=== PATIENT | female | born 1970 | race Caucasian/White ===

== ENCOUNTER → 2020-06-14 11:48 | Outpatient (BNVA) | payer OTHER, SELFPAY | PROVIDERS: PCP Family Medicine; Referring Provider Family Medicine; Visit Provider Urology | DX: Z76.89 Persons encountering health services in other specified circumstances (principal) | CPT/HCPCS: 99202 ==

== ENCOUNTER 2020-06-26 12:11 | Outpatient (REF) | payer OTHER, SELFPAY ==
[2020-06-26 13:04] LABS: Glucose Urine UA NEG (NEG); Leukocyte Esterase Urine 2+ (NEG); Nitrite Urine POS (NEG); PH 5.5 (5.0-8.0); Specific Gravity - Urine 1.025 (1.005-1.025); Urine Blood TRACE (NEG); Urine Ketones NEG (NEG); Urine Protein NEG (NEG-TRACE)
[2020-06-26 13:06] LABS: Appearance Urine CLOUDY; Color Urine YELLOW
[2020-06-26 13:19] LABS: Bacteria Urine 2+ /LPF; Mucus Urine TRACE /LPF; RBC Urine 0-2 /HPF (0); Squamous Epithelial Cell Urine 1+ /LPF
== END 2020-06-26 12:12 | disposition home or self-care (01) ==
LOC: HO.LAB 12:11
PROVIDERS: Visit Provider Urology
DX: R35.0 Frequency of micturition (principal)
CPT/HCPCS: 81001; 87086; 87088; 87186

== ENCOUNTER → 2020-07-26 11:12 | Outpatient (BNVA) | payer OTHER, SELFPAY | PROVIDERS: PCP Family Medicine; Visit Provider Urology | DX: Z76.89 Persons encountering health services in other specified circumstances (principal) ==

== ENCOUNTER → 2020-08-23 11:39 | Outpatient (BNVA) | payer OTHER, SELFPAY | PROVIDERS: Visit Provider Urology ==

== ENCOUNTER 2020-09-22 13:59 | Outpatient (REF) | payer OTHER, SELFPAY ==
[2020-09-22 14:12] LABS: Appearance Urine CLEAR; Color Urine YELLOW; Glucose Urine UA 100 MG/DL (NEG); Leukocyte Esterase Urine NEG (NEG); Nitrite Urine NEG (NEG); Specific Gravity - Urine 1.025 (1.005-1.025); Urine Blood NEG (NEG); Urine Ketones NEG (NEG); Urine Protein NEG (NEG-TRACE)
[2020-09-22 14:22] LABS: Bacteria Urine 1+ /LPF; RBC Urine 0 /HPF (0); Squamous Epithelial Cell Urine 1+ /LPF; Urine Talc Crystals TRACE /LPF; WBC Urine 0-2 /HPF (0-4)
[2020-09-22 15:35] LABS: Osmolality Urine 481 mosm/kg (373-1093)
[2020-09-23 17:17] LABS: Urea, 24 Hr Urine 5 g/24 h (6-17)
== END 2020-09-22 14:00 | disposition home or self-care (01) ==
LOC: HO.LNP 13:59
PROVIDERS: Visit Provider Psychiatry & Neurology Neurology
DX: R35.8 Other polyuria (principal)
CPT/HCPCS: 81001; 83935; 84540

== ENCOUNTER 2021-04-12 19:00 | Emergency (ER) | payer OTHER, SELFPAY ==
[2021-04-12 20:04] VITALS: BP 198/96; PULSE 84; RESP 16; TEMP 36.6; O2SAT 98; BMI 38.2
== END 2021-04-12 21:47 | disposition left against medical advice (07) ==
PROVIDERS: Emergency Provider Emergency Medicine; PCP Internal Medicine
DX: R51.9 Headache, unspecified (principal)
CPT/HCPCS: 99281; 99282

== ENCOUNTER 2021-04-23 12:25 | Outpatient (REF) | payer OTHER, SELFPAY ==
[2021-04-23 12:50] LABS: MANUAL DIFF FLAG NO
[2021-04-23 13:22] LABS: Basophils Percent Auto 0.3 % (0-2); Eosinophils Absolute Auto 0.1 X10*3/uL (0.0-0.4); Eosinophils Percent Auto 1.2 % (0-4); Imm Gran Abs Auto 0.01 X10*3/uL (0.00-0.03); Imm Gran Pct Auto 0.2 % (0.0-0.4); Lymphocytes Absolute Auto 2.2 X10*3/uL (1.2-4.9); Lymphocytes Percent Auto 33.7 % (20-40); Mean Corpuscular HGB Conc 33.3 g/dl (31.0-35.0); Mean Corpuscular Hemoglobin 27.8 pg (27.0-33.0); Mean Corpuscular Volume 83.3 fL (80-98); Mean Platelet Volume 12.5 fL (9.4-12.3); Monocytes Absolute Auto 0.3 X10*3/uL (0.1-1.2); Monocytes Percent Auto 4.2 % (2-11); Neutrophils Absolute Auto 3.9 X10*3/uL (2.0-8.3); Neutrophils Percent Auto 60.4 % (45-73); Platelet Count 300 X10*3/uL (160-400); Red Blood Count 4.68 X10*6/uL (4.20-5.50); Red Cell Distribution Width 13.4 % (11.0-16.0); White Blood Count 6.5 X10*3/uL (4.8-10.8)
[2021-04-23 13:40] LABS: Blood Urea Nitrogen 7 mg/dL (9-16); C Reactive Protein 0.42 mg/dL (< or = 0.50); Estimated Glomerular Filt Rate 57
[2021-04-23 13:59] LABS: Erythrocyte Sedimentation Rate 16 MM/HR (0-20)
[2021-04-24 13:06] LABS: Lyme Abs Screen <0.90 index
[2021-04-25 12:07] LABS: Anti Nuclear Antibody Screen NEGATIVE (NEGATIVE)
== END 2021-04-23 12:26 | disposition home or self-care (01) ==
LOC: HO.LAB 12:25
PROVIDERS: PCP Internal Medicine; Visit Provider Psychiatry & Neurology Neurology
DX: R56.9 Unspecified convulsions (principal); Z86.73 Personal history of transient ischemic attack (TIA), and cerebral infarction without residual deficits
CPT/HCPCS: 36415; 82565; 84520; 85025; 85652; 86038; 86039; 86140; 86617; 86618

== ENCOUNTER 2021-06-01 09:25 | Outpatient (REF) | payer OTHER, SELFPAY ==
[2021-06-01 10:33] LABS: Blood Urea Nitrogen 11 mg/dL (9-16); Estimated Glomerular Filt Rate 42
== END 2021-06-01 09:26 | disposition home or self-care (01) ==
LOC: HO.CT 09:25
PROVIDERS: Visit Provider Psychiatry & Neurology Neurology
DX: I63.9 Cerebral infarction, unspecified (principal)
CPT/HCPCS: 36415; 82565; 84520

== ENCOUNTER 2021-06-05 14:51 | Outpatient (REF) | payer OTHER, SELFPAY ==
--- NOTE | ~2021-06-05 | CT_ITS ---
EXAMINATION: CT ANGIOGRAM BRAIN, HEAD CLINICAL INFORMATION: Stroke. COMPARISON: Head CT 02/29/2020. Brain MRI 09/30/2019. TECHNIQUE: Test bolus sequences followed by intravenous administration 75 mL of Omnipaque 350 intravenous contrast. Helical imaging was performed in the axial plane from the skull base to the vertex. Delayed postcontrast imaging of the head was also performed. The data was processed at the mining engineering technologist workstation for generation of MIP sequences. Three-dimensional volume rendered reformatted images were also generated at an offline 3-D workstation. The degree of stenosis determined by NASCET criteria. This CT examination was performed using dose optimization techniques as appropriate, variously including the following: *Automated exposure control *Adjustment of mA and/or kV according to patient size (this includes techniques or standardized protocols for targeted exams where dose is matched to indication/reason for exam; i.e. extremities or head) *Use of iterative reconstruction technique DLP: 2298 mGy-cm FINDINGS: Head CT: There is redemonstration of chronic infarcts involving the left posterior parietal and temporal lobes as well as the temporal occipital junction. Small areas of chronic infarction are noted involving the deep left frontoparietal white matter and right frontal lobe. Chronic lacunar infarcts are seen within the bilateral basal ganglia, bilateral thalami, and andreea. No acute appearing infarction is seen. Hypoattenuation is seen within the cerebral white matter compatible chronic microangiopathy. There is no abnormal enhancement. There is no mass effect. The ventricular caliber is stable. There is ex vacuo dilatation of the posterior left lateral ventricle. The extracranial structures are within normal limits. Right-sided craniotomy changes are noted. 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 Head CTA: Atheromatous changes are seen at the bilateral carotid siphons. There is moderate stenosis of the paraclinoid segment of the left internal carotid artery. There is focal moderate stenosis of the left M1 MCA segment. The right MCAs patent. The bilateral ACAs are patent. The intradural segments of the vertebral arteries and basilar artery are patent. There is -type origin of the left POKE IN. Both ship unloader are patent. No aneurysm is seen. CT/CT angio head IMPRESSION: No acute intracranial abnormality. Multiple chronic cortical infarcts, largest in the left posterior parietal and temporal lobes as well as in the temporal occipital junction. Multiple chronic lacunar infarcts are also seen within the basal ganglia, thalami, and andreea. Background changes of chronic microangiopathy. Moderate stenosis of the paraclinoid segment of the left internal carotid artery and additional moderate stenosis of the left M1 MCA segment.
[2021-06-05] MEDS: iohexoL 350 MG/ML 100 ML INFUS..BTL IV (16:08)
== END 2021-06-05 14:52 | disposition home or self-care (01) ==
LOC: HO.CT 14:51
PROVIDERS: PCP Internal Medicine; Visit Provider Psychiatry & Neurology Neurology
DX: I63.9 Cerebral infarction, unspecified (principal)
CPT/HCPCS: 70496; Q9967

== ENCOUNTER → 2021-08-14 14:18 | Outpatient (BNVA) | payer OTHER, SELFPAY | PROVIDERS: PCP Internal Medicine; Referring Provider Internal Medicine; Visit Provider Internal Medicine Cardiovascular Disease | DX: I10 Essential (primary) hypertension (principal); R07.9 Chest pain, unspecified | CPT/HCPCS: 93005; 99202 ==

== ENCOUNTER → 2021-08-30 08:22 | Outpatient (REF) | payer OTHER, SELFPAY ==
--- NOTE | ~2021-08-30 | NM_ITS ---
Myocardial perfusion study Indication: Chest pain to evaluate for myocardial ischemia Technique: The patient was brought in for a Lexiscan perfusion study on 08/30/2021. Patient performed low-level exercise and was injected 0.4 mg of Lexiscan intravenously. Within a minute of injection, 30 mCi of sestamibi was given intravenously. Images were obtained using the SPECT gamma camera interlaced with the gating device. Images were obtained in supine position. Resting perfusion study was performed on 08/31/2021. Patient was administered 29 mCi of sestamibi intravenously at rest. Images were then obtained in supine position. Images obtained with and without CT attenuation. Total DLP 189 mGy-cm. Images were processed with the software and compared side to side in short axis, horizontal long axis and vertical long axis views. Findings: The stress perfusion study showed both attenuated corrected as well as non attenuated images show normal uptake of radiotracer in all segments of LV myocardium.. The gated study shows normal LV systolic function with calculated LVEF of 68%. LV cavity is normal in size. The gated study shows normal systolic wall thickening and contraction of segments. Resting study shows no change in perfusion pattern compared to stress perfusion study. Gating at rest reveals normal systolic wall motion with ejection fraction at greater than 70 %. The findings are consistent with normal myocardial perfusion. NM/NM martin perf SPECT rest & str Impression: 1. Myocardial perfusion imaging study shows normal myocardial perfusion 2. Gated LVEF is 68% 3. Transient ischemic dilatation not present EKG is nondiagnostic for ischemia
--- NOTE | 2021-08-30 08:25 | CA_ITS ---
Acquisition Time: 2021-08-30 08:32:44 Total Exercise Time: 00:02:00 Test Indications: CP, ABN EKG, SOB Medications: SEE CHART Protocol: LEXISCAN Max HR: 100 BPM 59% of Pred: 167 BPM Max BP: 146/078 mmHG Max Work Load: 1.0 METS Pharmacological stress test with Lexiscan injection, while sitting and kicking her legs, without anginal symptoms, without arrythmia, with normotensive response to injection, with nonspecific ST/ T wave abnormalities which are more pronounced post injection - nondiagnostic for ischemia. In recovery she reported that her chest felt strange and she was treated with Aminophylline 75mg IVP to reverse Lexiscan with improvement in symptom. Nuclear image pending. Test reviewed with Dr Velazquez. Referred By: Hilario Serrano Overread By: DAISY GÓMEZ
== END ==
LOC: HO.CARD 08:22
PROVIDERS: Visit Provider Internal Medicine Cardiovascular Disease
DX: R07.9 Chest pain, unspecified (principal)
CPT/HCPCS: 78452; 93017; A9500; J0280; J2785

== ENCOUNTER → 2021-09-12 07:21 | Outpatient (REF) | payer OTHER, SELFPAY ==
--- NOTE | 2021-09-12 07:33 | CA_ITS ---
Transthoracic Echocardiogram Patient (Last, First, Middle): Esmer Rock M Gender: Female Date of : 1970 Age: 51 Procedure Date: 09/12/2021 Procedure Type: Transthoracic Echocardiogram Location: OP Height: 167.64 cm Weight: 104.33 kg BSA: 2.12 m2 Heart Rate: bpm BP: 170 / 108 mmHg Chief Deputy: KELLEN Referring MD: Hilario Serrano MD Symptoms: I10 - Essential (primary) hypertension Study Quality: Technically Difficult/contrast ECG Rhythm: Sinus Conclusions: - The left ventricular systolic function is normal. The calculated ejection fraction is 68% by biplane method. - There is severely increased left ventricular wall thickness. - There is mild calcification of the aortic valve. - There is mild dilatation of the ascending aorta measuring 4.00 cm. Findings Procedure Information Contrast agent, definity, is being given per protocol without apparent complications. Left Ventricle Normal left ventricular cavity size. There is severely increased left ventricular wall thickness. The left ventricular systolic function is normal. The calculated ejection fraction is 68% by biplane method. There is no evidence of regional wall motion abnormalities. Evidence suggests grade I (mild) diastolic dysfunction. Right Ventricle Normal right ventricular cavity size and systolic function. Atria Both atria are normal in size. Aortic Valve There is a normal trileaflet aortic valve. There is mild calcification of the aortic valve. There is no aortic valve stenosis. There is no aortic valve regurgitation. Mitral Valve The mitral valve appears normal. There is no mitral valve regurgitation. There is no mitral valve stenosis. Pulmonic Valve The pulmonic valve was not well visualized. Tricuspid Valve There is trace tricuspid valve regurgitation. The pulmonary artery systolic pressure is normal. Great Vessels There is mild dilatation of the ascending aorta measuring 4.00 cm. Venous The inferior vena cava is normal in size. Pericardium/Pleural There is no evidence of pericardial effusion. Prior Study Comparison Changes noted compared to prior study dated: 05/08/2015. Increase in ascending aortic size. Measurements 2D Linear Measurements IVSd: 1.73 0.6-0.9/0.6-1.0 cm LVIDd: 4.15 3.9-5.3/4.2-5.9 cm LVIDd Index: 1.96 2.4-3.2/2.2-3.1 cm/m2 LVIDs: 3.33 2.0-3.6 cm LVPWd: 1.19 0.7-1.1 cm Ao Root: 3.00 2.1-3.5 cm LA Diam: 3.90 2.7-3.8/3.0-4.0 cm LAIDs Index: 1.84 1.5-2.3 cm/m2 LV Mass: 293.20 67-162/88-224 g LV Mass Index: 138.30 43-95/49-115 g/m2 LVOT Diam: 2.20 3.0+(-)1.3 cm 2D Systolic Function EF 4C: 68.40 >55% EF 2C: 66.00 >55% EF BiP: 67.60 >55% Mitral Valve MV Pk E: 0.40 MV PK A: 0.88 MV Decel Time: 194.00 E/A: 0.50 E'Lateral: 4.13 E'Medial: 3.92 E/E' Med: 10.20 E/E' Lat: 9.60 PHT: 57.00 MVA PHT: 3.86 Decel Stephens: 2.05 Aortic Valve AoV Pk Toby: 1.27 AoV Mn Toby: 0.90 AoV VTI: 0.25 AoV Pk Grad: 6.00 Aov Mn Grad: 4.00 VENITA Cont.VTI: 2.42 LVOT LVOT Pk Toby: 0.85 LVOT Mn Toby: 0.62 LVOT VTI: 0.16 LVOT Pk Grad: 3.00 LVOT Mn Grad: 2.00 LVOT Diam: 2.20 LVOT Area: 3.80 Diastolic Function MV Pk E: 0.40 MV Pk A: 0.88 E/A: 0.50 E'Medial: 3.92 E/E' Med: 10.20 E' Laterial: 4.13 E/E' Lat: 9.60 Right Ventricle TAPSE (mm): 17.00 TVS' Toby: 9.46 Tricuspid Valve TR Pk Toby: 1.15 TR Pk Grad: 5.00 Great Vessels Aorta Ao Root-2D: 3.00 2.0-3.7 cm Ao Asc: 4.00 2.1-3.4 cm Ao Arch: 3.20 Updated in Other Vendor System with Status of Final Jose Miguel Theodore MD electronically signed on 09/14/2021 4:08:12 PM with status of Final
== END ==
LOC: HO.CARD 07:21
PROVIDERS: PCP Internal Medicine; Visit Provider Internal Medicine Cardiovascular Disease
DX: I10 Essential (primary) hypertension (principal); Z86.73 Personal history of transient ischemic attack (TIA), and cerebral infarction without residual deficits
CPT/HCPCS: 93306; Q9957

== ENCOUNTER → 2021-09-20 12:53 | Outpatient (BNVA) | payer OTHER, SELFPAY | PROVIDERS: PCP Internal Medicine; Referring Provider Internal Medicine; Visit Provider Nurse Practitioner Family | DX: R07.9 Chest pain, unspecified (principal); I51.7 Cardiomegaly; I10 Essential (primary) hypertension; E78.5 Hyperlipidemia, unspecified; E66.9 Obesity, unspecified; Z68.38 Body mass index [BMI] 38.0-38.9, adult; Z86.73 Personal history of transient ischemic attack (TIA), and cerebral infarction without residual deficits | CPT/HCPCS: 99212 ==

== ENCOUNTER 2022-02-01 08:36 | Outpatient (REF) | payer OTHER, SELFPAY ==
[2022-02-02 14:53] LABS: BV Int Neg Control Negative (Negative); BV Int Pos Control Positive (Positive)
== END 2022-02-01 08:37 | disposition home or self-care (01) ==
LOC: HO.LAB 08:36
PROVIDERS: Visit Provider Advanced Practice Midwife
DX: N89.8 Other specified noninflammatory disorders of vagina (principal); L29.2 Pruritus vulvae; N63.0 Unspecified lump in unspecified breast
CPT/HCPCS: 87480; 87510; 87660; 99212

== ENCOUNTER 2022-02-14 09:25 | Outpatient (REF) | payer OTHER, SELFPAY ==
--- NOTE | ~2022-02-14 | MM_ITS ---
EXAMINATION: MM DIAGNOSTIC DIGITAL BREAST TOMOSYNTHESIS, BILATERAL US DIAGNOSTIC ULTRASOUND BREAST, LEFT CLINICAL INFORMATION: Due for yearly. Chronic nodule posterior medial left breast, larger. Remote prior reduction mammoplasty, 2009. The lifetime risk of breast cancer based on the Tyrer-Cuzick Model is 9%. COMPARISON: Mammography: 07/29/2018, 07/17/2017, 04/16/2016; targeted left breast ultrasound 04/16/2016. TECHNIQUE: Digital breast tomosynthesis is performed in both the craniocaudal and mediolateral oblique views along with computer-aided detection (CAD). Synthesized 2D images are generated from the tomosynthesis. Ultrasound ultrasound left breast is targeted to the palpable nodule posterior medial breast 8:00 position. Grayscale imaging and color Doppler are performed without and with harmonics. FINDINGS: There are scattered areas of fibroglandular density (ACR BI-RADS breast composition Category b). Breast tissue composition borders on predominantly fatty. There is minor scarring consistent with the remote reduction mammoplasty. There is no interval new mass or architectural abnormality. There are scattered benign bilateral round calcifications, some are dermal. The axilla are unremarkable. No significant changes on right. Left breast has chronic circumscribed nodule overlying the deep dermis measuring approximately 1.0 x 1.5 cm compared with prior mammography measurements in 2018 and 2015 of 0.6 x 0.8 cm. Ultrasound demonstrates a circumscribed oval hypoechoic nodule corresponding to the palpable nodule and contacting the deep dermis with questionable small claw sign 8:00 position 11 cm from nipple measuring approximately 1.1 x 1.0 x 0.9 cm. There is scattered internal echogenicity and increased through-transmission of sound. There is no internal or circumferential color flow. A fine stalk to the skin surface is not perceptible. Results are discussed with the patient at time of visit. The chronic nodule posterior medial left breast most likely represents a slowly enlarging sebaceous cyst. It would be amenable to surgical excision. Patient Navigator to call report. MM/MM tomosynthesis diagnostic BI IMPRESSION: Left: -Chronic nodule posterior medial left breast likely sebaceous cyst, increased in size since 2016. -Remainder of left breast unremarkable. Right: -No mammographic evidence of malignancy. ASSESSMENT: BI-RADS 2: Benign RECOMMENDATION: 1. Patient should be managed based on the clinical impression. The probable sebaceous cyst posterior medial left breast would be amenable to surgical excision. 2. Otherwise, routine annual screening mammography. This patient's information was entered into a reminder system with a target due date for their next mammogram.
== END 2022-02-14 09:26 | disposition home or self-care (01) ==
LOC: HO.MAMMO 09:25
PROVIDERS: Visit Provider Advanced Practice Midwife
DX: N63.24 Unspecified lump in the left breast, lower inner quadrant (principal)
CPT/HCPCS: 76642; 77062; 77066

== ENCOUNTER → 2022-03-05 10:57 | Outpatient (BNVA) | payer OTHER, SELFPAY | PROVIDERS: PCP Internal Medicine; Visit Provider Internal Medicine | DX: K63.5 Polyp of colon (principal); K20.90 Esophagitis, unspecified without bleeding; R13.10 Dysphagia, unspecified; R19.7 Diarrhea, unspecified; Z79.01 Long term (current) use of anticoagulants; Z86.73 Personal history of transient ischemic attack (TIA), and cerebral infarction without residual deficits | CPT/HCPCS: 99202; 99212 ==

== ENCOUNTER → 2022-03-21 13:35 | Outpatient (BNVA) | payer OTHER, SELFPAY | PROVIDERS: PCP Internal Medicine; Visit Provider Surgery | DX: N63.24 Unspecified lump in the left breast, lower inner quadrant (principal) | CPT/HCPCS: 99202 ==

== ENCOUNTER → 2022-03-27 09:24 | Outpatient (BNVA) | payer OTHER, SELFPAY | PROVIDERS: PCP Internal Medicine; Referring Provider Internal Medicine; Visit Provider Internal Medicine Cardiovascular Disease | DX: I51.7 Cardiomegaly (principal); R07.9 Chest pain, unspecified | CPT/HCPCS: 99212 ==

== ENCOUNTER → 2022-04-11 13:42 | Outpatient (BNVA) | payer OTHER, SELFPAY | PROVIDERS: PCP Internal Medicine; Visit Provider Internal Medicine | DX: E66.9 Obesity, unspecified (principal); G47.19 Other hypersomnia; Z68.36 Body mass index [BMI] 36.0-36.9, adult | CPT/HCPCS: 99202 ==

== ENCOUNTER 2022-04-22 11:49 | Outpatient (REF) | payer OTHER, SELFPAY ==
[2022-04-22 12:44] LABS: Anion Gap 18 (12-20); Blood Urea Nitrogen 10 mg/dL (9-16); Calcium 9.5 mg/dL (8.4-10.2); Carbon Dioxide 24 mmol/L (22-29); Chloride 102 mmol/L (96-108); Estimated Glomerular Filt Rate 59; Glucose Random 241 mg/dL (60-115); Potassium 4.2 mmol/L (3.3-5.1); Sodium 140 mmol/L (135-145)
== END 2022-04-22 11:50 | disposition home or self-care (01) ==
LOC: HO.LAB 11:49
PROVIDERS: Visit Provider Internal Medicine Cardiovascular Disease
DX: I10 Essential (primary) hypertension (principal); I51.7 Cardiomegaly
CPT/HCPCS: 36415; 80048

== ENCOUNTER 2022-05-03 13:54 | Outpatient (REF) | payer OTHER, SELFPAY ==
[2022-05-03 14:28] LABS: Hematocrit 37.1 % (37.0-47.0); Hemoglobin 12.9 g/dl (12.0-16.0); Mean Corpuscular HGB Conc 34.8 g/dl (31.0-35.0); Mean Corpuscular Hemoglobin 29.5 pg (27.0-33.0); Mean Corpuscular Volume 84.9 fL (80.0-98.0); Mean Platelet Volume 12.4 fL (9.4-12.3); Platelet Count 290 X10*3/uL (160-400); Red Blood Count 4.37 X10*6/uL (4.20-5.50); White Blood Count 7.6 X10*3/uL (4.8-10.8)
[2022-05-03 14:35] LABS: Prothrombin Time 11.3 SEC (10.0-13.1)
[2022-05-03 14:51] LABS: Anion Gap 17 (12-20); Blood Urea Nitrogen 10 mg/dL (9-16); Calcium 9.3 mg/dL (8.4-10.2); Carbon Dioxide 27 mmol/L (22-29); Chloride 100 mmol/L (96-108); Estimated Glomerular Filt Rate 56; Glucose Random 234 mg/dL (60-115); Potassium 4.5 mmol/L (3.3-5.1); Sodium 139 mmol/L (135-145)
== END 2022-05-03 13:55 | disposition home or self-care (01) ==
LOC: HO.LAB 13:54
PROVIDERS: PCP Internal Medicine; Visit Provider Internal Medicine Cardiovascular Disease
DX: I25.10 Atherosclerotic heart disease of native coronary artery without angina pectoris (principal)
CPT/HCPCS: 36415; 80048; 85027; 85610

== ENCOUNTER 2022-05-07 10:42 | Outpatient (REF) | payer OTHER, SELFPAY ==
[2022-05-07 10:59] VITALS: BP 184/84; PULSE 78; RESP 19; TEMP 36.6; O2SAT 98; BMI 27.4
--- NOTE | 2022-05-07 11:36 | W.PM.OPN ---
Operative Note Operative Note Date of Service: 05/07/22 Narrative: Preoperative diagnosis: Left breast cyst Postoperative diagnosis: Same Procedure: Excision of left breast cyst Surgeon: Guero Rojas MD Banquet Server On Call: No physician Anesthesia: Local lidocaine 2% with epinephrine Indications for procedure: 51-year-old female patient presenting with a palpable mass located in the left breast at approximately the 10 o'clock position. Workup with ultrasound confirmed an epidermal inclusion cyst which corresponds to the palpable lesion. Patient has requested excision of this lesion. Operative findings: 1.5 cm diameter epidermal inclusion cyst left breast 10 o'clock position Specimen: Epidermal inclusion cyst left breast Estimated blood loss: Less than 1 mL Complications: None Procedure details: Patient was brought to the minor surgery suite and placed in a supine position. The site of surgery was confirmed by the patient in the left breast. After assuring informed consent the skin was prepped with Betadine and draped in a sterile fashion. Local anesthesia was infiltrated in a transverse fashion around the lesion. An elliptical incision was then created with a 15 blade. This was carried out through subcutaneous tissue and around the cyst wall. The cyst wall extended approximately 1.5 cm deep into the subcutaneous tissue. Hemostasis was assured with light pressure. Lesion was passed off the table and sent to pathology for further examination. Dermis was then reapproximated using interrupted 4-0 Polysorb sutures. Skin was closed using a running subcuticular 4-0 Polysorb suture. Steri-Strips 2 x 2 gauze and Tegaderm were then applied. The patient tolerated the procedure well. She was discharged to home in stable condition.
== END 2022-05-07 10:43 | disposition home or self-care (01) ==
LOC: HO.MS 10:42
PROVIDERS: Visit Provider Surgery
PROC: (CPT 19120; principal; 2022-05-07 11:10)
DX: N60.02 Solitary cyst of left breast (principal)
CPT/HCPCS: 19120; 88304

== ENCOUNTER → 2022-05-29 11:01 | Outpatient (BNVA) | payer OTHER, SELFPAY | PROVIDERS: PCP Internal Medicine; Referring Provider Internal Medicine; Visit Provider Internal Medicine Cardiovascular Disease | DX: I25.10 Atherosclerotic heart disease of native coronary artery without angina pectoris (principal) | CPT/HCPCS: 99212 ==

== ENCOUNTER → 2022-07-11 14:13 | Outpatient (BNVA) | payer OTHER, SELFPAY | PROVIDERS: PCP Internal Medicine; Referring Provider Internal Medicine; Visit Provider Nurse Practitioner Family | DX: I25.118 Atherosclerotic heart disease of native coronary artery with other forms of angina pectoris (principal); I10 Essential (primary) hypertension; E78.5 Hyperlipidemia, unspecified; E66.01 Morbid (severe) obesity due to excess calories; Z68.37 Body mass index [BMI] 37.0-37.9, adult; Z86.73 Personal history of transient ischemic attack (TIA), and cerebral infarction without residual deficits; Z98.890 Other specified postprocedural states | CPT/HCPCS: 93005; 99212 ==

== ENCOUNTER → 2022-08-21 13:08 | Outpatient (BNVA) | payer OTHER, SELFPAY | PROVIDERS: PCP Internal Medicine; Referring Provider Internal Medicine; Visit Provider Nurse Practitioner Family | DX: I25.119 Atherosclerotic heart disease of native coronary artery with unspecified angina pectoris (principal); E78.5 Hyperlipidemia, unspecified; Z98.890 Other specified postprocedural states | CPT/HCPCS: 99212 ==

== ENCOUNTER 2022-09-25 07:41 | Day surgery (SDC) | payer OTHER, SELFPAY ==
[2022-04-12 15:36] VITALS: BMI 36.1
[2022-04-12 16:14] VITALS: BMI 36.1
--- NOTE | 2022-09-24 10:35 | HO.ANESPROP2 ---
Documented by User: Maxine Vann NP 09/24/22 10:39 HPI - Anesthesia Eval Consult details Narrative: 52yo F for Upper Endoscopy and Colonoscopy Cardiac cleared (cardiac catheterization on 05/21/2022 showing distal left circumflex 80% stenosis, small vessel, not amenable to PCI.) [facility] Active Problems Active Problems: All Active Problems (Updated 07/12/22 @ 08:21 by Cristal Wilkins NP-C) Exertional angina (Acute) S/P cardiac catheterization (Acute) CAD (coronary artery disease) (Acute) Overactive bladder (Acute) Frequency of urination (Acute) Screening for breast cancer (Acute) Exertional chest pain (Acute) LVH (left ventricular hypertrophy) (Acute) Breast lump on left side at 8 o'clock position (Acute) Colon polyps (Acute) Excessive daytime sleepiness (Acute) Obesity (BMI 35.0-39.9 without comorbidity) (Acute) Multiple sclerosis (Acute Unknown) History of multiple strokes (Acute) Cerebrovascular disease (Acute) Hyperlipidemia (Acute) Benign nevus (Acute) Family history of breast cancer (Acute) Essential (primary) hypertension (Acute) Past Medical History Medical History (Updated 09/25/22 @ 09:20 by Alissa Barrera MD) Benign nevus Breast cancer in female Cardiomyopathy Cerebrovascular disease Essential (primary) hypertension Excessive daytime sleepiness Family history of breast cancer GERD (gastroesophageal reflux disease) Headache History of multiple strokes Hyperlipidemia Multiple sclerosis (Unknown) Obesity (BMI 35.0-39.9 without comorbidity) Family History Family History Mother Cancer Brother H/O heart surgery Surgical History Surgical History History of breast surgery History of esophagogastroduodenoscopy (EGD) History of removal of cyst (05/07/22) Hx of colonoscopy Social History Social History Household Members: None Household Members Other:: daughter away at college Housing: Apartment Are you a primary career development engineer to a significant other at home: No Do you presently have visiting nurse or other home services: Yes (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 If so, by whom?: No Are you DNR?: No Advance Directives: No Advance Directives Information Provided: Yes Advance Directives on File: No Recently lost weight without trying: No Patient : No Meds Allergies Allergy/AdvReac Type Severity Reaction Status Date / Time No Known Allergies Allergy Verified 09/25/22 07:57 Home Medications Medication Instructions Recorded Confirmed Last Taken Type amitriptyline 100 mg tablet 100 mg PO BEDTIME 06/14/20 09/25/22 Unknown History amlodipine 10 mg tablet 10 mg PO DAILY 06/14/20 09/25/22 Unknown History dabigatran etexilate 150 mg capsule 150 mg PO BID 06/14/20 09/25/22 09/11/22 History hydrochlorothiazide 25 mg tablet 25 mg PO QAM 06/14/20 09/25/22 Unknown History propranolol 120 mg capsule,24 120 mg PO DAILY 06/14/20 09/25/22 Unknown History hr,extended release zolpidem 10 mg tablet 10 mg PO BEDTIME 06/14/20 09/25/22 Unknown History oxycodone-acetaminophen 5 mg-325 1 tab PO DAILY PRN Pain 08/14/21 09/25/22 Unknown History mg tablet atorvastatin 40 mg tablet (Lipitor) 40 mg PO DAILY 09/25/22 09/25/22 Unknown History Exam Exam Date and Time: September 24, 2022 1035 Height,Weight and Vital Signs: Height 5 ft 5 in Weight 98.43 kg Pertinent Lab Results Pertinent Lab Results: Laboratory Tests 05/03/22 05/03/22 14:06 14:06 WBC 7.6 Hgb 12.9 Hct 37.1 Plt Count 290 Sodium 139 Potassium 4.5 Chloride 100 Carbon Dioxide 27 BUN 10 Creatinine 1.03 Narrative Narrative: cardiac catheterization on 05/21/2022 distal left circumflex 80% stenosis, small vessel, not amenable to PCI. EKG 06/2022 sinus rhythm, ST and T-wave abnormalities, unchanged from prior EKG, rate 68, QTC 450 millisecond ECHO 2021 Conclusions: - The left ventricular systolic function is normal.? The ? calculated ejection fraction is 68% by biplane method. ? - There is severely increased left ventricular wall thickness. ? - There is mild calcification of the aortic valve. ? - There is mild dilatation of the ascending aorta measuring 4.00 cm.? ?? NM martin perf SPECT rest & str 2021 Impression: ? 1.? Myocardial perfusion imaging study shows normal myocardial perfusion 2.? Gated LVEF is 68% 3. Transient ischemic dilatation not present ? EKG is nondiagnostic for ischemia Assessment and Plan Assessment Anesthesia Assessment: Chart Reviewed Documented by User: Ailssa Barrera MD 09/25/22 09:45 [facility] Active Problems Active Problems: All Active Problems (Updated 09/25/22 @ 09:20 by Alissa aBrrera MD) Exertional angina (Acute) S/P cardiac catheterization (Acute) CAD (coronary artery disease) (Acute) Overactive bladder (Acute) Frequency of urination (Acute) Screening for breast cancer (Acute) Exertional chest pain (Acute) LVH (left ventricular hypertrophy) (Acute) Breast lump on left side at 8 o'clock position (Acute) Colon polyps (Acute) Excessive daytime sleepiness (Acute) Obesity (BMI 35.0-39.9 without comorbidity) (Acute) Multiple sclerosis (Acute Unknown) History of multiple strokes (Acute) Cerebrovascular disease (Acute) Hyperlipidemia (Acute) Benign nevus (Acute) Family history of breast cancer (Acute) Essential (primary) hypertension (Acute) ?ROGELIO. Yet to have sleep study as ordered Mild dilatation of ascending aorta 4cm On pradaxa. Last dose 1.5 weeks ago Past Medical History Medical History (Updated 09/25/22 @ 09:20 by Alissa Barrera MD) Benign nevus Breast cancer in female Cardiomyopathy Cerebrovascular disease Essential (primary) hypertension Excessive daytime sleepiness Family history of breast cancer GERD (gastroesophageal reflux disease) Headache History of multiple strokes Hyperlipidemia Multiple sclerosis (Unknown) Obesity (BMI 35.0-39.9 without comorbidity) Family History Family History Mother Cancer Brother H/O heart surgery Family history of problems with anesthesia: No Surgical History Surgical History History of breast surgery History of esophagogastroduodenoscopy (EGD) History of removal of cyst (05/07/22) Hx of colonoscopy History of Problems with Anesthesia: No Social History Social History Household Members: None Household Members Other:: daughter away at college Housing: Apartment Are you a primary career development engineer to a significant other at home: No Do you presently have visiting nurse or other home services: Yes (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 If so, by whom?: No Are you DNR?: No Advance Directives: No Advance Directives Information Provided: Yes Advance Directives on File: No Recently lost weight without trying: No Patient : No Meds Allergies Allergy/AdvReac Type Severity Reaction Status Date / Time No Known Allergies Allergy Verified 09/25/22 07:57 Home Medications Medication Instructions Recorded Confirmed Last Taken Type amitriptyline 100 mg tablet 100 mg PO BEDTIME 06/14/20 09/25/22 Unknown History amlodipine 10 mg tablet 10 mg PO DAILY 06/14/20 09/25/22 Unknown History dabigatran etexilate 150 mg capsule 150 mg PO BID 06/14/20 09/25/22 09/11/22 History hydrochlorothiazide 25 mg tablet 25 mg PO QAM 06/14/20 09/25/22 Unknown History propranolol 120 mg capsule,24 120 mg PO DAILY 06/14/20 09/25/22 Unknown History hr,extended release zolpidem 10 mg tablet 10 mg PO BEDTIME 06/14/20 09/25/22 Unknown History oxycodone-acetaminophen 5 mg-325 1 tab PO DAILY PRN Pain 08/14/21 09/25/22 Unknown History mg tablet atorvastatin 40 mg tablet (Lipitor) 40 mg PO DAILY 09/25/22 09/25/22 Unknown History Exam Height,Weight and Vital Signs: Height 5 ft 5 in Weight 98.43 kg Vital Signs Temp Pulse Resp BP Pulse Ox O2 Del Method 09/25/22 08:04 97.9 F 91 16 177/96 H 97 Room Air Airway Mallampati Class: III TM Dist: >3cm Neck ROM: Limited (Limited extension) Loose/Missing/Broken Teeth: No (Denies broken, loose, missing teeth) Heart: RRR Lungs: CTAB Assessment and Plan Assessment Anesthesia Assessment: Anesthesia Plan Discussed Final Anesthetic Review Family History of Problems with Anesthesia: No History of Problems with Anesthesia: No NPO: Yes ASA Class: III Final Preanesthetic Review: No Changes in Pt Med Stat, Meds/Allgs Chart Reviewed, Consent Obtained/Reviewed and Anes Risks/Benef Reviewed Patient Risk: Intermediate Procedure Risk: Low Assessment/Block/Sedation in SS: Assess/Block/Sedation-SS Anesthetic Plan Anesthetic Plan: MAC: Disposition: Standard PACU
[2022-09-25 08:04] VITALS: BP 177/96; PULSE 91; RESP 16; TEMP 36.6; O2SAT 97
[2022-09-25] MEDS: Lactated Ringers 1,000 ML 100 ML IVCONT (08:22)
--- NOTE | 2022-09-25 08:57 | MHC.SHP ---
Pre-Procedural Eval Section A Date of Service: 09/25/22 Section B Chief Complaint: polyp,esophagitis,dysphagia Details of Present Illness: PMH: Benign nevus Breast cancer in female Cerebrovascular disease Essential (primary) hypertension Family history of breast cancer History of multiple strokes Hyperlipidemia Multiple sclerosis (Unknown) Relevant Family History (Specify if Yes): No Relevant Social History: None Present Medications: see Short Stay Collaborative assessment History of Previous Operations: No relevant previous surgery Allergies: Allergies Allergy/AdvReac Type Severity Reaction Status Date / Time No Known Allergies Allergy Verified 09/25/22 07:57 Review of Systems Review of Systems Comment: 10 point ROS negative, except as above Exam Exam Comment: Gen appear: No acute distress HEENT: no icterus Chest: No overt resp distress Abd: soft, nontender, nondistended Psych: Stable affect, answering questions appropriately Neuro: A/Ox3 noted to move all extremities spontaneously Ext: no peripheral edema Plan Diagnosis/Plan: Unchanged I have reviewed the history and physical and performed a pertinent physical examination on my patient. No changes have occurred unless specified. Time Spent With Patient Time: Total time managing care of this patient today ____ minutes.
[2022-09-25 10:02] VITALS: BP 139/70; PULSE 94; RESP 18; TEMP 36.2; O2SAT 98
[2022-09-25 10:16] VITALS: BP 178/91; PULSE 76; RESP 16; O2SAT 98
--- NOTE | 2022-09-25 10:17 | P.OP_ITS ---
Operative Note Operative Note Date of Service: 09/25/22 Narrative: Procedure:?Esophagogastroduodenoscopy and Colonoscopy Indication:?Dysphagia, personal hx of polyps Endoscopist:?Glenys Momin MD Anesthesia Provider:?Gretel Dailey CRNA Anesthesia type:?MAC Instrument:?Olympus GIF-H190, PCF-H190L EGD Procedure:?? The procedure, indications, preparation and potential complications were reviewed with the patient, who indicated understanding and gave written informed consent to proceed. A physical exam was performed. The endoscope was introduced through the mouth, and advanced to the second part of the duodenum. The mucosa was carefully examined on slow withdrawal of the endoscope. The patient tolerated the procedure well. There were no immediate complications.? ? EGD Findings:? * Esophagus: Multiple mucosal breaks and ulceration extending > 1cm above GEJ involving more than 50% circumference. The Z line was at 35 cm. Hiatal hernia was noted with diaphragmatic pinch at 40 cm. Cold forceps biopsies were taken from lower esophagus. * Stomach:?Multiple ulcerations and erosions noted in the stomach especially in the antrum. All of these were clean based. Cold forceps biopsies were taken from the edge of the larger ulcers. Retroflexion confirmed the size and morphology of the large hiatal hernia Hill class C.?Random cold forceps biopsies were taken to rule out H pylori. * Duodenum:? Normal mucosa to the extent seen.? Cold forceps biopsies were taken duodenal bulb and 2nd portion of the duodenum to rule out celiac sprue. Colonoscopy Procedure:? The patient was then turned for the colonoscopy. A digital rectal exam was performed which was normal.? A distal attachment cap was affixed to the tip of the scope and the colonoscope was then inserted through the anus and advanced through the colon to the cecum at 80 cm . The appendiceal orifice and ileocecal valve was identified.? Mucosa was carefully examined under high definition white light as the instrument was slowly withdrawn in a retrograde panoramic fashion.? Retroflexion was performed in rectum. The procedure was not difficult. There were no immediate obvious complications. The quality of the prep was BBPS: 1+2+3 = inadequate in R colon. Withdrawal time 20 minutes. Limitations: Poor prep in R colon. Colonoscopy Findings: Mucosa: Opaque liquid stool was noted in the R side of the colon which precluded adequate visualisation despite extensive flushing and suctioning otherwise normal mucosa in whole colon to the extent visualised. Protruding lesions: * 1 sessile polyp of size 8 mm was noted in the transverse colon. Cold snare polypectomy was performed.? The polyp was completely removed and retrieved.? * 1 pedunculated polyp of size 13 mm was noted in the sigmoid colon. Hot snare polypectomy was performed.? The polyp was completely removed and retrieved.? * Medium internal hemorrhoids without stigmata of recent bleeding. Impression:? * LA Grade C esophagitis * Hiatal hernia * Gastric ulcers (biopsy) * Normal duodenum (biopsy) * Poor prep * 2 polyp removed from transverse and sigmoid colon. * Internal hemorrhoids Recommendations: * Await path results.? * Due to poor prep, will reschedule another colonoscopy in 1-2 years. * If H pylori positive, would recommend treatment * Patient also advised to INCREASE pantoprazole to 40mg BID * Repeat EGD in 10-12 weeks to ensure healing of gastric ulcers and esophagitis. * Resume pradaxa on 09/28. The above was reviewed with the patient and relevant hand outs were provided.
[2022-09-25 10:29] VITALS: BP 176/81; PULSE 79; RESP 16; TEMP 36.3; O2SAT 98
== END 2022-09-25 11:29 | disposition home or self-care (01) ==
PROVIDERS: PCP Internal Medicine; Visit Provider Internal Medicine
PROC: (CPT 45385; principal; 2022-09-25 08:40)
DX: Z12.11 Encounter for screening for malignant neoplasm of colon (principal); Z86.010 Personal history of colon polyps; D12.3 Benign neoplasm of transverse colon; D12.5 Benign neoplasm of sigmoid colon; K64.8 Other hemorrhoids; R13.10 Dysphagia, unspecified; K20.90 Esophagitis, unspecified without bleeding; K25.9 Gastric ulcer, unspecified as acute or chronic, without hemorrhage or perforation; K44.9 Diaphragmatic hernia without obstruction or gangrene; I42.9 Cardiomyopathy, unspecified; I10 Essential (primary) hypertension; E78.5 Hyperlipidemia, unspecified; G35 Multiple sclerosis; I67.9 Cerebrovascular disease, unspecified; Z86.73 Personal history of transient ischemic attack (TIA), and cerebral infarction without residual deficits; Z85.3 Personal history of malignant neoplasm of breast; Z79.899 Other long term (current) drug therapy
CPT/HCPCS: 45385; 43239; 88305; 88342

== ENCOUNTER → 2022-10-09 13:26 | Outpatient (BNVA) | payer OTHER, SELFPAY | PROVIDERS: PCP Internal Medicine; Visit Provider Internal Medicine | DX: K63.5 Polyp of colon (principal); K20.90 Esophagitis, unspecified without bleeding; R13.10 Dysphagia, unspecified | CPT/HCPCS: 99212 ==

== ENCOUNTER → 2022-10-29 11:06 | Outpatient (BNVA) | payer OTHER, SELFPAY | PROVIDERS: PCP Internal Medicine; Referring Provider Internal Medicine; Visit Provider Internal Medicine | DX: K63.5 Polyp of colon (principal); K20.90 Esophagitis, unspecified without bleeding; K44.9 Diaphragmatic hernia without obstruction or gangrene; R13.10 Dysphagia, unspecified | CPT/HCPCS: 99212 ==

== ENCOUNTER → 2022-11-18 13:44 | Outpatient (BNVA) | payer OTHER, SELFPAY | PROVIDERS: PCP Internal Medicine; Referring Provider Internal Medicine; Visit Provider Internal Medicine Cardiovascular Disease | DX: R07.2 Precordial pain (principal); I25.10 Atherosclerotic heart disease of native coronary artery without angina pectoris; I10 Essential (primary) hypertension; Z86.73 Personal history of transient ischemic attack (TIA), and cerebral infarction without residual deficits | CPT/HCPCS: 93005; 99212 ==

== ENCOUNTER 2022-11-28 15:23 | Emergency (ER) | payer OTHER, SELFPAY ==
--- NOTE | ~2022-11-28 | XR_ITS ---
EXAMINATION: XR SHOULDER, RIGHT CLINICAL INFORMATION: Rib pain COMPARISON: None available. TECHNIQUE: Four views of the right shoulder. FINDINGS: No fracture or dislocation. The glenohumeral joint is well aligned with mild narrowing. Small osteophytes. Mild hypertrophic degenerative change of the acromioclavicular joint. The visualized lung is clear. The visualized ribs are intact. XR/XR shoulder RT min 2V IMPRESSION: Mild degenerative changes of the right shoulder.
[2022-11-28 16:26] VITALS: BP 162/91; PULSE 85; RESP 18; TEMP 36.7; O2SAT 96; BMI 36.6
--- NOTE | 2022-11-28 16:26 | ED.GENADULT ---
HPI - General Adult General Chief complaint: Extremity Injury, Upper Stated complaint: needs xray for arm, no injury.. just sore Time Seen by Provider: 11/28/22 16:58 Source: patient, RN notes reviewed and old records reviewed Mode of arrival: ambulatory Limitations: no limitations History of Present Illness HPI narrative: 52-year-old female with past medical history significant for coronary artery disease, CVA, obesity, multiple sclerosis, anemia, hypertension presents for evaluation of right shoulder/arm pain She reports that she has had the pain for last 3 days The pain is worse with any kind of movement She does not remember what what she was doing when the pain started She denies any associated symptoms including palpitations, chest pain, shortness of breath, back pain No other complaints or concerns since Related Data Home Medications Medication Instructions Recorded Confirmed amitriptyline 100 mg tablet 100 mg PO BEDTIME 06/14/20 11/18/22 amlodipine 10 mg tablet 10 mg PO DAILY 06/14/20 11/18/22 dabigatran etexilate 150 mg capsule 150 mg PO BID 06/14/20 11/18/22 hydrochlorothiazide 25 mg tablet 25 mg PO QAM 06/14/20 11/18/22 propranolol 120 mg capsule,24 120 mg PO DAILY 06/14/20 11/18/22 hr,extended release zolpidem 10 mg tablet 10 mg PO BEDTIME 06/14/20 11/18/22 atorvastatin 40 mg tablet (Lipitor) 40 mg PO DAILY 09/25/22 11/18/22 naproxen 500 mg tablet 500 mg PO Q12H PRN 10/09/22 11/18/22 oxycodone-acetaminophen 7.5 mg-325 1 tab PO DAILY 11/18/22 11/18/22 mg tablet Previous Rx's Medication Instructions Recorded clotrimazole-betamethasone 1 1 appl topical BID PRN itching 7 02/01/22 %-0.05 % topical cream days #45 grams pantoprazole 40 mg tablet,delayed 40 mg PO BID #90 tabs 09/25/22 release peg 3350-electrolytes 236 240 ml PO Q10M colonoscopy #4,000 10/09/22 gram-22.74 gram-6.74 gram-5.86 mL gram solution (Golytely) tramadol 50 mg tablet 50 mg PO Q6H PRN severe pain 11/28/22 (scale score 7-10) #12 tabs Allergies Allergy/AdvReac Type Severity Reaction Status Date / Time No Known Allergies Allergy Verified 11/28/22 16:30 Review of Systems Constitutional: Constitutional: Denies chills, Denies fever(s) and Denies headache(s) ENT: Denies headache(s) Cardiovascular: Cardiovascular: Denies chest pain, Denies rapid heart rate, Denies irregular heart rhythm, Denies palpitations and Denies dyspnea Respiratory: Respiratory: Denies cough and Denies dyspnea Gastrointestinal: Gastrointestinal: Denies abdominal pain, Denies nausea and Denies vomiting Musculoskeletal: Musculoskeletal: Denies back pain Integumentary/Breasts: Skin/Breast: Denies rash Neurologic: Denies headache(s) Endocrine: Endocrine: Denies palpitations PMFSH Past Medical History Medical History Benign nevus Breast cancer in female Cardiomyopathy Cerebrovascular disease Essential (primary) hypertension Excessive daytime sleepiness Family history of breast cancer GERD (gastroesophageal reflux disease) Headache History of multiple strokes Hyperlipidemia Multiple sclerosis (Unknown) Obesity (BMI 35.0-39.9 without comorbidity) Surgical History History of breast surgery History of esophagogastroduodenoscopy (EGD) History of removal of cyst (05/07/22) Hx of colonoscopy Family History Family History Mother Cancer Brother H/O heart surgery Social History Social History Household Members: None Household Members Other:: daughter away at college Housing: Apartment Are you a primary acute care nursing assistant to a significant other at home: No Do you presently have visiting nurse or other home services: Yes ([employer]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 MANA[employer]) Alcohol intake: never Patient Tobacco Use Status: Never used Tobacco Advance Directives: No Advance Directives Information Provided: No Physical Exam ED Vital Signs: Vital Signs - 24 hr 11/28/22 16:26 Temperature 98.1 F Pulse Rate 85 Respiratory Rate 18 Blood Pressure 162/91 H Pulse Oximetry 96 BMI result Body Mass Index 36.6 Const General: healthy appearing, comfortable, no acute distress, alert and awake Nutritional Appearance: well nourished Orientation/consciousness: patient oriented x3 HENMT Head: Yes normocephalic and Yes atraumatic Neck Neck: Yes full ROM Chest Other: There is no tenderness to palpation of the entire anterior chest wall Resp Effort & Inspection: normal respiratory effort, able to speak in complete sentences, no audible wheezes and not labored Auscultation: clear to auscultation bilaterally Cardio Rate: regular rate Rhythm: regular rhythm GI Inspection: No distended Palpation (GI): Soft to palpation, not firm, nontender, no guarding and not rigid Auscultation: normoactive bowel sounds Skin General skin exam: no rashes or lesions noted and elasticity normal Neuro General: patient oriented x3 Cranial nerves: Yes Bilaterally intact EOM present Cognition (Neuro): normal cognition Extrem Other: Patient has tenderness to palpation of the right shoulder in the bicipital groove, a, COVID joint, tenderness over the trapezius muscle group on the right and mild right cervical paraspinous tenderness. No visual or palpable deformities. The patient has full range of motion to the upper extremities bilaterally Course Course Course Narrative: This is an RME: Additional HPI, ROS, PE not included below will be deferred to primary provider. 52 year old female with PMH of CAD, extertional angina, obesity, MS, multiple strokes, hyperlipidemia, hypertension, and hiatal hernia presents with right arm pain for 1 day. Patient reports she was not doing anything when the pain started. Denies trauma PE: pain with palpation of right shoulder and right bicep Plan: Imaging Medical Decision Making Medical Decision Making MDM Narrative: 52-year-old female with multiple medical issues presents for evaluation of right shoulder and arm pain. X-ray of the right shoulder is pending There is no radiation to the chest or the back. The patient did have an EKG though abnormal is unchanged from 2020. The patient does not have any chest pain, her pain is easily reproducible on exam and appears musculoskeletal in origin. I do not see any occasion to pursue further workup at this time. Consider treatment with Toradol, however the patient is on Pradaxa so should not be treated with NSAIDs. Differential Diagnosis Right shoulder pain Shoulder strain Calcific tendinitis Arthritis Cervical radiculopathy Independent Interpretation I performed an independent interpretation of an: EKG (Normal sinus rhythm with a rate of 86 beats per minute. There are ST depressions in lead 1 2 and aVL. These were present on the patient's previous EKG from the year 2019.) Radiology Impression Discussion of test interpretation with radiology: I have reviewed the radiologist's reading. Radiologist Impression: Mild degenerative changes of the right shoulder Discharge Plan Discharge Clinical Impression: Arthritis of right shoulder region Patient Disposition: Home, Self-Care Instructions: Osteoarthritis (ED) Additional Instructions: Your x-ray shows arthritis of the right shoulder. Because you are on a blood thinner, you cannot take NSAIDs Therefore I prescribed you tramadol Prescriptions: New tramadol 50 mg tablet 50 mg PO Q6H PRN (Reason: severe pain (scale score 7-10)) Qty: 12 0RF No Action atorvastatin [Lipitor] 40 mg tablet 40 mg PO DAILY pantoprazole 40 mg tablet,delayed release (DR/EC) 40 mg PO BID Qty: 90 3RF zolpidem 10 mg tablet 10 mg PO BEDTIME Pradaxa 150 mg capsule 150 mg PO BID propranolol 120 mg capsule,extended release 24 hr 120 mg PO DAILY amlodipine 10 mg tablet 10 mg PO DAILY amitriptyline 100 mg tablet 100 mg PO BEDTIME hydrochlorothiazide 25 mg tablet 25 mg PO QAM oxycodone-acetaminophen 7.5-325 mg tablet 1 tab PO DAILY clotrimazole-betamethasone 1-0.05 % cream 1 appl topical BID PRN (Reason: itching) 7 Days Qty: 45 0RF naproxen 500 mg tablet 500 mg PO Q12H PRN peg 3350-electrolytes [Golytely] 236-22.74-6.74 -5.86 gram recon soln 240 ml PO Q10M Qty: 4000 0RF Rx Instructions: as per split prep instructions, until fecal effluent is clear
--- NOTE | 2022-11-28 16:30 | ECG_ITS ---
Test Reason : RIGHT ARM PAIN Blood Pressure : / mmHG Vent. Rate : 086 BPM Atrial Rate : 086 BPM P-R Int : 148 ms QRS Dur : 092 ms QT Int : 378 ms P-R-T Axes : 030 001 154 degrees QTc Int : 452 ms Normal sinus rhythm Possible Left atrial enlargement Left ventricular hypertrophy with repolarization abnormality ( R in aVL , Victor M product ) Abnormal ECG When compared with ECG of 29-FEB-2020 23:04, No significant change was found Referred By: Jerrell Corona Electronically Signed By:RENETTA MARKHAM
== END 2022-11-28 18:40 | disposition home or self-care (01) ==
PROVIDERS: Emergency Provider Emergency Medicine Emergency Medical Services; PCP Internal Medicine
DX: M19.011 Primary osteoarthritis, right shoulder (principal); M79.601 Pain in right arm; R94.31 Abnormal electrocardiogram [ECG] [EKG]
CPT/HCPCS: 73030; 93005; 99283

== ENCOUNTER 2022-12-13 08:19 | Outpatient (REF) | payer OTHER, SELFPAY ==
--- NOTE | ~2022-12-13 | FL_ITS ---
EXAMINATION: FL BARIUM SWALLOW CLINICAL INFORMATION: Diaphragmatic hernia without obstruction or gangrene. COMPARISON: None available. TECHNIQUE: Barium swallow examination is performed using fluoroscopic evaluation in addition to multiple fluoroscopic spot views. The patient is imaged both upright and prone and using both thick and thin sulfate along with effervescent granules. Fluoroscopy time: 1.4 minutes DAP: 20.892 uGy-cm2 Images: 53 FINDINGS: Following oral administration of thick barium and barium coated turkey there is normal propagation of bolus from the oral cavity through the pharynx, esophagus into stomach without any evidence of obstruction, narrowing or stricture. There is a small esophageal web along the anterior margin of the cervical esophagus but no obstruction seen. There is no intraluminal or extrinsic mass or compression. On placing patient prone lying, and oral administration of thin barium, there is good distention of entire esophagus. In supine view there is a small hiatal hernia. No reflux seen. FL/FL barium swallow IMPRESSION: Small hiatal hernia without reflux. 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
== END 2022-12-13 08:20 | disposition home or self-care (01) ==
LOC: HO.XRAY 08:19
PROVIDERS: PCP Internal Medicine; Visit Provider Internal Medicine
DX: K44.9 Diaphragmatic hernia without obstruction or gangrene (principal)
CPT/HCPCS: 74220

== ENCOUNTER 2022-12-14 23:38 | Inpatient (IN) | payer OTHER, SELFPAY ==
--- NOTE | ~2022-12-14 | CT_ITS ---
EXAMINATION: CT ANGIOGRAM HEAD AND NECK CLINICAL INFORMATION: Right-sided weakness COMPARISON: 06/05/2021 TECHNIQUE: Test bolus sequences followed by intravenous administration 100 mL of Omnipaque 300 intravenous contrast. Helical imaging was performed in the axial plane from the mediastinum to the skull vertex. Delayed postcontrast imaging of the head was also performed. The data was processed at the optometric technologist's workstation for generation of MIP sequences. Three-dimensional volume rendered reformatted images were also generated at an offline 3-D workstation. This CT examination was performed using dose optimization techniques as appropriate, variously including the following: *Automated exposure control *Adjustment of mA and/or kV according to patient size (this includes techniques or standardized protocols for targeted exams where dose is matched to indication/reason for exam; i.e. extremities or head) *Use of iterative reconstruction technique The degree of stenosis determined by NASCET criteria. DLP: 1512 mGy-cm FINDINGS: BONES, SOFT TISSUES AND LUNG APICES: No overt abnormality is appreciated. CTA NECK: Four-vessel branching pattern of the aortic arch whereby the left vertebral artery originates from the aortic arch. Major arch vessel origins are non-stenotic. The vertebral arteries are co-dominant and both vertebral origins are widely patent. Both common carotid arteries are normal in course and caliber. Both internal carotid arteries demonstrate mild atherosclerotic plaque without significant stenosis. CTA HEAD: There is normal opacification of the major intracranial vessels. No acute proximal large vessel occlusion, focal flow-limiting stenosis, or saccular intracranial aneurysm is identified. No abnormal parenchymal enhancement or regional oligemia is visualized. HEAD (delayed): No pathologic intracranial enhancement. Dural sinuses are patent. There is no evidence of acute intracranial hemorrhage or territorial infarction. No abnormal mass effect or midline shift is seen. Valdes to white matter differentiation is well preserved. No extra-axial fluid collections are identified. No hydrocephalus. No significant volume loss. Chronic right frontal, left parietal, occipital and temporal lobe infarcts. Chronic bilateral gangliocapsular lacunar infarcts and right thalamic lacunar infarct. No acute osseous or soft tissue abnormality. The mastoid air cells and visualized portions of the paranasal sinuses are well aerated. CT/CT angio head neck IMPRESSION: * No large vessel occlusion or hemodynamically significant stenosis within the intracranial or extracranial arterial vasculature. * No acute intracranial hemorrhage or territorial infarction.
--- NOTE | ~2022-12-14 | CT_ITS ---
EXAMINATION: CT HEAD WITHOUT CONTRAST (STROKE PROTOCOL) CLINICAL INFORMATION: Stroke protocol. Facial facial numbness COMPARISON: 06/05/2021 TECHNIQUE: Contiguous axial imaging was performed from the skull base to vertex without intravenous administration of contrast. This CT examination was performed using dose optimization techniques as appropriate, variously including the following: *Automated exposure control *Adjustment of mA and/or kV according to patient size (this includes techniques or standardized protocols for targeted exams where dose is matched to indication/reason for exam; i.e. extremities or head) *Use of iterative reconstruction technique DLP: 752 mGy-cm FINDINGS: There is no evidence of acute intracranial hemorrhage or territorial infarction. No abnormal mass effect or midline shift is seen. Valdes to white matter differentiation is well preserved. No extra-axial fluid collections are identified. No hydrocephalus. No significant volume loss. Chronic right frontal, left parietal, occipital and temporal lobe infarcts. Chronic bilateral gangliocapsular lacunar infarcts and right thalamic lacunar infarct. No acute osseous or soft tissue abnormality. The mastoid air cells and visualized portions of the paranasal sinuses are well aerated. CT/CT head for stroke IMPRESSION: * No acute intracranial pathology. * Chronic right frontal, left parietal, occipital and temporal lobe infarcts. * Chronic bilateral gangliocapsular lacunar infarcts and right thalamic lacunar infarct. This critical result was discussed with Dr Garcia at 12/14/2022 11:59 PM and it was ascertained that the content and urgency of the report was understood at the time of direct communication.
--- NOTE | ~2022-12-14 | MR_ITS ---
EXAMINATION: MR BRAIN WITHOUT CONTRAST CLINICAL INFORMATION: CVA. COMPARISON: Head CT 12/15/2022. TECHNIQUE: Multiplanar, multisequence imaging of the brain was performed without intravenous contrast. FINDINGS: There is a small focus of acute infarction within the left thalamus. There is no large territory infarction, hemorrhage, mass, or extra-axial fluid collection. Extensive chronic lacunar infarcts are seen in the bilateral basal ganglia, thalami, andreea, and deep cerebral white matter. Chronic cortical infarcts are seen within the right more than left frontal lobes and a moderate-sized confluent cortical infarct in the left posterior parietal temporal and occipital lobes. Moderate chronic microangiopathic changes are seen within the white matter. The major arterial flow voids are preserved at the skull base. The extracranial structures are within normal limits. MR/MR head/brain wo con IMPRESSION: Small focus of acute infarction in the left thalamus. No large territory infarction, hemorrhage, or mass. Extensive chronic lacunar infarcts seen throughout the bilateral basal ganglia, thalami, andreea, and deep cerebral white matter. Chronic cortical infarcts seen in the right more than left frontal lobes and in the left posterior parietal temporal and occipital lobes.
--- NOTE | ~2022-12-14 | XR_ITS ---
EXAMINATION: XR CHEST CLINICAL INFORMATION: Stroke COMPARISON: 12/12/2018 TECHNIQUE: Frontal view of the chest was obtained. FINDINGS: No significant abnormality is noted involving the heart, lungs, mediastinum, bony thorax or soft tissues. XR/XR chest 1V IMPRESSION: Unremarkable examination.
--- NOTE | 2022-12-14 23:47 | ECG_ITS ---
Test Reason : STROKE Blood Pressure : / mmHG Vent. Rate : 071 BPM Atrial Rate : 071 BPM P-R Int : 162 ms QRS Dur : 094 ms QT Int : 440 ms P-R-T Axes : 042 009 152 degrees QTc Int : 478 ms Normal sinus rhythm Left ventricular hypertrophy with repolarization abnormality ( R in aVL , [place] product , Romhilt-Jules ) Abnormal ECG When compared with ECG of 28-NOV-2022 16:44, No significant change was found Referred By: Bienvenido Garcia Electronically Signed By:RENETTA MARKHAM
[2022-12-14 23:52] VITALS: BP 160/75; PULSE 76; RESP 16; O2SAT 98; BMI 36.5
[2022-12-14 23:55] LABS: Prothrombin Time Whole Bld POC 11.9 sec (11.1-13.5)
--- NOTE | 2022-12-14 23:59 | PC.NURSE ---
Addendum entered by Fatemeh Ang RN 12/15/22 00:12: Pt also reported around 1930, she was eating dinner and had some trouble chewing and eating. States she has numbness on the right side of her mouth. Original Note: approx 16:00 pt noticed she was stumbling when walking and numbness in the right arm. Pt has hx of 6 strokes in the past, resulting in weakness bilaterally at baseline. Pt took two hydrochlorothiazide for a strong headache, minimal relief. Pt has headaches all the time. pt reports trouble swallowing as well around 1930. Pt has full ROM of the right arm but states it is still numb. Pt also reporting numbness and weakness in the right leg. Pt is unable to lift the right leg, left leg has good ROM. Pt is A&Ox4, GCS 15. Pt is having some trouble differentiating left from right. Reports some vision changes. Dr Garcia is at the bedside. Labs are drawn, CT has been taken, and a 20g iV was placed in the left AC.
[2022-12-15] VITALS (8 sets, daily range): BP systolic 125–160; BP diastolic 64–83; PULSE 52–71; RESP 11–20; TEMP 36–36.8; O2SAT 90–100; BMI 36.1
--- NOTE | 2022-12-15 00:02 | ED_ITS ---
HPI - Neuro Symptoms/Deficit General Chief Complaint: Stroke Stated Complaint: ?Stroke Time Seen by Provider: 12/14/22 23:46 Source: patient Mode of arrival: ambulatory Limitations: no limitations History of Present Illness HPI Narrative: 52-year-old female with significant history of CVA's left her with bilateral body weakness right more than left, at 16:00 today about 8 hours before presenting to the hospital started feeling numbness on the right side of the face and weakness in the right lower extremity, patient was walking with shoveling which is not normal for her, patient did not seek immediate medical attention presented now which is 8 hour later after her symptoms started. Patient is taking Pradaxa normally. Related Data Home Medications Medication Instructions Recorded Confirmed amitriptyline 100 mg tablet 100 mg PO BEDTIME 06/14/20 11/18/22 amlodipine 10 mg tablet 10 mg PO DAILY 06/14/20 11/18/22 dabigatran etexilate 150 mg capsule 150 mg PO BID 06/14/20 11/18/22 hydrochlorothiazide 25 mg tablet 25 mg PO QAM 06/14/20 11/18/22 propranolol 120 mg capsule,24 120 mg PO DAILY 06/14/20 11/18/22 hr,extended release zolpidem 10 mg tablet 10 mg PO BEDTIME 06/14/20 11/18/22 naproxen 500 mg tablet 500 mg PO Q12H PRN 10/09/22 11/18/22 oxycodone-acetaminophen 7.5 mg-325 1 tab PO DAILY 11/18/22 11/18/22 mg tablet Previous Rx's Medication Instructions Recorded clotrimazole-betamethasone 1 1 appl topical BID PRN itching 7 02/01/22 %-0.05 % topical cream days #45 grams pantoprazole 40 mg tablet,delayed 40 mg PO BID #90 tabs 09/25/22 release peg 3350-electrolytes 236 240 ml PO Q10M colonoscopy #4,000 10/09/22 gram-22.74 gram-6.74 gram-5.86 mL gram solution (Golytely) tramadol 50 mg tablet 50 mg PO Q6H PRN severe pain 11/28/22 (scale score 7-10) #12 tabs atorvastatin 40 mg tablet (Lipitor) 40 mg PO DAILY 90 days #90 tabs 12/03/22 Allergies Allergy/AdvReac Type Severity Reaction Status Date / Time No Known Allergies Allergy Verified 11/28/22 16:30 Review of Systems Review of Systems: All other systems are reviewed and are negative Constitutional: Reports as per HPI and Reports no additional constitutional complaints Eyes: Reports as per HPI and Reports no additional eye complaints Reports system reviewed and no additional complaints, except as documented Cardiovascular: Reports as per HPI and Reports no additional cardiovascular complaints Respiratory: Reports as per HPI and Reports no additional respiratory complaints Gastrointestinal: Reports as per HPI and Reports no additional gastrointestinal complaints Genitourinary: Reports no additional female genitourinary complaints Musculoskeletal: Reports no additional musculoskeletal complaints Skin/Breast: Reports system reviewed and no additional complaints, except as docu Psychiatric: Reports no additional psychiatric complaints Endocrine: Reports no additional endocrine complaints Hematologic/Lymphatic: Reports no additional hematologic/lymphatic complaints Allergic/Immunologic: Reports no additional allergic/immunologic complaints Reports system reviewed and no additional complaints, except as documented and Reports Abnormal speech present [facility] Past Medical History Medical History Benign nevus Breast cancer in female Cardiomyopathy Cerebrovascular disease Essential (primary) hypertension Excessive daytime sleepiness Family history of breast cancer GERD (gastroesophageal reflux disease) Headache History of multiple strokes Hyperlipidemia Multiple sclerosis (Unknown) Obesity (BMI 35.0-39.9 without comorbidity) Surgical History History of breast surgery History of esophagogastroduodenoscopy (EGD) History of removal of cyst (05/07/22) Hx of colonoscopy Family History Family History Mother Cancer Brother H/O heart surgery Social History Social History Household Members: None Household Members Other:: daughter away at college Housing: Apartment Are you a primary neonatal intensive care nurse to a significant other at home: No Do you presently have visiting nurse or other home services: Yes ([employer]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 Blood pressure normal. Heart rate normal. Respiration rate normal. Temperature normal. Oxygen saturation normal. Appearance: Alert. Oriented X3. No acute distress. Head: Normal external exam. Normocephalic. Atraumatic. No Yun signs noted. No raccoon eyes noted Eyes: PERRLA. EOMI. Conjunctiva and sclera normal. Eyelids normal. ENT: TM's Normal. Pharynx normal. Uvula midline. Moist mucous membranes. No trismus noted. No drooling noted. No muffled voice noted. Neck: Normal inspection. Neck supple. FROM. No adenopathy. Thyroid Normal. No meningeal signs. No neck mass noted. CVS: Normal heart rate and rhythm. Heart sound normal. No murmurs noted. Pulses normal throughout. Respiratory: No respiratory distress. Painless inspiration. Breath sounds normal. No wheezes/rales/rhonchi noted. Chest nontender. No accessory muscle usage noted or decreased air movement noted. Abdomen: Soft and nontender. Bowel sounds normal in all 4 quadrants. No distention noted. No organomegaly noted. No visible injury noted. Back: No CVA tenderness. Full range of motion noted. Skin: Skin warm and dry. Normal skin color. Normal skin turgor. No rashes/lesions/lacerations noted. Extremities: No lower extremity edema. Extremities exhibit normal range of motion. Extremities nontender. Neuro: Oriented X 3. Cranial nerve exam: II-XII are grossly intact No motor deficit. No sensory deficit. Reflexes normal. Course Course Course Narrative: 52-year-old female was multiple history of CVAs left the patient with chronic weakness bilaterally came in for increased weakness on the right side started about 8 hours before her presentation to the hospital and patient is taking Pradaxa therefore patient is not a candidate for thrombolytics therapy. Patient has pre-existing right-sided weakness normally able to walk slowly with no clothing sales assistant, patient found to be walking with a shuffling gait. Medications Administered Generic Name Dose Route Start Last Admin Trade Name Freq PRN Reason Stop Dose Admin Sodium Chloride 1,000 mls @ 999 mls/hr 12/15/22 00:50 12/15/22 01:12 Ns IV 12/15/22 01:50 Not Given .Q1H1M ONE Sodium Chloride 1,000 mls @ 500 mls/hr 12/15/22 00:53 12/15/22 01:10 Ns IV 12/15/22 02:52 500 mls/hr .Q2H ONE Administration Discontinued Medications Generic Name Dose Route Start Last Admin Trade Name Freq PRN Reason Stop Dose Admin Ondansetron HCl 4 mg 12/15/22 00:50 12/15/22 01:10 Ondansetron Hcl 4 Mg/2 Ml Vial IVPUSH 12/15/22 00:51 4 mg ONCE ONE Administration Medical Decision Making Differential Diagnosis Differential Diagnoses: The differential diagnosis associated with the presentation includes (Ischemic CVA, hemorrhagic CVA, electrolyte abnormalities, severe anemia.) Admission/Observation Consideration of admission/observation: Escalation of care including admission/observation considered Consult Healthcare Provider Management of the patient was discussed with: Hospitalist (Dr. Thomas) Lab Data MDM Lab Attestation statement: I reviewed the patient's lab results. 12/15/22 00:03 12/15/22 00:03 Labs: Lab Results 12/14/22 12/15/22 12/15/22 Range/Units 23:45 00:03 00:03 WBC 10.3 (4.8-10.8) X10*3/uL RBC 4.91 (4.20-5.50) X10*6/uL Hgb 13.1 (12.0-16.0) g/dl Hct 38.4 (37.0-47.0) % MCV 78.2 L (80.0-98.0) fL MCH 26.7 L (27.0-33.0) pg MCHC 34.1 (31.0-35.0) g/dl RDW 13.5 (11.0-16.0) % Plt Count 275 (160-400) X10*3/uL MPV 13.5 H (9.4-12.3) fL Immature Gran % (Auto) 0.2 (0.0-0.4) % Neut % (Auto) 56.6 (45-73) % Lymph % (Auto) 38.4 (20-40) % Clare % (Auto) 3.0 (2-11) % Eos % (Auto) 1.3 (0-4) % Baso % (Auto) 0.5 (0-2) % Lymph # (Auto) 3.9 (1.2-4.9) X10*3/uL Clare # (Auto) 0.3 (0.1-1.2) X10*3/uL Eos # (Auto) 0.1 (0.0-0.4) X10*3/uL Baso # (Auto) 0.1 (0.0-0.2) X10*3/uL Abs Immat Gran (auto) 0.02 (0.00-0.03) X10*3/uL Absolute Neuts (auto) 5.8 (2.0-8.3) x10*3/uL Absolute Nucleated RBC 0.000 (0.0-0.012) X10*3/uL Nucleated RBC % (auto) 0.0 (0.0-0.2) /100WBC PT 11.2 (10.0-13.1) SEC Whole Blood PT 11.9 (11.1-13.5) sec INR 1.0 (0.9-1.1) Whole Blood INR 1.0 (0.9-1.1) APTT 31.3 (26.0-36.4) SEC Sodium (135-145) mmol/L Potassium (3.3-5.1) mmol/L Chloride (96-108) mmol/L Carbon Dioxide (22-29) mmol/L Anion Gap (12-20) BUN (9-16) mg/dL Creatinine (0.5-1.4) mg/dL Estim Creat Clear Calc Estimated GFR Random Glucose (60-115) mg/dL Calcium (8.4-10.2) mg/dL Total Creatine Kinase (26-140) U/L Troponin I High Sens (<3.5-17.0) ng/L 12/15/22 12/15/22 Range/Units 00:03 00:03 WBC (4.8-10.8) X10*3/uL RBC (4.20-5.50) X10*6/uL Hgb (12.0-16.0) g/dl Hct (37.0-47.0) % MCV (80.0-98.0) fL MCH (27.0-33.0) pg MCHC (31.0-35.0) g/dl RDW (11.0-16.0) % Plt Count (160-400) X10*3/uL MPV (9.4-12.3) fL Immature Gran % (Auto) (0.0-0.4) % Neut % (Auto) (45-73) % Lymph % (Auto) (20-40) % Clare % (Auto) (2-11) % Eos % (Auto) (0-4) % Baso % (Auto) (0-2) % Lymph # (Auto) (1.2-4.9) X10*3/uL Clare # (Auto) (0.1-1.2) X10*3/uL Eos # (Auto) (0.0-0.4) X10*3/uL Baso # (Auto) (0.0-0.2) X10*3/uL Abs Immat Gran (auto) (0.00-0.03) X10*3/uL Absolute Neuts (auto) (2.0-8.3) x10*3/uL Absolute Nucleated RBC (0.0-0.012) X10*3/uL Nucleated RBC % (auto) (0.0-0.2) /100WBC PT (10.0-13.1) SEC Whole Blood PT (11.1-13.5) sec INR (0.9-1.1) Whole Blood INR (0.9-1.1) APTT (26.0-36.4) SEC Sodium 137 (135-145) mmol/L Potassium 3.3 D (3.3-5.1) mmol/L Chloride 98 (96-108) mmol/L Carbon Dioxide 28 (22-29) mmol/L Anion Gap 14 (12-20) BUN 17 H (9-16) mg/dL Creatinine 1.33 (0.5-1.4) mg/dL Estim Creat Clear Calc 56.4 Estimated GFR 42 Random Glucose 282 H (60-115) mg/dL Calcium 8.8 (8.4-10.2) mg/dL Total Creatine Kinase 41 (26-140) U/L Troponin I High Sens 3.0 (<3.5-17.0) ng/L Independent Interpretation I performed an independent interpretation of an: Plain X-Ray (No acute intrathoracic pathology.) and CT Scan (Head: No acute intracranial pathology.) Radiology Impression Discussion of test interpretation with radiology: I have reviewed the ra diologist's reading. Discharge Plan Discharge Clinical Impression: Cerebrovascular disease, Cerebrovascular accident Patient Disposition: Admitted As Inpatient
[2022-12-15 00:11] LABS: Basophils Absolute Auto 0.1 X10*3/uL (0.0-0.2); Basophils Percent Auto 0.5 % (0-2); Eosinophils Absolute Auto 0.1 X10*3/uL (0.0-0.4); Eosinophils Percent Auto 1.3 % (0-4); Imm Gran Abs Auto 0.02 X10*3/uL (0.00-0.03); Imm Gran Pct Auto 0.2 % (0.0-0.4); PLT ABN DIST 1; Red Cell Distribution Width 13.5 % (11.0-16.0); SCAN SMEAR FLAG 1
[2022-12-15 00:13] LABS: Hematocrit 38.4 % (37.0-47.0); Hemoglobin 13.1 g/dl (12.0-16.0); Lymphocytes Absolute Auto 3.9 X10*3/uL (1.2-4.9); Lymphocytes Percent Auto 38.4 % (20-40); Mean Corpuscular HGB Conc 34.1 g/dl (31.0-35.0); Mean Corpuscular Hemoglobin 26.7 pg (27.0-33.0); Mean Corpuscular Volume 78.2 fL (80.0-98.0); Mean Platelet Volume 13.5 fL (9.4-12.3); Monocytes Absolute Auto 0.3 X10*3/uL (0.1-1.2); Neutrophils Absolute Auto 5.8 x10*3/uL (2.0-8.3); Neutrophils Percent Auto 56.6 % (45-73); Platelet Count 275 X10*3/uL (160-400); Red Blood Count 4.91 X10*6/uL (4.20-5.50); White Blood Count 10.3 X10*3/uL (4.8-10.8)
[2022-12-15 00:16] LABS: Prothrombin Time 11.2 SEC (10.0-13.1)
[2022-12-15 00:17] LABS: MANUAL DIFF FLAG NO
[2022-12-15 00:19] LABS: Partial Thromboplastin Time 31.3 SEC (26.0-36.4)
[2022-12-15 00:22] LABS: Anion Gap 14 (12-20); Blood Urea Nitrogen 17 mg/dL (9-16); Calcium 8.8 mg/dL (8.4-10.2); Carbon Dioxide 28 mmol/L (22-29); Chloride 98 mmol/L (96-108); Creatinine Clr Calc Pharmacy 56.4; Estimated Glomerular Filt Rate 42; Glucose Random 282 mg/dL (60-115); Potassium 3.3 mmol/L (3.3-5.1); Sodium 137 mmol/L (135-145)
[2022-12-15 00:23] LABS: Stroke Lab Use COMPLETE
--- NOTE | 2022-12-15 00:41 | PC.NURSE ---
Pt complaining of a pain in her right hip, asking for naproxen.
[2022-12-15] MEDS: 0.9 % Sodium Chloride 1,000 ML 500 ML IV (01:10)
[2022-12-15] MEDS: ondansetron HCL 4 MG/2 ML VIAL IVPUSH ×2 (01:10→15:40)
--- NOTE | 2022-12-15 01:17 | PC.NURSE ---
Pt stated she does not want to take anything by mouth, states she has a hard time taking pills. MD aware, will order IV medications.
[2022-12-15] MEDS: iohexoL 350 MG/ML 100 ML INFUS..BTL 70 ML IV (01:43)
[2022-12-15] MEDS: Morphine Sulfate 2 MG/ML CARTRIDGE 1 MG IVPUSH (01:55)
--- NOTE | 2022-12-15 01:59 | P.HPHOSP_ITS ---
History of Present Illness Date of Service: 12/15/22 Chief Complaint: Right leg weakness This is a 52-year-old female with pertinent history of mixed hyperlipidemia, essential hypertension, chronic opioid use, insomnia, history of previous CVA who presents to the emergency department for evaluation of right lower extremity weakness. Patient states at baseline she walks about a cane or a walker. Around 16:00 patient experienced weakness of the right lower extremity and numbness of the right side of the face. Patient states she had difficulty walking due to right lower extremity weakness. No weakness of the left side. No facial droop. No urinary bowel incontinence. She denies fever, chills, chest discomfort, palpitations, shortness of breath, abdominal pain, changes in urinary or bowel habits. In the emergency department, CT head with chronic infarcts Review of Systems Constitutional: Constitutional: Reports no additional constitutional complaints Cardiovascular: Cardiovascular: Reports no additional cardiovascular complaints Respiratory: Respiratory: Reports no additional respiratory complaints Gastrointestinal: Gastrointestinal: Reports no additional gastrointestinal complaints Genitourinary: Genitourinary: Reports no additional female genitourinary complaints Neurologic: Reports focal weakness [facility] Medical History Benign nevus Breast cancer in female Cardiomyopathy Cerebrovascular disease Essential (primary) hypertension Excessive daytime sleepiness Family history of breast cancer GERD (gastroesophageal reflux disease) Headache History of multiple strokes Hyperlipidemia Multiple sclerosis (Unknown) Obesity (BMI 35.0-39.9 without comorbidity) Functional capacity: independent ambulation Family History Mother Cancer Brother H/O heart surgery Surgical History History of breast surgery History of esophagogastroduodenoscopy (EGD) History of removal of cyst (05/07/22) Hx of colonoscopy Social History Household Members: None Household Members Other:: daughter away at college Housing: Apartment Are you a primary healthcare insurance sales agent to a significant other at home: No Do you presently have 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) Alcohol intake: never Patient Tobacco Use Status: Never used Tobacco Smoked in Last 30 Days: No Use of substances other than those prescribed or required for medical reasons: No Advance Directives: No Advance Directives Information Provided: Yes Patient : No Meds Allergies Allergy/AdvReac Type Severity Reaction Status Date / Time No Known Allergies Allergy Verified 11/28/22 16:30 Active Medications: Current Medications Acetaminophen (Acetaminophen 325 Mg Tablet) 650 mg PO Q6H PRN PRN Reason: Pain, Mild (Pain Scale 1-3) Sodium Chloride (Ns) 1,000 mls @ 500 mls/hr IV .Q2H ONE Stop: 12/15/22 02:52 Last Admin: 12/15/22 01:10 Dose: 500 mls/hr Melatonin (Melatonin 3 Mg Tablet) 6 mg PO BEDTIME PRN PRN Reason: Insomnia Ondansetron HCl (Ondansetron Hcl 4 Mg/2 Ml Vial) 4 mg IVPUSH Q8H PRN PRN Reason: Nausea and Vomiting Home Medications Medication Instructions Recorded Confirmed Last Taken Type amitriptyline 100 mg tablet 100 mg PO BEDTIME 06/14/20 11/18/22 Unknown History amlodipine 10 mg tablet 10 mg PO DAILY 06/14/20 11/18/22 Unknown History dabigatran etexilate 150 mg capsule 150 mg PO BID 06/14/20 11/18/22 09/11/22 History hydrochlorothiazide 25 mg tablet 25 mg PO QAM 06/14/20 11/18/22 Unknown History propranolol 120 mg capsule,24 120 mg PO DAILY 06/14/20 11/18/22 Unknown History hr,extended release zolpidem 10 mg tablet 10 mg PO BEDTIME 06/14/20 11/18/22 Unknown History naproxen 500 mg tablet 500 mg PO Q12H PRN 10/09/22 11/18/22 Unknown History oxycodone-acetaminophen 7.5 mg-325 1 tab PO DAILY 11/18/22 11/18/22 Unknown History mg tablet Physical Exam Vital Signs and Narrative: Vital Signs: Last Vital Signs Temp 98.3 F 12/15/22 00:08 Pulse 71 12/15/22 00:48 Resp 11 L 12/15/22 00:48 BP 125/64 12/15/22 00:48 Pulse Ox 96 12/15/22 00:48 O2 Del Method Room Air 12/15/22 00:48 BMI result Body Mass Index 36.5 Middle-aged female lying in bed in no distress Neck supple, no JVD Regular rate and rhythm, S1-S2 heard Regular breath sounds bilaterally, no wheezing or crackles appreciated Abdomen soft nontender, no guarding, no rigidity Patient is awake, alert and oriented to self, place, time and person ; length 5/5 in bilateral upper extremity and left lower extremity, 2/5 in right lower extremity, no facial droop, tongue and uvula midline Psych: Normal mood No pedal edema Results Labs 12/15/22 00:03 12/15/22 00:03 Labs: Laboratory Results - last 24 hr 12/14/22 12/15/22 12/15/22 23:45 00:03 00:03 MCV 78.2 L MCH 26.7 L MCHC 34.1 RDW 13.5 Plt Count 275 MPV 13.5 H Immature Gran % (Auto) 0.2 Neut % (Auto) 56.6 Lymph % (Auto) 38.4 Tucker % (Auto) 3.0 Eos % (Auto) 1.3 Baso % (Auto) 0.5 Lymph # (Auto) 3.9 Tucker # (Auto) 0.3 Eos # (Auto) 0.1 Baso # (Auto) 0.1 Abs Immat Gran (auto) 0.02 Absolute Neuts (auto) 5.8 Absolute Nucleated RBC 0.000 Nucleated RBC % (auto) 0.0 PT 11.2 Whole Blood PT 11.9 INR 1.0 Whole Blood INR 1.0 APTT 31.3 Anion Gap Estim Creat Clear Calc Estimated GFR Random Glucose Calcium Total Creatine Kinase Troponin I High Sens 12/15/22 12/15/22 00:03 00:03 MCV MCH MCHC RDW Plt Count MPV Immature Gran % (Auto) Neut % (Auto) Lymph % (Auto) Tucker % (Auto) Eos % (Auto) Baso % (Auto) Lymph # (Auto) Tucker # (Auto) Eos # (Auto) Baso # (Auto) Abs Immat Gran (auto) Absolute Neuts (auto) Absolute Nucleated RBC Nucleated RBC % (auto) PT Whole Blood PT INR Whole Blood INR APTT Anion Gap 14 Estim Creat Clear Calc 56.4 Estimated GFR 42 Random Glucose 282 H Calcium 8.8 Total Creatine Kinase 41 Troponin I High Sens 3.0 Imaging Radiologist's Impressions: Impressions Head CT 12/14/22 23:49 IMPRESSION: * No acute intracranial pathology. * Chronic right frontal, left parietal, occipital and temporal lobe infarcts. * Chronic bilateral gangliocapsular lacunar infarcts and right thalamic lacunar infarct. This critical result was discussed with Dr Garcia at 12/14/2022 11:59 PM and it was ascertained that the content and urgency of the report was understood at the time of direct communication. Chest X-Ray 12/15/22 01:26 IMPRESSION: Unremarkable examination. Assessment and Plan (1) Right leg weakness: Status: Acute Plan This is a 52-year-old female with pertinent history of mixed hyperlipidemia, essential hypertension, chronic opioid use, insomnia, history of previous CVA who presents to the emergency department for evaluation of right lower extremity weakness. #. Right lower extremity weakness, concerning for acute CVA. Will admit patient with desk monitor. Administered antiplatelet agent and high- intensity statin. Consulting Neurology, appreciate assistance. Obtaining MRI of the brain. Also obtaining A1c, lipid panel and echocardiogram to complete workup. Consulting PT/OT to evaluate and treat. CTA head/neck pending #. Essential hypertension: Hold home antihypertensives to allow for permissive hypertension #. Chronic opioid use #. Gastroesophageal reflux disease: On PPI #. Hyperglycemia: A1c pending as above. Initiating Accu-Cheks with sliding scale insulin Med rec pending Full code NPO until speech eval Time Spent With Patient Time: Total time managing care of this patient today ____ minutes. Quality Stroke Does the patient have a stroke diagnosis?: Yes Reason for No Anti-thrombotic by Day Two: N/A - Med Ordered VTE Prior VTE?: No VTE Risk Level:: Medical - moderate - high VTE Device Contraindication: Treatment Not Indicated VTE Drug Contraindication: N/A - Med Ordered
[2022-12-15 02:22] LABS: Cholesterol 168 mg/dL; HDL Cholesterol 35 mg/dL; LDL Cholesterol Calculated 98 mg/dl; Triglycerides 179 mg/dL
[2022-12-15 02:51] LABS: Reflex LDLD? No
[2022-12-15 02:56] LABS: Glucose, Whole Blood 298 mg/dL (60-115)
[2022-12-15 02:56] LABS: Glucose, Whole Blood 305 mg/dL (60-115)
[2022-12-15] MEDS: Aspirin Enteric Coated 81 MG TABLET.DR PO (03:19)
[2022-12-15] MEDS: Insulin Lispro 100 UNIT/ML 3 ML VIAL SUBCUT ×3 (03:19→21:16)
[2022-12-15] MEDS: Atorvastatin Calcium 40 MG TABLET PO (03:19)
--- NOTE | 2022-12-15 03:24 | PC.NURSE ---
Pt took 2 pills with water. Pt was able to swallow but had some minor difficulty
[2022-12-15 06:44] LABS: MANUAL DIFF FLAG NO
[2022-12-15 06:53] LABS: Basophils Percent Auto 0.4 % (0-2); Eosinophils Absolute Auto 0.1 X10*3/uL (0.0-0.4); Eosinophils Percent Auto 1.1 % (0-4); Hematocrit 38.7 % (37.0-47.0); Hemoglobin 13.1 g/dl (12.0-16.0); Imm Gran Abs Auto 0.03 X10*3/uL (0.00-0.03); Imm Gran Pct Auto 0.3 % (0.0-0.4); Lymphocytes Absolute Auto 4.8 X10*3/uL (1.2-4.9); Lymphocytes Percent Auto 48.8 % (20-40); Mean Corpuscular HGB Conc 33.9 g/dl (31.0-35.0); Mean Corpuscular Hemoglobin 26.8 pg (27.0-33.0); Mean Corpuscular Volume 79.3 fL (80.0-98.0); Mean Platelet Volume 13.5 fL (9.4-12.3); Monocytes Absolute Auto 0.3 X10*3/uL (0.1-1.2); Monocytes Percent Auto 3.4 % (2-11); Neutrophils Absolute Auto 4.6 x10*3/uL (2.0-8.3); Platelet Count 267 X10*3/uL (160-400); Red Blood Count 4.88 X10*6/uL (4.20-5.50); Red Cell Distribution Width 13.6 % (11.0-16.0); White Blood Count 9.9 X10*3/uL (4.8-10.8)
[2022-12-15 07:04] LABS: Anion Gap 11 (12-20); Blood Urea Nitrogen 14 mg/dL (9-16); Calcium 9.1 mg/dL (8.4-10.2); Carbon Dioxide 30 mmol/L (22-29); Chloride 102 mmol/L (96-108); Creatinine Clr Calc Pharmacy 70.5; Estimated Glomerular Filt Rate 54; Glucose Random 185 mg/dL (60-115); Potassium 3.1 mmol/L (3.3-5.1); Sodium 140 mmol/L (135-145)
[2022-12-15 07:27] LABS: Estimated Average Glucose 278 mg/dL; Hemoglobin A1c % 11.3 %
--- NOTE | 2022-12-15 08:31 | MHC.CM.PN ---
CM MET WITH PT AND DAUGHTER AT BEDSIDE. PT LIVES ALONE IN AN APT. 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 USES CANE BUT HAS WALKER AND USES PRN. HAS BEDSIDE COMMODE X 2. OPEN TO [facility] SERVICES IF RECOMMENDED. FIRST CHOICE WOULD BE [facility]. + COVID VAX X3 UNSURE IF HAS COPY OF HCP BUT WILLING TO COMPLETE ONE WHILE HERE. PCP DR. GREWAL AT [facility]. DP: HOME, RESUME EMBEDDED SOFTWARE MANAGER SERVICES. OPEN TO [facility] IF RECOMMENDED. DAUGHTER WILL TRANSPORT ON DC. CM WILL CONTINUE TO FOLLOW FOR DC NEEDS
[2022-12-15 08:44] LABS: Glucose, Whole Blood 233 mg/dL (60-115)
--- NOTE | 2022-12-15 09:37 | PC.NURSE ---
Pt arrived to unit and oriented to staff and room, VSS as charted. Pt denies headache or dizziness, she reports some difficulty with vision ie reading and states this has been for a long time. She is able to move arms. 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 R leg unable to lift off of bed and difficult to bend at the knee. L leg able to lift 2 inches off bed. Pt S+P with shuffle gait and 1 attentive assist. She denied pain and rested with no s/s distress.
[2022-12-15] MEDS: Morphine Sulfate 4 MG/ML CARTRIDGE IVPUSH ×3 (10:24→21:18)
--- NOTE | 2022-12-15 10:47 | MHC.STROKE ---
Addendum entered by María Roman, RN 12/17/22 11:43: I MET WITH BRITTANY, SHE IS WELL KNOWN TO THE STROKE SERVICE FOR MANY YEARS. WE DISCUSSED HER NEW LEFT THALAMIC STROKE, S&S, RISK FACTORS, MEDICATION COMPLIANCE (SHE MENTIONED THAT SHE IS TAKING HER MEDS AND HAD EXTRA PRADAXA AT HOME). I REVIEWED THE SCREENSHOT OF HER STROKE, WE DISCUSSED REHAB. SHE PREFERS TO GO HOME, SHE HAS Dr. Christiano Kaur, HER PCP BUT HAS NOT SEEN HIM IN 2 YEARS, i CHECKED WITH THE [facility]IG[facility] FOR THAT OFFICE AND SHE DID HAVE A NAVIGATOR YEARS AGO. I RECOMMENDED TO THE TICKET SALES SUPERVISOR LEON TO CHECK ON HER PCP, REESTABLISH A NAVIGATOR, OBTAIN A CORROSION TECHNICIAN. AND [facility], PT. OT. i WILL CONTINUE TO FOLLOW. Original Note: 12/14/22 2338 WALK IN, C/O RIGHT LEG WEAKNESS ONSET AROUND 1600. CTH FOR STROKE OBTAINED, NO BLEED, FOLLOWED BY CTA H/N NO LVO. PATIENT KNOWN TO STROKE SERVICE. EXCLUDED FROM TPA-THROMBOLYTICS DUE TO DELAY IN ARRIVAL AND CURRENT USE OF PRADAXA, DABIGATRAN 150MG BID, SEE DR CORREA'S LAST OFFICE NOTE. (SHE IS FOLLOWED BY CARDIOLOGY). CONFIRM THIS MEDICATION. NIHSS = 1, RE-ASSESS NURSING SWALLOW SCREEN AND EVALUATE DIET AND PO MEDS. I WILL CONTINUE TO FOLLOW.
--- NOTE | 2022-12-15 11:16 | PHA.MEDREC ---
Pharmacy Consult ? Medication Reconciliation Pharmacy has completed the medication reconciliation. Spoke with patient. When asked if on blood thinner, patient reported Pradaxa. Patient has not picked up Pradaxa since august,. Patient also stated she is still taking amlodipine (picked 12/2021), propranolol (picked up 08/2021), and pantoprazole (picked up 11/2021). Spoke with Dr. Cadet on the issues. Dr. Cadet is going to start Pradaxa so I left on home list. I removed the rest as patient did not seem to sure and they have not pciked up since early 2021. Martina Norris, PharmD
--- NOTE | 2022-12-15 11:21 | HO.PM.IMPN ---
Subjective Subjective Date of Service: 12/15/22 Interval History: No acute issues overnight; no worsening of symptoms. Review of Systems Denies chest pain Denies shortness of breath Denies nausea vomiting diarrhea Denies fever chills Physical Exam Vital Signs: Vital Signs: Last Vital Signs Temp 97.4 F 12/15/22 07:57 Pulse 52 12/15/22 07:57 Resp 20 12/15/22 07:57 BP 142/80 H 12/15/22 07:57 Pulse Ox 99 12/15/22 07:57 O2 Del Method Room Air 12/15/22 07:57 BMI result Body Mass Index 36.1 Const: Other: Awake alert no acute distress Resp: Other: Clear to auscultation bilaterally no rales rhonchi or wheezes Cardio: Other: No S4; positive S1-S2; no S3 murmurs rubs or gallops GI: Other: Soft nontender nondistended normoactive bowel sounds Neuro: Other: Cranial nerves 2-12 appear grossly intact as tested. Motor is 5/5 left upper and lower extremity. Right upper extremity is 4/5;RLE 3+/5. No pronator drift. Not ambulated Extrem: Other: No edema bilaterally Objective Data Active Medications Acetaminophen (Acetaminophen 325 Mg Tablet) 650 mg PO Q6H PRN PRN Reason: Pain, Mild (Pain Scale 1-3) Glucose (Glucose Gel 15 Gm Gel..Gram.) 15 gm PO Q15M PRN; Protocol PRN Reason: per Hypoglycemia Standing Ord. Dextrose (D10) 250 mls @ 750 mls/hr IV Q15M PRN; Protocol PRN Reason: per Hypoglycemia Standing Ord. Insulin Human Lispro (Insulin Lispro 100 Unit/Ml 3 Ml Vial) 0 unit SUBCUT Q6H [facility]; Protocol Last Admin: 12/15/22 10:29 Dose: Not Given Documented By: TIARA Non-Admin Reason: NPO Melatonin (Melatonin 3 Mg Tablet) 6 mg PO BEDTIME PRN PRN Reason: Insomnia Morphine Sulfate (Morphine Sulfate 4 Mg/Ml Cartridge) 4 mg IVPUSH Q4H PRN; Protocol PRN Reason: Pain, Severe (Pain Scale 7-10) Last Admin: 12/15/22 10:24 Dose: 4 mg Documented By: TIARA Ondansetron HCl (Ondansetron Hcl 4 Mg/2 Ml Vial) 4 mg IVPUSH Q8H PRN PRN Reason: Nausea and Vomiting Pharmacy Consult (Consult Rx Perform Med Rec) 1 each MISCELLANE ONCE PRN PRN Reason: Consult order Pharmacy Consult (Consult Rx Perform Med Rec) 1 each MISCELLANE ONCE PRN PRN Reason: Consult order Labs 12/15/22 06:33 12/15/22 06:33 Labs: Laboratory Results - last 24 hr 12/14/22 12/14/22 12/15/22 23:44 23:45 00:03 MCV 78.2 L MCH 26.7 L MCHC 34.1 RDW 13.5 Plt Count 275 MPV 13.5 H Immature Gran % (Auto) 0.2 Neut % (Auto) 56.6 Lymph % (Auto) 38.4 [place] % (Auto) 3.0 Eos % (Auto) 1.3 Baso % (Auto) 0.5 Lymph # (Auto) 3.9 [place] # (Auto) 0.3 Eos # (Auto) 0.1 Baso # (Auto) 0.1 Abs Immat Gran (auto) 0.02 Absolute Neuts (auto) 5.8 Absolute Nucleated RBC 0.000 Nucleated RBC % (auto) 0.0 PT Whole Blood PT 11.9 INR Whole Blood INR 1.0 APTT Anion Gap Estim Creat Clear Calc Estimated GFR POC Glucose 298 H Random Glucose Estimat Average Glucose Hemoglobin A1c % Calcium Total Creatine Kinase Troponin I High Sens Triglycerides Cholesterol LDL Cholesterol, Calc HDL Cholesterol 12/15/22 12/15/22 12/15/22 00:03 00:03 00:03 MCV MCH MCHC RDW Plt Count MPV Immature Gran % (Auto) Neut % (Auto) Lymph % (Auto) [place] % (Auto) Eos % (Auto) Baso % (Auto) Lymph # (Auto) [place] # (Auto) Eos # (Auto) Baso # (Auto) Abs Immat Gran (auto) Absolute Neuts (auto) Absolute Nucleated RBC Nucleated RBC % (auto) PT 11.2 Whole Blood PT INR 1.0 Whole Blood INR APTT 31.3 Anion Gap 14 Estim Creat Clear Calc 56.4 Estimated GFR 42 POC Glucose Random Glucose 282 H Estimat Average Glucose Hemoglobin A1c % Calcium 8.8 Total Creatine Kinase 41 Troponin I High Sens 3.0 Triglycerides 179 Cholesterol 168 LDL Cholesterol, Calc 98 HDL Cholesterol 35 12/15/22 12/15/22 12/15/22 00:03 02:51 06:33 MCV 79.3 L MCH 26.8 L MCHC 33.9 RDW 13.6 Plt Count 267 MPV 13.5 H Immature Gran % (Auto) 0.3 Neut % (Auto) 46.0 Lymph % (Auto) 48.8 H [place] % (Auto) 3.4 Eos % (Auto) 1.1 Baso % (Auto) 0.4 Lymph # (Auto) 4.8 [place] # (Auto) 0.3 Eos # (Auto) 0.1 Baso # (Auto) 0.0 Abs Immat Gran (auto) 0.03 Absolute Neuts (auto) 4.6 Absolute Nucleated RBC 0.000 Nucleated RBC % (auto) 0.0 PT Whole Blood PT INR Whole Blood INR APTT Anion Gap Estim Creat Clear Calc Estimated GFR POC Glucose 305 H Random Glucose Estimat Average Glucose 278 Hemoglobin A1c % 11.3 Calcium Total Creatine Kinase Troponin I High Sens Triglycerides Cholesterol LDL Cholesterol, Calc HDL Cholesterol 12/15/22 12/15/22 06:33 08:41 MCV MCH MCHC RDW Plt Count MPV Immature Gran % (Auto) Neut % (Auto) Lymph % (Auto) [place] % (Auto) Eos % (Auto) Baso % (Auto) Lymph # (Auto) [place] # (Auto) Eos # (Auto) Baso # (Auto) Abs Immat Gran (auto) Absolute Neuts (auto) Absolute Nucleated RBC Nucleated RBC % (auto) PT Whole Blood PT INR Whole Blood INR APTT Anion Gap 11 L Estim Creat Clear Calc 70.5 Estimated GFR 54 POC Glucose 233 H Random Glucose 185 H Estimat Average Glucose Hemoglobin A1c % Calcium 9.1 Total Creatine Kinase Troponin I High Sens Triglycerides Cholesterol LDL Cholesterol, Calc HDL Cholesterol Assessment and Plan (1) Right leg weakness: Status: Acute (2) Essential (primary) hypertension: Status: Acute (3) Type 2 diabetes mellitus: Status: Acute Plan This is a 52-year-old female with pertinent history of mixed hyperlipidemia, essential hypertension, chronic opioid use, insomnia, history of previous CVA who presents to the emergency department for evaluation of right lower extremity weakness. When pharmacy attempted to do med reconciliation, [facility] stated that she has not filled Pradaxa, propranolol, atorvastatin, amlodipine since 2021. 1.Right lower extremity weakness (in backdrop of questionable compliance) -will restart atorvastatin/Pradaxa -add back outpatient meds as clinically relevant -MRI/speech/PT/OT consult -neuro pending 2.Essential hypertension -permissive hypertension -add back therapies as appropriate after acute phase 3. Chronic opioid use -will order p.r.n. as patient uses for migraines 4. Diabetes type 2 -A1c 11.3 -lispro correctional scale -add orals as appropriate Full code NPO until speech eval Time Spent With Patient Time: Total time managing care of this patient today ____ minutes. Quality Stroke Does the patient have a stroke diagnosis?: Yes Reason for No Anti-thrombotic by Day Two: N/A - Med Ordered VTE Prior VTE?: No VTE Risk Level:: Medical - moderate - high VTE Device Contraindication: Treatment Not Indicated VTE Drug Contraindication: N/A - Med Ordered
[2022-12-15 11:29] LABS: Glucose, Whole Blood 282 mg/dL (60-115)
[2022-12-15 16:30] LABS: Glucose, Whole Blood 345 mg/dL (60-115)
[2022-12-15 20:19] LABS: Glucose, Whole Blood 295 mg/dL (60-115)
[2022-12-15] MEDS: Zolpidem Tartrate 5 MG TABLET PO (21:26)
[2022-12-16 03:32] VITALS: BP 187/94; PULSE 61; RESP 20; TEMP 36.3; O2SAT 93
--- NOTE | 2022-12-16 07:00 | CA_ITS ---
Transthoracic Echocardiogram Patient (Last, First, Middle): Esmer Rock M Gender: Female Date of : 1970 Age: 52 Procedure Date: 12/16/2022 Procedure Type: Transthoracic Echocardiogram Location[place] [facility] [place] Height: 165.1 cm Weight: 98.43 kg BSA: 2.05 m2 Heart Rate: bpm BP: 154 / 88 mmHg Adobe Maker: TO Referring MD: Mervin Thomas MD Senior Environmental Scientist: Hilario Serrano MD Symptoms: CVA Study Quality: Technically Difficult/Contrast ECG Rhythm: Sinus Conclusions: - 1. Technically difficult study despite use of contrast 2. Hyperdynamic LV ejection fraction of greater than 70% with severe LVH with impaired relaxation filling pattern and elevated filling pressures 3. Trivial aortic regurgitation 4. Mildly dilated ascending aorta at 4.1 cm Findings Procedure Information Contrast agent, definity, is being given per protocol without apparent complications. Left Ventricle Normal left ventricular cavity size. There is severely increased left ventricular wall thickness. The left ventricular systolic function is hyperdynamic. The visually estimated ejection fraction is >70%. Spectral Doppler is indicative of an impaired relaxation filling pattern. Elevated filling pressures. E/E prime ratio is >15, consistent with elevated filling pressures. Right Ventricle The right ventricle was not well visualized. Atria The left atrium is normal in size. There is no evidence of interatrial shunt by agitated saline. The right atrium was not well visualized. Aortic Valve The aortic valve was not well visualized. There is mild calcification of the aortic valve. There is no aortic valve stenosis. There is trace (trivial) aortic valve regurgitation. Mitral Valve There is mild anterior and posterior mitral leaflet thickening. There is mild mitral annular calcification. There is trace mitral valve regurgitation. There is no mitral valve stenosis. Pulmonic Valve The pulmonic valve was not well visualized. Tricuspid Valve The tricuspid valve was not well visualized. Tricuspid regurgitation envelope is inadequate for calculation of right ventricular systolic pressure. Great Vessels The pulmonary artery was not well visualized. There is mild dilatation of the ascending aorta measuring 4.10 cm. Venous The inferior vena cava was not well visualized. Pericardium/Pleural The pericardium was not well visualized. Prior Study Comparison No significant change compared to prior study dated: 09/12/2021. Measurements 2D Linear Measurements IVSd: 2.03 0.6-0.9/0.6-1.0 cm LVIDd: 4.31 3.9-5.3/4.2-5.9 cm LVIDd Index: 2.10 2.4-3.2/2.2-3.1 cm/m2 LVIDs: 1.89 2.0-3.6 cm LVPWd: 2.10 0.7-1.1 cm LA Diam: 3.50 2.7-3.8/3.0-4.0 cm LAIDs Index: 1.71 1.5-2.3 cm/m2 LV Mass: 267.37 67-162/88-224 g LV Mass Index: 130.43 43-95/49-115 g/m2 LVOT Diam: 2.00 3.0+(-)1.3 cm Mitral Valve MV Pk E: 0.54 MV PK A: 0.82 MV Decel Time: 316.00 E/A: 0.70 E'Lateral: 2.50 E'Medial: 2.40 E/E' Med: 22.70 E/E' Lat: 21.80 PHT: 92.00 MVA PHT: 2.39 Decel [place]: 1.72 Aortic Valve AoV Pk Toby: 1.52 AoV Mn Toby: 1.00 AoV VTI: 0.28 AoV Pk Grad: 9.00 Aov Mn Grad: 4.00 VENITA Cont.VTI: 2.47 LVOT LVOT Pk Toby: 1.04 LVOT Mn Toby: 0.63 LVOT VTI: 0.22 LVOT Pk Grad: 4.00 LVOT Mn Grad: 2.00 LVOT Diam: 2.00 LVOT Area: 3.14 Diastolic Function MV Pk E: 0.54 MV Pk A: 0.82 E/A: 0.70 E'Medial: 2.40 E/E' Med: 22.70 E' Laterial: 2.50 E/E' Lat: 21.80 Right Ventricle TAPSE (mm): 15.50 TVS' Toby: 9.14 Tricuspid Valve TR Pk Toby: 2.14 TR Pk Grad: 18.00 Great Vessels Aorta Sinus of Valsalva: 3.25 2.0-3.[address] [place]: 2.72 1.7-3.4 cm Ao Asc: 4.10 2.1-3.4 cm Updated in Other Vendor System with Status of Final Hilario Zach MD electronically signed on 12/17/2022 9:00:51 AM with status of Final
[2022-12-16 07:16] LABS: MANUAL DIFF FLAG NO
[2022-12-16 07:25] LABS: Basophils Percent Auto 0.5 % (0-2); Eosinophils Absolute Auto 0.2 X10*3/uL (0.0-0.4); Eosinophils Percent Auto 1.9 % (0-4); Hematocrit 39.2 % (37.0-47.0); Imm Gran Abs Auto 0.02 X10*3/uL (0.00-0.03); Imm Gran Pct Auto 0.2 % (0.0-0.4); Lymphocytes Absolute Auto 3.4 X10*3/uL (1.2-4.9); Lymphocytes Percent Auto 39.8 % (20-40); Mean Corpuscular HGB Conc 33.2 g/dl (31.0-35.0); Mean Corpuscular Hemoglobin 26.4 pg (27.0-33.0); Mean Corpuscular Volume 79.7 fL (80.0-98.0); Mean Platelet Volume 13.4 fL (9.4-12.3); Monocytes Absolute Auto 0.4 X10*3/uL (0.1-1.2); Monocytes Percent Auto 4.3 % (2-11); Neutrophils Absolute Auto 4.6 x10*3/uL (2.0-8.3); Neutrophils Percent Auto 53.3 % (45-73); Platelet Count 251 X10*3/uL (160-400); Red Blood Count 4.92 X10*6/uL (4.20-5.50); Red Cell Distribution Width 13.5 % (11.0-16.0); White Blood Count 8.6 X10*3/uL (4.8-10.8)
[2022-12-16 07:41] LABS: Glucose, Whole Blood 252 mg/dL (60-115)
[2022-12-16 07:46] VITALS: BP 154/88; PULSE 61; RESP 20; TEMP 36.8; O2SAT 97
[2022-12-16 07:49] LABS: Alanine Aminotransferase 21 U/L (0-31); Albumin Level 3.9 g/dL (3.5-5.0); Alkaline Phosphatase 102 U/L (39-117); Anion Gap 14 (12-20); Aspartate Amino Transferase 29 U/L (5-31); Bilirubin Total 0.7 mg/dL (0.0-1.0); Blood Urea Nitrogen 9 mg/dL (9-16); Calcium 8.8 mg/dL (8.4-10.2); Carbon Dioxide 26 mmol/L (22-29); Chloride 101 mmol/L (96-108); Cholesterol 165 mg/dL; Creatinine Clr Calc Pharmacy 83.9; Estimated Glomerular Filt Rate > 60; Glucose Fasting 261 mg/dL (60-99); HDL Cholesterol 34 mg/dL; LDL Cholesterol Calculated 113 mg/dl; Potassium 3.8 mmol/L (3.3-5.1); Sodium 137 mmol/L (135-145); Total Protein 6.7 g/dL (6.5-8.0); Triglycerides 91 mg/dL
[2022-12-16] MEDS: Atorvastatin Calcium 40 MG TABLET PO (09:02)
[2022-12-16] MEDS: Morphine Sulfate 4 MG/ML CARTRIDGE IVPUSH (09:06)
[2022-12-16] MEDS: Insulin Lispro 100 UNIT/ML 3 ML VIAL SUBCUT ×4 (09:10→23:32)
[2022-12-16 11:45] LABS: Glucose, Whole Blood 265 mg/dL (60-115)
[2022-12-16 12:00] VITALS: BP 186/110; PULSE 71; RESP 19; TEMP 36.5; O2SAT 94
[2022-12-16] MEDS: Dabigatran Etexilate Mesylate 150 MG CAPSULE PO ×2 (13:18→23:12)
--- NOTE | 2022-12-16 13:37 | HO.PM.IMPN ---
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 Review of Systems All other systems are reviewed and negative. Physical Exam Vital Signs: Vital Signs: Last Vital Signs Temp 97.7 F 12/16/22 12:00 Pulse 71 12/16/22 12:00 Resp 19 12/16/22 12:00 BP 186/110 H 12/16/22 12:00 Pulse Ox 94 12/16/22 12:00 O2 Del Method Room Air 12/16/22 12:00 BMI result Body Mass Index 36.1 Const: Other: General awake alert x3, resting comfortably in no acute distress. Neck , supple no JVD. CVS regular rate rhythm, Respiratory lungs clear to auscultation, no respiratory distress, no wheeze, no rhonchi. Gastrointestinal abdomen soft, non tender, bowel sounds audible, no guarding , no rigidity. Extremities no edema. Neuro speech clear, numbness right side of body, decreased strength right lower extremity 3/5. Skin no rash Psych appropriate affect Objective Data Active Medications Acetaminophen (Acetaminophen 325 Mg Tablet) 650 mg PO Q6H PRN PRN Reason: Pain, Mild (Pain Scale 1-3) Atorvastatin Calcium (Atorvastatin Calcium 40 Mg Tablet) 40 mg PO DAILY [facility] Last Admin: 12/16/22 09:02 Dose: 40 mg Documented By: HUMERA Dabigatran (Dabigatran Etexilate Mesylate 150 Mg Capsule) 150 mg PO BID [facility] Last Admin: 12/16/22 13:18 Dose: 150 mg Documented By: HUMERA Glucose (Glucose Gel 15 Gm Gel..Gram.) 15 gm PO Q15M PRN; Protocol PRN Reason: per Hypoglycemia Standing Ord. Dextrose (D10) 250 mls @ 750 mls/hr IV Q15M PRN; Protocol PRN Reason: per Hypoglycemia Standing Ord. Insulin Human Lispro (Insulin Lispro 100 Unit/Ml 3 Ml Vial) 0 unit SUBCUT RAOStephanie [facility]; Protocol Last Admin: 12/16/22 13:18 Dose: 6 unit Documented By: HUMERA Melatonin (Melatonin 3 Mg Tablet) 6 mg PO BEDTIME PRN PRN Reason: Insomnia Morphine Sulfate (Morphine Sulfate 4 Mg/Ml Cartridge) 4 mg IVPUSH Q4H PRN; Protocol PRN Reason: Pain, Severe (Pain Scale 7-10) Last Admin: 12/16/22 09:06 Dose: 4 mg Documented By: HUMERA Ondansetron HCl (Ondansetron Hcl 4 Mg/2 Ml Vial) 4 mg IVPUSH Q8H PRN PRN Reason: Nausea and Vomiting Last Admin: 12/15/22 15:40 Dose: 4 mg Documented By: TIARA Pharmacy Consult (Consult Rx Perform Med Rec) 1 each MISCELLANE ONCE PRN PRN Reason: Consult order Zolpidem Tartrate (Zolpidem Tartrate 5 Mg Tablet) 5 mg PO BEDTIME PRN PRN Reason: Insomnia Last Admin: 12/15/22 21:26 Dose: 5 mg Documented By: SIMONE Labs 12/16/22 06:37 12/16/22 06:37 Labs: Laboratory Results - last 24 hr 12/15/22 12/15/22 12/16/22 16:26 20:06 06:37 MCV MCH MCHC RDW Plt Count MPV Immature Gran % (Auto) Neut % (Auto) Lymph % (Auto) [place] % (Auto) Eos % (Auto) Baso % (Auto) Lymph # (Auto) [place] # (Auto) Eos # (Auto) Baso # (Auto) Abs Immat Gran (auto) Absolute Neuts (auto) Absolute Nucleated RBC Nucleated RBC % (auto) Anion Gap 14 Estim Creat Clear Calc 83.9 Estimated GFR > 60 POC Glucose 345 H 295 H Fasting Glucose 261 H Calcium 8.8 Total Bilirubin 0.7 AST 29 ALT 21 Alkaline Phosphatase 102 Total Protein 6.7 Albumin 3.9 Triglycerides 91 Cholesterol 165 LDL Cholesterol, Calc 113 HDL Cholesterol 34 12/16/22 12/16/22 12/16/22 06:37 07:26 11:18 MCV 79.7 L MCH 26.4 L MCHC 33.2 RDW 13.5 Plt Count 251 MPV 13.4 H Immature Gran % (Auto) 0.2 Neut % (Auto) 53.3 Lymph % (Auto) 39.8 [place] % (Auto) 4.3 Eos % (Auto) 1.9 Baso % (Auto) 0.5 Lymph # (Auto) 3.4 [place] # (Auto) 0.4 Eos # (Auto) 0.2 Baso # (Auto) 0.0 Abs Immat Gran (auto) 0.02 Absolute Neuts (auto) 4.6 Absolute Nucleated RBC 0.000 Nucleated RBC % (auto) 0.0 Anion Gap Estim Creat Clear Calc Estimated GFR POC Glucose 252 H 265 H Fasting Glucose Calcium Total Bilirubin AST ALT Alkaline Phosphatase Total Protein Albumin Triglycerides Cholesterol LDL Cholesterol, Calc HDL Cholesterol Assessment and Plan (1) Type 2 diabetes mellitus: Status: Acute (2) Right leg weakness: Status: Acute (3) Cerebrovascular accident: Status: Acute Plan 52-year-old female with pertinent history of mixed hyperlipidemia, essential hypertension, chronic opioid use, insomnia, history of previous CVA who presents to the emergency department for evaluation of right lower extremity weakness.? 1. Acute left thalamic infarction Persistent Right lower extremity weakness new from baseline ,with right-sided numbness Persistent right lower extremity weakness, MRI showed small focus of acute infarction and left thalamus, extensive chronic lacunar infarction by at bilateral basal ganglia, thalami and andreea and deep cerebral white matter, chronic cortical infarction in right more than left frontal lobes and in the left posterior parietal temporal and occipital lobe Family at bedside informed that patient has had 7 prior strokes LDL 113, total cholesterol 165, HDL 34, blood sugars 200-300 range Not on hypoglycemics as per patient she was 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 3. Chronic opioid use -will order p.r.n. lorcet as patient uses for migraines 4. Diabetes type 2 -A1c 11.3, not on home medication, will place on Lantus and continue lispro correctional scale, previously was on metformin that was discontinued by primary care physician -add orals as appropriate 5. Obesity recommended weight reduction and follow low-calorie diet however patient is not receptive to this and wishes to continue whatever she has been eating and last 7 days including gonzalez, Macanese fries and Coke Full code Patient will need continued inpatient hospitalization for acute stroke with right lower extremity weakness waiting for PT OT and neuro evaluation. Time Spent With Patient Time: Total time managing care of this patient today ____ minutes. Quality Stroke Does the patient have a stroke diagnosis?: Yes Reason for No Anti-thrombotic by Day Two: N/A - Med Ordered VTE Prior VTE?: No VTE Risk Level:: Medical - moderate - high VTE Device Contraindication: Treatment Not Indicated VTE Drug Contraindication: N/A - Med Ordered
[2022-12-16 15:30] VITALS: BP 166/84; PULSE 68; RESP 18; TEMP 36.6; O2SAT 96
[2022-12-16 16:57] LABS: Glucose, Whole Blood 331 mg/dL (60-115)
[2022-12-16] MEDS: amLODIPine Besylate 5 MG TABLET PO (17:50)
[2022-12-16 19:18] VITALS: BP 146/72; PULSE 69; RESP 18; TEMP 36.7; O2SAT 96
[2022-12-16 20:50] LABS: Glucose, Whole Blood 263 mg/dL (60-115)
[2022-12-16 23:04] LABS: Glucose, Whole Blood 326 mg/dL (60-115)
[2022-12-16] MEDS: HYDROcodone Bit/Acetam 7.5/325 TABLET 1 TAB PO (23:12)
[2022-12-16] MEDS: Zolpidem Tartrate 5 MG TABLET PO (23:12)
[2022-12-16] MEDS: Insulin Glargine,Hum.rec.anlog 100 UNIT/ML 10 ML VIAL 12 UNIT SUBCUT (23:33)
[2022-12-16 23:59] VITALS: BP 150/76; PULSE 71; RESP 18; TEMP 36.8; O2SAT 100
[2022-12-17 03:18] VITALS: BP 146/94; PULSE 75; RESP 16; TEMP 36.4; O2SAT 94
[2022-12-17 07:16] VITALS: BP 139/83; PULSE 70; RESP 20; TEMP 36.9; O2SAT 95
[2022-12-17 07:56] LABS: Glucose, Whole Blood 233 mg/dL (60-115)
[2022-12-17] MEDS: Insulin Lispro 100 UNIT/ML 3 ML VIAL SUBCUT ×2 (08:43→13:32)
[2022-12-17] MEDS: Atorvastatin Calcium 40 MG TABLET PO (08:44)
[2022-12-17] MEDS: Dabigatran Etexilate Mesylate 150 MG CAPSULE PO ×2 (08:44→22:22)
[2022-12-17] MEDS: amLODIPine Besylate 5 MG TABLET PO (08:44)
[2022-12-17] MEDS: hydroCHLOROthiazide 25 MG TABLET PO (08:44)
[2022-12-17] MEDS: Acetaminophen 325 MG TABLET 650 MG PO ×2 (08:47→17:34)
[2022-12-17 08:49] VITALS: PULSE 96
[2022-12-17 11:06] LABS: Glucose, Whole Blood 240 mg/dL (60-115)
[2022-12-17 11:22] VITALS: BP 156/82; PULSE 67; RESP 20; TEMP 37; O2SAT 94
--- NOTE | 2022-12-17 11:24 | MHC.CLN ---
RE: CONSULT SPOKE WITH PT REGARDING NEW dx DM REVIEWED FOODS THAT AFFECT BS IE CARBOHYDRATES, FRUITS, DAIRY PRODUCTS, REVIEWED PORTION CONTROL. PT EATS ONE MEAL A DAY, FAST FOODS, SODA, JUICE AND DISLIKES FRUITS/VEGETABLES. PT STATED THERE IS VERY LITTLE CHANCE OF MAKING DIET CHANGES. PT ASKED THIS NEUROSCIENTIST ABOUT CONSEQUENCES OF CONTINUOUS HIGH BS REVIEWED: RETINOPATHY, damage to large (macrovascular) and small (microvascular) blood vessels, which can lead to heart attack, stroke, and problems with the kidneys, eyes, gums, feet and nerves. RECOMMEND REFERRAL TO DIRECTOR [facility]/OUT PT RD FOR DIET RE-ENFORCEMENT SEE ALSO TEACHING RECORD
--- NOTE | 2022-12-17 12:31 | P.CNNE_ITS ---
History of Present Illness Data of Consult Service Date: 12/17/22 Primary Care Provider: Unknown Physician HPI Reason for consult: right facial numbness and RLE weakness This is a 52-year-old female with history of stroke in the past with full recovery, ?MS vs small vessel disease, Chronic headache, mixed hyperlipidemia, essential hypertension, chronic opioid use, insomnia, presented to the emergency department for evaluation of right lower extremity weakness. Around 16:00, patient experienced weakness of the right lower extremity and numbness of the right side of the face.? Patient states she had difficulty walking due to right lower extremity weakness.? No weakness of the left side.? No facial droop.? No urinary bowel incontinence.? Patient is anticoagulated with Xarelto so she was not a tPA candidate. MRI shows small acute left lateral thalamic acute infarct and CTA head and neck were negative. Review of Systems Review of Systems: All other systems are reviewed and negative. Constitutional: Constitutional: Reports no additional constitutional complaints Cardiovascular: Cardiovascular: Reports no additional cardiovascular complaints Respiratory: Respiratory: Reports no additional respiratory complaints Gastrointestinal: Gastrointestinal: Reports no additional gastrointestinal complaints Neurologic: Reports focal weakness PMFSH Past Medical History Medical History Benign nevus Breast cancer in female Cardiomyopathy Cerebrovascular disease Essential (primary) hypertension Excessive daytime sleepiness Family history of breast cancer GERD (gastroesophageal reflux disease) Headache History of multiple strokes Hyperlipidemia Multiple sclerosis (Unknown) Obesity (BMI 35.0-39.9 without comorbidity) Functional capacity: independent ambulation Family History Family History Mother Cancer Brother H/O heart surgery Surgical History Surgical History History of breast surgery History of esophagogastroduodenoscopy (EGD) History of removal of cyst (05/07/22) Hx of colonoscopy Social History Social History Household Members: None Household Members Other:: daughter away at college Housing: Apartment Are you a primary palliative care specialist to a significant other at home: No Do you presently have visiting nurse or other home services: No (has had in the past) Alcohol intake: never Patient Tobacco Use Status: Never used Tobacco service: No Current occupational status: disabled Meds Allergies Allergy/AdvReac Type Severity Reaction Status Date / Time No Known Allergies Allergy Verified 11/28/22 16:30 Active Medications: Current Medications Acetaminophen (Acetaminophen 325 Mg Tablet) 650 mg PO Q6H PRN PRN Reason: Pain, Mild (Pain Scale 1-3) Last Admin: 12/17/22 08:47 Dose: 650 mg Hydrocodone Bitart/Acetaminophen (Hydrocodone Bit/Acetam 7.5/325 Tablet) 1 tab PO DAILY PRN PRN Reason: Pain, Severe (Pain Scale 7-10) Last Admin: 12/16/22 23:12 Dose: 1 tab Amlodipine Besylate (Amlodipine Besylate 5 Mg Tablet) 5 mg PO DAILY [facility]; Protocol Last Admin: 12/17/22 08:44 Dose: 5 mg Atorvastatin Calcium (Atorvastatin Calcium 40 Mg Tablet) 40 mg PO DAILY [facility] Last Admin: 12/17/22 08:44 Dose: 40 mg Dabigatran (Dabigatran Etexilate Mesylate 150 Mg Capsule) 150 mg PO BID [facility] Last Admin: 12/17/22 08:44 Dose: 150 mg Glucose (Glucose Gel 15 Gm Gel..Gram.) 15 gm PO Q15M PRN; Protocol PRN Reason: per Hypoglycemia Standing Ord. Hydrochlorothiazide (Hydrochlorothiazide 25 Mg Tablet) 25 mg PO DAILY [facility]; Protocol Last Admin: 12/17/22 08:44 Dose: 25 mg Dextrose (D10) 250 mls @ 750 mls/hr IV Q15M PRN; Protocol PRN Reason: per Hypoglycemia Standing Ord. Insulin Glargine (Insulin Glargine,Hum.Rec.Anlog 100 Unit/Ml 10 Ml Vial) 12 unit SUBCUT BEDTIME [facility] Last Admin: 12/16/22 23:33 Dose: 12 unit Insulin Human Lispro (Insulin Lispro 100 Unit/Ml 3 Ml Vial) 0 unit SUBCUT QIDACHS [facility]; Protocol Last Admin: 12/17/22 08:43 Dose: 6 unit Melatonin (Melatonin 3 Mg Tablet) 6 mg PO BEDTIME PRN PRN Reason: Insomnia Ondansetron HCl (Ondansetron Hcl 4 Mg/2 Ml Vial) 4 mg IVPUSH Q8H PRN PRN Reason: Nausea and Vomiting Last Admin: 12/15/22 15:40 Dose: 4 mg Pharmacy Consult (Consult Rx Perform Med Rec) 1 each MISCELLANE ONCE PRN PRN Reason: Consult order Zolpidem Tartrate (Zolpidem Tartrate 5 Mg Tablet) 5 mg PO BEDTIME PRN PRN Reason: Insomnia Last Admin: 12/16/22 23:12 Dose: 5 mg Home Medications Medication Instructions Recorded Confirmed Last Taken Type dabigatran etexilate 150 mg capsule 150 mg PO BID 06/14/20 12/15/22 09/11/22 History hydrochlorothiazide 25 mg tablet 25 mg PO QAM 06/14/20 12/15/22 Unknown History zolpidem 10 mg tablet 10 mg PO BEDTIME 06/14/20 12/15/22 Unknown History naproxen 500 mg tablet 500 mg PO Q12H PRN Pain 10/09/22 12/15/22 Unknown History oxycodone-acetaminophen 7.5 mg-325 1 tab PO DAILY 11/18/22 12/15/22 Unknown History mg tablet Physical Exam Vital Signs: Vital Signs: Last Vital Signs Temp 98.6 F 12/17/22 11:22 Pulse 67 12/17/22 11:22 Resp 20 12/17/22 11:22 BP 156/82 H 12/17/22 11:22 Pulse Ox 94 12/17/22 11:22 O2 Del Method Room Air 12/17/22 11:22 BMI result Body Mass Index 36.1 Const: Other: General awake alert x3, resting comfortably in no acute distress. Neck , supple no JVD. CVS regular rate rhythm, Respiratory lungs clear to auscultation, no respiratory distress, no wheeze, no rhonchi. Gastrointestinal abdomen soft, non tender, bowel sounds audible, no guarding , no rigidity. Extremities no edema. Neuro speech clear, numbness right side of body, decreased strength right lower extremity 3/5. Skin no rash Psych appropriate affect Resp: Other: Clear to auscultation bilaterally no rales rhonchi or wheezes Cardio: Other: No S4; positive S1-S2; no S3 murmurs rubs or gallops GI: Other: Soft nontender nondistended normoactive bowel sounds Neuro: Other: Cranial nerves 2-12 appear grossly intact as tested. Motor is 5/5 left upper and lower extremity. Right upper extremity is 5-/5;RLE 4+/5. Able to walk independently . Right hemihypesthesia. Plantars flexor Extrem: Other: No edema bilaterally Results Labs 12/16/22 06:37 12/16/22 06:37 Assessment and Plan (1) Type 2 diabetes mellitus: Status: Acute (2) Right leg weakness: Status: Acute (3) Cerebrovascular accident: Status: Acute Small acute left thalamic infarct with minor symptoms. Recom. PT/OT . Continue Xarelto. Plan 52-year-old female with pertinent history of mixed hyperlipidemia, essential hypertension, chronic opioid use, insomnia, history of previous CVA who presents to the emergency department for evaluation of right lower extremity weakness.? 1. Acute left thalamic infarction Persistent Right lower extremity weakness new from baseline ,with right-sided numbness Persistent right lower extremity weakness, MRI showed small focus of acute infarction and left thalamus, extensive chronic lacunar infarction by at bilateral basal ganglia, thalami and andreea and deep cerebral white matter, chronic cortical infarction in right more than left frontal lobes and in the left posterior parietal temporal and occipital lobe Family at bedside informed that patient has had 7 prior strokes LDL 113, total cholesterol 165, HDL 34, blood sugars 200-300 range Not on hypoglycemics as per patient she was 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 3. Chronic opioid use -will order p.r.n. lorcet as patient uses for migraines 4. Diabetes type 2 -A1c 11.3, not on home medication, will place on Lantus and continue lispro correctional scale, previously was on metformin that was discontinued by primary care physician -add orals as appropriate 5. Obesity recommended weight reduction and follow low-calorie diet however patient is not receptive to this and wishes to continue whatever she has been eating and last 7 days including gonzalez, Danish fries and Coke Full code Patient will need continued inpatient hospitalization for acute stroke with right lower extremity weakness waiting for PT OT and neuro evaluation. Time Spent With Patient Time: Total time managing care of this patient today ____ minutes. Procedures Date of Service Date of Service: 12/17/22
[2022-12-17 15:25] VITALS: BP 146/82; PULSE 87; RESP 18; TEMP 36.8; O2SAT 92
--- NOTE | 2022-12-17 16:07 | P.PNIM_ITS ---
Subjective Subjective Date of Service: 12/17/22 Interval History: Complaining of persistent right lower extremity weakness and right-sided numbness, no new neuro deficit speech is clear, tolerating diet no nausea, no vomiting for, no abdominal pain, denies headache or dizziness, no acute events overnight Review of Systems All other system reviewed and negative. Physical Exam Vital Signs: Vital Signs: Last Vital Signs Temp 98.2 F 12/17/22 15:25 Pulse 87 12/17/22 15:25 Resp 18 12/17/22 15:25 BP 146/82 H 12/17/22 15:25 Pulse Ox 92 12/17/22 15:25 O2 Del Method Room Air 12/17/22 15:25 BMI result Body Mass Index 36.1 Const: Other: General awake alert x3, resting comfortably in no acute distress.? Neck , supple no JVD. CVS? regular rate rhythm, Respiratory lungs clear to auscultation, no respiratory distress, no wheeze, no rhonchi. Gastrointestinal abdomen soft, non tender, bowel sounds audible, no guarding , no rigidity. Extremities no edema. Neuro speech clear, numbness right side of body, decreased strength right lower extremity 3/5. Skin no rash Psych appropriate affect Objective Data Active Medications Acetaminophen (Acetaminophen 325 Mg Tablet) 650 mg PO Q6H PRN PRN Reason: Pain, Mild (Pain Scale 1-3) Last Admin: 12/17/22 08:47 Dose: 650 mg Documented By: HUMERA Hydrocodone Bitart/Acetaminophen (Hydrocodone Bit/Acetam 7.5/325 Tablet) 1 tab PO DAILY PRN PRN Reason: Pain, Severe (Pain Scale 7-10) Last Admin: 12/16/22 23:12 Dose: 1 tab Documented By: MINDY Amlodipine Besylate (Amlodipine Besylate 5 Mg Tablet) 5 mg PO DAILY [facility]; [facility] Last Admin: 12/17/22 08:44 Dose: 5 mg Documented By: HUMERA Atorvastatin Calcium (Atorvastatin Calcium 40 Mg Tablet) 40 mg PO DAILY [facility] Last Admin: 12/17/22 08:44 Dose: 40 mg Documented By: HUMERA Dabigatran (Dabigatran Etexilate Mesylate 150 Mg Capsule) 150 mg PO BID [facility] Last Admin: 12/17/22 08:44 Dose: 150 mg Documented By: HUMERA Glucose (Glucose Gel 15 Gm Gel..Gram.) 15 gm PO Q15M PRN; Protocol PRN Reason: per Hypoglycemia Standing Ord. Hydrochlorothiazide (Hydrochlorothiazide 25 Mg Tablet) 25 mg PO DAILY [facility]; Protocol Last Admin: 12/17/22 08:44 Dose: 25 mg Documented By: HUMERA Dextrose (D10) 250 mls @ 750 mls/hr IV Q15M PRN; Protocol PRN Reason: per Hypoglycemia Standing Ord. Insulin Glargine (Insulin Glargine,Hum.Rec.Anlog 100 Unit/Ml 10 Ml Vial) 12 unit SUBCUT BEDTIME [facility] Last Admin: 12/16/22 23:33 Dose: 12 unit Documented By: MINDY Insulin Human Lispro (Insulin Lispro 100 Unit/Ml 3 Ml Vial) 0 unit SUBCUT QIDACHS [facility]; Protocol Last Admin: 12/17/22 13:32 Dose: 6 unit Documented By: HUMERA Melatonin (Melatonin 3 Mg Tablet) 6 mg PO BEDTIME PRN PRN Reason: Insomnia Ondansetron HCl (Ondansetron Hcl 4 Mg/2 Ml Vial) 4 mg IVPUSH Q8H PRN PRN Reason: Nausea and Vomiting Last Admin: 12/15/22 15:40 Dose: 4 mg Documented By: TIARA Pharmacy Consult (Consult Rx Perform Med Rec) 1 each MISCELLANE ONCE PRN PRN Reason: Consult order Zolpidem Tartrate (Zolpidem Tartrate 5 Mg Tablet) 5 mg PO BEDTIME PRN PRN Reason: Insomnia Last Admin: 12/16/22 23:12 Dose: 5 mg Documented By: MINDY Labs 12/16/22 06:37 12/16/22 06:37 Labs: Laboratory Results - last 24 hr 12/16/22 12/16/22 12/16/22 16:54 20:43 23:00 POC Glucose 331 H 263 H 326 H 12/17/22 12/17/22 07:49 10:59 POC Glucose 233 H 240 H Assessment and Plan (1) Type 2 diabetes mellitus: Status: Acute (2) Right leg weakness: Status: Acute (3) Cerebrovascular accident: Status: Acute Plan 52-year-old female with pertinent history of mixed hyperlipidemia, essential hypertension, chronic opioid use, insomnia, history of previous CVA who presents to the emergency department for evaluation of right lower extremity weakness.? 1. Acute left thalamic infarction Persistent Right lower extremity weakness new from baseline ,with right-sided numbness MRI showed small focus of acute infarction and left thalamus, extensive chronic lacunar infarction by at bilateral basal ganglia, thalami and andreea and deep cerebral white matter, chronic cortical infarction in right more than left frontal lobes and in the left posterior parietal temporal and occipital lobe Family at bedside informed that patient has had 7 prior strokes Patient with multiple risk factors for stroke including diabetes mellitus, hyperlipidemia, diabetes and obesity and noncompliance with medications and diet LDL 113, total cholesterol 165, HDL 34, blood sugars 200-300 range continue atorvastatin/Pradaxa, blood pressure medication, seen by OT PT they recommend acute rehab Will discuss with psychiatric social worker regarding rehab placement Patient will need strict control of blood sugars, cholesterol and blood pressure. 2.Essential hypertension -suboptimal blood pressure control on hctz and Norvasc, will verify med reconciliation with pharmacy. 3. Chronic opioid use -on p.r.n. lorcet as patient uses for migraines 4. Diabetes type 2 -A1c 11.3, not on home medication, Started on Lantus and continue lispro correctional scale, previously was on metformin that was discontinued by primary care physician Obtain nutrition consultation, add metformin 500 b.i.d. and increase dose of Lantus 5. Obesity recommended weight reduction and follow low-calorie diet however patient is not receptive to this and wishes to continue whatever she has been eating and last 7 days including gonzalez, Greenlandic fries and Coke Full code Patient will need continued inpatient hospitalization for acute stroke with right lower extremity weakness waiting for safe discharge to acute rehab placement Time Spent With Patient Time: Total time managing care of this patient today ____ minutes. Quality Stroke Does the patient have a stroke diagnosis?: Yes Reason for No Anti-thrombotic by Day Two: N/A - Med Ordered VTE Prior VTE?: No VTE Risk Level:: Medical - moderate - high VTE Device Contraindication: Treatment Not Indicated VTE Drug Contraindication: N/A - Med Ordered
[2022-12-17 16:10] LABS: Glucose, Whole Blood 357 mg/dL (60-115)
[2022-12-17] MEDS: HYDROcodone Bit/Acetam 7.5/325 TABLET 1 TAB PO (17:34)
[2022-12-17 19:32] VITALS: BP 154/85; PULSE 89; RESP 18; TEMP 37; O2SAT 98
[2022-12-17 22:15] LABS: Glucose, Whole Blood 349 mg/dL (60-115)
[2022-12-17] MEDS: NaPROXEN 500 MG TABLET PO (22:22)
[2022-12-17] MEDS: Zolpidem Tartrate 5 MG TABLET PO (22:22)
[2022-12-18] VITALS: BP 140/76; PULSE 85; RESP 20; TEMP 36.1; O2SAT 98
[2022-12-18 03:10] VITALS: BP 128/73; PULSE 86; RESP 20; TEMP 36.1; O2SAT 99
[2022-12-18 07:13] VITALS: BP 177/88; PULSE 73; RESP 20; TEMP 36.2; O2SAT 94
--- NOTE | 2022-12-18 07:28 | PC.NURSE ---
when assumed care patient had no IV access. unable to obtain access after multiple attempts. cutting and boning supervisor notified and was not able to obtain access. patient then refused further attempts after shuttle veneering supervisor tried.
[2022-12-18] MEDS: amLODIPine Besylate 5 MG TABLET PO (08:09)
[2022-12-18] MEDS: Atorvastatin Calcium 40 MG TABLET PO (08:09)
[2022-12-18] MEDS: hydroCHLOROthiazide 25 MG TABLET PO (08:09)
[2022-12-18] MEDS: Celecoxib 200 MG CAPSULE PO (08:09)
[2022-12-18] MEDS: Dabigatran Etexilate Mesylate 150 MG CAPSULE PO (08:09)
[2022-12-18] MEDS: Acetaminophen 325 MG TABLET 650 MG PO (08:09)
--- NOTE | 2022-12-18 10:42 | MHC.CM.PN ---
CM met with Patient at bedside to discuss PT's recommendation for Acute Rehab. Patient has accepted [facility] bed offer and [facility] has asked [facility] to initiate auth process with [facility]. CM will follow.
[2022-12-18 11:22] VITALS: BP 165/82; PULSE 85; RESP 20; TEMP 36.2; O2SAT 100
[2022-12-18] MEDS: HYDROcodone Bit/Acetam 7.5/325 TABLET 1 TAB PO (11:53)
[2022-12-18 11:54] LABS: Glucose, Whole Blood 348 mg/dL (60-115)
--- NOTE | 2022-12-18 13:18 | MHC.CM.PN ---
Patient has been medically cleared for dc to Acute Rehab today. Patient will dc to [facility] today @ 4PM, via [facility].
--- NOTE | 2022-12-18 13:25 | PM.DS ---
DS: Providers Provider Date of Service: 12/18/22 Date of admission: 12/15/22 01:56 Primary care physician: Christiano Kaur MD Consults: 12/15/22 01:56 Consult to Neurology Routine Consulting Provider: [facility] Reason for consultation: CVA DS: Diagnosis Discharge Diagnosis (1) Type 2 diabetes mellitus: Status: Acute (2) Right leg weakness: Status: Acute (3) Cerebrovascular accident: Status: Acute DS: Summary Hospital Course Hospital Course: History of presenting illness: Date of Service: 12/15/22 Chief Complaint: Right leg weakness This is a 52-year-old female with pertinent history of mixed hyperlipidemia, essential hypertension, chronic opioid use, insomnia, history of previous CVA who presents to the emergency department for evaluation of right lower extremity weakness.? Patient states at baseline she walks about a cane or a walker.? Around 16:00 patient experienced weakness of the right lower extremity and numbness of the right side of the face.? Patient states she had difficulty walking due to right lower extremity weakness.? No weakness of the left side.? No facial droop.? No urinary bowel incontinence.? She denies fever, chills, chest discomfort, palpitations, shortness of breath, abdominal pain, changes in urinary or bowel habits. In the emergency department, CT head showed no acute intracranial pathology showed chronic right frontal, left parietal, occipital and temporal lobe infarction and chronic bilateral ganglial capsular lacunar infarction and right thalamic lacunar infarct. Hospital course: 52-year-old female with pertinent history of mixed hyperlipidemia, essential hypertension, chronic opioid use, insomnia, history of previous CVA who presents to the emergency department for evaluation of right lower extremity weakness.? 1. Acute left thalamic infarction, patient continued to have Right lower extremity weakness new from baseline ,with right-sided numbness,?MRI showed small focus of acute infarction and left thalamus, extensive chronic lacunar infarction by at bilateral basal ganglia, thalami and andreea and deep cerebral white matter,?chronic cortical infarction in right more than left frontal lobes and in the left posterior parietal temporal and occipital lobe History of 7 prior strokes, with multiple risk factors for stroke including diabetes mellitus, hyperlipidemia, hypertension and obesity and noncompliance with medications and diet,?LDL 113, total cholesterol 165, HDL 34, blood sugars 200-300 range,?continue atorvastatin/Pradaxa, blood pressure medication, seen by OT PT they recommend acute rehab ? need strict control of blood sugars, cholesterol and blood pressure. 2.Essential hypertension recommend to continue all antihypertensives including Norvasc hydrochlorothiazide and propranolol 3. Right shoulder pain/ Chronic opioid use continue home dose of Lorcet an added Celebrex 200 mg daily, recent right shoulder x-ray showed degenerative disease 4. Diabetes type 2 -A1c 11.3, not on home medication, started on Lantus, metformin and lispro correctional scale, previously was on metformin that was discontinued by primary care physician ? Strongly recommend to follow diabetic diet, seen by drums teacher and recommended referral to clinical staff educator in community outpatient for diet reinforcement. Follow blood sugar closely and adjust dose of insulin. 5. Obesity recommended weight reduction,follow low-calorie diet ,however patient is not receptive to this and wishes to continue whatever she has been eating. Time Spent with Patient Time attestation: Total time managing care of this patient today ____ minutes. Discharge coordination time: Greater than 30 minutes Quality: Safe Use of Opioids Does Pt have an Active Cancer Diagnosis on the Problem List?: No Quality: Stroke Does the patient have a stroke diagnosis?: No Physical Exam Vital Signs: Vital Signs: Last Vital Signs Temp 97.2 F 12/18/22 11:22 Pulse 85 12/18/22 11:22 Resp 20 12/18/22 11:22 BP 165/82 H 12/18/22 11:22 Pulse Ox 100 12/18/22 11:22 O2 Del Method Room Air 12/18/22 11:22 BMI result Body Mass Index 36.1 Const: Other: General awake alert x3, resting comfortably in no acute distress.? Neck , supple no JVD. CVS? regular rate rhythm, Respiratory lungs clear to auscultation, no respiratory distress, no wheeze, no rhonchi. Gastrointestinal abdomen soft, non tender, bowel sounds audible, no guarding , no rigidity. Extremities no edema. Neuro speech clear, numbness right side of body, decreased strength right lower extremity 3-4/5. Skin no rash Psych appropriate affect DS: Data Data Completed and Pending Labs on day of discharge: Laboratory Results - last 24 hr 12/17/22 12/17/22 12/18/22 15:24 22:09 11:21 POC Glucose 357 H* 349 H 348 H Discharge Plan Discharge Anticipated Discharge Date/Time: 12/18/22 13:21 Patient Disposition: Xfer Inpatient Rehab Fac Discharge Diagnosis: Acute left thalamic infarction New onset type 2 diabetes mellitus Referrals: [facility] [Outside] - 1 Week Physician,Zander J [Physician] - 1 Week Discharge Medications: New celecoxib 200 mg Capsule 200 mg PO DAILY Qty: 30 0RF metformin 500 mg Tablet 500 mg PO BIDWM Qty: 60 0RF insulin lispro [Humalog U-100 Insulin] 100 unit/mL Solution See Protocol subcut QIDACHS Qty: 10 0RF Protocol: Insulin Correction Scale Less than or equal to 110 ---- Give (units): 0 111 to 150 Give (units): 0 151 to 200 Give (units): 4 201 to 250 Give (units): 6 251 to 300 Give (units): 8 301 to 350 Give (units): 10 Greater than 350 Give (units): 12 Call MD if Blood Glucose > : 350 insulin glargine [Lantus U-100 Insulin] 100 unit/mL solution 20 unit subcut QPM Qty: 10 0RF Continued atorvastatin [Lipitor] 40 mg tablet 40 mg PO DAILY 90 Days Qty: 90 3RF amlodipine 10 mg tablet 10 mg PO DAILY pantoprazole 40 mg Tablet,Delayed Release (Dr/Ec) 40 mg PO BID propranolol 120 mg Capsule,Extended Release 24 Hr 120 mg PO DAILY zolpidem 10 mg tablet 10 mg PO BEDTIME dabigatran etexilate 150 mg capsule 150 mg PO BID hydrochlorothiazide 25 mg tablet 25 mg PO QAM oxycodone-acetaminophen 7.5-325 mg tablet 1 tab PO DAILY Discontinued naproxen 500 mg tablet 500 mg PO Q12H PRN (Reason: Pain) Discharge Orders: Discharge Order (Routine); Ordered 12/18/22 Ordered By: Halina Lamb Diet: Diabetic diet Activity on Discharge: As tolerated Stand Alone Forms: Patient Portal Discharge page Care Plan Goals: Acute CVA continue Pradaxa and strong compliance with all home medications Follow blood sugars closely and adjust dose of insulin Health Concerns: Multiple risk factors for stroke recommend compliance with all home medications and low-calorie diabetic diet Plan of Treatment: Close outpatient follow-up with primary care physician call for appointment Assessment: As above
--- NOTE | 2022-12-18 13:32 | PC.NURSE ---
0730- patient refused POC, insulin and metformin. Dr. Lamb made aware. No new orders.
[2022-12-18 14:09] LABS: COVID-19 Test Negative (Negative); IDNOW Serial# BCCEAD1C
== END 2022-12-18 16:16 | DRG 45 ==
LOC: HO.ED 12-15 01:15 → HO.EDOVER 12-15 02:07 → HO.IMC 12-15 02:34
PROVIDERS: Hospitalist; Admitting Provider Student in an Organized Health Care Education/Training Program; Emergency Provider Emergency Medicine; PCP Internal Medicine; Visit Provider Hospitalist
DX: I63.89 Other cerebral infarction (principal); E66.9 Obesity, unspecified; G83.11 Monoplegia of lower limb affecting right dominant side; E78.2 Mixed hyperlipidemia; R29.701 NIHSS score 1; G35 Multiple sclerosis; I10 Essential (primary) hypertension; R20.2 Paresthesia of skin; Z20.822 Contact with and (suspected) exposure to COVID-19; Z68.36 Body mass index [BMI] 36.0-36.9, adult; Z91.148 Patient's other noncompliance with medication regimen for other reason; Z91.119 Patient's noncompliance with dietary regimen due to unspecified reason; Z79.4 Long term (current) use of insulin; Z79.84 Long term (current) use of oral hypoglycemic drugs; Z79.891 Long term (current) use of opiate analgesic; Z79.899 Other long term (current) drug therapy
CPT/HCPCS: 36415; 70450; 70496; 70498; 70551; 71045; 80048; 80053; 80061; 82550; 82947; 83036; 84484; 85025; 85610; 85730; 87635; 93005; 93306; 97116; 97162; 97166; 97530; 97535; 99285; J2270; J2405; Q9957; Q9967

== ENCOUNTER 2023-01-02 10:24 | Outpatient (REF) | payer OTHER, SELFPAY ==
[2023-01-03 09:32] LABS: BV Int Neg Control Negative (Negative); BV Int Pos Control Positive (Positive)
== END 2023-01-02 10:25 | disposition home or self-care (01) ==
LOC: HO.LNP 10:24
PROVIDERS: PCP Internal Medicine; Visit Provider Advanced Practice Midwife
DX: N89.8 Other specified noninflammatory disorders of vagina (principal); N94.9 Unspecified condition associated with female genital organs and menstrual cycle
CPT/HCPCS: 87480; 87510; 87660; 99212

== ENCOUNTER 2023-01-08 18:20 | Inpatient (IN) | payer OTHER, SELFPAY ==
--- NOTE | ~2023-01-08 | US_ITS ---
EXAMINATION: US EXTRACRANIAL CAROTID DUPLEX, BILATERAL CLINICAL INFORMATION: CVA COMPARISON: None available. TECHNIQUE: Real-time ultrasound and Doppler techniques (integrating B-mode 2-D vascular images, Doppler spectral analysis and color-flow Doppler imaging) were utilized to interrogate the extracranial carotid arteries, the vertebral arteries and proximal subclavian arteries bilaterally. The degree of stenosis is determined by criteria similar to NASCET. FINDINGS: Right Side: 1. There is mild atherosclerotic plaque seen in the bifurcation/proximal ICA region. 2. The common carotid artery PSV proximally is 102 cm/s and distally 57 cm/s. 3. The proximal internal carotid artery velocities are 50 cm/s systolic and 14 cm/s diastolic. 4. The proximal external carotid artery PSV is 127 cm/s. 5. The vertebral artery shows antegrade flow. 6. The subclavian artery waveforms are normal. Left Side: 1. There is hard atherosclerotic plaque seen in the bifurcation/proximal ICA region. 2. The common carotid artery PSV proximally is 167 cm/s and distally 68 cm/s. 3. The proximal internal carotid artery velocities are 68 cm/s systolic and 23 cm/s diastolic. 4. The proximal external carotid artery PSV is 107 cm/s. 5. The vertebral artery shows antegrade flow. 6. The subclavian artery waveforms are normal. US/US carotid duplex BI IMPRESSION: 1. RIGHT: No hemodynamically significant stenosis in right carotid artery. 2. LEFT: No hemodynamically significant stenosis in left carotid artery. 3. Normal antegrade flow seen in both vertebral arteries.
--- NOTE | ~2023-01-08 | CT_ITS ---
CT HEAD WITHOUT CONTRAST CLINICAL HISTORY: Right-sided weakness TECHNIQUE: CT of the brain was performed from the skull base through the vertex using a routine non-contrast protocol. All CT exams at this location are performed using dose optimization techniques as appropriate to a performed exam including at least one of the following: * Automated exposure control * Adjustment of the mA and/or kV according to patient size (this includes techniques or standardized protocols for targeted exams where dose is matched to indication / reason for exam; i/e/ extremities or head) * Use of iterative reconstructive technique DLP: 680 mGy-cm COMPARISON: 12/15/2022 RESULTS: There is no evidence of acute intracranial hemorrhage, acute large vessel infarct, midline shift or mass effect. The patel-white differentiation is preserved. Focal encephalomalacia consistent with old ischemic infarct seen within the left occipital, posterior temporal and parietal lobe. Encephalomalacia is also seen within the cortex of the right frontal lobe consistent with old ischemic infarct. There are extensive periventricular and subcortical white matter changes consistent with chronic microvascular ischemic changes. Multiple old lacunar infarcts seen within the bilateral basal ganglia and thalami. The ventricles and sulci are within normal limits in size and configuration. There is no evidence of hydrocephalus. There are no extraaxial collections. Old surgical alberto hole seen within the right parietal calvarium. Paranasal sinuses and mastoid air cells are well aerated. CT/CT head/brain wo IV con IMPRESSION: No acute intracranial process. Extensive chronic ischemic changes as described above
[2023-01-08 18:32] VITALS: BP 126/74; BP 129/69; PULSE 75; PULSE 80; RESP 16; TEMP 37.2; O2SAT 100; O2SAT 98; BMI 32.7
--- NOTE | 2023-01-08 19:13 | ED.GENADULT ---
HPI - General Adult General Chief complaint: Weakness Stated complaint: R side weakness Time Seen by Provider: 01/08/23 19:13 Source: patient and EMS Mode of arrival: EMS Limitations: no limitations History of Present Illness HPI narrative: 52-year-old female came in for evaluation for possible CVA. Patient was multiple history of CVA left her with bilateral body weakness right more than left, started last night 23:00 patient felt more weakness on the right side which is similar to her previous stroke in the past, patient takes Pradaxa for her extensive stroke history for anticoagulation. Related Data Home Medications Medication Instructions Recorded Confirmed dabigatran etexilate 150 mg capsule 150 mg PO BID 06/14/20 12/30/22 hydrochlorothiazide 25 mg tablet 25 mg PO QAM 06/14/20 12/30/22 zolpidem 10 mg tablet 10 mg PO BEDTIME 06/14/20 12/30/22 oxycodone-acetaminophen 7.5 mg-325 1 tab PO DAILY 11/18/22 12/30/22 mg tablet amlodipine 10 mg tablet 10 mg PO DAILY 12/18/22 12/30/22 pantoprazole 40 mg tablet,delayed 40 mg PO BID 12/18/22 12/30/22 release propranolol 120 mg capsule,24 120 mg PO DAILY 12/18/22 12/30/22 hr,extended release blood sugar diagnostic (FreeStyle #10 ea 01/02/23 Lite Strips) blood-glucose meter (FreeStyle #1 ea 01/02/23 Lite Meter kit) lancets 28 gauge (FreeStyle #100 ea 01/02/23 Lancets) naproxen 500 mg tablet 500 mg PO BID 01/02/23 pen needle, diabetic 32 gauge x #1,200 ea 01/02/23 (BD Ailin 2nd Gen Pen Needle) Previous Rx's Medication Instructions Recorded atorvastatin 40 mg tablet (Lipitor) 40 mg PO DAILY 90 days #90 tabs 12/03/22 celecoxib 200 mg capsule 200 mg PO DAILY #30 caps 12/18/22 insulin lispro 100 unit/mL See Protocol subcut QIDACHS #10 mL 12/18/22 subcutaneous solution (Humalog U-100 Insulin) metformin 500 mg tablet 500 mg PO BIDWM #60 tabs 12/18/22 clotrimazole-betamethasone 1 1 appl topical BID PRN itching 7 01/02/23 %-0.05 % topical cream days #45 grams metronidazole 0.75 % (37.5 mg/5 1 appful vaginal DAILY 5 days #70 01/03/23 gram) vaginal gel grams terconazole 0.4 % vaginal cream 1 appful vaginal BEDTIME 7 days 01/03/23 #45 grams insulin glargine 100 unit/mL 20 unit (0.2 mL) subcut QPM #10 mL 01/07/23 subcutaneous solution (Lantus U-100 Insulin) flash glucose sensor (FreeStyle #2 ea 01/08/23 Mario 2 Sensor kit) flash glucose sensor (FreeStyle #2 ea 01/08/23 Mario 2 Sensor kit) Allergies Allergy/AdvReac Type Severity Reaction Status Date / Time No Known Allergies Allergy Verified 01/02/23 10:37 Review of Systems Review of Systems: All other systems are reviewed and are negative Constitutional: Reports as per HPI and Reports no additional constitutional complaints Eyes: Reports as per HPI and Reports no additional eye complaints Reports system reviewed and no additional complaints, except as documented Cardiovascular: Reports as per HPI and Reports no additional cardiovascular complaints Respiratory: Reports as per HPI and Reports no additional respiratory complaints Gastrointestinal: Reports as per HPI and Reports no additional gastrointestinal complaints Genitourinary: Reports no additional female genitourinary complaints Musculoskeletal: Reports no additional musculoskeletal complaints Skin/Breast: Reports system reviewed and no additional complaints, except as docu Psychiatric: Reports no additional psychiatric complaints Endocrine: Reports no additional endocrine complaints Hematologic/Lymphatic: Reports no additional hematologic/lymphatic complaints Allergic/Immunologic: Reports no additional allergic/immunologic complaints Reports system reviewed and no additional complaints, except as documented and Reports Abnormal speech present [facility] Past Medical History Medical History Benign nevus Breast cancer in female Cardiomyopathy Cerebrovascular disease Essential (primary) hypertension Excessive daytime sleepiness Family history of breast cancer GERD (gastroesophageal reflux disease) Headache History of multiple strokes Hyperlipidemia Multiple sclerosis (Unknown) Obesity (BMI 35.0-39.9 without comorbidity) Surgical History History of breast surgery History of esophagogastroduodenoscopy (EGD) History of removal of cyst (05/07/22) Hx of colonoscopy Family History Family History Mother Cancer Brother H/O heart surgery Maternal Aunt Breast cancer Social History Social History Household Members: None Household Members Other:: daughter away at college Housing: Apartment Are you a primary lawn care professional to a significant other at home: No Do you presently have visiting nurse or other home services: No (has had in the past) Alcohol intake: never Patient Tobacco Use Status: Never used Tobacco Smoked in Last 30 Days: No Use of substances other than those prescribed or required for medical reasons: No Advance Directives: No Advance Directives Information Provided: No service: No Current occupational status: disabled Cognitive needs: No Hearing needs: No Vision needs: No Physical Exam ED Vital Signs: Vital Signs - 24 hr 01/08/23 18:32 Temperature 98.9 F Pulse Rate 75 Respiratory Rate 16 Blood Pressure 129/69 Pulse Oximetry 100 Oxygen Delivery Method Room Air BMI result Body Mass Index 32.7 vital signs have been reviewed as appeared to be correct. Blood pressure normal. Heart rate normal. Respiration rate normal. Temperature normal. Oxygen saturation normal. Appearance: Alert. Oriented X3. No acute distress. Head: Normal external exam. Normocephalic. Atraumatic. No Yun signs noted. No raccoon eyes noted Eyes: PERRLA. EOMI. Conjunctiva and sclera normal. Eyelids normal. ENT: TM's Normal. Pharynx normal. Uvula midline. Moist mucous membranes. No trismus noted. No drooling noted. No muffled voice noted. Neck: Normal inspection. Neck supple. FROM. No adenopathy. Thyroid Normal. No meningeal signs. No neck mass noted. CVS: Normal heart rate and rhythm. Heart sound normal. No murmurs noted. Pulses normal throughout. Respiratory: No respiratory distress. Painless inspiration. Breath sounds normal. No wheezes/rales/rhonchi noted. Chest nontender. No accessory muscle usage noted or decreased air movement noted. Abdomen: Soft and nontender. Bowel sounds normal in all 4 quadrants. No distention noted. No organomegaly noted. No visible injury noted. Back: No CVA tenderness. Full range of motion noted. Skin: Skin warm and dry. Normal skin color. Normal skin turgor. No rashes/lesions/lacerations noted. Extremities: No lower extremity edema. Extremities exhibit normal range of motion. Extremities nontender. Neuro: Oriented X 3. Cranial nerve exam: II-XII are grossly intact, Mild right upper extremities pronator drift. No sensory deficit. Reflexes normal. NIH Stroke Scale Time: 19:23 Level of Consciousness: Alert Level of Consciousness Questions: Answers both questions correctly Level of Consciousness Commands: Performs both tasks correctly Best Gaze: Normal Visual: No visual loss Facial Palsy: Normal Motor Arm (Right): Drift Motor Arm (Left): No drift Motor Leg (Right): Drift Motor Leg (Left): No drift Limb Ataxia: Absent Sensory: Normal Best Language: No aphasia Dysarthia: Normal Extinction and Inattention: No abnormality Score: 2 Course Course Course Narrative: 52-year-old female with unfortunate history of frequent CVA patient is taking Pradaxa for AC, patient came in for subjective feeling of new stroke to the right side, patient is ready with right-sided weakness settled his stroke in the past. Otherwise exam is unremarkable. Will admit for further neurological evaluation. Medical Decision Making Differential Diagnosis Differential Diagnoses: The differential diagnosis associated with the presentation includes ( CVA, hemorrhagic stroke, electrolyte abnormalities, severe anemia.) Admission/Observation Consideration of admission/observation: Escalation of care including admission/observation considered Consult Healthcare Provider Management of the patient was discussed with: Hospitalist Lab Data MDM Lab Attestation statement: I reviewed the patient's lab results. 01/08/23 20:03 01/08/23 20:03 Labs: Lab Results 01/08/23 01/08/23 01/08/23 Range/Units 19:10 20:03 20:03 WBC 6.5 (4.8-10.8) X10*3/uL RBC 4.04 L (4.20-5.50) X10*6/uL Hgb 11.0 L (12.0-16.0) g/dl Hct 32.3 L (37.0-47.0) % MCV 80.0 (80.0-98.0) fL MCH 27.2 (27.0-33.0) pg MCHC 34.1 (31.0-35.0) g/dl RDW 14.4 (11.0-16.0) % Plt Count 254 (160-400) X10*3/uL MPV 12.8 H (9.4-12.3) fL Immature Gran % (Auto) 0.5 H (0.0-0.4) % Neut % (Auto) 48.3 (45-73) % Lymph % (Auto) 44.1 H (20-40) % Gregory % (Auto) 4.8 (2-11) % Eos % (Auto) 1.7 (0-4) % Baso % (Auto) 0.6 (0-2) % Lymph # (Auto) 2.9 (1.2-4.9) X10*3/uL Gregory # (Auto) 0.3 (0.1-1.2) X10*3/uL Eos # (Auto) 0.1 (0.0-0.4) X10*3/uL Baso # (Auto) 0.0 (0.0-0.2) X10*3/uL Abs Immat Gran (auto) 0.03 (0.00-0.03) X10*3/uL Absolute Neuts (auto) 3.2 (2.0-8.3) x10*3/uL Absolute Nucleated RBC 0.000 (0.0-0.012) X10*3/uL Nucleated RBC % (auto) 0.0 (0.0-0.2) /100WBC Sodium 139 (135-145) mmol/L Potassium 4.0 (3.3-5.1) mmol/L Chloride 103 (96-108) mmol/L Carbon Dioxide 25 (22-29) mmol/L Anion Gap 15 (12-20) BUN 12 (9-16) mg/dL Creatinine 1.00 (0.5-1.4) mg/dL Estim Creat Clear Calc 81.1 Estimated GFR 58 POC Glucose 362 H* (60-115) mg/dL Random Glucose 333 H (60-115) mg/dL Calcium 8.4 (8.4-10.2) mg/dL Total Bilirubin 0.3 (0.0-1.0) mg/dL AST 25 (5-31) U/L ALT 17 (0-31) U/L Alkaline Phosphatase 89 (39-117) U/L Total Protein 6.5 (6.5-8.0) g/dL Albumin 3.3 L (3.5-5.0) g/dL Independent Interpretation I performed an independent interpretation of an: CT Scan ( Head: With unchanged from previous) Radiology Impression Discussion of test interpretation with radiology: I have reviewed the radiologist's reading. Discharge Plan Discharge Clinical Impression: Cerebrovascular accident Patient Disposition: Admitted As Inpatient
[2023-01-08 19:14] LABS: Glucose, Whole Blood 362 mg/dL (60-115)
--- NOTE | 2023-01-08 19:18 | ECG_ITS ---
Test Reason : WEAKNESS Blood Pressure : / mmHG Vent. Rate : 070 BPM Atrial Rate : 070 BPM P-R Int : 178 ms QRS Dur : 088 ms QT Int : 432 ms P-R-T Axes : 034 002 160 degrees QTc Int : 466 ms Normal sinus rhythm Left ventricular hypertrophy with repolarization abnormality ( R in aVL , [place] product , Romhilt-Jules ) Abnormal ECG When compared with ECG of 14-DEC-2022 23:55, No significant change was found Referred By: Bienvenido Garcia Electronically Signed By:RENETTA MARKHAM
[2023-01-08 20:13] LABS: MANUAL DIFF FLAG NO
[2023-01-08 20:15] LABS: Basophils Percent Auto 0.6 % (0-2); Eosinophils Absolute Auto 0.1 X10*3/uL (0.0-0.4); Eosinophils Percent Auto 1.7 % (0-4); Hematocrit 32.3 % (37.0-47.0); Imm Gran Abs Auto 0.03 X10*3/uL (0.00-0.03); Imm Gran Pct Auto 0.5 % (0.0-0.4); Lymphocytes Absolute Auto 2.9 X10*3/uL (1.2-4.9); Lymphocytes Percent Auto 44.1 % (20-40); Mean Corpuscular HGB Conc 34.1 g/dl (31.0-35.0); Mean Corpuscular Hemoglobin 27.2 pg (27.0-33.0); Mean Platelet Volume 12.8 fL (9.4-12.3); Monocytes Absolute Auto 0.3 X10*3/uL (0.1-1.2); Monocytes Percent Auto 4.8 % (2-11); Neutrophils Absolute Auto 3.2 x10*3/uL (2.0-8.3); Neutrophils Percent Auto 48.3 % (45-73); Platelet Count 254 X10*3/uL (160-400); Red Blood Count 4.04 X10*6/uL (4.20-5.50); Red Cell Distribution Width 14.4 % (11.0-16.0); White Blood Count 6.5 X10*3/uL (4.8-10.8)
[2023-01-08 20:34] LABS: Alanine Aminotransferase 17 U/L (0-31); Albumin Level 3.3 g/dL (3.5-5.0); Alkaline Phosphatase 89 U/L (39-117); Anion Gap 15 (12-20); Aspartate Amino Transferase 25 U/L (5-31); Bilirubin Total 0.3 mg/dL (0.0-1.0); Blood Urea Nitrogen 12 mg/dL (9-16); Calcium 8.4 mg/dL (8.4-10.2); Carbon Dioxide 25 mmol/L (22-29); Chloride 103 mmol/L (96-108); Creatinine Clr Calc Pharmacy 81.1; Estimated Glomerular Filt Rate 58; Glucose Random 333 mg/dL (60-115); Sodium 139 mmol/L (135-145); Total Protein 6.5 g/dL (6.5-8.0)
[2023-01-08 21:13] VITALS: BP 132/71; PULSE 68; RESP 18; TEMP 36.4; O2SAT 95
--- NOTE | 2023-01-08 21:28 | P.HPHOSP_ITS ---
History of Present Illness Date of Service: 01/08/23 Attending physician on admission: Mervin Thomas Chief Complaint: Right-sided weakness Pt is a 52-year-old female with a PMH significant for HTN, HLD, insulin- dependent diabetes type 2, history of multiple CVAs on Pradaxa, and chronic o pioid use who presents to the ED for evaluation of right-sided weakness since this afternoon. Patient states she began experiencing right sided weakness around 14:00 this afternoon. She noticed that her right foot was dragging more than her left and that her right hand was ?stuck?. Patient denies noticeable facial droop or difficulty speaking, however she reports blurriness mostly in her right eye. Also experiencing headache, nausea, but no vomiting. Patient was able to call her daughter who then called EMS to bring her mother to the hospital. EMS report a POC of 412. Of note, patient has an extensive history with 8 prior CVAs with last only 3 weeks prior. Patient's MRI of head/brain on last admission on 12/15/2022 found small focus of acute infarction in the left thalamus and extensive chronic lacunar infarcts seen throughout the bilateral basal ganglia, thalami, andreea, and deep cerebral white matter. Patient is followed by Dr. Espinosa. Of note, the time frame of patient's last known well time is uncertain: Patient initially said she noticed her weakness at 02:00 this morning then changed that to 14:00 in the afternoon. She apparently told EMS that she noticed her right-sided weakness at 22:00 last night, and said something similar to the ED clinician. In the ED labs were significant for H&H 11.0 x 32.3, POC glucose of 362. Electrolytes WNL. Renal function, hepatic function at baseline. CT?of head showed no evidence of acute intracranial hemorrhage, acute large vessel infarct, midline shift, or mass effect. EKG demonstrated normal sinus rhythm with left ventricular hypertrophy and repolarization abnormality, similar to previous. Pt will be admitted to the hospital for treatment and further evaluation of likely CVA. Review of Systems Review of Systems: Right-sided weakness Blurriness primarily in her right eye Headache Nausea, no vomiting Note chest pain/pressure, palpitations No difficulty breathing [facility] Medical History Benign nevus Breast cancer in female Cardiomyopathy Cerebrovascular disease Essential (primary) hypertension Excessive daytime sleepiness Family history of breast cancer GERD (gastroesophageal reflux disease) Headache History of multiple strokes Hyperlipidemia Multiple sclerosis (Unknown) Obesity (BMI 35.0-39.9 without comorbidity) Family History Mother Cancer Brother H/O heart surgery Maternal Aunt Breast cancer Surgical History History of breast surgery History of esophagogastroduodenoscopy (EGD) History of removal of cyst (05/07/22) Hx of colonoscopy Social History Household Members: None Household Members Other:: daughter away at college Housing: Apartment Are you a primary restorative care technician to a significant other at home: No Do you presently have visiting nurse or other home services: No (has had in the past) Alcohol intake: never Patient Tobacco Use Status: Never used Tobacco Smoked in Last 30 Days: No Use of substances other than those prescribed or required for medical reasons: No Advance Directives: No Advance Directives Information Provided: No service: No Current occupational status: disabled Cognitive needs: No Hearing needs: No Vision needs: No Meds Allergies Allergy/AdvReac Type Severity Reaction Status Date / Time No Known Allergies Allergy Verified 01/02/23 10:37 Home Medications Medication Instructions Recorded Confirmed Last Taken Type dabigatran etexilate 150 mg capsule 150 mg PO BID 06/14/20 12/30/22 09/11/22 History hydrochlorothiazide 25 mg tablet 25 mg PO QAM 06/14/20 01/08/23 Unknown History zolpidem 10 mg tablet 10 mg PO BEDTIME 06/14/20 01/08/23 Unknown History oxycodone-acetaminophen 7.5 mg-325 1 tab PO DAILY 11/18/22 01/08/23 Unknown History mg tablet amlodipine 10 mg tablet 10 mg PO DAILY 12/18/22 01/08/23 Unknown History pantoprazole 40 mg tablet,delayed 40 mg PO BID 12/18/22 01/08/23 Unknown History release propranolol 120 mg capsule,24 120 mg PO DAILY 12/18/22 01/08/23 Unknown History hr,extended release blood sugar diagnostic (FreeStyle #10 ea 01/02/23 Unknown History Lite Strips) blood-glucose meter (FreeStyle #1 ea 01/02/23 Unknown History Lite Meter kit) lancets 28 gauge (FreeStyle #100 ea 01/02/23 Unknown History Lancets) naproxen 500 mg tablet 500 mg PO BID PRN Pain 01/02/23 01/08/23 Unknown History pen needle, diabetic 32 gauge x #1,200 ea 01/02/23 Unknown History (BD Ailin 2nd Gen Pen Needle) docusate sodium 100 mg capsule 100 mg PO DAILY 01/08/23 01/08/23 Unknown History Physical Exam Vital Signs and Narrative: Vital Signs: Last Vital Signs Temp 98.9 F 01/08/23 18:32 Pulse 75 01/08/23 18:32 Resp 16 01/08/23 18:32 BP 129/69 01/08/23 18:32 Pulse Ox 100 01/08/23 18:32 O2 Del Method Room Air 01/08/23 18:32 BMI result Body Mass Index 32.7 Constitutional: Alert, in no acute distress. Mental Status: Oriented to person, place and time. Eyes: Pupils are equal, round, and reactive to light. Ear, Nose, and Throat: Oropharynx clear, mucous membranes moist. Ears and nose without deformities. Trachea midline. Respiratory: Clear to auscultation bilaterally. No wheezing, rales, or rhonchi. Cardiovascular: S1, S2 regular. No murmurs, rubs, or gallops. Gastrointestinal: Abdomen soft, non-tender, non-distended. Normal bowel sounds. Neurologic: Slow to respond. Noted right-sided sensory deficit on face, arm, and leg. Notable decreased strength on right side, particularly with lower extremity. Skin: No rashes or lesions noted. Musculoskeletal: No cyanosis or clubbing. Extremities: No edema. Results Labs 01/08/23 20:03 01/08/23 20:03 Labs: Laboratory Results - last 24 hr 01/08/23 01/08/23 01/08/23 19:10 20:03 20:03 MCV 80.0 MCH 27.2 MCHC 34.1 RDW 14.4 Plt Count 254 MPV 12.8 H Immature Gran % (Auto) 0.5 H Neut % (Auto) 48.3 Lymph % (Auto) 44.1 H Collier % (Auto) 4.8 Eos % (Auto) 1.7 Baso % (Auto) 0.6 Lymph # (Auto) 2.9 Collier # (Auto) 0.3 Eos # (Auto) 0.1 Baso # (Auto) 0.0 Abs Immat Gran (auto) 0.03 Absolute Neuts (auto) 3.2 Absolute Nucleated RBC 0.000 Nucleated RBC % (auto) 0.0 Anion Gap 15 Estim Creat Clear Calc 81.1 Estimated GFR 58 POC Glucose 362 H* Random Glucose 333 H Calcium 8.4 Total Bilirubin 0.3 AST 25 ALT 17 Alkaline Phosphatase 89 Total Protein 6.5 Albumin 3.3 L Assessment and Plan (1) Right leg weakness: Status: Acute (2) Cerebrovascular accident: Status: Acute Plan Pt is a 52-year-old female with a PMH significant for HTN, HLD, insulin- dependent diabetes type 2, history of multiple CVAs on Pradaxa, and chronic opioid use who presents to the ED for evaluation of right-sided weakness since this afternoon. Patient states she began experiencing right sided weakness around 14:00 this afternoon. Pt will be admitted to the hospital for treatment and further evaluation of likely CVA. Right-sided weakness and sensory deficit concerning for acute CVA CT scan of head showed no acute intracranial hemorrhage, acute large vessel infarct, midline shift, or mass effect Patient is slow to respond, with right-sided sensory and motor deficits Will get carotid Doppler [place]. Will get MRI of brain Continue Pradaxa PT/OT Neurology consult Monitor on telemetry HTN Hold home antihypertensives to allow for permissive hypertension Chronic pain Continue oxycodone, docusate GERD Continue PPI Insulin-dependent diabetes type 2, poorly controlled Patient's POC 362 at time of presentation A1c on 12/15/2022 11.3 Will repeat A1c Sliding-scale insulin, Lantus Diabetic diet Full Code Attending:?Dr. Thomas DVT Prophylaxis: Patient on Pradaxa Pt will require a hospitalization of at least two nights for treatment and further evaluation of right sided weakness likely secondary to CVA. Time Spent With Patient Time: Total time managing care of this patient today ____ minutes. Quality Stroke Does the patient have a stroke diagnosis?: Yes Reason for No Anti-thrombotic by Day Two: Contraindicated (Last known well-time unclear. Pt has given multiple different times as to when she noticed her weakness, from 22:00 last night to 14:00 this afternoon.) VTE Prior VTE?: No VTE Risk Level:: Medical - moderate - high VTE Device Contraindication: Treatment Not Indicated VTE Drug Contraindication: N/A - Med Ordered
--- NOTE | 2023-01-08 22:41 | PHA.MEDREC ---
Pharmacy Consult ? Medication Reconciliation Pharmacy has completed the medication reconciliation. spoke with patient. She reports that she is taking Pradaxa at home however there is no claim history to support it. I called [facility] and they don't have prior history either, it only shows that they have been trying to order it for her for 2 weeks now. She was discharged from here at the end of November with new prescriptions (metformin, celebrex, and insulin) however the pharmacy said she had not picked these up. Naproxen was also supposed to be on hold per discharge packet but the patient says she still takes it. She is currently on a 7 day treatment of terconazole cream and is on the third day. She is supposed to start metronidazole after finishing the 7 day treatment and be on it for 5 days. Her claim history shows that she recently picked up potassium chloride but when she was asked about it she said she does not take it.
--- NOTE | 2023-01-08 23:08 | PC.NURSE ---
this rn performed bedside swallow eval. pt presented delayed effort in swallowing with multiple swallows. this rn made dr mckinnon aware. swallow eval FAILED
[2023-01-08 23:30] VITALS: BP 132/53; PULSE 65; RESP 19; TEMP 37; O2SAT 96
--- NOTE | 2023-01-08 23:32 | MHC.EDTECH ---
This tech assumed care of pt at 2300. VS taken, belongings list done with pt and call christianson placed within reach.
[2023-01-08] MEDS: Morphine Sulfate 2 MG/ML CARTRIDGE 1 MG IVPUSH (23:50)
[2023-01-09 02:00] VITALS: BP 138/79; PULSE 65; RESP 14; TEMP 36.7; O2SAT 98
--- NOTE | 2023-01-09 02:00 | MHC.EDTECH ---
This tech assisted pt to commode and is now resting watching. Call christianson within reach
--- NOTE | 2023-01-09 02:11 | PC.NURSE ---
late entry- pt requesting medication to help sleep. this rn discussed with dr mckinnon orders placed. pt medicated according to jumana
[2023-01-09] MEDS: diphenhydrAMINE HCL 50 MG/ML VIAL IVPUSH (02:29)
[2023-01-09 05:22] LABS: Estimated Average Glucose 292 mg/dL; Hemoglobin A1c % 11.8 %
[2023-01-09 05:39] LABS: MANUAL DIFF FLAG NO
[2023-01-09 05:43] LABS: Basophils Percent Auto 0.3 % (0-2); Eosinophils Absolute Auto 0.1 X10*3/uL (0.0-0.4); Eosinophils Percent Auto 2.1 % (0-4); Hemoglobin 11.2 g/dl (12.0-16.0); Imm Gran Abs Auto 0.01 X10*3/uL (0.00-0.03); Imm Gran Pct Auto 0.2 % (0.0-0.4); Lymphocytes Absolute Auto 3.4 X10*3/uL (1.2-4.9); Mean Corpuscular HGB Conc 33.9 g/dl (31.0-35.0); Mean Corpuscular Hemoglobin 27.3 pg (27.0-33.0); Mean Corpuscular Volume 80.5 fL (80.0-98.0); Monocytes Absolute Auto 0.3 X10*3/uL (0.1-1.2); Monocytes Percent Auto 4.1 % (2-11); Neutrophils Absolute Auto 2.7 x10*3/uL (2.0-8.3); Neutrophils Percent Auto 41.3 % (45-73); Platelet Count 232 X10*3/uL (160-400); Red Cell Distribution Width 14.4 % (11.0-16.0); White Blood Count 6.6 X10*3/uL (4.8-10.8)
--- NOTE | 2023-01-09 05:45 | PC.NURSE ---
this rn assisted pt with use of bedside commode. this rn standby one assist
[2023-01-09 05:59] LABS: Anion Gap 13 (12-20); Blood Urea Nitrogen 9 mg/dL (9-16); Calcium 8.7 mg/dL (8.4-10.2); Carbon Dioxide 28 mmol/L (22-29); Chloride 103 mmol/L (96-108); Creatinine Clr Calc Pharmacy 94.4; Estimated Glomerular Filt Rate > 60; Glucose Random 247 mg/dL (60-115); Potassium 3.2 mmol/L (3.3-5.1); Sodium 141 mmol/L (135-145)
[2023-01-09 06:00] LABS: Cholesterol 126 mg/dL; HDL Cholesterol 33 mg/dL; LDL Cholesterol Calculated 76 mg/dl; Triglycerides 86 mg/dL
[2023-01-09 07:09] VITALS: BP 135/71; PULSE 62; RESP 17; TEMP 37; O2SAT 99
[2023-01-09 07:11] LABS: Glucose, Whole Blood 261 mg/dL (60-115)
[2023-01-09 07:45] VITALS: BP 135/71; PULSE 62; O2SAT 99
[2023-01-09 07:46] VITALS: BP 131/62; PULSE 66; RESP 20; TEMP 36.3; O2SAT 97
[2023-01-09] MEDS: oxyCODONE HCl Immed Release 5 MG TABLET 7.5 MG PO (10:18)
[2023-01-09] MEDS: Atorvastatin Calcium 40 MG TABLET PO (10:19)
[2023-01-09] MEDS: Propranolol HCL LA 60 MG CAP.SA.24H 120 MG PO (10:19)
[2023-01-09] MEDS: Omeprazole 20 MG CAPSULE.DR PO ×2 (10:19→16:45)
[2023-01-09] MEDS: Docusate Sodium 100 MG CAPSULE PO (10:19)
--- NOTE | 2023-01-09 10:28 | MHC.SL.SWA ---
Speech Pathologist Impression: Risk of Aspiration Due to: Neurological Condition Dysphasia Diet Status: Liquid Consistency and Strategies for Safe Swallow: Liquid Intake Recommendation: Thin Liquid Intake Strategies: Unrestricted Solid Food Consistency: Dietary Recommendations: Regular Additional Modifications to Solid Foods: Encourage alternating liquids and solids. Patient may eat slowly. Oral Medication Intake: Whole with Liquid Please contact the pharmacy regarding appropriate crushable or liquid drug formulations that are available whenever modified delivery is recommended. Compensatory Strategies and Precautions to be Taken for Safe Swallow: Sitting Upright (90 deg) Alternate Liquids/Solids Rate of Ingestion Change Supervision While Eating and Drinking for Safe Swallow: None Needed Foods to Avoid: Difficult to chew solids, due to slowed rate of mastication. Swallowing Recommended Treatments: Recommendation for Speech: Inpatient Speech Therapy Comment: Patient presents with all aspect of oral motor and swallow function mostly WFL, with only mildly slower rate of mastication on solids noted during this evaluation. Recommend Patient START on a REGULAR diet with THIN liquids, pills whole with liquid. Patient presents with mild dysarthria which she reports is her baseline, although notes that it has been improving since her last stroke. She additionally reports some issues with word finding which is also her baseline (not new this admit). Patient has not been seen by [facility] during previous admits for CVA, may benefit from a Speech and Language Assessment referral as outpatient. Recommend 1 f/u visit for toleration of diet. MIC CRENSHAW notified of recommendation by steve castellanos, RN, JASSI in person. Frequency/Duration: 1 f/u for toleration of recommended diet. Date Range for Service Req: Timeline to reassess: Vp Cardiovascular Service Line Clinican/Clinical Fellow: No Supervisory Statement: I have reviewed and agree with the student/clinical fellow's documentation: N/A Speech Language Pathologist: Giovanna Guardado M.A., [facility]
[2023-01-09 11:08] VITALS: BP 158/77; PULSE 66; RESP 20; TEMP 36.1; O2SAT 96
[2023-01-09 11:40] LABS: Glucose, Whole Blood 349 mg/dL (60-115)
[2023-01-09] MEDS: Insulin Lispro 100 UNIT/ML 3 ML VIAL SUBCUT ×2 (11:53→16:45)
[2023-01-09] MEDS: Dabigatran Etexilate Mesylate 150 MG CAPSULE PO (11:54)
--- NOTE | 2023-01-09 12:01 | P.CNNE_ITS ---
History of Present Illness Data of Consult Service Date: 01/09/23 Primary Care Provider: Christiano Kaur MD HPI Reason for consult: Stroke 52 years old woman with obesity, diabetes, hypertension, chronic headaches, and coronary artery disease medically treated, came to hospital with new onset of right-sided weakness and was diagnosed with a left thalamic infarct. At this time she was feeling better. There was no headache or nausea or vomiting at this time. Review of Systems Review of Systems: No cold or flu-like illness PMFSH Past Medical History Medical History Benign nevus Breast cancer in female Cardiomyopathy Cerebrovascular disease Essential (primary) hypertension Excessive daytime sleepiness Family history of breast cancer GERD (gastroesophageal reflux disease) Headache History of multiple strokes Hyperlipidemia Multiple sclerosis (Unknown) Obesity (BMI 35.0-39.9 without comorbidity) Family History Family History Mother Cancer Brother H/O heart surgery Maternal Aunt Breast cancer Surgical History Surgical History History of breast surgery History of esophagogastroduodenoscopy (EGD) History of removal of cyst (05/07/22) Hx of colonoscopy Social History Social History Household Members: None Household Members Other:: daughter away at college Housing: Apartment Are you a primary care associate to a significant other at home: No Do you presently have visiting nurse or other home services: Yes Alcohol intake: never Patient Tobacco Use Status: Never used Tobacco service: No Current occupational status: disabled Cognitive needs: No Hearing needs: No Vision needs: No Meds Allergies Allergy/AdvReac Type Severity Reaction Status Date / Time No Known Allergies Allergy Verified 01/02/23 10:37 Active Medications: Current Medications Acetaminophen (Acetaminophen 325 Mg Tablet) 650 mg PO Q6H PRN PRN Reason: Pain, Mild (Pain Scale 1-3) Acetaminophen (Acetaminophen Supp 650 Mg Supp.Rect) 650 mg HI Q6H PRN PRN Reason: Pain, Mild (Pain Scale 1-3) Atorvastatin Calcium (Atorvastatin Calcium 40 Mg Tablet) 40 mg PO DAILY KITTY Last Admin: 01/09/23 10:19 Dose: 40 mg Dabigatran (Dabigatran Etexilate Mesylate 150 Mg Capsule) 150 mg PO BID [facility] Last Admin: 01/09/23 11:54 Dose: 150 mg Dextrose (Dextrose 50 % 25 Gm/50 Ml Syringe) 25 gm IVPUSH Q15M PRN; Protocol PRN Reason: per Hypoglycemia Standing Ord. Docusate Sodium (Docusate Sodium 100 Mg Capsule) 100 mg PO DAILY [facility] Last Admin: 01/09/23 10:19 Dose: 100 mg Glucose (Glucose Gel 15 Gm Gel..Gram.) 15 gm PO Q15M PRN; Protocol PRN Reason: per Hypoglycemia Standing Ord. Insulin Human Lispro (Insulin Lispro 100 Unit/Ml 3 Ml Vial) 0 unit SUBCUT QIDACHS [facility]; Protocol Last Admin: 01/09/23 11:53 Dose: 8 unit Melatonin (Melatonin 3 Mg Tablet) 6 mg PO BEDTIME PRN PRN Reason: Insomnia Omeprazole (Omeprazole 20 Mg Capsule.Dr) 20 mg PO BID@0630,1630 [facility] Last Admin: 01/09/23 10:19 Dose: 20 mg Ondansetron HCl (Ondansetron Hcl 4 Mg/2 Ml Vial) 4 mg IVPUSH Q8H PRN PRN Reason: Nausea and Vomiting Oxycodone HCl (Oxycodone Hcl Immed Release 5 Mg Tablet) 7.5 mg PO DAILY [facility] Last Admin: 01/09/23 10:18 Dose: 7.5 mg Pharmacy Consult (Consult Rx Perform Med Rec) 1 each MISCELLANE ONCE PRN PRN Reason: Consult order Propranolol HCl (Propranolol Hcl La 60 Mg Cap.Sa.24h) 120 mg PO DAILY [facility]; Protocol Last Admin: 01/09/23 10:19 Dose: 120 mg Zolpidem Tartrate (Zolpidem Tartrate 5 Mg Tablet) 5 mg PO BEDTIME [facility] Last Admin: 01/08/23 23:10 Dose: Not Given Home Medications Medication Instructions Recorded Confirmed Last Taken Type dabigatran etexilate 150 mg capsule 150 mg PO BID 06/14/20 12/30/22 09/11/22 History hydrochlorothiazide 25 mg tablet 25 mg PO QAM 06/14/20 01/08/23 Unknown History zolpidem 10 mg tablet 10 mg PO BEDTIME 06/14/20 01/08/23 Unknown History oxycodone-acetaminophen 7.5 mg-325 1 tab PO DAILY 11/18/22 01/08/23 Unknown Hist ory mg tablet amlodipine 10 mg tablet 10 mg PO DAILY 12/18/22 01/08/23 Unknown History pantoprazole 40 mg tablet,delayed 40 mg PO BID 12/18/22 01/08/23 Unknown History release propranolol 120 mg capsule,24 120 mg PO DAILY 12/18/22 01/08/23 Unknown History hr,extended release blood sugar diagnostic (FreeStyle #10 ea 01/02/23 Unknown History Lite Strips) blood-glucose meter (FreeStyle #1 ea 01/02/23 Unknown History Lite Meter kit) lancets 28 gauge (FreeStyle #100 ea 01/02/23 Unknown History Lancets) naproxen 500 mg tablet 500 mg PO BID PRN Pain 01/02/23 01/08/23 Unknown History pen needle, diabetic 32 gauge x #1,200 ea 01/02/23 Unknown History (BD Ailin 2nd Gen Pen Needle) docusate sodium 100 mg capsule 100 mg PO DAILY 01/08/23 01/08/23 Unknown History Physical Exam Vital Signs: Vital Signs: Last Vital Signs Temp 97.0 F 01/09/23 11:08 Pulse 66 01/09/23 11:08 Resp 20 01/09/23 11:08 BP 158/77 H 01/09/23 11:08 Pulse Ox 96 01/09/23 11:08 O2 Del Method Room Air 01/09/23 11:08 BMI result Body Mass Index 32.7 Neuro: Other: She is alert and awake with normal spontaneity of speech fluency comprehension and affect. He is moderately obese. Face is symmetrical. There is no definite pronator drift. She slow to move on the right side. Deep tendon reflexes are absent with flexor plantars. With double simultaneous stimulation she did not miss any side. Results Labs 01/09/23 05:36 01/09/23 05:36 Labs: Short CBC 01/08/23 01/09/23 Range/Units 20:03 05:36 WBC 6.5 6.6 (4.8-10.8) X10*3/uL Hgb 11.0 L 11.2 L (12.0-16.0) g/dl Hct 32.3 L 33.0 L (37.0-47.0) % Plt Count 254 232 (160-400) X10*3/uL BMP 01/08/23 01/09/23 20:03 05:36 Sodium 139 141 Potassium 4.0 3.2 L Chloride 103 103 Carbon Dioxide 25 28 BUN 12 9 Creatinine 1.00 0.86 Calcium 8.4 8.7 Liver Function 01/08/23 Range/Units 20:03 Total Bilirubin 0.3 (0.0-1.0) mg/dL AST 25 (5-31) U/L ALT 17 (0-31) U/L Alkaline Phosphatase 89 (39-117) U/L Albumin 3.3 L (3.5-5.0) g/dL Her brain imaging revealed moderate to severe chronic microvascular ischemic disease, a distinct left posterior parietal wedge-shaped cortical ischemic infarct, and an acute small left lateral thalamic infarct. CTA of brain and neck has not revealed any significant medium to large vessel disease. EKGs have revealed normal sinus rhythm. Cardiac catheterization in the past has not reveal any large vessel disease. Assessment and Plan (1) Thalamic infarct, acute: Status: Acute 52 years old woman whose primary problem seems to be cerebrovascular resulting in significant chronic microvascular disease of brain likely related to uncontrolled hypertension and other vascular risk factors. In addition, she had a left posterior parietal cortical embolic looking infarct with normal cerebral vasculature suggesting that the source might have been either aortic arch or heart. Cardiac source seems more likely. This time she had another left thalamic infarct, likely due to small-vessel atherothrombotic disease related to uncontrolled hypertension. Overall imaging is not suggestive of demyelinating disease. I recommend lifelong anticoagulation, statin, blood pressure control, diabetic control, education, weight reduction, appropriate rehab. (2) Chronic idiopathic cerebral venous infarction: Status: Acute (3) Cerebral microvascular disease: Status: Acute (4) Uncontrolled hypertension: Status: Acute Time Spent With Patient Time: Total time managing care of this patient today ____ minutes. Procedures Date of Service Date of Service: 01/09/23
--- NOTE | 2023-01-09 12:29 | MHC.CM.PN ---
EMR REVIEWED, CM MET W/PT WHO REPORTS SHE LIVES ALONE, HAS A CANE/WALKER AND BEDSIDE COMMODE HOWEVER REPORTS SHE DOES NOT USE THEM, PT HAS [employer] [facility] [employer] [facility] AND [facility] [facility] FOR SN/PT, CM CONTACTED [facility] AND THEY AWARE PT WILL ALSO NEED HOME OT, LIAISON REQUESTING NEW F2F W/SN/OT/PT AND HOSPITALIST AWARE. PT IS REFUSING AR/STR AND HER DTR WILL TRANSPORT ONCE MEDICALLY CLEARED PENDING NEURO CONSULT. PT VERIFIES PCP IS ASHOK TRUJILLO, COVID VAC X3 AND HCP ON FILE FROM PREVIOUS ADMIT.
--- NOTE | 2023-01-09 13:16 | PM.DS ---
DS: Providers Provider Date of Service: 01/09/23 Date of admission: 01/08/23 21:27 Primary care physician: Christiano Kaur MD Consults: 01/08/23 21:29 Consult to Neurology Routine Consulting Provider: [facility] Reason for consultation: CVA DS: Diagnosis Discharge Diagnosis (1) Thalamic infarct, acute: Status: Acute (2) Chronic idiopathic cerebral venous infarction: Status: Acute (3) Cerebral microvascular disease: Status: Acute (4) Uncontrolled hypertension: Status: Acute DS: Summary Hospital Course Hospital Course: Admission note HPI Pt is a 52-year-old female with a PMH significant for HTN, HLD, insulin-dependent diabetes type 2, history of multiple CVAs on Pradaxa, and chronic opioid use who presents to the ED for evaluation of right-sided weakness since this afternoon.? Patient states she began experiencing right sided weakness around 14:00 this afternoon.? She noticed that her right foot was dragging more than her left and that her right hand was ?stuck?.? Patient denies noticeable facial droop or difficulty speaking, however she reports blurriness mostly in her right eye.? Also experiencing headache, nausea, but no vomiting.? Patient was able to call her daughter who then called EMS to bring her mother to the hospital.? EMS report a POC of 412. Of note, patient has an extensive history with 8 prior CVAs with last only 3 weeks prior. Patient's MRI of head/brain on last admission on 12/15/2022 found small focus of acute infarction in the left thalamus and extensive chronic lacunar infarcts seen throughout the bilateral basal ganglia, thalami, andreea, and deep cerebral white matter.? Patient is followed by Dr. Espinosa.? Of note, the time frame of patient's last known well time is uncertain:? Patient initially said she noticed her weakness at 02:00 this morning then changed that to 14:00 in the afternoon.? She apparently told EMS that she noticed her right-sided weakness at 22:00 last night, and said something similar to the ED clinician. In the ED labs were significant for H&H 11.0 x 32.3, POC glucose of 362.? Electrolytes WNL.? Renal function, hepatic function at baseline. CT?of head showed no evidence of acute intracranial hemorrhage, acute large vessel infarct, midline shift, or mass effect. EKG demonstrated normal sinus rhythm with left ventricular hypertrophy and repolarization abnormality, similar to previous. Pt will be admitted to the hospital for treatment and further evaluation of likely CVA. Hospital course The patient was admitted for evaluation of right-sided weakness and sensory deficit with reported unsteadiness as CT scan of head showed no acute intracranial hemorrhage, acute large vessel infarct, midline shift, or mass effect. Patient symptoms improved overnight stay back to her baseline weakness. evaluated by neurologist who believes she has new left thalamic infarct due to small vessel atherothrombotic disease and possible cardiac origin. ECHO with bubble study was done last month with no recorded abnormalities though. recommended life-long Anticoagulation, Statin, blood pressure control, weight reduction and rehablitation. Carotid US did not show any narrowings. She was evaluated by PT\OT teams who recommended acute rehab but the patient insisted on going back home with [facility]. The patient made quick recovery and she is ready to discharge home earlier than expected. Take Pradaxa twice daily as prescribed Continue physical therapy at home Monitor blood pressure readings and follow with PCP and cardiology as outpatient for further adjustments Time Spent with Patient Time attestation: Total time managing care of this patient today ____ minutes. Discharge coordination time: Greater than 30 minutes Quality: Safe Use of Opioids Does Pt have an Active Cancer Diagnosis on the Problem List?: No Quality: Stroke Does the patient have a stroke diagnosis?: Yes Reason for No Anti-thrombotic at DC: Not indicated Reason for No Anticoagulant at DC: N/A - Med Ordered Reason Not Initiating IV-Tpa: Not indicated Reason for No Anti-thrombotic by Day Two: Not indicated Reason for No Statin at DC: N/A - Med Ordered Physical Exam Vital Signs: Vital Signs: Last Vital Signs Temp 97.0 F 01/09/23 11:08 Pulse 66 01/09/23 11:08 Resp 20 01/09/23 11:08 BP 158/77 H 01/09/23 11:08 Pulse Ox 96 01/09/23 11:08 O2 Del Method Room Air 01/09/23 11:08 BMI result Body Mass Index 32.7 Const: Other: Constitutional : Awake, interactive, not in distress Neck : Normal inspection, Supple Cardiovascular : RRR, no JVP, no lower extremity edema Respiratory : good bilateral air entry, no crackles, wheezes or rhonchi Gastrointestinal: soft, lax, Normal bowel sounds, Non tender Skin : Warm, Dry Neurological : Alert & oriented x3, normal speech fluency, CN 2-12 within normal with decreased fine sensation on the right side of face, no definite pronator drift.? Right LE 4 strength, RUE 4+ strength. DS: Data Data Completed and Pending Labs on day of discharge: Laboratory Results - last 24 hr 01/08/23 01/08/23 01/08/23 19:10 20:03 20:03 WBC 6.5 RBC 4.04 L Hgb 11.0 L Hct 32.3 L MCV 80.0 MCH 27.2 MCHC 34.1 RDW 14.4 Plt Count 254 MPV 12.8 H Immature Gran % (Auto) 0.5 H Neut % (Auto) 48.3 Lymph % (Auto) 44.1 H [place] % (Auto) 4.8 Eos % (Auto) 1.7 Baso % (Auto) 0.6 Lymph # (Auto) 2.9 [place] # (Auto) 0.3 Eos # (Auto) 0.1 Baso # (Auto) 0.0 Abs Immat Gran (auto) 0.03 Absolute Neuts (auto) 3.2 Absolute Nucleated RBC 0.000 Nucleated RBC % (auto) 0.0 Sodium 139 Potassium 4.0 Chloride 103 Carbon Dioxide 25 Anion Gap 15 BUN 12 Creatinine 1.00 Estim Creat Clear Calc 81.1 Estimated GFR 58 POC Glucose 362 H* Random Glucose 333 H Estimat Average Glucose Hemoglobin A1c % Calcium 8.4 Total Bilirubin 0.3 AST 25 ALT 17 Alkaline Phosphatase 89 Total Protein 6.5 Albumin 3.3 L Triglycerides Cholesterol LDL Cholesterol, Calc HDL Cholesterol 01/08/23 01/09/23 01/09/23 21:41 05:36 05:36 WBC 6.6 RBC 4.10 L Hgb 11.2 L Hct 33.0 L MCV 80.5 MCH 27.3 MCHC 33.9 RDW 14.4 Plt Count 232 MPV 12.0 Immature Gran % (Auto) 0.2 Neut % (Auto) 41.3 L Lymph % (Auto) 52.0 H [place] % (Auto) 4.1 Eos % (Auto) 2.1 Baso % (Auto) 0.3 Lymph # (Auto) 3.4 [place] # (Auto) 0.3 Eos # (Auto) 0.1 Baso # (Auto) 0.0 Abs Immat Gran (auto) 0.01 Absolute Neuts (auto) 2.7 Absolute Nucleated RBC 0.000 Nucleated RBC % (auto) 0.0 Sodium 141 Potassium 3.2 L Chloride 103 Carbon Dioxide 28 Anion Gap 13 BUN 9 Creatinine 0.86 Estim Creat Clear Calc 94.4 Estimated GFR > 60 POC Glucose Random Glucose 247 H Estimat Average Glucose 292 Hemoglobin A1c % 11.8 Calcium 8.7 Total Bilirubin AST ALT Alkaline Phosphatase Total Protein Albumin Triglycerides Cholesterol LDL Cholesterol, Calc HDL Cholesterol 01/09/23 01/09/23 01/09/23 05:36 07:08 11:09 WBC RBC Hgb Hct MCV MCH MCHC RDW Plt Count MPV Immature Gran % (Auto) Neut % (Auto) Lymph % (Auto) [place] % (Auto) Eos % (Auto) Baso % (Auto) Lymph # (Auto) [place] # (Auto) Eos # (Auto) Baso # (Auto) Abs Immat Gran (auto) Absolute Neuts (auto) Absolute Nucleated RBC Nucleated RBC % (auto) Sodium Potassium Chloride Carbon Dioxide Anion Gap BUN Creatinine Estim Creat Clear Calc Estimated GFR POC Glucose 261 H 349 H Random Glucose Estimat Average Glucose Hemoglobin A1c % Calcium Total Bilirubin AST ALT Alkaline Phosphatase Total Protein Albumin Triglycerides 86 Cholesterol 126 LDL Cholesterol, Calc 76 HDL Cholesterol [address] scan - head: Radiologist's impression: ITS Impressions Head CT 01/08/23 20:45 IMPRESSION: No acute intracranial process. Extensive chronic ischemic changes as described above Carotid Doppler Study 01/08/23 22:11 IMPRESSION: 1. RIGHT: No hemodynamically significant stenosis in right carotid artery. 2. LEFT: No hemodynamically significant stenosis in left carotid artery. 3. Normal antegrade flow seen in both vertebral arteries. Discharge Plan Discharge Anticipated Discharge Date/Time: 01/09/23 13:08 Patient Disposition: Home Health Service Discharge Diagnosis: Acute left thalamic stroke Referrals: [facility] [Other] - 1 Week (CUSTODIAL, HOME OT/PT ) Christiano Kaur MD [Primary Care Provider] - 1 Week Discharge Medications: Continued terconazole 0.4 % cream 1 appful vaginal BEDTIME 7 Days Qty: 45 0RF metronidazole 0.75 % (37.5mg/5 gram) gel 1 appful vaginal DAILY 5 Days Qty: 70 0RF Rx Instructions: start use after Terazole has been completed (DME) FreeStyle Amrio 2 Sensor Kit See Rx Instructions .ROUTE .MEDSUPPLY Qty: 2 11RF Rx Instructions: Check blood sugars (DME) FreeStyle Mario 2 Sensor Kit See Rx Instructions .ROUTE .MEDSUPPLY Qty: 2 11RF Rx Instructions: Check blood sugars pantoprazole 40 mg Tablet,Delayed Release (Dr/Ec) 40 mg PO BID docusate sodium 100 mg capsule 100 mg PO DAILY dabigatran etexilate 150 mg capsule 150 mg PO BID Qty: 60 2RF atorvastatin [Lipitor] 40 mg tablet 40 mg PO DAILY 90 Days Qty: 90 3RF amlodipine 10 mg tablet 10 mg PO DAILY Qty: 90 0RF propranolol 120 mg Capsule,Extended Release 24 Hr 120 mg PO DAILY Qty: 90 0RF zolpidem 10 mg tablet 10 mg PO BEDTIME hydrochlorothiazide 25 mg tablet 25 mg PO QAM oxycodone-acetaminophen 7.5-325 mg tablet 1 tab PO DAILY (DME) lancets [FreeStyle Lancets] 28 gauge misc See Rx Instructions .ROUTE QID Qty: 100 Rx Instructions: As directed (DME) pen needle, diabetic [BD Ailin 2nd Gen Pen Needle] 32 gauge x 5/32 needle See Rx Instructions .ROUTE .MEDSUPPLY Qty: 1200 Rx Instructions: As directed (DME) blood-glucose meter [FreeStyle Lite Meter] Kit See Rx Instructions .ROUTE .MEDSUPPLY Qty: 1 Rx Instructions: As directed (DME) FreeStyle Lite Strips Strip See Rx Instructions .ROUTE TID Qty: 10 Rx Instructions: As directed clotrimazole-betamethasone 1-0.05 % cream 1 appl topical BID PRN (Reason: itching) 7 Days Qty: 45 1RF Discontinued naproxen 500 mg tablet 500 mg PO BID PRN (Reason: Pain) Discharge Orders: Discharge Order (Routine); Ordered 01/09/23 Ordered By: Ata Blood Diet: Advance to usual diet Activity on Discharge: As tolerated Stand Alone Forms: Patient Portal Discharge page Care Plan Goals: Read below Health Concerns: Read below Plan of Treatment: Read below Assessment: You were admitted to the hospital for evaluation of right sided weakness and dizziness. evaluated by brain images and neurologist that suggest likely new thalamic stroke. treated with blood thinners and cholesterol medications. Physical therapy suggested acute rehab placement but you prefer to go back home. Take Pradaxa twice daily as prescribed Continue physical therapy at home Monitor blood pressure readings and follow with PCP and cardiology as outpatient for further adjustments
--- NOTE | 2023-01-09 13:17 | P.F2F_ITS ---
Service Date Service Date: 01/09/23 Encounter Date of encounter: 01/09/23 Reasons for Services Signs and symptoms assessed: Weakness, unsteadiness , stroke Reason for long term: medication treatment and teach disease management Reason for physical therapy: home safety and mobility and therapeutic exercises Homebound: Leaving the home is medically contraindicated at this time without the asist of a device and/or another person due th the listed conditions above and below. Reason homebound: unsteady gait / fall risk Certification: Based on the above findings, I certify that this patient is confined to the home and needs intermittent long term care, physical therapy and/or speech therapy, or continues to need occupational therapy. The patient is under my care, and I have initiated the establishment of the plan of care. The patient will be followed by a physician who will periodically review the plan of care. Time Spent With Patient Time: Total time managing care of this patient today ____ minutes.
[2023-01-09 15:48] VITALS: BP 157/76; PULSE 66; RESP 18; TEMP 36.7; O2SAT 99
[2023-01-09 16:19] LABS: Glucose, Whole Blood 297 mg/dL (60-115)
--- NOTE | 2023-01-10 11:19 | MHC.STROKE ---
01/08/23 181 EMS PRE-NOTIFIED STROKE ALERT , [place] [facility] [place] RA/RL WEAKNESS FASTED=2, ONSET 01/07/23 2200. SEEN BY PROVIDER AT 1913, NIHSS = 2, EXCLUDED FROM TPA-THROMBOLYTICS DUE TO RECENT STROKE AND CURRENT PRADAXA USE. SHE INITIALLY FAILED NURSING SWALLOW SCREEN PRIOR TO PO AND WAS REFERRED TO SPEECH THERAPY, PATIENT IS KNOWN TO STROKE SERVICE, SHE WAS RECENTLY DISCHARGED TO [facility] ON 12/18/22. STROKE EDUCATION WAS PROVIDED. SHE HAS [facility] SERVICES AND I HAVE COMMUNICATED TO THE CALL CENTER TO VERIFY THAT SHE IS TAKING DIABETIC MEDICATIONS AND PRADAXA. I ALSO REQUESTED AN ASSESSMENT FOR A NURSE NAVIGATOR.
== END 2023-01-09 19:05 | disposition home health service (06) | DRG 47 ==
LOC: HO.ED 21:25 → HO.EDOVER 21:32 → HO.IMC 01-09 07:04
PROVIDERS: Admitting Provider Student in an Organized Health Care Education/Training Program; Emergency Provider Emergency Medicine; PCP Internal Medicine; Visit Provider Student in an Organized Health Care Education/Training Program
DX: G45.9 Transient cerebral ischemic attack, unspecified (principal); I69.351 Hemiplegia and hemiparesis following cerebral infarction affecting right dominant side; E11.65 Type 2 diabetes mellitus with hyperglycemia; E66.9 Obesity, unspecified; E78.5 Hyperlipidemia, unspecified; I10 Essential (primary) hypertension; G89.29 Other chronic pain; K21.9 Gastro-esophageal reflux disease without esophagitis; Z91.148 Patient's other noncompliance with medication regimen for other reason; Z79.899 Other long term (current) drug therapy; Z68.32 Body mass index [BMI] 32.0-32.9, adult
CPT/HCPCS: 36415; 70450; 80048; 80053; 80061; 82947; 83036; 85025; 92610; 93005; 93880; 97162; 97166; 99285; J1200; J2270

== ENCOUNTER 2023-01-25 17:10 | Emergency (ER) | payer OTHER, SELFPAY ==
[2023-01-25 17:12] VITALS: BP 124/68; BP 133/85; PULSE 84; PULSE 85; RESP 18; TEMP 37.1; O2SAT 96; O2SAT 97; BMI 35.5
--- NOTE | 2023-01-25 17:23 | ED.NEUROSD ---
HPI - Neuro Symptoms/Deficit General Chief Complaint: Weakness Stated Complaint: stroke alert Time Seen by Provider: 01/25/23 17:19 Source: patient Mode of arrival: EMS Limitations: no limitations History of Present Illness HPI Narrative: Patient 52 years old with history of hypertension hyperlipidemia diabetes type 2 multiple CVA on Pradaxa chronic opiate use comes here as she fell 4 times since afternoon today denies any dizziness or increased weakness does not know why she fell patient very sleepy lethargic or also complaining of headache for last few days which is chronic frequent no loss of consciousness patient was admitted on 12/15/2022 for weakness in the right side with workup negative for acute patient very vague when answering questions, lethargic on arrival. Related Data Home Medications Medication Instructions Recorded Confirmed hydrochlorothiazide 25 mg tablet 25 mg PO QAM 06/14/20 01/16/23 zolpidem 10 mg tablet 10 mg PO BEDTIME 06/14/20 01/16/23 oxycodone-acetaminophen 7.5 mg-325 1 tab PO DAILY 11/18/22 01/16/23 mg tablet pantoprazole 40 mg tablet,delayed 40 mg PO BID 12/18/22 01/16/23 release blood sugar diagnostic (FreeStyle #10 ea 01/02/23 01/16/23 Lite Strips) blood-glucose meter (FreeStyle #1 ea 01/02/23 01/16/23 Lite Meter kit) lancets 28 gauge (FreeStyle #100 ea 01/02/23 01/16/23 Lancets) pen needle, diabetic 32 gauge x #1,200 01/02/23 01/16/2332 (BD Ailin 2nd Gen Pen Needle) docusate sodium 100 mg capsule 100 mg PO DAILY 01/08/23 01/16/23 insulin glargine 100 unit/mL (3 20 unit subcut QPM 01/16/23 01/16/23 mL) subcutaneous pen (Lantus Solostar U-100 Insulin) Previous Rx's Medication Instructions Recorded clotrimazole-betamethasone 1 1 appl topical BID PRN itching 7 01/02/23 %-0.05 % topical cream days #45 grams metronidazole 0.75 % (37.5 mg/5 1 appful vaginal DAILY 5 days #70 01/03/23 gram) vaginal gel grams terconazole 0.4 % vaginal cream 1 appful vaginal BEDTIME 7 days 01/03/23 #45 grams flash glucose sensor (FreeStyle #2 ea 01/08/23 Mario 2 Sensor kit) flash glucose sensor (FreeStyle #2 ea 01/08/23 Mario 2 Sensor kit) amlodipine 10 mg tablet 10 mg PO DAILY #90 tabs 01/09/23 atorvastatin 40 mg tablet (Lipitor) 40 mg PO DAILY 90 days #90 tabs 01/09/23 dabigatran etexilate 150 mg capsule 150 mg PO BID #60 caps 01/09/23 propranolol 120 mg capsule,24 120 mg PO DAILY #90 caps 01/09/23 hr,extended release Allergies Allergy/AdvReac Type Severity Reaction Status Date / Time No Known Allergies Allergy Verified 01/16/23 14:55 Review of Systems Review of Systems: Yes all other systems are reviewed and are negative [facility] Past Medical History Medical History Benign nevus Breast cancer in female Cardiomyopathy Cerebral microvascular disease Cerebrovascular accident Cerebrovascular disease Chronic idiopathic cerebral venous infarction Essential (primary) hypertension Excessive daytime sleepiness Family history of breast cancer GERD (gastroesophageal reflux disease) Headache History of multiple strokes Hyperlipidemia Multiple sclerosis (Unknown) Obesity (BMI 35.0-39.9 without comorbidity) Right leg weakness Thalamic infarct, acute Uncontrolled hypertension Surgical History History of breast surgery History of esophagogastroduodenoscopy (EGD) History of removal of cyst (05/07/22) Hx of colonoscopy Family History Family History Mother Cancer Brother H/O heart surgery Maternal Aunt Breast cancer Social History Social History Household Members: None Household Members Other:: daughter away at college Housing: Apartment Are you a primary health care aide to a significant other at home: No Do you presently have visiting nurse or other home services: Yes Alcohol intake: never Patient Tobacco Use Status: Never used Tobacco Smoked in Last 30 Days: No Use of substances other than those prescribed or required for medical reasons: No Advance Directives: No Advance Directives Information Provided: Yes service: No Current occupational status: disabled Cognitive needs: No Hearing needs: No Vision needs: No Physical Exam Vital Signs: Vital Signs: Last Vital Signs Temp 98.8 F 01/25/23 17:12 Pulse 85 01/25/23 17:12 Resp 18 01/25/23 17:12 BP 124/68 01/25/23 17:12 Pulse Ox 97 01/25/23 17:12 O2 Del Method Room Air 01/25/23 17:12 BMI result Body Mass Index 35.5 Appearance: Alert. Oriented X3. No acute distress. Eyes: PERRLA, No Nystagmus ENT: Pharynx normal. Oral Mucosa moist AT NC Neck: Normal inspection. Neck supple. No midline tenderness CVS: Normal heart rate and rhythm. Pulses normal. Respiratory: No respiratory distress. Equal air entry bilateral, no wheezing/rales/rhonchi Abdomen: Soft and nontender. Bowel sounds are present, no mass palpable, no CVA tenderness Skin: Skin warm and dry. Normal skin color. Normal skin turgor. Extremities: No lower extremity edema. No calf tenderness Neuro: Oriented X 3. Residual right-sided weakness 4/5 No sensory deficit.No cerebellar signs , cranial nerves II-XII intact speech normal Medications Administered Discontinued Medications Generic Name Dose Route Start Last Admin Trade Name Freq PRN Reason Stop Dose Admin Sodium Chloride 1,000 mls @ 999 mls/hr 01/25/23 17:32 01/25/23 20:51 Ns IV 01/25/23 18:32 Infused .Q1H1M ONE Infusion Medical Decision Making Medical Decision Making [facility] Narrative: Patient nonspecific complaints on Pradaxa initial CT scan was negative discharge patient home advised follow-up with PCP Differential Diagnosis Acute CVA/TIA/metabolic encephalopathy Lab Data [facility] Lab Attestation statement: I reviewed the patient's lab results. 01/25/23 17:52 01/25/23 17:52 Labs: Lab Results 01/25/23 01/25/23 01/25/23 Range/Units 17:52 17:52 17:52 WBC 7.5 (4.8-10.8) X10*3/uL RBC 4.49 (4.20-5.50) X10*6/uL Hgb 12.1 (12.0-16.0) g/dl Hct 36.1 L (37.0-47.0) % MCV 80.4 (80.0-98.0) fL MCH 26.9 L (27.0-33.0) pg MCHC 33.5 (31.0-35.0) g/dl RDW 13.6 (11.0-16.0) % Plt Count 269 (160-400) X10*3/uL MPV 12.9 H (9.4-12.3) fL Immature Gran % (Auto) 0.4 (0.0-0.4) % Neut % (Auto) 60.5 (45-73) % Lymph % (Auto) 33.1 (20-40) % [place] % (Auto) 4.3 (2-11) % Eos % (Auto) 1.2 (0-4) % Baso % (Auto) 0.5 (0-2) % Lymph # (Auto) 2.5 (1.2-4.9) X10*3/uL [place] # (Auto) 0.3 (0.1-1.2) X10*3/uL Eos # (Auto) 0.1 (0.0-0.4) X10*3/uL Baso # (Auto) 0.0 (0.0-0.2) X10*3/uL Abs Immat Gran (auto) 0.03 (0.00-0.03) X10*3/uL Absolute Neuts (auto) 4.5 (2.0-8.3) x10*3/uL Absolute Nucleated RBC 0.000 (0.0-0.012) X10*3/uL Nucleated RBC % (auto) 0.0 (0.0-0.2) /100WBC Smear Tech's Comments VERIFIED PT 11.6 (10.0-13.1) SEC INR 1.0 (0.9-1.1) Sodium 142 (135-145) mmol/L Potassium 3.3 (3.3-5.1) mmol/L Chloride 102 (96-108) mmol/L Carbon Dioxide 29 (22-29) mmol/L Anion Gap 14 (12-20) BUN 9 (9-16) mg/dL Creatinine 1.10 (0.5-1.4) mg/dL Estim Creat Clear Calc 67.2 Estimated GFR 52 Random Glucose 321 H (60-115) mg/dL Calcium 9.7 D (8.4-10.2) mg/dL Magnesium 1.8 (1.6-2.6) mg/dL Total Bilirubin 0.5 (0.0-1.0) mg/dL AST 18 (5-31) U/L ALT 16 (0-31) U/L Alkaline Phosphatase 110 (39-117) U/L Total Protein 7.0 (6.5-8.0) g/dL Albumin 3.6 (3.5-5.0) g/dL Urine Color Urine Appearance Urine pH (5.0-9.0) Ur Specific [place] (1.005-1.025) Urine Protein (Neg-Trace) mg/dL Urine Glucose (UA) (Negative) mg/dL Urine Ketones (Negative) mg/dL Urine Blood (Negative) Urine Nitrite (Negative) Ur Leukocyte Esterase (Negative) Urine RBC (0-2) /HPF Urine WBC (0-5) /HPF Ur Squamous Epith Cells (0-2) /HPF Urine Bacteria (None Seen) Hyaline Casts (0-2) /LPF /03/12 Range/Units 20:09 WBC (4.8-10.8) X10*3/uL RBC (4.20-5.50) X10*6/uL Hgb (12.0-16.0) g/dl Hct (37.0-47.0) % MCV (80.0-98.0) fL MCH (27.0-33.0) pg MCHC (31.0-35.0) g/dl RDW (11.0-16.0) % Plt Count (160-400) X10*3/uL MPV (9.4-12.3) fL Immature Gran % (Auto) (0.0-0.4) % Neut % (Auto) (45-73) % Lymph % (Auto) (20-40) % [place] % (Auto) (2-11) % Eos % (Auto) (0-4) % Baso % (Auto) (0-2) % Lymph # (Auto) (1.2-4.9) X10*3/uL [place] # (Auto) (0.1-1.2) X10*3/uL Eos # (Auto) (0.0-0.4) X10*3/uL Baso # (Auto) (0.0-0.2) X10*3/uL Abs Immat Gran (auto) (0.00-0.03) X10*3/uL Absolute Neuts (auto) (2.0-8.3) x10*3/uL Absolute Nucleated RBC (0.0-0.012) X10*3/uL Nucleated RBC % (auto) (0.0-0.2) /100WBC Smear Tech's Comments PT (10.0-13.1) SEC INR (0.9-1.1) Sodium (135-145) mmol/L Potassium (3.3-5.1) mmol/L Chloride (96-108) mmol/L Carbon Dioxide (22-29) mmol/L Anion Gap (12-20) BUN (9-16) mg/dL Creatinine (0.5-1.4) mg/dL Estim Creat Clear Calc Estimated GFR Random Glucose (60-115) mg/dL Calcium (8.4-10.2) mg/dL Magnesium (1.6-2.6) mg/dL Total Bilirubin (0.0-1.0) mg/dL AST (5-31) U/L ALT (0-31) U/L Alkaline Phosphatase (39-117) U/L Total Protein (6.5-8.0) g/dL Albumin (3.5-5.0) g/dL Urine Color Yellow Urine Appearance Clear Urine pH 6.0 (5.0-9.0) Ur Specific [place] 1.020 (1.005-1.025) Urine Protein Negative (Neg-Trace) mg/dL Urine Glucose (UA) >=1000 H (Negative) mg/dL Urine Ketones Negative (Negative) mg/dL Urine Blood Negative (Negative) Urine Nitrite Negative (Negative) Ur Leukocyte Esterase Trace H (Negative) Urine RBC 0-2 (0-2) /HPF Urine WBC 0-5 (0-5) /HPF Ur Squamous Epith Cells 0-2 (0-2) /HPF Urine Bacteria None Seen (None Seen) Hyaline Casts 3-5 (0-2) /LPF Discharge Plan Discharge Clinical Impression: Weakness Patient Disposition: Home, Self-Care Instructions: Weakness (ED) Additional Instructions: Continue your medications and follow with PCP Prescriptions: No Action terconazole 0.4 % cream 1 appful vaginal BEDTIME 7 Days Qty: 45 0RF metronidazole 0.75 % (37.5mg/5 gram) gel 1 appful vaginal DAILY 5 Days Qty: 70 0RF Rx Instructions: start use after Terazole has been completed (DME) FreeStyle Mario 2 Sensor Kit See Rx Instructions .ROUTE .MEDSUPPLY Qty: 2 11RF Rx Instructions: Check blood sugars (DME) FreeStyle Mario 2 Sensor Kit See Rx Instructions .ROUTE .MEDSUPPLY Qty: 2 11RF Rx Instructions: Check blood sugars pantoprazole 40 mg Tablet,Delayed Release (Dr/Ec) 40 mg PO BID docusate sodium 100 mg capsule 100 mg PO DAILY dabigatran etexilate 150 mg capsule 150 mg PO BID Qty: 60 2RF atorvastatin [Lipitor] 40 mg tablet 40 mg PO DAILY 90 Days Qty: 90 3RF amlodipine 10 mg tablet 10 mg PO DAILY Qty: 90 0RF propranolol 120 mg Capsule,Extended Release 24 Hr 120 mg PO DAILY Qty: 90 0RF insulin glargine [Lantus Solostar U-100 Insulin] 100 unit/mL (3 mL) insulin pen 20 unit subcut QPM zolpidem 10 mg tablet 10 mg PO BEDTIME hydrochlorothiazide 25 mg tablet 25 mg PO QAM oxycodone-acetaminophen 7.5-325 mg tablet 1 tab PO DAILY (DME) lancets [FreeStyle Lancets] 28 gauge misc See Rx Instructions .ROUTE QID Qty: 100 Rx Instructions: As directed (DME) pen needle, diabetic [BD Ailin 2nd Gen Pen Needle] 32 gauge x 5/32 needle See Rx Instructions .ROUTE .MEDSUPPLY Qty: 1200 Rx Instructions: As directed (DME) blood-glucose meter [FreeStyle Lite Meter] Kit See Rx Instructions .ROUTE .MEDSUPPLY Qty: 1 Rx Instructions: As directed (DME) FreeStyle Lite Strips Strip See Rx Instructions .ROUTE TID Qty: 10 Rx Instructions: As directed clotrimazole-betamethasone 1-0.05 % cream 1 appl topical BID PRN (Reason: itching) 7 Days Qty: 45 1RF
[2023-01-25 18:10] LABS: Alanine Aminotransferase 16 U/L (0-31); Albumin Level 3.6 g/dL (3.5-5.0); Alkaline Phosphatase 110 U/L (39-117); Anion Gap 14 (12-20); Aspartate Amino Transferase 18 U/L (5-31); Bilirubin Total 0.5 mg/dL (0.0-1.0); Blood Urea Nitrogen 9 mg/dL (9-16); Calcium 9.7 mg/dL (8.4-10.2); Carbon Dioxide 29 mmol/L (22-29); Chloride 102 mmol/L (96-108); Creatinine Clr Calc Pharmacy 67.2; Estimated Glomerular Filt Rate 52; Glucose Random 321 mg/dL (60-115); Magnesium 1.8 mg/dL (1.6-2.6); Potassium 3.3 mmol/L (3.3-5.1); Sodium 142 mmol/L (135-145)
--- NOTE | 2023-01-25 20:54 | PC.NURSE ---
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 [phone] Daughter states she does not take her insulin and has had 8 strokes. Patient refuses to take her insulin.
== END 2023-01-25 21:45 | disposition home or self-care (01) ==
PROVIDERS: Emergency Provider Internal Medicine
DX: R53.1 Weakness (principal); I10 Essential (primary) hypertension; E11.9 Type 2 diabetes mellitus without complications; E78.5 Hyperlipidemia, unspecified; E66.9 Obesity, unspecified; Z68.35 Body mass index [BMI] 35.0-35.9, adult; Z86.73 Personal history of transient ischemic attack (TIA), and cerebral infarction without residual deficits; Z79.4 Long term (current) use of insulin; Z79.891 Long term (current) use of opiate analgesic; Z79.899 Other long term (current) drug therapy; Z79.02 Long term (current) use of antithrombotics/antiplatelets
CPT/HCPCS: 36415; 51701; 70450; 80053; 81001; 83735; 85025; 85610; 93005; 96360; 96361; 99284; 99285

== ENCOUNTER 2023-04-03 08:19 | Outpatient (AMB) | payer OTHER, SELFPAY ==
--- NOTE | 2023-04-03 08:34 | MHC.PC.OV ---
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 Accompanied by: Self / Same As Patient Allergies No Known Allergies Allergy (Verified 04/03/23 09:03) Medication List - Last Reconciled 04/03/23 by Christiano Kaur MD amlodipine 10 mg PO DAILY atorvastatin (Lipitor) 40 mg PO DAILY 90 days blood sugar diagnostic (FreeStyle Lite Strips) As directed clotrimazole-betamethasone 1-0.05 % 1 appl topical BID PRN 7 days dabigatran etexilate 150 mg PO BID docusate sodium 100 mg PO DAILY flash glucose scanning reader (FreeStyle Mario 2 [place]) test 3 times daily flash glucose sensor (FreeStyle Mario 14 Day Sensor kit) with sensor cover flash glucose sensor (FreeStyle Mario 2 Sensor kit) Check blood sugars flash glucose sensor (FreeStyle Mario 2 Sensor kit) Check blood sugars [freestyle mario sensor cover As directed] hydrochlorothiazide 25 mg PO QAM insulin glargine (Lantus Solostar U-100 Insulin) 20 units (0.2 mL) subcut QPM lancets (FreeStyle Lancets) As directed metronidazole 0.75%(37.5mg/5gram) 1 appful vaginal DAILY 5 days oxycodone-acetaminophen 7.5-325 mg 1 tab PO DAILY pantoprazole 40 mg PO BID pen needle, diabetic (BD Ailin 2nd Gen Pen Needle) As directed propranolol ER 120 mg PO DAILY terconazole 0.4% 1 appful vaginal BEDTIME 7 days zolpidem 10 mg PO BEDTIME Tobacco use date assessed: 04/03/23 Dental Screening Dental Screen Date: 04/03/23 Did you have a dental visit in the last 12 months?: Yes Did you have a dental problem in the last 6 months where you did not have access to dental care?: No Was dental information given to patient?: Patient has dentist HPI DM, hyperlipidemia,CAD,MS HPI Details 52-year-old female presents to the office to discuss her chronic medical condition. Patient has started taking her diabetes medications. She is taking the long-acting insulin. Her blood sugars continue to be elevated. Compliant with other medications. [facility] Medical History Benign nevus Breast cancer in female Cardiomyopathy Cerebral microvascular disease Cerebrovascular accident Cerebrovascular disease Chronic idiopathic cerebral venous infarction Essential (primary) hypertension Excessive daytime sleepiness Family history of breast cancer GERD (gastroesophageal reflux disease) Headache History of multiple strokes Hyperlipidemia Multiple sclerosis (Unknown) Obesity (BMI 35.0-39.9 without comorbidity) Right leg weakness Thalamic infarct, acute Uncontrolled hypertension Surgical History History of removal of cyst (05/07/22) Hx of colonoscopy History of esophagogastroduodenoscopy (EGD) History of breast surgery Family History Mother Cancer Brother H/O heart surgery Maternal Aunt Breast cancer Social History Household Members: None Household Members Other:: daughter away at college Housing: Apartment Are you a primary neonatal critical care nurse to a significant other at home: No Do you presently have visiting nurse or other home services: Yes Alcohol intake: never Patient Tobacco Use Status: Never used Tobacco service: No Current occupational status: disabled Cognitive needs: No Hearing needs: No Vision needs: No Female Reproductive History Menstrual Age of Menarche: 10 Questionnaire PHQ-9 Over the last 2 weeks, how often have you been bothered by any of the following problems? 1. Little interest or pleasure in doing things: not at all 2. Feeling down, depressed, or hopeless: not at all 3. Trouble falling or staying asleep, or sleeping too much: not at all 4. Feeling tired or having little energy: not at all 5. Poor appetite or overeating: not at all 6. Feeling bad about yourself - or that you are a failure or have let yourself or your family down: not at all 7. Trouble concentrating on things, such as reading the newspaper or watching television: not at all 8. Moving or speaking so slowly that other people could have noticed. Or the opposite - being so fidgety or restless that you have been moving around a lot more than usual: not at all 9. Thoughts that you would be better off or of hurting yourself in some way: not at all Total score: 0 Depression Screening Interpretation: Negative Source: Developed by Drs. Niko Barone, Yazmin Mcneil, Owen Gaytan and colleagues, with an educational stefani from [employer]. Thrive Questionnaire Date Thrive assessed: 04/03/23 I am a: Patient What is your living situation today?: I have a steady place to live Within the past 12 months, did the food you bought not last and you didn't have the money to get more?: Never true Within the past 12 months, did you worry whether your food would run out before you got money to buy more?: Never true Do you have trouble paying for medicines?: No Do you have trouble getting transportation to medical appointments?: No Do you have trouble paying your heating and electricity bill?: No Do you have trouble taking care of your child, family member or friend?: No Do you have trouble with day-to-day activities such as bathing, preparing meals, shopping, managing finances, etc.?: No Are you currently unemployed and looking for a job?: No Are you interested in more education?: No Please select the resources that you would like help with: None Currently or been in a relationship where the following occur: no concerns reported AUDIT C Alcohol Use Questionnaire (AUDIT-C) 1. How often do you have a drink containing alcohol?: Never 3. How often do you have six or more drinks on one occasion?: Never Total Score: 0 CASTRO-7 AMB Questionnaire CASTRO-7 Date CASTRO - 7 assessed: 12/30/22 Feeling nervous, anxious, or on edge: 0 = Not at all Not being able to stop or control worryin = Not at all Worrying too much about different things: 0 = Not at all Trouble relaxin = Not at all Being so restless that it is hard to sit still: 0 = Not at all Becoming easily annoyed or irritable: 0 = Not at all Feeling afraid as if something awful might happen: 0 = Not at all Total CASTRO-7 score (0-4 normal; 5-9 mild; 10-14 moderate; 15-21 severe): 0 Source: Developed by Drs. Niko Barone, Yazmin Mcenil, Owen Gaytan and colleagues, with an educational stefani from [employer]. Physical exam (Primary Care) Vital Signs: Last Vital Signs Pulse 96 04/03/23 08:35 BP 124/78 04/03/23 08:35 Pulse Ox 99 04/03/23 08:35 Oxygen Delivery Method Room Air 04/03/23 08:35 BMI result Body Mass Index 36.3 Tobacco/Smoking Status: Tobacco use Status Tobacco use date assessed 04/03/23 04/03/23 08:36 Patient Tobacco Use Status Never used Tobacco 04/03/23 08:36 PHQ-9: PHQ-9 Score PHQ-9: Total score 0 04/03/23 08:52 Depression Screening Interpretation: Negative Thrive Assessment: Date of Thrive Assessment Date Thrive assessed 04/03/23 04/03/23 08:39 Currently or been in a relationship where the following occur: no concerns reported Const General: cooperative and healthy appearing Nutritional Appearance: well nourished Orientation/consciousness: patient oriented x3 Limitations: no limitations HENMT Head: Yes normal to inspection Eyes General: appearance normal, both eyes and all related structures Neck Neck: Yes normal visual inspection Chest Chest palpation & inspection: normal palpation of entire chest wall Resp Effort & Inspection: normal respiratory effort Neuro General: patient oriented x3 Results AMB Hemoglobin A1c AMB Hemoglobin A1c 11.4 % Last Edit by Darrius De Jesus on 04/03/23 08:53 Results Reviewed Results Reviewed: Laboratory Last Values Hgb A1c (Clinic) 11.4 % (4.0-6.0) H 04/03/23 08:36 Assessment and Plan Assessment & Plan (1) Type 2 diabetes mellitus: Code(s): E11.9 - Type 2 diabetes mellitus without complications Plan: Short-acting insulin at 5 units 3 times a day has been ordered. Patient was advised to check her sugars. Orders: Orders AMB Hemoglobin A1c 04/03/23 E11.9 - Type 2 diabetes mellitus without complications Coding Level of Care Code Est Pt Level 4 (13457) Diagnoses Type 2 diabetes mellitus E11.9
[2023-04-03 08:35] VITALS: BP 124/78; PULSE 96; O2SAT 99; BMI 36.3
== END 2023-04-03 09:43 | disposition home or self-care (01) ==
PROVIDERS: PCP Internal Medicine; Visit Provider Internal Medicine
DX: E11.9 Type 2 diabetes mellitus without complications (principal)
CPT/HCPCS: 83036; 99214

== ENCOUNTER 2023-05-08 10:23 | Outpatient (AMB) | payer OTHER, SELFPAY ==
--- NOTE | 2023-05-08 10:50 | A.OFFPC_ITS ---
Vital Signs 05/08/23 10:51 Height 5 ft 5 in Weight 215 lb 8 oz BMI 35.9 BP 130/72 Blood Pressure Location Lt brachial Position Sitting Pulse 87 Pulse Source Pulse Oximeter Pulse Oximetry (%) 95 Oxygen Delivery Method Room Air Intake Visit Reasons: 1 month f/u Intake Note: Patient is here to follow up on DM. 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 Required: No Statistical Developer: Not Required per policy Accompanied by: Self / Same As Patient Allergies No Known Allergies Allergy (Verified 05/08/23 15:09) Medication List - Last Reconciled 05/08/23 by Christiano Kaur MD amlodipine 10 mg PO DAILY atorvastatin (Lipitor) 40 mg PO DAILY 90 days blood sugar diagnostic (FreeStyle Lite Strips) As directed clotrimazole-betamethasone 1-0.05 % 1 appl topical BID PRN 7 days dabigatran etexilate 150 mg PO BID docusate sodium 100 mg PO DAILY flash glucose scanning reader (FreeStyle Mario 2 [place]) test 3 times daily flash glucose sensor (FreeStyle Mario 14 Day Sensor kit) with sensor cover flash glucose sensor (FreeStyle Mario 2 Sensor kit) Check blood sugars flash glucose sensor (FreeStyle Mario 2 Sensor kit) Check blood sugars [freestyle mario sensor cover As directed] hydrochlorothiazide 25 mg PO QAM insulin glargine (Lantus Solostar U-100 Insulin) 20 units (0.2 mL) subcut QPM insulin lispro 5 units (0.025 mL) subcut TID lancets (FreeStyle Lancets) As directed oxycodone-acetaminophen 7.5-325 mg 1 tab PO DAILY pantoprazole 40 mg PO BID pen needle, diabetic (BD Ailin 2nd Gen Pen Needle) As directed propranolol ER 120 mg PO DAILY zolpidem 10 mg PO BEDTIME Tobacco use date assessed: 05/08/23 HPI 1 month f/u HPI Details 52-year-old female presents to the [facility] for a sick visit. Patient is on insulin and this visit was to check however blood sugars were doing. She does not bring the machine and and she is not recording the blood sugar on her CGM. She reports that this C GM often falls off. She has no idea what her sugars are. Not exercising or following any particular diet. [facility] Medical History Benign nevus Breast cancer in female Cardiomyopathy Cerebral microvascular disease Cerebrovascular accident Cerebrovascular disease Chronic idiopathic cerebral venous infarction Essential (primary) hypertension Excessive daytime sleepiness Family history of breast cancer GERD (gastroesophageal reflux disease) Headache History of multiple strokes Hyperlipidemia Multiple sclerosis (Unknown) Obesity (BMI 35.0-39.9 without comorbidity) Right leg weakness Thalamic infarct, acute Uncontrolled hypertension Surgical History History of removal of cyst (05/07/22) Hx of colonoscopy History of esophagogastroduodenoscopy (EGD) History of breast surgery Family History Mother Cancer Brother H/O heart surgery Maternal Aunt Breast cancer Social History Household Members: None Household Members Other:: daughter away at college Housing: Apartment Are you a primary childcare center administrator to a significant other at home: No Do you presently have visiting nurse or other home services: Yes Alcohol intake: never Patient Tobacco Use Status: Never used Tobacco e-Cigarette/Vaping Use: Never Used Second Hand Smoke Exposure: No service: No Current occupational status: disabled Cognitive needs: No Hearing needs: No Vision needs: No Female Reproductive History Menstrual Age of Menarche: 10 Questionnaire Thrive Questionnaire Date Thrive assessed: 04/03/23 CASTRO-7 AMB Questionnaire CASTRO-7 Date CASTRO - 7 assessed: 12/30/22 Source: Developed by Drs. Niko Barone, Yazmin Mcneil, Owen Gaytan and colleagues, with an educational stefani from [employer]. Physical exam (Primary Care) Vital Signs: Last Vital Signs Pulse 87 05/08/23 10:51 BP 130/72 05/08/23 10:51 Pulse Ox 95 05/08/23 10:51 Oxygen Delivery Method Room Air 05/08/23 10:51 BMI result Body Mass Index 35.9 Tobacco/Smoking Status: Tobacco use Status Tobacco use date assessed 05/08/23 05/08/23 10:51 Patient Tobacco Use Status Never used Tobacco 05/08/23 10:51 e-Cigarette/Vaping Use Never Used 05/08/23 11:00 Thrive Assessment: Date of Thrive Assessment Date Thrive assessed 04/03/23 05/08/23 10:51 Const General: cooperative and healthy appearing Nutritional Appearance: well nourished Orientation/consciousness: patient oriented x3 Limitations: no limitations HENMT Head: Yes normal to inspection Eyes General: appearance normal, both eyes and all related structures Neck Neck: Yes normal visual inspection Chest Chest palpation & inspection: normal palpation of entire chest wall Resp Effort & Inspection: normal respiratory effort Neuro General: patient oriented x3 Results AMB Hemoglobin A1c AMB Hemoglobin A1c 9.5 % Last Edit by MYLES Almodovar on 05/08/23 11:06 Results Reviewed Results Reviewed: Laboratory Last Values Hgb A1c (Clinic) 9.5 % (4.0-6.0) H 05/08/23 10:52 Assessment and Plan Assessment & Plan (1) Type 2 diabetes mellitus: Code(s): E11.9 - Type 2 diabetes mellitus without complications Plan: A1c repeated today shows improvement compared to the past/importance of checking blood sugars emphasized again. A note has been sent to [facility] to see if further assistance is available for diabetes Education. Her short-acting insulin has been increased to 10 units 3 times a day. She would continue the long-acting insulin at the same dosage. P Orders: Orders AMB Hemoglobin A1c Today E11.9 - Type 2 diabetes mellitus without complications Coding Level of Care Code Est Pt Level 4 (50769) Diagnoses Type 2 diabetes mellitus E11.9
[2023-05-08 10:51] VITALS: BP 130/72; PULSE 87; O2SAT 95; BMI 35.9
== END 2023-05-08 11:19 | disposition home or self-care (01) ==
PROVIDERS: PCP Internal Medicine; Visit Provider Internal Medicine
DX: E11.9 Type 2 diabetes mellitus without complications (principal)
CPT/HCPCS: 83036; 99214

== ENCOUNTER 2023-07-09 09:02 | Outpatient (REF) | payer OTHER, SELFPAY ==
[2023-07-12 08:58] LABS: HPV mRNA E6/E7 rflx Not Detected (Not Detected)
== END 2023-07-09 09:03 | disposition home or self-care (01) ==
LOC: HO.LNP 09:02
PROVIDERS: PCP Internal Medicine; Visit Provider Advanced Practice Midwife
DX: Z01.419 Encounter for gynecological examination (general) (routine) without abnormal findings (principal); Z11.51 Encounter for screening for human papillomavirus (HPV)
CPT/HCPCS: 87624; 88142; 99396

== ENCOUNTER 2023-07-09 09:02 | Outpatient (AMB) | payer OTHER, SELFPAY ==
--- NOTE | 2023-07-09 09:03 | MHC.OFFVIS ---
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 She is doing well with no concerns. Attempting to eat a healthy diet, and stays active. Currently not sexually active. Denies any vaginal dryness or irritation. STI testing offered; she declines. Last mammogram; 2021. Colonoscopy is not UTD. . [facility] Medical History Uncontrolled hypertension Cerebral microvascular disease Chronic idiopathic cerebral venous infarction Thalamic infarct, acute Right leg weakness Cerebrovascular accident Headache GERD (gastroesophageal reflux disease) Cardiomyopathy Excessive daytime sleepiness Obesity (BMI 35.0-39.9 without comorbidity) Breast cancer in female Hyperlipidemia Cerebrovascular disease History of multiple strokes Benign nevus Family history of breast cancer Essential (primary) hypertension Multiple sclerosis (Unknown) Surgical History History of removal of cyst (05/07/22) Hx of colonoscopy History of esophagogastroduodenoscopy (EGD) History of breast surgery Family History Mother Cancer Brother H/O heart surgery Maternal Aunt Breast cancer Social History Household Members: None Household Members Other:: daughter away at college Housing: Apartment Are you a primary post anesthesia care unit nurse to a significant other at home: No Do you presently have visiting nurse or other home services: Yes Alcohol intake: never Patient Tobacco Use Status: Never used Tobacco e-Cigarette/Vaping Use: Never Used Second Hand Smoke Exposure: No service: No Current occupational status: disabled Cognitive needs: No Hearing needs: No Vision needs: No Female Reproductive History Menstrual Age of Menarche: 10 Menopause type: natural Total pregnancies: 4 Full term: 4 Number of Living Children: 4 Date of last pap smear: 06/09/17 (neg) History of abnormal pap smear: Yes (1995 KARLY 3) Review of Systems Const All systems reviewed & are unremarkable except as noted in HPI and below Reports as per HPI Eyes Reports no additional complaints ENT Reports no additional complaints Card Reports no additional complaints Resp Reports no additional complaints GI Reports as per HPI and Reports no additional complaints Reports as per HPI Musc Reports no additional complaints Skin/Breast Reports as per HPI Neuro Reports no additional complaints Psych Reports no additional complaints Endo Reports no additional complaints Frank/Lymph Reports no additional complaints Aller/Immun Reports no additional complaints Physical Exam Vital Signs: Last Vital Signs BP 120/84 07/09/23 09:09 BMI result Body Mass Index 37.3 Const General: cooperative, healthy appearing, no acute distress, well developed and alert Orientation/consciousness: patient oriented x3 HEENT Head: Yes normal to inspection Eyes General: appearance normal, both eyes and all related structures Neck Neck: Yes normal visual inspection Thyroid: Thyroid normal Chest Other: bilateral breast reduction scarring Chest palpation & inspection: normal inspection of the chest and other (no puckering, dimpling, peau de orange, retraction, discharge, masses) Breast/axilla inspection: normal inspection of the breasts Breast/axilla palpation: normal palpation of the breasts Resp Effort & Inspection: normal respiratory effort GI Other: Obese Inspection: Yes normal to inspection Palpation (GI): Soft to palpation Rectal Exam - Female: deferred General: Yes bladder normal to palpation External Female Exam: normal external appearance and normal appearance of the urethra Speculum Exam - Vagina: normal appearance of the vagina, normal palpation and normal vaginal discharge Speculum Exam - Cervix: normal appearance of the cervix and normal palpation Bimanual exam- vagina & uterus: normal bimanual exam, normal palpation, uterine size normal, bladder normal to palpation, normal palpation and non-tender Bimanual Exam- Adnexa, other: no masses Skin General skin exam: no rashes or lesions noted Rashes: no rashes Neuro General: patient oriented x3 Cognition (Neuro): normal cognition Extrem General: Yes normal to inspection Psych Attitude: cooperative Thought process: Normal thought process present Assessment & Plan Assessment & Plan (1) Encounter for well woman exam with routine gynecological exam: Code(s): Z01.419 - Encounter for gynecological examination (general) (routine) without abnormal findings Plan Discussed: Current recommendations for pap smears per ASCCP guidelines. Breast awareness, periodic self breast exams and yearly mammogram. Maintain a healthy lifestyle, well balanced diet including Calcium 1,200 mg and Vitamin D 600 IU daily, and routine exercise. Contact the office with any postmenopausal bleeding. All of her questions and concerns were addressed to the best of my ability. RTO in 1 year for annual p d driver exam. This note is constructed using voice recognition software. While every effort has been made to ensure accuracy, ticket collector errors may have been included. Orders: Orders MM tomosynthesis screening BI Today Z12.31 - Encounter for screening mammogram for malignant neoplasm of breast Coding Level of Care Code Est Pt Prev Care 40-64y(24360) Diagnoses Encounter for well woman exam with routine gynecological exam Z01.419
[2023-07-09 09:09] VITALS: BP 120/84; BMI 37.3
== END 2023-07-09 09:59 | disposition home or self-care (01) ==
LOC: HO.HWS 09:02
PROVIDERS: PCP Internal Medicine; Visit Provider Advanced Practice Midwife
DX: Z01.419 Encounter for gynecological examination (general) (routine) without abnormal findings (principal)
CPT/HCPCS: 99396

== ENCOUNTER 2023-07-23 18:20 | Emergency (ER) | payer OTHER, SELFPAY ==
--- NOTE | 2023-07-23 18:26 | ED.NEUROSD ---
HPI - Neuro Symptoms/Deficit General Chief Complaint: Stroke Stated Complaint: stroke? Time Seen by Provider: 07/23/23 23:37 Source: patient Mode of arrival: ambulatory Limitations: no limitations History of Present Illness HPI Narrative: Patient is 53 years of history of hypertension hyperlipidemia diabetes multiple embolic CVA on Pradaxa chronic opiate use had left thalamic stroke on 12/15/2022 on lifelong anticoagulation treatment with Pradaxa and aspirin comes here for feeling like having another stroke with generalized weakness headache dizziness and weakness with bilateral weak hand grasp e started on 07/21/[address] scan prior to my evaluation which was negative for acute stroke also patient had difficulty in walking today almost fell 3 times no headache no head injury no chest pain or palpitation Related Data Home Medications Medication Instructions Recorded Confirmed hydrochlorothiazide 25 mg tablet 25 mg PO QAM 06/14/20 05/08/23 zolpidem 10 mg tablet 10 mg PO BEDTIME 06/14/20 05/08/23 oxycodone-acetaminophen 7.5 mg-325 1 tab PO DAILY 11/18/22 05/08/23 mg tablet blood sugar diagnostic (FreeStyle #10 ea 01/02/23 05/08/23 Lite Strips) lancets 28 gauge (FreeStyle #100 ea 01/02/23 05/08/23 Lancets) pen needle, diabetic 32 gauge x #1,200 ea 01/02/23 05/08/23 (BD Ailin 2nd Gen Pen Needle) Previous Rx's Medication Instructions Recorded clotrimazole-betamethasone 1 1 appl topical BID PRN itching 7 01/02/23 %-0.05 % topical cream days #45 grams flash glucose sensor (FreeStyle #2 ea 01/08/23 Mario 2 Sensor kit) flash glucose sensor (FreeStyle #2 ea 01/08/23 Mario 2 Sensor kit) amlodipine 10 mg tablet 10 mg PO DAILY #90 tabs 01/09/23 dabigatran etexilate 150 mg capsule 150 mg PO BID #60 caps 01/09/23 propranolol 120 mg capsule,24 120 mg PO DAILY #90 caps 01/09/23 hr,extended release flash glucose scanning reader #1 ea 01/29/23 (FreeStyle Mario 2 [place]) flash glucose sensor (FreeStyle #1 ea 02/21/23 Mario 14 Day Sensor kit) freestyle mario sensor cover #2 ea 02/21/23 atorvastatin 40 mg tablet (Lipitor) 40 mg PO DAILY 90 days #90 tabs 02/24/23 insulin lispro 200 unit/mL (3 mL) 5 unit (0.025 mL) subcut TID #6 mL 05/22/23 subcutaneous pen insulin glargine 100 unit/mL (3 20 unit (0.2 mL) subcut QPM #15 mL 06/04/23 mL) subcutaneous pen (Lantus Solostar U-100 Insulin) Allergies Allergy/AdvReac Type Severity Reaction Status Date / Time No Known Allergies Allergy Verified 07/23/23 18:33 Review of Systems Review of Systems: Yes all other systems are reviewed and are negative PMFSH Past Medical History Onset Date is defined in the Problem List Problems that require an onset date and time if occurred within 24 hrs of arrival to the ED Aortic Dissection and Rupture; Neurologic impairment; Cardiopulmonary Arrest; Endotracheal Intubation; Insertion or Replacement of Mechanical Circulatory Assist Device Medical History Uncontrolled hypertension Cerebral microvascular disease Chronic idiopathic cerebral venous infarction Thalamic infarct, acute Right leg weakness Cerebrovascular accident Headache GERD (gastroesophageal reflux disease) Cardiomyopathy Excessive daytime sleepiness Obesity (BMI 35.0-39.9 without comorbidity) Breast cancer in female Hyperlipidemia Cerebrovascular disease History of multiple strokes Benign nevus Family history of breast cancer Essential (primary) hypertension Multiple sclerosis (Unknown) Surgical History History of removal of cyst (05/07/22) Hx of colonoscopy History of esophagogastroduodenoscopy (EGD) History of breast surgery Family History Family History Mother Cancer Brother H/O heart surgery Maternal Aunt Breast cancer Social History Social History Household Members: None Household Members Other:: daughter away at college Housing: Apartment Are you a primary career specialist to a significant other at home: No Do you presently have visiting nurse or other home services: Yes Alcohol intake: never Patient Tobacco Use Status: Never used Tobacco e-Cigarette/Vaping Use: Never Used Second Hand Smoke Exposure: No Advance Directives: Yes Advance Directives on File: Yes Advance Directives Date on File: 12/19/22 service: No Current occupational status: disabled Cognitive needs: No Hearing needs: No Vision needs: No Physical Exam Vital Signs: Vital Signs: Last Vital Signs Temp 98.4 F 07/24/23 00:16 Pulse 99 07/24/23 00:16 Resp 18 07/24/23 00:16 BP 157/88 H 07/24/23 00:16 Pulse Ox 98 07/24/23 00:16 O2 Del Method Room Air 07/24/23 00:16 BMI result Body Mass Index 36.5 Appearance: Alert. Oriented X3. No acute distress. Eyes: PERRLA, No Nystagmus ENT: Pharynx normal. Oral Mucosa moist Neck: Normal inspection. Neck supple. CVS: Normal heart rate and rhythm. Pulses normal. Respiratory: No respiratory distress. Equal air entry bilateral, no wheezing/rales/rhonchi Abdomen: Soft and nontender. Bowel sounds are present, no mass palpable, no CVA tenderness Skin: Skin warm and dry. Normal skin color. Normal skin turgor. Extremities: No lower extremity edema. No calf tenderness Neuro: Oriented X 3. Bilateral week hand grasp L>R. No sensory deficit.No cerebellar signs , cranial nerves II-XII intact ambulatory , ambulatory in steady gait Course Course Course Narrative: RME: 53 yo F w/ PMHx multiple CVA's, DM, CAD, MS presenting to the ED c/o L sided weakness, RIOS, dizziness x Friday, worsening, with multiple falls today. On Pradaxa, denies head injury or fall. ?mild L facial droop, +LUE weakness, ambulating w/assistance EKG, labs, UA, CXR, Head CT, viral testing ordered Full HPI, ROS and PE to be performed by primary ED provider. Medical Decision Making Medical Decision Making MDM Narrative: Patient with frequent TIA/CVA , fully anticoagulated Pradaxa been seen by neurologist advised no further management except to continue her medication Pradaxa and aspirin patient recently had CT angiogram which was negative for LVO will discharge patient home advised to continue Pradaxa and aspirin daily and follow with neurologist Differential Diagnosis Differential Diagnoses: The differential diagnosis associated with the presentation includes TIA/CVA Admission/Observation Consideration of admission/observation: Escalation of care including admission/observation considered Lab Data MDM Lab Attestation statement: I reviewed the patient's lab results. 07/23/23 18:53 07/23/23 18:53 Labs: Lab Results 07/23/23 Range/Units 18:53 WBC 10.0 (4.8-10.8) X10*3/uL RBC 4.30 (4.20-5.50) X10*6/uL Hgb 11.3 L (12.0-16.0) g/dl Hct 33.1 L (37.0-47.0) % MCV 77.0 L (80.0-98.0) fL MCH 26.3 L (27.0-33.0) pg MCHC 34.1 (31.0-35.0) g/dl RDW 14.3 (11.0-16.0) % Plt Count 378 D (160-400) X10*3/uL MPV 12.8 H (9.4-12.3) fL Immature Gran % (Auto) 0.4 (0.0-0.4) % Neut % (Auto) 65.4 (45-73) % Lymph % (Auto) 28.6 (20-40) % Branch % (Auto) 3.7 (2-11) % Eos % (Auto) 1.5 (0-4) % Baso % (Auto) 0.4 (0-2) % Lymph # (Auto) 2.9 (1.2-4.9) X10*3/uL Branch # (Auto) 0.4 (0.1-1.2) X10*3/uL Eos # (Auto) 0.2 (0.0-0.4) X10*3/uL Baso # (Auto) 0.0 (0.0-0.2) X10*3/uL Abs Immat Gran (auto) 0.04 H (0.00-0.03) X10*3/uL Absolute Neuts (auto) 6.5 (2.0-8.3) x10*3/uL Absolute Nucleated RBC 0.000 (0.0-0.012) X10*3/uL Nucleated RBC % (auto) 0.0 (0.0-0.2) /100WBC PT 15.1 H (11.1-13.3) SEC INR 1.2 H (0.9-1.1) Sodium 136 (135-145) mmol/L Potassium 3.1 L (3.3-5.1) mmol/L Chloride 100 (96-108) mmol/L Carbon Dioxide 25 (22-29) mmol/L Anion Gap 14 (12-20) BUN 7 L (9-16) mg/dL Creatinine 1.22 (0.5-1.4) mg/dL Estim Creat Clear Calc 63.0 Estimated GFR 46 Random Glucose 369 H* (60-115) mg/dL Calcium 8.7 D (8.4-10.2) mg/dL Magnesium 1.8 (1.6-2.6) mg/dL Total Bilirubin 0.3 (0.0-1.0) mg/dL Direct Bilirubin 0.1 (0.0-0.5) mg/dL AST 25 (5-31) U/L ALT 21 (0-31) U/L Alkaline Phosphatase 133 H (39-117) U/L Troponin I High Sens 2.7 (<3.5-17.0) ng/L Total Protein 7.1 (6.5-8.0) g/dL Albumin 3.8 (3.5-5.0) g/dL Beta-Hydroxybutyrate 0.07 (0.02-0.27) mmol/L COVID-19 ([place]) Negative (Negative) COVID-19 Clin Com See Note Independent Interpretation I performed an independent interpretation of an: EKG and CT Scan Interpretation: Status tachycardia with heart rate 118 beats per minute LVH no acute ST-T changes no acute ischemia Radiology Impression Discussion of test interpretation with radiology: I have reviewed the radiologist's reading. Discharge Plan Discharge Clinical Impression: Transient cerebral ischemia Patient Disposition: Home, Self-Care Instructions: Transient Ischemic Attack (ED) Additional Instructions: Likely you had a small stroke Continue Pradaxa and aspirin Take your insulin on time and follow-up with your PCP Prescriptions: No Action (DME) FreeStyle Mario 2 Sensor Kit See Rx Instructions .ROUTE .MEDSUPPLY Qty: 2 11RF Rx Instructions: Check blood sugars (DME) FreeStyle Mario 2 Sensor Kit See Rx Instructions .ROUTE .MEDSUPPLY Qty: 2 11RF Rx Instructions: Check blood sugars (DME) FreeStyle Mario 2 [place] Misc See Rx Instructions .Route Qty: 1 0RF Rx Instructions: test 3 times daily (DME) FreeStyle Mario 14 Day Sensor Kit See Rx Instructions .Route Qty: 1 0RF Rx Instructions: with sensor cover (DME) freestyle mario sensor cover See Rx Instructions .Route .MEDSUPPLY Qty: 2 5RF Rx Instructions: As directed atorvastatin [Lipitor] 40 mg tablet 40 mg PO DAILY 90 Days Qty: 90 3RF insulin lispro 200 unit/mL (3 mL) insulin pen 5 unit subcut TID Qty: 6 0RF insulin glargine [Lantus Solostar U-100 Insulin] 100 unit/mL (3 mL) insulin pen 20 unit subcut QPM Qty: 15 3RF dabigatran etexilate 150 mg capsule 150 mg PO BID Qty: 60 2RF amlodipine 10 mg tablet 10 mg PO DAILY Qty: 90 0RF propranolol 120 mg Capsule,Extended Release 24 Hr 120 mg PO DAILY Qty: 90 0RF zolpidem 10 mg tablet 10 mg PO BEDTIME hydrochlorothiazide 25 mg tablet 25 mg PO QAM oxycodone-acetaminophen 7.5-325 mg tablet 1 tab PO DAILY (DME) lancets [FreeStyle Lancets] 28 gauge misc See Rx Instructions .ROUTE QID Qty: 100 Rx Instructions: As directed (DME) pen needle, diabetic [BD Ailin 2nd Gen Pen Needle] 32 gauge x 5/32 needle See Rx Instructions .ROUTE .MEDSUPPLY Qty: 1200 Rx Instructions: As directed (DME) FreeStyle Lite Strips Strip See Rx Instructions .ROUTE TID Qty: 10 Rx Instructions: As directed clotrimazole-betamethasone 1-0.05 % cream 1 appl topical BID PRN (Reason: itching) 7 Days Qty: 45 1RF
[2023-07-23 18:28] VITALS: BP 149/85; PULSE 121; RESP 18; TEMP 37.1; O2SAT 98; BMI 36.5
[2023-07-24 00:16] VITALS: BP 157/88; PULSE 99; RESP 18; TEMP 36.9; O2SAT 98
--- NOTE | 2023-07-24 00:17 | MHC.EDTECH ---
Per Doctor no orthos,patient is being discharged
--- NOTE | 2023-07-24 00:23 | MHC.EDTECH ---
POC taken and is 209,Olivia DUFFY made aware
--- NOTE | 2023-07-24 00:50 | PC.NURSE ---
Pt noted to ring and walk to the nurses station requesting to be discharged. Staff made pt aware that the RN would be as soon as she was available. When RN to bedside to provide pt with discharge papers and to provide medication per MAR the pt was not in her room
== END 2023-07-24 00:55 | disposition home or self-care (01) ==
PROVIDERS: Emergency Provider Internal Medicine; PCP Internal Medicine
DX: G45.9 Transient cerebral ischemic attack, unspecified (principal); R53.1 Weakness; R51.9 Headache, unspecified; R42 Dizziness and giddiness; E78.5 Hyperlipidemia, unspecified; I10 Essential (primary) hypertension; Z79.01 Long term (current) use of anticoagulants; Z79.899 Other long term (current) drug therapy; Z86.73 Personal history of transient ischemic attack (TIA), and cerebral infarction without residual deficits
CPT/HCPCS: 36415; 70450; 71045; 80048; 80076; 82010; 82947; 83735; 84484; 85025; 85610; 87635; 93005; 99285

== ENCOUNTER → 2023-07-23 18:29 | Outpatient (BNV) | payer OTHER, SELFPAY | PROVIDERS: Emergency Provider Internal Medicine; PCP Internal Medicine; Visit Provider Internal Medicine Cardiovascular Disease | DX: R00.0 Tachycardia, unspecified (principal); R94.31 Abnormal electrocardiogram [ECG] [EKG] | CPT/HCPCS: 93010 ==

== ENCOUNTER 2023-08-12 14:52 | Outpatient (REF) | payer OTHER, SELFPAY ==
--- NOTE | ~2023-08-12 | MM_ITS ---
EXAMINATION: MM SCREENING DIGITAL BREAST TOMOSYNTHESIS, BILATERAL CLINICAL INFORMATION: Screening. Asymptomatic. The patient is status post bilateral breast reduction. COMPARISON: Mammography: This study is compared with prior exams dating back to 2017. TECHNIQUE: Digital breast tomosynthesis is performed in both the craniocaudal and mediolateral oblique views along with computer-aided detection (CAD). Synthesized 2D images are generated from the tomosynthesis. FINDINGS: The breasts are almost entirely fatty (ACR BI-RADS breast composition Category a). There are no significant masses, abnormal calcifications, or other abnormalities. Post reduction changes are present. MM/MM tomosynthesis screening BI IMPRESSION: No mammographic evidence of malignancy. ASSESSMENT: BI-RADS BI-RADS 2 - Benign Findings RECOMMENDATION: Routine annual mammography screening. 1 year F/U This examination should not preclude the clinical evaluation of a suspicious palpable abnormality. This patient's information was entered into a reminder system with a target due date for their next mammogram.
== END 2023-08-12 14:53 | disposition home or self-care (01) ==
LOC: HO.MAMMO 14:52
PROVIDERS: PCP Internal Medicine; Visit Provider Advanced Practice Midwife
DX: Z12.31 Encounter for screening mammogram for malignant neoplasm of breast (principal)
CPT/HCPCS: 77063; 77067

== ENCOUNTER → 2023-08-12 15:15 | Outpatient (BNV) | payer OTHER, SELFPAY | PROVIDERS: PCP Internal Medicine; Visit Provider Radiology Diagnostic Radiology | DX: Z12.31 Encounter for screening mammogram for malignant neoplasm of breast (principal) | CPT/HCPCS: 77063; 77067 ==

== ENCOUNTER 2023-08-14 10:20 | Outpatient (AMB) | payer OTHER, SELFPAY ==
--- NOTE | 2023-08-14 10:42 | A.OFFPC_ITS ---
Vital Signs 08/14/23 10:45 Height 5 ft 6 in Weight 220 lb 8 oz BMI 35.6 BP 126/74 Blood Pressure Location Lt brachial Position Sitting Intake Visit Reasons: 3 month f/u Intake Note: Patient is here to follow up on DM, CAD, Hyperlipidemia,. Funeral Pre Need Consultant Required: No Safety Belt Installer: Not Required per policy Accompanied by: Self / Same As Patient Allergies No Known Allergies Allergy (Verified 08/15/23 14:52) Medication List - Last Reconciled 08/15/23 by Christiano Kaur MD amlodipine 10 mg PO DAILY atorvastatin (Lipitor) 40 mg PO DAILY 90 days blood sugar diagnostic (FreeStyle Lite Strips) As directed clotrimazole-betamethasone 1-0.05 % 1 appl topical BID PRN 7 days dabigatran etexilate 150 mg PO BID flash glucose scanning reader (FreeStyle Mario 2 Malcolm) test 3 times daily flash glucose sensor (FreeStyle Mario 14 Day Sensor kit) with sensor cover flash glucose sensor (FreeStyle Mario 2 Sensor kit) Check blood sugars flash glucose sensor (FreeStyle Mario 2 Sensor kit) Check blood sugars [freestyle mario sensor cover As directed] hydrochlorothiazide 25 mg PO QAM insulin glargine (Lantus Solostar U-100 Insulin) 20 units (0.2 mL) subcut QPM insulin lispro 5 units (0.025 mL) subcut TID lancets (FreeStyle Lancets) As directed oxycodone-acetaminophen 7.5-325 mg 1 tab PO DAILY pen needle, diabetic (BD Ailin 2nd Gen Pen Needle) As directed propranolol ER 120 mg PO DAILY zolpidem 10 mg PO BEDTIME Tobacco use date assessed: 08/14/23 Dental Screening Dental Screen Date: 08/14/23 Did you have a dental visit in the last 12 months?: Yes Did you have a dental problem in the last 6 months where you did not have access to dental care?: No Was dental information given to patient?: Patient has dentist HPI 3 month f/u HPI Details 53-year-old female presents to the [facility] for a follow-up. She comes to the office alone. Patient reports she is taking 20 units of the long-acting insulin in the morning and 5 units of the long-acting insulin along with her meals. Not eating a healthy diet. Does not exercise. Not checking her blood sugars that frequently. 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, acute Right leg weakness Cerebrovascular accident Headache GERD (gastroesophageal reflux disease) Cardiomyopathy Excessive daytime sleepiness Obesity (BMI 35.0-39.9 without comorbidity) Breast cancer in female Hyperlipidemia Cerebrovascular disease History of multiple strokes Benign nevus Family history of breast cancer Essential (primary) hypertension Multiple sclerosis (Unknown) Surgical History History of removal of cyst (05/07/22) Hx of colonoscopy History of esophagogastroduodenoscopy (EGD) History of breast surgery Family History Mother Cancer Brother H/O heart surgery Maternal Aunt Breast cancer Social History Household Members: None Household Members Other:: daughter away at college Housing: Apartment Are you a primary home health care social worker to a significant other at home: No Do you presently have visiting nurse or other home services: Yes Alcohol intake: current Alcohol intake frequency: a few times a month Patient Tobacco Use Status: Never used Tobacco e-Cigarette/Vaping Use: Never Used Second Hand Smoke Exposure: No Advance Directives Date on File: 12/19/22 service: No Current occupational status: disabled Cognitive needs: No Hearing needs: No Vision needs: No Female Reproductive History Menstrual Age of Menarche: 10 Questionnaire PHQ-9 Over the last 2 weeks, how often have you been bothered by any of the following problems? 1. Little interest or pleasure in doing things: not at all 2. Feeling down, depressed, or hopeless: not at all 3. Trouble falling or staying asleep, or sleeping too much: not at all 4. Feeling tired or having little energy: not at all 5. Poor appetite or overeating: not at all 6. Feeling bad about yourself - or that you are a failure or have let yourself or your family down: not at all 7. Trouble concentrating on things, such as reading the newspaper or watching television: not at all 8. Moving or speaking so slowly that other people could have noticed. Or the opposite - being so fidgety or restless that you have been moving around a lot more than usual: not at all 9. Thoughts that you would be better off or of hurting yourself in some way: not at all Total score: 0 Depression Screening Interpretation: Negative Depression Screening Done: Yes Source: Developed by Drs. Niko Barone, Yazmin Mcneil, Owen Gaytan and colleagues, with an educational stefani from [employer]. Thrive Questionnaire Date Thrive assessed: 08/14/23 I am a: Patient What is your living situation today?: I have a steady place to live Within the past 12 months, did the food you bought not last and you didn't have the money to get more?: Never true Within the past 12 months, did you worry whether your food would run out before you got money to buy more?: Never true Do you have trouble paying for medicines?: No Do you have trouble getting transportation to medical appointments?: No Do you have trouble paying your heating and electricity bill?: No Do you have trouble taking care of your child, family member or friend?: No Do you have trouble with day-to-day activities such as bathing, preparing meals, shopping, managing finances, etc.?: No Are you currently unemployed and looking for a job?: No Are you interested in more education?: No Currently or been in a relationship where the following occur: no concerns reported THRIVE Score: 0 AUDIT C Alcohol Use Questionnaire (AUDIT-C) 1. How often do you have a drink containing alcohol?: Never Total Score: 0 CASTRO-7 AMB Questionnaire CASTRO-7 Date CASTRO - 7 assessed: 08/14/23 Feeling nervous, anxious, or on edge: 0 = Not at all Not being able to stop or control worryin = Not at all Worrying too much about different things: 0 = Not at all Trouble relaxin = Not at all Being so restless that it is hard to sit still: 0 = Not at all Becoming easily annoyed or irritable: 0 = Not at all Feeling afraid as if something awful might happen: 0 = Not at all Total CASTRO-7 score (0-4 normal; 5-9 mild; 10-14 moderate; 15-21 severe): 0 Source: Developed by Drs. Niko Barone, Yazmin Mcneil, Owen Gaytan and colleagues, with an educational stefani from [employer]. Physical exam (Primary Care) Vital Signs: Last Vital Signs BP 126/74 08/14/23 10:45 Care Plan Goal for BP management: Blood pressure in range. BMI result Body Mass Index 35.6 BMI Assessment/Plan discussion: High (1 lb per week weight loss suggested.) BMI High, discussed plan: lifestyle and weight reduction Tobacco/Smoking Status: Tobacco use Status Tobacco use date assessed 08/14/23 08/14/23 10:47 Patient Tobacco Use Status Never used Tobacco 08/14/23 10:53 e-Cigarette/Vaping Use Never Used 08/14/23 10:53 PHQ-9: PHQ-9 Score PHQ-9: Total score 0 08/14/23 10:44 Depression Screening Interpretation: Negative Thrive Assessment: Date of Thrive Assessment Date Thrive assessed 08/14/23 08/14/23 10:44 Currently or been in a relationship where the following occur: no concerns reported Const General: cooperative and healthy appearing Nutritional Appearance: well nourished Orientation/consciousness: patient oriented x3 Limitations: no limitations HENMT Head: Yes normal to inspection Eyes General: appearance normal, both eyes and all related structures Neck Neck: Yes normal visual inspection Chest Chest palpation & inspection: normal palpation of entire chest wall Resp Effort & Inspection: normal respiratory effort Neuro General: patient oriented x3 Results AMB Hemoglobin A1c AMB Hemoglobin A1c 8.6 % Last Edit by MYLES Almodovar on 08/14/23 10:57 Results Reviewed Results Reviewed: Laboratory Last Values Hgb A1c (Clinic) 8.6 % (4.0-6.0) H 08/14/23 10:55 Assessment and Plan Assessment & Plan (1) Type 2 diabetes mellitus: Code(s): E11.9 - Type 2 diabetes mellitus without complications Plan: A1c is 8.6. Long-acting insulin has been increased to 30 units and short-acting insulin has been increased to 15 units twice a day. I encouraged the patient to follow a healthy diet. Orders: Orders AMB Hemoglobin A1c 08/14/23 E11.9 - Type 2 diabetes mellitus without complications Coding Level of Care Code Est Pt Level 4 (05667) Diagnoses Type 2 diabetes mellitus E11.9
[2023-08-14 10:45] VITALS: BP 126/74; BMI 35.6
== END 2023-08-14 11:38 | disposition home or self-care (01) ==
PROVIDERS: PCP Internal Medicine; Visit Provider Internal Medicine
DX: E11.9 Type 2 diabetes mellitus without complications (principal)
CPT/HCPCS: 83036; 99214

== ENCOUNTER 2023-10-21 11:26 | Emergency (ER) | payer OTHER, SELFPAY ==
--- NOTE | ~2023-10-21 | CT_ITS ---
EXAMINATION: CT HEAD WITHOUT CONTRAST CLINICAL INFORMATION: Altered mental status COMPARISON: CT brain 07/23/2023 TECHNIQUE: Contiguous axial imaging was performed from the skull base to vertex without intravenous administration of contrast. This CT examination was performed using dose optimization techniques as appropriate, variously including the following: *Automated exposure control *Adjustment of mA and/or kV according to patient size (this includes techniques or standardized protocols for targeted exams where dose is matched to indication/reason for exam; i.e. extremities or head) *Use of iterative reconstruction technique DLP: 700 mGy-cm FINDINGS: There is no acute intra-axial, extra-axial bleed, masses, collection midline shift. There is left parietal and parieto-occipital lobe encephalomalacia with mild dilatation of left occipital horn. The lateral ventricles are symmetrical in size but moderately enlarged. There is diffuse periventricular hypodensity in both cerebral hemispheres, stable. No acute infarct evolution seen. No abnormality in the posterior fossa. Bone window reveal a right frontal alberto hole with tiny plate. No calvarial fracture. The there is no scalp soft tissue abnormality. Bilateral paranasal sinuses and mastoid air cells are well-aerated. The TM joints are symmetrical and normal. CT/CT head/brain wo IV con IMPRESSION: 1. No acute intracranial process seen. 2. 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 3. No major change from previous study 07/23/2023.
[2023-10-21 11:42] VITALS: BP 125/76; BP 147/77; PULSE 107; PULSE 110; RESP 18; TEMP 36.7; O2SAT 97; O2SAT 98; BMI 36.6
--- NOTE | 2023-10-21 12:10 | ED_ITS ---
HPI - General Adult General Chief complaint: General Medical Stated complaint: CONFUSION X3 DAYS PER EMS Time Seen by Provider: 10/21/23 12:10 History of Present Illness HPI narrative: The patient is a 53-year-old woman with multiple medical problems including multiple sclerosis and apparently a history of previous strokes. The patient has a history of diabetes and is on insulin. According to the patient's daughter the patient has had low blood sugars during the last week. She wears a monitoring device which is indicated that her blood sugar has often been less than 60 and almost never above 80. Yesterday evening the patient seemed confused this morning the patient was disoriented. Visiting nurses saw the patient at home this morning and were concerned that her blood sugar kept dropping and called an ambulance and she was brought to the hospital. According to the patient's daughter the patient has been confused like this before but not recently. There is no report of any fever. The patient is prescribed Ambien and also sometimes takes Excedrin. She takes 1 oxycodone daily. She takes 30 units of insulin glargine (Lantus) in the morning and she takes lispro insulin 3 to 4 times a day with meals, 20 units per dose. The patient herself does not have any complaints. She does not understand why she is here and she does not wish to be here. She has no complaints of any pain. She has no headache. She has no chest pain. No abdominal pain. No nausea. No sense of weakness or tingling in her extremities. No sense of any difficulty walking. There had been a question of whether she might have taken excessive Excedrin last night. The patient does not believe she did. When I spoke to the patient's daughter the daughter did not think patient took excessive Excedrin either. No suicidality. Related Data Home Medications Medication Instructions Recorded Confirmed hydrochlorothiazide 25 mg tablet 25 mg PO QAM 06/14/20 05/08/23 zolpidem 10 mg tablet 10 mg PO BEDTIME 06/14/20 05/08/23 oxycodone-acetaminophen 7.5 mg-325 1 tab PO DAILY 11/18/22 05/08/23 mg tablet blood sugar diagnostic (FreeStyle #10 ea 01/02/23 05/08/23 Lite Strips) lancets 28 gauge (FreeStyle #100 ea 01/02/23 05/08/23 Lancets) pen needle, diabetic 32 gauge x #1,200 ea 01/02/23 05/08/23 5/32 (BD Ailin 2nd Gen Pen Needle) Previous Rx's Medication Instructions Recorded clotrimazole-betamethasone 1 1 appl topical BID PRN itching 7 01/02/23 %-0.05 % topical cream days #45 grams flash glucose sensor (FreeStyle #2 ea 01/08/23 Mario 2 Sensor kit) flash glucose sensor (FreeStyle #2 ea 01/08/23 Mario 2 Sensor kit) amlodipine 10 mg tablet 10 mg PO DAILY #90 tabs 01/09/23 dabigatran etexilate 150 mg capsule 150 mg PO BID #60 caps 01/09/23 propranolol 120 mg capsule,24 120 mg PO DAILY #90 caps 01/09/23 hr,extended release flash glucose scanning reader #1 ea 01/29/23 (FreeStyle Mario 2 Ringoes) flash glucose sensor (FreeStyle #1 ea 02/21/23 Mario 14 Day Sensor kit) freestyle mario sensor cover #2 ea 02/21/23 atorvastatin 40 mg tablet (Lipitor) 40 mg PO DAILY 90 days #90 tabs 02/24/23 insulin glargine 100 unit/mL (3 30 unit (0.3 mL) subcut QPM #15 mL 08/15/23 mL) subcutaneous pen (Lantus Solostar U-100 Insulin) insulin lispro 200 unit/mL (3 mL) 15 unit (0.075 mL) subcut TID #6 mL 10/14/23 subcutaneous pen Allergies Allergy/AdvReac Type Severity Reaction Status Date / Time No Known Allergies Allergy Verified 08/15/23 14:52 [facility] Past Medical History Medical History Uncontrolled hypertension Cerebral microvascular disease Chronic idiopathic cerebral venous infarction Thalamic infarct, acute Right leg weakness Cerebrovascular accident Headache GERD (gastroesophageal reflux disease) Cardiomyopathy Excessive daytime sleepiness Obesity (BMI 35.0-39.9 without comorbidity) Breast cancer in female Hyperlipidemia Cerebrovascular disease History of multiple strokes Benign nevus Family history of breast cancer Essential (primary) hypertension Multiple sclerosis (Unknown) Surgical History History of removal of cyst (05/07/22) Hx of colonoscopy History of esophagogastroduodenoscopy (EGD) History of breast surgery Family History Family History Mother Cancer Brother H/O heart surgery Maternal Aunt Breast cancer Social History Social History Household Members: None Household Members Other:: daughter away at college Housing: Apartment Are you a primary long term care pharmacist to a significant other at home: No Do you presently have visiting nurse or other home services: Yes Alcohol intake: current Alcohol intake frequency: a few times a month Patient Tobacco Use Status: Never used Tobacco e-Cigarette/Vaping Use: Never Used Second Hand Smoke Exposure: No Advance Directives Date on File: 12/19/22 service: No Current occupational status: disabled Cognitive needs: No Hearing needs: No Vision needs: No Physical Exam ED Vital Signs: Vital Signs - 24 hr 10/21/23 11:42 10/21/23 16:00 Temperature 98.0 F 97.9 F Pulse Rate 107 H 103 H Respiratory Rate 18 18 Blood Pressure 147/77 H 168/82 H Pulse Oximetry 98 98 Oxygen Delivery Method Room Air BMI result Body Mass Index 36.6 Const Other: The patient is a 53-year-old woman who looks somewhat chronically ill but not obviously acutely ill. She has a slightly vague demeanor but is not frankly disoriented. She does not appear in pain or respiratory difficulty. HENMT Other: Face is symmetrical. Tongue is midline. Eyes Other: Pupils are round equal, extraocular movements are intact, conjunctivae are clear Neck Other: Neck is supple, no JVD, no adenopathy. Resp Effort & Inspection: normal respiratory effort Auscultation: clear to auscultation bilaterally Cardio Rate: regular rate Rhythm: regular rhythm Heart sounds: S1 normal heart sound present and S2 normal heart sound present GI Other: Abdomen is soft and nontender Skin Other: Skin is dry and unremarkable Neuro Other: The patient is awake and alert. She has slightly vague demeanor but she knows that she is at [facility]. She knows it is October. Eye movements are intact. Face is symmetrical. Speech is without aphasia or dysarthria. She has symmetrical strength in her extremities. Gait is reasonably steady and her family acknowledges her gait is at baseline. Extrem Other: No peripheral edema. Medications Administered Discontinued Medications Generic Name Dose Route Start Last Admin Trade Name Checo PRN Reason Stop Dose Admin Acetaminophen 975 mg 10/21/23 12:45 10/21/23 13:49 Acetaminophen 325 Mg Tablet PO 10/21/23 12:46 975 mg ONCE ONE Administration Medical Decision Making Medical Decision Making [facility] Narrative: The patient is a 53-year-old woman with a history of type 2 diabetes, hypertension and previous strokes. According to the family the patient has seemed slightly more confused than usual over the last several days and is apparently had lower than usual blood sugars recently. Blood sugars have often been less than 60 and rarely over 80. Last night she seemed confused and this morning visiting nurses thought that she was disoriented and that her blood pressure dropped again. She was advised to come to the emergency room and she came here by ambulance. She has had no fevers. Here in the emergency room the patient herself has no complaints. Her blood sugars are low here. Point of care blood sugar was 51. She ate a sandwich. Later her blood sugar on her metabolic panel was 85. Her mental status initially seemed very slightly vague. She seemed sharper when her blood sugar was better. Her head CT was unremarkable. Her metabolic workup in the emergency room is largely unremarkable. Overall the patient seemed to be at her baseline once her blood sugar was slightly better. My overall impression is that perhaps her insulin doses are too high. I reviewed her current insulin dosing with the patient and with her daughter who was at the bedside. She apparently takes 30 units of Lantus every morning and she takes lispro 20 units 3 or 4 times a day with meals. I will advise her to reduce these doses to 27 units of Lantus in the morning and 16 units of lispro with meals. She should review these medication changes with her visiting nurse. She should follow up soon with the regular doctor. She should return if worse. . Lab Data 10/21/23 14:45 10/21/23 14:45 Labs: Lab Results 10/21/23 10/21/23 10/21/23 Range/Units 14:11 14:45 15:14 WBC 12.7 H (4.8-10.8) X10*3/uL RBC 4.37 (4.20-5.50) X10*6/uL Hgb 11.4 L (12.0-16.0) g/dl Hct 34.7 L (37.0-47.0) % MCV 79.4 L (80.0-98.0) fL MCH 26.1 L (27.0-33.0) pg MCHC 32.9 (31.0-35.0) g/dl RDW 15.6 (11.0-16.0) % Plt Count 405 H (160-400) X10*3/uL MPV 10.9 (9.4-12.3) fL Immature Gran % (Auto) 0.5 H (0.0-0.4) % Neut % (Auto) 81.8 H (45-73) % Lymph % (Auto) 14.1 L (20-40) % [place] % (Auto) 3.1 (2-11) % Eos % (Auto) 0.2 (0-4) % Baso % (Auto) 0.3 (0-2) % Lymph # (Auto) 1.8 (1.2-4.9) X10*3/uL [place] # (Auto) 0.4 (0.1-1.2) X10*3/uL Eos # (Auto) 0.0 (0.0-0.4) X10*3/uL Baso # (Auto) 0.0 (0.0-0.2) X10*3/uL Abs Immat Gran (auto) 0.06 H (0.00-0.03) X10*3/uL Absolute Neuts (auto) 10.4 H (2.0-8.3) x10*3/uL Absolute Nucleated RBC 0.000 (0.0-0.012) X10*3/uL Nucleated RBC % (auto) 0.0 (0.0-0.2) /100WBC Sodium 143 (135-145) mmol/L Potassium 3.7 (3.3-5.1) mmol/L Chloride 106 (96-108) mmol/L Carbon Dioxide 31 H (22-29) mmol/L Anion Gap 10 L (12-20) BUN 7 L (9-16) mg/dL Creatinine 1.02 (0.5-1.4) mg/dL Estim Creat Clear Calc 78.0 Estimated GFR 56 POC Glucose 51 L* (60-115) mg/dL Random Glucose 85 (60-115) mg/dL Calcium 9.6 D (8.4-10.2) mg/dL Magnesium 1.9 (1.6-2.6) mg/dL Total Bilirubin 0.2 (0.0-1.0) mg/dL Direct Bilirubin < 0.2 (0.0-0.5) mg/dL AST 25 (5-31) U/L ALT 22 (0-31) U/L Alkaline Phosphatase 99 (39-117) U/L C-Reactive Protein 0.36 (< or = 0.50) mg/dL Total Protein 7.6 (6.5-8.0) g/dL Albumin 4.0 (3.5-5.0) g/dL Urine Color Yellow Urine Appearance Clear Urine pH 6.0 (5.0-9.0) Ur Specific [place] 1.020 (1.005-1.025) Urine Protein Negative (Neg-Trace) mg/dL Urine Glucose (UA) Negative (Negative) mg/dL Urine Ketones Negative (Negative) mg/dL Urine Blood Negative (Negative) Urine Nitrite Negative (Negative) Ur Leukocyte Esterase Moderate (2+) H (Negative) Urine RBC 0-2 (0-2) /HPF Urine WBC 6-10 (0-5) /HPF Ur Squamous Epith Cells 6-10 (0-2) /HPF Urine Bacteria 3+ (None Seen) Hyaline Casts 0-2 (0-2) /LPF Salicylates < 5.0 L (15-30) mg/dL Urine Opiates Screen (Not Detect) Urine Fentanyl Screen (Not Detect) Ur Barbiturates Screen (Not Detect) Ur Phencyclidine Scrn (Not Detect) Ur Amphetamines Screen (Not Detect) U Benzodiazepines Scrn (Not Detect) Urine Cocaine Screen (Not Detect) U Marijuana (THC) Screen (Not Detect) Ethyl Alcohol < 10 mg/dL Influenza Type A (PCR) NEGATIVE (Negative) Influenza Type B (PCR) NEGATIVE (Negative) RSV RNA Qual (PCR) NEGATIVE (Negative) SARS-CoV-2 RNA (RT-PCR) NEGATIVE (Negative) 10/21/23 10/21/23 Range/Units 15:15 16:30 WBC (4.8-10.8) X10*3/uL RBC (4.20-5.50) X10*6/uL Hgb (12.0-16.0) g/dl Hct (37.0-47.0) % MCV (80.0-98.0) fL MCH (27.0-33.0) pg MCHC (31.0-35.0) g/dl RDW (11.0-16.0) % Plt Count (160-400) X10*3/uL MPV (9.4-12.3) fL Immature Gran % (Auto) (0.0-0.4) % Neut % (Auto) (45-73) % Lymph % (Auto) (20-40) % [place] % (Auto) (2-11) % Eos % (Auto) (0-4) % Baso % (Auto) (0-2) % Lymph # (Auto) (1.2-4.9) X10*3/uL [place] # (Auto) (0.1-1.2) X10*3/uL Eos # (Auto) (0.0-0.4) X10*3/uL Baso # (Auto) (0.0-0.2) X10*3/uL Abs Immat Gran (auto) (0.00-0.03) X10*3/uL Absolute Neuts (auto) (2.0-8.3) x10*3/uL Absolute Nucleated RBC (0.0-0.012) X10*3/uL Nucleated RBC % (auto) (0.0-0.2) /100WBC Sodium (135-145) mmol/L Potassium (3.3-5.1) mmol/L Chloride (96-108) mmol/L Carbon Dioxide (22-29) mmol/L Anion Gap (12-20) BUN (9-16) mg/dL Creatinine (0.5-1.4) mg/dL Estim Creat Clear Calc Estimated GFR POC Glucose 84 (60-115) mg/dL Random Glucose (60-115) mg/dL Calcium (8.4-10.2) mg/dL Magnesium (1.6-2.6) mg/dL Total Bilirubin (0.0-1.0) mg/dL Direct Bilirubin (0.0-0.5) mg/dL AST (5-31) U/L ALT (0-31) U/L Alkaline Phosphatase (39-117) U/L C-Reactive Protein (< or = 0.50) mg/dL Total Protein (6.5-8.0) g/dL Albumin (3.5-5.0) g/dL Urine Color Urine Appearance Urine pH (5.0-9.0) Ur Specific [place] (1.005-1.025) Urine Protein (Neg-Trace) mg/dL Urine Glucose (UA) (Negative) mg/dL Urine Ketones (Negative) mg/dL Urine Blood (Negative) Urine Nitrite (Negative) Ur Leukocyte Esterase (Negative) Urine RBC (0-2) /HPF Urine WBC (0-5) /HPF Ur Squamous Epith Cells (0-2) /HPF Urine Bacteria (None Seen) Hyaline Casts (0-2) /LPF Salicylates (15-30) mg/dL Urine Opiates Screen POSITIVE H (Not Detect) Urine Fentanyl Screen Not Detected (Not Detect) Ur Barbiturates Screen Not Detected (Not Detect) Ur Phencyclidine Scrn Not Detected (Not Detect) Ur Amphetamines Screen Not Detected (Not Detect) U Benzodiazepines Scrn Not Detected (Not Detect) Urine Cocaine Screen Not Detected (Not Detect) U Marijuana (THC) Screen Not Detected (Not Detect) Ethyl Alcohol mg/dL Influenza Type A (PCR) (Negative) Influenza Type B (PCR) (Negative) RSV RNA Qual (PCR) (Negative) SARS-CoV-2 RNA (RT-PCR) (Negative) Independent Interpretation I performed an independent interpretation of an: EKG Interpretation: EKG at 12:59 shows sinus tachycardia at 104 beats per minute. There is evidence of LVH. QTC is 518 milliseconds. Discharge Plan Discharge Clinical Impression: Altered mental status, Hypoglycemia Patient Disposition: Home, Self-Care Additional Instructions: I believe that your symptoms are likely related to having unusually low blood sugars over the last couple of weeks. I think reducing your doses of insulin would be reasonable. Please reduce your current dose of the Lantus insulin (glargine insulin) from 30 units to 27 units per day. Also please reduce your lispro insulin from 20 units per dose to 16 units per dose. Continue your other medications as usual. Please review these medication changes with the your visiting nurse tomorrow morning. Plan on following up with your regular doctor soon to discuss how you are doing. Return to the emergency room if worse. Prescriptions: No Action (DME) FreeStyle Mario 2 Sensor Kit See Rx Instructions .ROUTE .MEDSUPPLY Qty: 2 11RF Rx Instructions: Check blood sugars (DME) FreeStyle Mario 2 Sensor Kit See Rx Instructions .ROUTE .MEDSUPPLY Qty: 2 11RF Rx Instructions: Check blood sugars (DME) FreeStyle Mario 2 Ringoes Misc See Rx Instructions .Route Qty: 1 0RF Rx Instructions: test 3 times daily (DME) FreeStyle Mario 14 Day Sensor Kit See Rx Instructions .Route Qty: 1 0RF Rx Instructions: with sensor cover (DME) freestyle mario sensor cover See Rx Instructions .Route .MEDSUPPLY Qty: 2 5RF Rx Instructions: As directed atorvastatin [Lipitor] 40 mg tablet 40 mg PO DAILY 90 Days Qty: 90 3RF insulin lispro 200 unit/mL (3 mL) insulin pen 15 unit subcut TID Qty: 6 0RF dabigatran etexilate 150 mg capsule 150 mg PO BID Qty: 60 2RF amlodipine 10 mg tablet 10 mg PO DAILY Qty: 90 0RF propranolol 120 mg Capsule,Extended Release 24 Hr 120 mg PO DAILY Qty: 90 0RF insulin glargine [Lantus Solostar U-100 Insulin] 100 unit/mL (3 mL) insulin pen 30 unit subcut QPM Qty: 15 3RF zolpidem 10 mg tablet 10 mg PO BEDTIME hydrochlorothiazide 25 mg tablet 25 mg PO QAM oxycodone-acetaminophen 7.5-325 mg tablet 1 tab PO DAILY (DME) lancets [FreeStyle Lancets] 28 gauge misc See Rx Instructions .ROUTE QID Qty: 100 Rx Instructions: As directed (DME) pen needle, diabetic [BD Ailin 2nd Gen Pen Needle] 32 gauge x 5/32 needle See Rx Instructions .ROUTE .MEDSUPPLY Qty: 1200 Rx Instructions: As directed (DME) FreeStyle Lite Strips Strip See Rx Instructions .ROUTE TID Qty: 10 Rx Instructions: As directed clotrimazole-betamethasone 1-0.05 % cream 1 appl topical BID PRN (Reason: itching) 7 Days Qty: 45 1RF Referrals: Christiano Kaur MD [Physician] - (low blood sugars in a person on Lantus and Lispro)
--- NOTE | 2023-10-21 12:10 | PC.NURSE ---
pt alert and oriented x3. denies CP, SOB, dizziness, weakness, N/V and reports that they feel fine and don't want to be here. Per EMS, family was concerned that pt was taking 4-5 Excederine PM last night and says that she is confused. HX of CVA/TIA. Neuro exam negative for deficits - face movements equal, no slurred speech. Extremity strength equal bilaterally, no drift noted.
--- NOTE | 2023-10-21 12:28 | PC.NURSE ---
pt changed over to hospital gown. during change, pt was acting slightly confused - they seemed unsure of there whereabouts and reported that they were not in the hosppital
--- NOTE | 2023-10-21 12:46 | ECG_ITS ---
Test Reason : CONFUSION Blood Pressure : / mmHG Vent. Rate : 104 BPM Atrial Rate : 104 BPM P-R Int : 168 ms QRS Dur : 096 ms QT Int : 394 ms P-R-T Axes : 040 006 119 degrees QTc Int : 518 ms Sinus tachycardia Left ventricular hypertrophy with repolarization abnormality ( R in aVL , Wayne product , Romhilt-Jules ) Abnormal ECG When compared with ECG of 23-JUL-2023 18:47, No significant change was found Referred By: Yung Reynaga Electronically Signed By:NISA CORREA MD
[2023-10-21] MEDS: Acetaminophen 325 MG TABLET 975 MG PO (13:49)
--- NOTE | 2023-10-21 13:59 | MHC.EDTECH ---
This pct attempted to draw labs on patient and she said nobody is stucking her with a needle. RN Aware
[2023-10-21 14:49] LABS: MANUAL DIFF FLAG NO
[2023-10-21 14:51] LABS: Basophils Percent Auto 0.3 % (0-2); Eosinophils Percent Auto 0.2 % (0-4); Hematocrit 34.7 % (37.0-47.0); Hemoglobin 11.4 g/dl (12.0-16.0); Imm Gran Abs Auto 0.06 X10*3/uL (0.00-0.03); Imm Gran Pct Auto 0.5 % (0.0-0.4); Lymphocytes Absolute Auto 1.8 X10*3/uL (1.2-4.9); Lymphocytes Percent Auto 14.1 % (20-40); Mean Corpuscular HGB Conc 32.9 g/dl (31.0-35.0); Mean Corpuscular Hemoglobin 26.1 pg (27.0-33.0); Mean Corpuscular Volume 79.4 fL (80.0-98.0); Mean Platelet Volume 10.9 fL (9.4-12.3); Monocytes Absolute Auto 0.4 X10*3/uL (0.1-1.2); Monocytes Percent Auto 3.1 % (2-11); Neutrophils Absolute Auto 10.4 x10*3/uL (2.0-8.3); Neutrophils Percent Auto 81.8 % (45-73); Platelet Count 405 X10*3/uL (160-400); Red Blood Count 4.37 X10*6/uL (4.20-5.50); Red Cell Distribution Width 15.6 % (11.0-16.0); White Blood Count 12.7 X10*3/uL (4.8-10.8)
[2023-10-21 15:01] LABS: Glucose, Whole Blood 51 mg/dL (60-115)
[2023-10-21 15:13] LABS: Alanine Aminotransferase 22 U/L (0-31); Alkaline Phosphatase 99 U/L (39-117); Anion Gap 10 (12-20); Aspartate Amino Transferase 25 U/L (5-31); Bilirubin Direct < 0.2 mg/dL (0.0-0.5); Bilirubin Total 0.2 mg/dL (0.0-1.0); Blood Urea Nitrogen 7 mg/dL (9-16); C Reactive Protein 0.36 mg/dL (< or = 0.50); Calcium 9.6 mg/dL (8.4-10.2); Carbon Dioxide 31 mmol/L (22-29); Chloride 106 mmol/L (96-108); Estimated Glomerular Filt Rate 56; Ethanol < 10 mg/dL; Glucose Random 85 mg/dL (60-115); Magnesium 1.9 mg/dL (1.6-2.6); Potassium 3.7 mmol/L (3.3-5.1); Sodium 143 mmol/L (135-145); Total Protein 7.6 g/dL (6.5-8.0)
[2023-10-21 15:27] LABS: Appearance Urine Clear; Color Urine Yellow; Glucose Urine UA Negative (Negative); Leukocyte Esterase Urine Moderate (2+) (Negative); Nitrite Urine Negative (Negative); UMIC TRIGGER UACC YES; Urine Blood Negative (Negative); Urine Ketones Negative (Negative); Urine Protein Negative (Neg-Trace)
[2023-10-21 15:27] LABS: Salicylate < 5.0 mg/dL (15-30)
[2023-10-21 15:28] LABS: Amphetamine Screen Urine Not Detected (Not Detect); Barbiturates, Urine Not Detected (Not Detect); Benzodiazepines Screen Urine Not Detected (Not Detect); Cannabinoid Screen Urine Not Detected (Not Detect); Cocaine Screen Urine Not Detected (Not Detect); Fentanyl, urine Not Detected (Not Detect); Opiate Screen Urine POSITIVE (Not Detect); Phencyclidine Screen Urine Not Detected (Not Detect)
[2023-10-21 15:46] LABS: Influenza A PCR NEGATIVE (Negative); Influenza B PCR NEGATIVE (Negative); Resp Syncy Virus RNA Qual PCR NEGATIVE (Negative); SARS COV2 PCR INHOUSE NEGATIVE (Negative)
[2023-10-21 15:56] LABS: Bacteria Urine 3+ (None Seen); Hyaline Casts Urine 0-2 /LPF (0-2); RBC Urine 0-2 /HPF (0-2); UACC Culture Trigger YES
[2023-10-21 16:00] VITALS: BP 168/82; PULSE 103; RESP 18; TEMP 36.6; O2SAT 98
[2023-10-21 16:34] LABS: Glucose, Whole Blood 84 mg/dL (60-115)
[2023-10-21 16:54] VITALS: BP 168/82; PULSE 103; RESP 18; TEMP 36.6; O2SAT 98
== END 2023-10-21 16:55 | disposition home or self-care (01) ==
PROVIDERS: Emergency Provider Emergency Medicine
DX: E11.649 Type 2 diabetes mellitus with hypoglycemia without coma (principal); R41.82 Altered mental status, unspecified; G35 Multiple sclerosis; I10 Essential (primary) hypertension; Z86.73 Personal history of transient ischemic attack (TIA), and cerebral infarction without residual deficits; Z79.4 Long term (current) use of insulin; Z79.891 Long term (current) use of opiate analgesic; Z79.899 Other long term (current) drug therapy
CPT/HCPCS: 0241U; 36415; 70450; 80048; 80076; 80179; 80307; 81001; 82947; 83735; 85025; 86140; 87086; 93005; 99284

== ENCOUNTER → 2023-10-21 12:46 | Outpatient (BNV) | payer OTHER, SELFPAY | PROVIDERS: Emergency Provider Emergency Medicine; Visit Provider Internal Medicine Cardiovascular Disease | DX: R94.31 Abnormal electrocardiogram [ECG] [EKG] (principal) | CPT/HCPCS: 93010 ==

== ENCOUNTER 2023-11-13 10:31 | Outpatient (AMB) | payer OTHER, SELFPAY ==
--- NOTE | 2023-11-13 11:23 | A.OFFPC_ITS ---
Vital Signs 11/13/23 11:25 Height 5 ft 7 in Weight 225 lb 2 oz BMI 35.3 BP 130/78 Blood Pressure Location Lt brachial Position Sitting Intake Visit Reasons: 3 month f/u Intake Note: Patient is here to follow up on DM, CAD, HLD, MS. 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 Since last ov, patient has become more compliant with medications. Taking her insulin as directed. Starting to exercise. Feeling better overall. [facility] Medical History Uncontrolled hypertension Cerebral microvascular disease Chronic idiopathic cerebral venous infarction Thalamic infarct, acute Right leg weakness Cerebrovascular accident Headache GERD (gastroesophageal reflux disease) Cardiomyopathy Excessive daytime sleepiness Obesity (BMI 35.0-39.9 without comorbidity) Breast cancer in female Hyperlipidemia Cerebrovascular disease History of multiple strokes Benign nevus Family history of breast cancer Essential (primary) hypertension Multiple sclerosis (Unknown) Surgical History History of removal of cyst (05/07/22) Hx of colonoscopy History of esophagogastroduodenoscopy (EGD) History of breast surgery Family History Mother Cancer Brother H/O heart surgery Maternal Aunt Breast cancer Social History Household Members: None Household Members Other:: daughter away at college Housing: Apartment Are you a primary human services care specialist to a significant other at home: No Do you presently have visiting nurse or other home services: Yes Alcohol intake: current Alcohol intake frequency: a few times a month Patient Tobacco Use Status: Never used Tobacco e-Cigarette/Vaping Use: Never Used Second Hand Smoke Exposure: No Advance Directives Date on File: 12/19/22 service: No Current occupational status: disabled Cognitive needs: No Hearing needs: No Vision needs: No Female Reproductive History Menstrual Age of Menarche: 10 Questionnaire Thrive Questionnaire Date Thrive assessed: 08/14/23 CASTRO-7 AMB Questionnaire CASTRO-7 Date CASTRO - 7 assessed: 08/14/23 Source: Developed by Drs. Niko Barone, Yazmin Mcneil, Owen Gaytan and colleagues, with an educational stefani from [employer]. Physical exam (Primary Care) Vital Signs: Last Vital Signs BP 130/78 11/13/23 11:25 BMI result Body Mass Index 35.3 Tobacco/Smoking Status: Tobacco use Status Tobacco use date assessed 11/13/23 11/13/23 11:36 Patient Tobacco Use Status Never used Tobacco 11/13/23 11:23 e-Cigarette/Vaping Use Never Used 11/13/23 11:23 Thrive Assessment: Date of Thrive Assessment Date Thrive assessed 08/14/23 11/13/23 11:23 Const General: cooperative and healthy appearing Nutritional Appearance: well nourished Orientation/consciousness: patient oriented x3 Limitations: no limitations HENMT Head: Yes normal to inspection Eyes General: appearance normal, both eyes and all related structures Neck Neck: Yes normal visual inspection Chest Chest palpation & inspection: normal palpation of entire chest wall Resp Effort & Inspection: normal respiratory effort Neuro General: patient oriented x3 Results AMB Hemoglobin A1c AMB Hemoglobin A1c 6.6 % Last Edit by MYLES Almodovar on 11/13/23 11:36 Results Reviewed Results Reviewed: Laboratory Last Values Hgb A1c (Clinic) 6.6 % (4.0-6.0) H 11/13/23 11:05 Assessment and Plan Assessment & Plan (1) Type 2 diabetes mellitus: Code(s): E11.9 - Type 2 diabetes mellitus without complications Plan: A1c has improved and is now less than 7.0. In target. Pt was advised to be compliant with medications Orders: Orders AMB Hemoglobin A1c 11/13/23 E11.9 - Type 2 diabetes mellitus without complications Coding Level of Care Code Est Pt Level 3 (33801) Diagnoses Type 2 diabetes mellitus E11.9
[2023-11-13 11:25] VITALS: BP 130/78; BMI 35.3
== END 2023-11-13 14:13 | disposition home or self-care (01) ==
PROVIDERS: PCP Internal Medicine; Visit Provider Internal Medicine
DX: E11.9 Type 2 diabetes mellitus without complications (principal)
CPT/HCPCS: 83036; 99213

== ENCOUNTER 2023-11-25 13:34 | Outpatient (AMB) | payer OTHER, SELFPAY ==
--- NOTE | 2023-11-25 13:44 | A.OFFVIS_ITS ---
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: No Allergies No Known Allergies Allergy (Verified 11/20/23 06:10) Medication List - Last Reconciled 11/25/23 by Hilario Serrano MD amlodipine 10 mg PO DAILY atorvastatin (Lipitor) 40 mg PO DAILY 90 days blood sugar diagnostic (FreeStyle Lite Strips) As directed three times per day dabigatran etexilate 150 mg PO BID flash glucose scanning reader (FreeStyle Mario 2 [place]) test 3 times daily flash glucose sensor (FreeStyle Mario 14 Day Sensor kit) with sensor cover flash glucose sensor (FreeStyle Mario 2 Sensor kit) Check blood sugars [freestyle mario sensor cover As directed] hydrochlorothiazide 25 mg PO QAM insulin glargine (Lantus Solostar U-100 Insulin) 30 units (0.3 mL) subcut QPM insulin lispro 15 units (0.075 mL) subcut TID lancets (FreeStyle Lancets) As directed oxycodone-acetaminophen 7.5-325 mg 1 tab PO DAILY pen needle, diabetic (BD Ailin 2nd Gen Pen Needle) As directed propranolol ER 120 mg PO DAILY zolpidem 10 mg PO BEDTIME HPI Comments Details: Esmer comes here for follow-up. She says she has almost constant chest pain all the time which she describes as chest pressure although there is no clear aggravating and relieving factors sometimes the pain gets worse mostly at rest. She says sometimes get worse after eating. No clear exertional worsening of her chest pain. She takes all her medications. Denies any worsening symptoms of heart failure. No worsening shortness of breath, orthopnea, PND, leg edema. 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, acute Right leg weakness Cerebrovascular accident Headache GERD (gastroesophageal reflux disease) Cardiomyopathy Excessive daytime sleepiness Obesity (BMI 35.0-39.9 without comorbidity) Breast cancer in female Hyperlipidemia Cerebrovascular disease History of multiple strokes Benign nevus Family history of breast cancer Essential (primary) hypertension Multiple sclerosis (Unknown) Surgical History History of removal of cyst (05/07/22) Hx of colonoscopy History of esophagogastroduodenoscopy (EGD) History of breast surgery Family History Mother Cancer Brother H/O heart surgery Maternal Aunt Breast cancer Social History Household Members: None Household Members Other:: daughter away at college Housing: Apartment Are you a primary palliative care physician to a significant other at home: No Do you presently have visiting nurse or other home services: Yes Alcohol intake: current Alcohol intake frequency: a few times a month Patient Tobacco Use Status: Never used Tobacco e-Cigarette/Vaping Use: Never Used Second Hand Smoke Exposure: No Advance Directives Date on File: 12/19/22 service: No Current occupational status: disabled Cognitive needs: No Hearing needs: No Vision needs: No Female Reproductive History Menstrual Age of Menarche: 10 Review of Systems Const Denies chills, Denies fatigue, Denies fever(s), Denies frequent falls, Denies weakness, Denies weight gain and Denies weight loss ENT Denies dizziness Card Denies chest pain, Denies leg edema, Denies lightheadedness, Denies palpitations, Denies dyspnea, Denies dyspnea on exertion, Denies orthopnea and Denies other (loss of consciousness) Resp Denies cough, Denies dyspnea and Denies dyspnea on exertion GI Denies hematochezia and Denies change in stool character Musc Denies abnormal gait, Denies muscle weakness, Denies numbness, Denies radiating pain into limb and Denies tingling Neuro Denies Abnormal speech present, Denies abnormal gait, Denies dizziness, Denies frequent falls, Denies numbness, Denies tingling and Denies weakness Endo Denies fatigue and Denies palpitations Physical Exam Vital Signs: Last Vital Signs Pulse 96 11/25/23 13:45 BP 132/80 11/25/23 13:45 BMI result Body Mass Index 34.9 Const General: cooperative, comfortable, no acute distress, alert and awake Nutritional Appearance: obese Orientation/consciousness: patient oriented x3 Limitations: no limitations Neck Neck: Yes supple Resp Effort & Inspection: normal respiratory effort Auscultation: clear to auscultation bilaterally Cardio Jugular venous distension: no JVD Palpation: normal PMI Rate: regular rate Rhythm: regular rhythm Heart sounds: S1 normal heart sound present, S2 normal heart sound present, no click, no gallops, no murmurs and no rubs GI Inspection: Yes obesity Neuro General: patient oriented x3 and no focal motor deficits Speech: No Abnormal speech present Extrem General: Yes no clubbing, cyanosis or edema Office Procedures EKG Details: EKG shows normal sinus rhythm with diffuse ST T wave changes more prominent high lateral and anterolateral leads consistent with repolarization abnormality [id number], Complete Assessment & Plan Assessment & Plan (1) CAD (coronary artery disease): Code(s): I25.10 - Atherosclerotic heart disease of [place] coronary artery without angina pectoris Category: Medical Plan: Coronary artery disease with distal circumflex disease and small territory not likely causing her persistent and constant chest pain syndrome. She has no clear exertional chest pain. Continue aggressive medical therapy. Currently on full oral anticoagulation and therefore not on aspirin therapy. Continue aggressive risk factor modification. Blood pressure is currently well optimized advised to monitor blood pressure at home maintain a log. Goal blood pressure less 130/84. See below. Continue aggressive management diabetes goal hemoglobin A1c less than 7%. Goal LDL less than 70 mg/dL. Advised lipid panel at least on annual basis. Continue high-intensity statin therapy. Continue participate in aggressive weight loss program as well as regular exercise program. (2) LVH (left ventricular hypertrophy): Code(s): I51.7 - Cardiomegaly Category: Medical Plan: Severe LVH related to hypertensive heart disease and possibly related to obesity. No signs or symptoms of heart failure. Continue monitor blood pressure at home maintain aggressively good blood pressure control. Target goal blood pressure less than 130/84. Continue current therapy. Low-salt diet was discussed. Advised to participate in heart healthy lifestyle. Follow up in the clinic in 1 year's time, sooner p.r.n.. Thank you for allowing me to partake in the care Coding Level of Care Code Est Pt Level 4 (71077) Diagnoses CAD (coronary artery disease) I25.10 LVH (left ventricular hypertrophy) I51.7 CPT Codes EKG - CPT: 31594-[id number], Complete ([id number])
[2023-11-25 13:45] VITALS: BP 132/80; PULSE 96; BMI 34.9
== END 2023-11-25 14:05 | disposition home or self-care (01) ==
PROVIDERS: Visit Provider Internal Medicine Cardiovascular Disease
DX: I25.10 Atherosclerotic heart disease of native coronary artery without angina pectoris (principal); I51.7 Cardiomegaly
CPT/HCPCS: 93010; 99214

== ENCOUNTER → 2023-11-25 13:34 | Outpatient (BNVA) | payer OTHER, SELFPAY | PROVIDERS: Visit Provider Internal Medicine Cardiovascular Disease | DX: I25.10 Atherosclerotic heart disease of native coronary artery without angina pectoris (principal); I11.9 Hypertensive heart disease without heart failure; Z79.01 Long term (current) use of anticoagulants | CPT/HCPCS: 93005; 99212 ==

== ENCOUNTER 2024-01-20 14:24 | Emergency (ER) | payer OTHER, SELFPAY ==
--- NOTE | 2024-01-20 | ECG_ITS ---
Test Reason : CHEST PAIN Blood Pressure : / mmHG Vent. Rate : 108 BPM Atrial Rate : 108 BPM P-R Int : 154 ms QRS Dur : 092 ms QT Int : 354 ms P-R-T Axes : 043 006 127 degrees QTc Int : 474 ms Sinus tachycardia Left ventricular hypertrophy with repolarization abnormality ( R in aVL , Buckner product , Romhilt-Jules ) Abnormal ECG When compared with ECG of 21-OCT-2023 12:59, No significant change was found Referred By: Dilcia Ordoñez Electronically Signed By:RENETTA MARKHAM
--- NOTE | ~2024-01-20 | CT_ITS ---
EXAMINATION: CT HEAD WITHOUT CONTRAST CLINICAL INFORMATION: Worsening left-sided weakness COMPARISON: Prior CT head dated 10/21/2023 TECHNIQUE: Contiguous axial imaging was performed from the skull base to vertex without intravenous administration of contrast. This CT examination was performed using dose optimization techniques as appropriate, variously including the following: *Automated exposure control *Adjustment of mA and/or kV according to patient size (this includes techniques or standardized protocols for targeted exams where dose is matched to indication/reason for exam; i.e. extremities or head) *Use of iterative reconstruction technique DLP: 723 mGy-cm FINDINGS: Again note is made of left parietal and parieto-occipital lobe encephalomalacia with dilatation of the adjacent left occipital horn. There is prominence to the sulci and ventricles. Small hypoechoic areas, in the right thalamus and left caudate are stable. No evidence for hemorrhage, mass, mass effect or extra-axial collection. Calvarium intact. CT/CT head/brain wo IV con IMPRESSION: Stable chronic change.
--- NOTE | ~2024-01-20 | XR_ITS ---
EXAMINATION: XR CHEST CLINICAL INFORMATION: Tightness in chest COMPARISON: Prior chest July 2023 TECHNIQUE: Frontal view of the chest was obtained. FINDINGS: No significant abnormality is noted involving the heart, lungs, mediastinum, bony thorax or soft tissues. XR/XR chest 1V IMPRESSION: Unremarkable examination.
[2024-01-20 14:44] VITALS: RESP 20
[2024-01-20 14:44] LABS: MANUAL DIFF FLAG NO
[2024-01-20] MEDS: Morphine Sulfate 4 MG/ML CARTRIDGE IVPUSH (14:44)
[2024-01-20] MEDS: ondansetron HCL 4 MG/2 ML VIAL IVPUSH (14:44)
[2024-01-20 14:49] VITALS: BP 140/79; BP 144/87; PULSE 104; PULSE 112; RESP 16; TEMP 37.2; O2SAT 99; BMI 37.4
--- NOTE | 2024-01-20 14:51 | ED_ITS ---
HPI - Chest Pain General Chief Complaint: General Medical Stated Complaint: CP,LLE DRAGGING SINCE T-1,H/O OF STROKES PER EMS Source: patient and old records reviewed Mode of arrival: EMS Limitations: other (poor historian) History of Present Illness ED Provider: MINE FRANKEL narrative: 53 yo female with PMH of HTN, HLD, IDDM, CAD - medically managed, multiple strokes in past with reported L sided weakness and some R sided weakness currently on Pradaxa states her last CVA was in December of last year. She notes she is compliant with her Pradaxa. She comes in with mild chest tightness but no fevers, dyspnea, cough. She also has a headache all over her head reports intermittent dizziness and she feels like her L side which is chronically weak feels like she is now dragging her leg. All symptoms started more than 24 hours ago and have been on and off. She also has leg cramps on and off at night for 3 months MD complaint: chest pain (headaches, dizziness, dragging left leg) Pertinent past history: coronary artery disease Onset (ago): hour(s) (24) Timing of current episode: constant Prior episodes: Yes Onset: during rest Pain location: substernal Pain radiation: none Severity: mild Quality: tightness Relieving factors: nothing Exacerbating factors: nothing Associated symptoms: other (weakness, dizziness, headaches) Treatment prior to arrival: none Related Data Home Medications ?Medication ?Instructions ?Recorded ?Confirmed hydrochlorothiazide 25 mg tablet 25 mg PO QAM 06/14/20 11/25/23 zolpidem 10 mg tablet 10 mg PO BEDTIME 06/14/20 11/25/23 oxycodone-acetaminophen 7.5 mg-325 1 tab PO DAILY 11/18/22 11/25/23 mg tablet pen needle, diabetic 32 gauge x #1,200 ea 01/02/23 05/08/23 (BD Ailin 2nd Gen Pen Needle) Previous Rx's ?Medication ?Instructions ?Recorded amlodipine 10 mg tablet 10 mg PO DAILY #90 tabs 01/09/23 dabigatran etexilate 150 mg capsule 150 mg PO BID #60 caps 01/09/23 propranolol 120 mg capsule,24 120 mg PO DAILY #90 caps 01/09/23 hr,extended release flash glucose scanning reader #1 ea 01/29/23 (FreeStyle Mario 2 [place]) flash glucose sensor (FreeStyle #1 ea 02/21/23 Mario 14 Day Sensor kit) freestyle mario sensor cover #2 ea 02/21/23 atorvastatin 40 mg tablet (Lipitor) 40 mg PO DAILY 90 days #90 tabs 02/24/23 insulin glargine 100 unit/mL (3 30 unit (0.3 mL) subcut QPM #15 mL 11/19/23 mL) subcutaneous pen (Lantus Solostar U-100 Insulin) lancets 28 gauge (FreeStyle #100 ea 12/29/23 Lancets) blood sugar diagnostic (FreeStyle #10 ea 01/14/24 Lite Strips) flash glucose sensor (FreeStyle #2 ea 01/14/24 Mario 2 Sensor kit) insulin lispro 200 unit/mL (3 mL) 15 unit (0.075 mL) subcut TID #6 mL 01/14/24 subcutaneous pen Allergies Allergy/AdvReac Type Severity Reaction Status Date / Time No Known Allergies Allergy Verified 01/20/24 14:53 Review of Systems 2 Review of Systems: Constitutional : No Fever, No Chills, No Fatigue ENT/Mouth : No sore throat, No Rhinorrhea Eyes: No Eye Pain, No Swelling, No Redness Cardiovascular : pos Chest Pain, No SOB, No Dyspnea on Exertion Respiratory : No Cough, No Sputum Gastrointestinal : No Nausea, No Vomiting, No Diarrhea, No abdominal Pain Genitourinary : No Dysuria, No Urinary Frequency, No Hematuria, Musculoskeletal : No joint pain, No Myalgias, No Joint Swelling Skin : No Skin Lesions, No rash Neuro : pos Weakness, No Numbness, No Dizziness, positive Headache Psych : No Anxiety/Panic, No Depression Heme/Lymph: No Bruising, No Bleeding,No Lymphadenopathy Endocrine : No Polyuria, No Polydipsia All other systems reviewed and are negative [facility] Past Medical History Attestation statement: The following information was validated with the patient. Source: old records reviewed Medical History Uncontrolled hypertension Cerebral microvascular disease Chronic idiopathic cerebral venous infarction Thalamic infarct, acute Right leg weakness Cerebrovascular accident Headache GERD (gastroesophageal reflux disease) Cardiomyopathy Excessive daytime sleepiness Obesity (BMI 35.0-39.9 without comorbidity) Breast cancer in female Hyperlipidemia Cerebrovascular disease History of multiple strokes Benign nevus Family history of breast cancer Essential (primary) hypertension Multiple sclerosis (Unknown) Surgical History History of removal of cyst (05/07/22) Hx of colonoscopy History of esophagogastroduodenoscopy (EGD) History of breast surgery Family History Family History Mother Cancer Brother H/O heart surgery Maternal Aunt Breast cancer Social History Social History Household Members: None Household Members Other:: daughter away at college Housing: Apartment Are you a primary respiratory care specialist to a significant other at home: No Do you presently have visiting nurse or other home services: Yes Alcohol intake: current Alcohol intake frequency: a few times a month Patient Tobacco Use Status: Never used Tobacco e-Cigarette/Vaping Use: Never Used Second Hand Smoke Exposure: No Advance Directives: Yes Advance Directives on File: Yes Advance Directives Date on File: 12/19/22 Do you have a plan to hurt others: No Plan service: No Current occupational status: disabled Cognitive needs: No Hearing needs: No Vision needs: No Physical Exam 2 Vital Signs: Vital Signs: Last Vital Signs Temp 99.0 F 01/20/24 14:49 Pulse 104 H 01/20/24 14:49 Resp 16 01/20/24 14:49 BP 140/79 H 01/20/24 14:49 Pulse Ox 99 01/20/24 14:49 O2 Del Method Room Air 01/20/24 14:49 BMI result Body Mass Index 37.4 Appearance: Alert. Oriented X3. No acute distress. Eyes: Pupils equal, round and reactive to light. ENT: Pharynx normal. atraumatic Neck: Normal inspection. Neck supple. CVS: Normal heart rate and rhythm. Pulses normal. Respiratory: No respiratory distress. Breath sounds normal. Abdomen: Soft and nontender. Skin: Skin warm and dry. Normal skin color. Normal skin turgor. Extremities: No lower extremity edema. No calf ttp Neuro: Oriented X 3. mod L sided hemiparesis and L facial droop - she states this is chronic. L leg weakness > R arm weakness she again states it is her bad side and it iis chronic she again states this is from prior stroke No sensory deficit. RUE mild weakness. Course Course Course Narrative: signed out to Dr. Camp Medications Administered Generic Name Dose Route Start Last Admin Trade Name Freq PRN Reason Stop Dose Admin Potassium Chloride 10 meq in 100 mls @ 100 mls/hr 01/20/24 15:15 01/20/24 15:53 Potassium Chloride/H20 IV 01/20/24 17:14 100 mls/hr Q1H KITTY Administration Sodium Chloride 1,000 mls @ 50 mls/hr 01/20/24 16:15 01/20/24 16:10 Ns IVCONT 50 mls/hr .Q20H KITTY Administration Discontinued Medications Generic Name Dose Route Start Last Admin Trade Name Freq PRN Reason Stop Dose Admin Morphine Sulfate 4 mg 01/20/24 14:39 01/20/24 14:44 Morphine Sulfate 4 Mg/Ml Cartridge IVPUSH 01/20/24 14:40 4 mg ONCE ONE Administration Protocol Ondansetron HCl 4 mg 01/20/24 14:39 01/20/24 14:44 Ondansetron Hcl 4 Mg/2 Ml Vial IVPUSH 01/20/24 14:40 4 mg ONCE ONE Administration Potassium Chloride 40 meq 01/20/24 15:05 01/20/24 15:48 Potassium Chloride Packet 20 Meq Packet PO 01/20/24 15:06 40 meq ONCE ONE Administration Medical Decision Making Medical Decision Making [facility] Narrative: 53 yo female with PMH of HTN, HLD, IDDM, CAD - medically managed, multiple strokes in past with reported worsening L sided weakness and chronic R sided weakness currently on Pradaxa at this time her symptoms > 24 hours so not a candidate for thrombectomy and she takes pradaxa to not a candidate for TNK as well as out of window. I see no history documenting L sided weakness on exam but she has noticeable weakness. At this time chest pain is atypical and 24 hours doubt ACS - on pradaxa doubt VTE, will need labs, EKG, troponin x 1, CT head for ICH, IV morphine for headache. Differential Diagnosis Differential Diagnoses: The differential diagnosis associated with the presentation includes atypical chest pain, ICH, stroke Admission/Observation Consideration of admission/observation: Escalation of care including admission/observation considered Lab Data [facility] Lab Attestation statement: I reviewed the patient's lab results. 01/20/24 14:40 01/20/24 14:40 Labs: Lab Results 01/20/24 Range/Units 14:40 WBC 8.5 (4.8-10.8) X10*3/uL RBC 3.83 L (4.20-5.50) X10*6/uL Hgb 9.7 L (12.0-16.0) g/dl Hct 29.3 L (37.0-47.0) % MCV 76.5 L (80.0-98.0) fL MCH 25.3 L (27.0-33.0) pg MCHC 33.1 (31.0-35.0) g/dl RDW 15.4 (11.0-16.0) % Plt Count 367 (160-400) X10*3/uL MPV 11.7 (9.4-12.3) fL Immature Gran % (Auto) 0.4 (0.0-0.4) % Neut % (Auto) 70.0 (45-73) % Lymph % (Auto) 25.2 (20-40) % [place] % (Auto) 3.4 (2-11) % Eos % (Auto) 0.6 (0-4) % Baso % (Auto) 0.4 (0-2) % Lymph # (Auto) 2.1 (1.2-4.9) X10*3/uL [place] # (Auto) 0.3 (0.1-1.2) X10*3/uL Eos # (Auto) 0.1 (0.0-0.4) X10*3/uL Baso # (Auto) 0.0 (0.0-0.2) X10*3/uL Abs Immat Gran (auto) 0.03 (0.00-0.03) X10*3/uL Absolute Neuts (auto) 6.0 (2.0-8.3) x10*3/uL Absolute Nucleated RBC 0.000 (0.0-0.012) X10*3/uL Nucleated RBC % (auto) 0.0 (0.0-0.2) /100WBC PT 14.9 H (11.1-13.3) SEC INR 1.2 H (0.9-1.1) Sodium 142 (135-145) mmol/L Potassium 2.8 L* D (3.3-5.1) mmol/L Chloride 109 H (96-108) mmol/L Carbon Dioxide 27 (22-29) mmol/L Anion Gap 9 L (12-20) BUN 8 L (9-16) mg/dL Creatinine 0.85 (0.5-1.4) mg/dL Estim Creat Clear Calc 89.2 Estimated GFR > 60 Random Glucose 186 H (60-115) mg/dL Calcium 8.0 L D (8.4-10.2) mg/dL Magnesium 1.7 (1.6-2.6) mg/dL Total Bilirubin 0.2 (0.0-1.0) mg/dL AST 18 (5-31) U/L ALT 15 (0-31) U/L Alkaline Phosphatase 96 (39-117) U/L Troponin I High Sens 4.5 D (<3.5-17.0) ng/L B-Natriuretic Peptide 11 (<100) pg/mL Total Protein 6.0 L (6.5-8.0) g/dL Albumin 3.2 L (3.5-5.0) g/dL Lipase 22 (8-78) U/L Influenza Type A (PCR) NEGATIVE (Negative) Influenza Type B (PCR) NEGATIVE (Negative) RSV RNA Qual (PCR) NEGATIVE (Negative) SARS-CoV-2 RNA (RT-PCR) NEGATIVE (Negative) Independent Interpretation I performed an independent interpretation of an: EKG and Plain X-Ray Discharge Plan Discharge Clinical Impression: Atypical chest pain, Weakness of left side of body, Acute hypokalemia Patient Disposition: Still a Patient Prescriptions: No Action (DME) FreeStyle Mario 2 [place] Misc See Rx Instructions .Route Qty: 1 0RF Rx Instructions: test 3 times daily (DME) FreeStyle Mario 14 Day Sensor Kit See Rx Instructions .Route Qty: 1 0RF Rx Instructions: with sensor cover (DME) freestyle mario sensor cover See Rx Instructions .Route .MEDSUPPLY Qty: 2 5RF Rx Instructions: As directed atorvastatin [Lipitor] 40 mg tablet 40 mg PO DAILY 90 Days Qty: 90 3RF insulin glargine [Lantus Solostar U-100 Insulin] 100 unit/mL (3 mL) insulin pen 30 unit subcut QPM Qty: 15 3RF (DME) lancets [FreeStyle Lancets] 28 gauge misc See Rx Instructions .ROUTE QID Qty: 100 0RF Rx Instructions: As directed 3 times per day insulin lispro 200 unit/mL (3 mL) insulin pen 15 unit subcut TID Qty: 6 0RF (DME) FreeStyle Lite Strips Strip See Rx Instructions .ROUTE TID Qty: 10 0RF Rx Instructions: As directed three times per day (DME) FreeStyle Mario 2 Sensor Kit See Rx Instructions .ROUTE .MEDSUPPLY Qty: 2 11RF Rx Instructions: Check blood sugars dabigatran etexilate 150 mg capsule 150 mg PO BID Qty: 60 2RF amlodipine 10 mg tablet 10 mg PO DAILY Qty: 90 0RF propranolol 120 mg Capsule,Extended Release 24 Hr 120 mg PO DAILY Qty: 90 0RF zolpidem 10 mg tablet 10 mg PO BEDTIME hydrochlorothiazide 25 mg tablet 25 mg PO QAM oxycodone-acetaminophen 7.5-325 mg tablet 1 tab PO DAILY (DME) pen needle, diabetic [BD Ailin 2nd Gen Pen Needle] 32 gauge x 5/32 needle See Rx Instructions .ROUTE .MEDSUPPLY Qty: 1200 Rx Instructions: As directed Print Language: [place]
[2024-01-20 14:54] LABS: Basophils Percent Auto 0.4 % (0-2); Eosinophils Absolute Auto 0.1 X10*3/uL (0.0-0.4); Eosinophils Percent Auto 0.6 % (0-4); Hematocrit 29.3 % (37.0-47.0); Hemoglobin 9.7 g/dl (12.0-16.0); INTERNATIONAL NORM RATIO 1.2 (0.9-1.1); Imm Gran Abs Auto 0.03 X10*3/uL (0.00-0.03); Imm Gran Pct Auto 0.4 % (0.0-0.4); Lymphocytes Absolute Auto 2.1 X10*3/uL (1.2-4.9); Lymphocytes Percent Auto 25.2 % (20-40); Mean Corpuscular HGB Conc 33.1 g/dl (31.0-35.0); Mean Corpuscular Hemoglobin 25.3 pg (27.0-33.0); Mean Corpuscular Volume 76.5 fL (80.0-98.0); Mean Platelet Volume 11.7 fL (9.4-12.3); Monocytes Absolute Auto 0.3 X10*3/uL (0.1-1.2); Monocytes Percent Auto 3.4 % (2-11); Platelet Count 367 X10*3/uL (160-400); Prothrombin Time 14.9 SEC (11.1-13.3); Red Blood Count 3.83 X10*6/uL (4.20-5.50); Red Cell Distribution Width 15.4 % (11.0-16.0); White Blood Count 8.5 X10*3/uL (4.8-10.8)
[2024-01-20 15:05] LABS: Alanine Aminotransferase 15 U/L (0-31); Albumin Level 3.2 g/dL (3.5-5.0); Alkaline Phosphatase 96 U/L (39-117); Anion Gap 9 (12-20); Aspartate Amino Transferase 18 U/L (5-31); Bilirubin Total 0.2 mg/dL (0.0-1.0); Blood Urea Nitrogen 8 mg/dL (9-16); Carbon Dioxide 27 mmol/L (22-29); Chloride 109 mmol/L (96-108); Creatinine Clr Calc Pharmacy 89.2; Estimated Glomerular Filt Rate > 60; Glucose Random 186 mg/dL (60-115); Lipase 22 U/L (8-78); Magnesium 1.7 mg/dL (1.6-2.6); Potassium 2.8 mmol/L (3.3-5.1); Sodium 142 mmol/L (135-145)
[2024-01-20 15:06] LABS: B Type Natriuretic Peptide 11 pg/mL (<100); Troponin-I High Sensitivity 4.5 ng/L (<3.5-17.0)
[2024-01-20 15:33] LABS: Influenza A PCR NEGATIVE (Negative); Influenza B PCR NEGATIVE (Negative); Resp Syncy Virus RNA Qual PCR NEGATIVE (Negative); SARS COV2 PCR INHOUSE NEGATIVE (Negative)
[2024-01-20] MEDS: Potassium Chloride Packet 20 MEQ PACKET 40 MEQ PO (15:48)
[2024-01-20] MEDS: Potassium Chloride/H20 10 MEQ/100 ML PIGGYBACK 100 MEQ IV ×2 (15:53→17:09)
[2024-01-20 16:00] VITALS: BP 135/75; PULSE 95; RESP 19; TEMP 36.6; O2SAT 97
[2024-01-20] MEDS: 0.9 % Sodium Chloride 1,000 ML 50 ML IVCONT (16:10)
[2024-01-20] MEDS: Potassium Chloride ER 20 MEQ TAB.ER.PRT 40 MEQ PO (16:19)
[2024-01-20] MEDS: Acetaminophen 325 MG TABLET 650 MG PO (16:19)
[2024-01-20 16:40] LABS: OBS Int Ctl Valid YES; OBS1 NEGATIVE (NEGATIVE)
[2024-01-20 18:12] VITALS: BP 145/78; PULSE 96; RESP 20; TEMP 36.6; O2SAT 98
== END 2024-01-20 18:22 | disposition home or self-care (01) ==
PROVIDERS: Emergency Medicine; Emergency Provider Internal Medicine
DX: E87.6 Hypokalemia (principal); R07.9 Chest pain, unspecified; R53.1 Weakness; I10 Essential (primary) hypertension; E78.5 Hyperlipidemia, unspecified; I25.10 Atherosclerotic heart disease of native coronary artery without angina pectoris; E11.9 Type 2 diabetes mellitus without complications; Z79.899 Other long term (current) drug therapy; Z03.818 Encounter for observation for suspected exposure to other biological agents ruled out
CPT/HCPCS: 0241U; 36415; 70450; 71045; 80053; 82272; 83690; 83735; 83880; 84484; 85025; 85610; 86850; 86900; 86901; 93005; 96365; 96366; 96375; 99284; 99285; J2270; J2405; J3480

== ENCOUNTER → 2024-01-20 14:29 | Outpatient (BNV) | payer OTHER, SELFPAY | PROVIDERS: Emergency Provider Internal Medicine; Visit Provider Internal Medicine | DX: R07.9 Chest pain, unspecified (principal); R00.0 Tachycardia, unspecified; R94.31 Abnormal electrocardiogram [ECG] [EKG] | CPT/HCPCS: 93010 ==

== ENCOUNTER 2024-02-12 14:21 | Outpatient (AMB) | payer OTHER, SELFPAY ==
--- NOTE | 2024-02-12 14:26 | MHC.PC.OV ---
Vital Signs 02/12/24 14:27 Height 5 ft 5.5 in Weight 220 lb 8 oz BMI 36.1 BP 124/62 Blood Pressure Location Lt brachial Position Sitting Int[place] [facility] [place] Intake Note: Patient is here to follow-up after a visit the emergency department at [facility] [place] on 01/20/24 Compounder Helper Required: No Geotechnician: Not Required per policy Accompanied by: Self / Same As Patient Allergies No Known Allergies Allergy (Verified 02/16/24 16:45) Medication List - Last Reconciled 02/16/24 by Christiano Kaur MD amlodipine 10 mg PO DAILY atorvastatin (Lipitor) 40 mg PO DAILY 90 days blood sugar diagnostic (FreeStyle Lite Strips) As directed three times per day dabigatran etexilate 150 mg PO BID flash glucose scanning reader (FreeStyle Mario 2 [place]) test 3 times daily flash glucose sensor (FreeStyle Mario 2 Sensor kit) Check blood sugars [freestyle mario sensor cover As directed] hydrochlorothiazide 25 mg PO QAM insulin glargine (Lantus Solostar U-100 Insulin) 30 units (0.3 mL) subcut QPM insulin lispro 15 units (0.075 mL) subcut TID lancets (FreeStyle Lancets) As directed 3 times per day oxycodone-acetaminophen 7.5-325 mg 1 tab PO DAILY pen needle, diabetic (BD Ailin 2nd Gen Pen Needle) As directed potassium chloride ER 10 mEq PO DAILY propranolol ER 120 mg PO DAILY zolpidem 10 mg PO BEDTIME Tobacco use date assessed: 02/12/24 Dental Screening Dental Screen Date: 08/14/23 [place] [facility] [place] Dr[place] leg HPI Details 53-year-old female presents to the office for a hospital discharge follow-up. Patient was seen in the emergency room for leg pain. ER note reviewed. No specific cause for the pain was found. Patient's symptoms have resolved. Able to function and do activities of normal living. [facility] Medical History (Updated 02/16/24 @ 16:47 by Christiano Karu MD) Uncontrolled hypertension Cerebral microvascular disease Chronic idiopathic cerebral venous infarction Thalamic infarct, acute Right leg weakness Cerebrovascular accident Headache GERD (gastroesophageal reflux disease) Cardiomyopathy Excessive daytime sleepiness Obesity (BMI 35.0-39.9 without comorbidity) Breast cancer in female Hyperlipidemia Cerebrovascular disease History of multiple strokes Benign nevus Family history of breast cancer Essential (primary) hypertension Multiple sclerosis (Unknown) Surgical History History of removal of cyst (05/07/22) Hx of colonoscopy History of esophagogastroduodenoscopy (EGD) History of breast surgery Family History Mother Cancer Brother H/O heart surgery Maternal Aunt Breast cancer Social History Household Members: None Household Members Other:: daughter away at college Housing: Apartment Are you a primary health care marketing manager to a significant other at home: No Do you presently have visiting nurse or other home services: Yes Alcohol intake: current Alcohol intake frequency: a few times a month Patient Tobacco Use Status: Never used Tobacco e-Cigarette/Vaping Use: Never Used Second Hand Smoke Exposure: No Advance Directives Date on File: 12/19/22 service: No Current occupational status: disabled Cognitive needs: No Hearing needs: No Vision needs: No Female Reproductive History Menstrual Age of Menarche: 10 Questionnaire Thrive Questionnaire Date Thrive assessed: 08/14/23 CASTRO-7 AMB Questionnaire CASTRO-7 Date CASTRO - 7 assessed: 08/14/23 Source: Developed by Drs. Niko Barone, Yazmin Mcneil, Owen Gaytan and colleagues, with an educational stefani from [employer]. Physical exam (Primary Care) Vital Signs: Last Vital Signs BP 124/62 02/12/24 14:27 BMI result Body Mass Index 36.1 Tobacco/Smoking Status: Tobacco use Status Tobacco use date assessed 02/12/24 02/12/24 14:27 Patient Tobacco Use Status Never used Tobacco 02/12/24 14:27 e-Cigarette/Vaping Use Never Used 02/12/24 14:27 Thrive Assessment: Date of Thrive Assessment Date Thrive assessed 08/14/23 02/12/24 14:27 Const General: cooperative and healthy appearing Nutritional Appearance: well nourished Orientation/consciousness: patient oriented x3 Limitations: no limitations HENMT Head: Yes normal to inspection Eyes General: appearance normal, both eyes and all related structures Neck Neck: Yes normal visual inspection Chest Chest palpation & inspection: normal palpation of entire chest wall Resp Effort & Inspection: normal respiratory effort Neuro General: patient oriented x3 Results AMB Hemoglobin A1c AMB Hemoglobin A1c 7.6 % Last Edit by MYLES Almodovar on 02/12/24 14:48 Results Reviewed Results Reviewed: Laboratory Last Values Hgb A1c (Clinic) 7.6 % (4.0-6.0) H 02/12/24 14:28 Assessment and Plan Assessment & Plan (1) Uncontrolled hypertension: Code(s): I10 - Essential (primary) hypertension Plan: Blood pressure is well controlled. Leg pain symptoms have resolved. Orders: Orders AMB Hemoglobin A1c 02/12/24 E11.9 - Type 2 diabetes mellitus without complications Complete Blood Count no Diff 02/13/24 E87.6 - Hypokalemia Basic Metabolic Panel 02/13/24 E87.6 - Hypokalemia Coding Level of Care Code Est Pt Level 3 (10775) Complex EM visit Add On G2211 Diagnoses Uncontrolled hypertension I10
[2024-02-12 14:27] VITALS: BP 124/62; BMI 36.1
== END 2024-02-12 14:55 | disposition home or self-care (01) ==
PROVIDERS: Visit Provider Internal Medicine
DX: I10 Essential (primary) hypertension (principal); E11.9 Type 2 diabetes mellitus without complications; G35 Multiple sclerosis
CPT/HCPCS: 83036; 99213; G2211

== ENCOUNTER 2024-02-13 16:26 | Outpatient (REF) | payer OTHER, SELFPAY ==
[2024-02-13 17:08] LABS: Hematocrit 33.7 % (37.0-47.0); Hemoglobin 10.8 g/dl (12.0-16.0); Mean Corpuscular Hemoglobin 23.9 pg (27.0-33.0); Mean Corpuscular Volume 74.7 fL (80.0-98.0); Mean Platelet Volume 12.4 fL (9.4-12.3); Platelet Count 454 X10*3/uL (160-400); Red Blood Count 4.51 X10*6/uL (4.20-5.50); Red Cell Distribution Width 15.8 % (11.0-16.0); White Blood Count 11.7 X10*3/uL (4.8-10.8)
[2024-02-13 18:11] LABS: Anion Gap 15 (12-20); Blood Urea Nitrogen 8 mg/dL (9-16); Calcium 9.6 mg/dL (8.4-10.2); Carbon Dioxide 28 mmol/L (22-29); Chloride 98 mmol/L (96-108); Estimated Glomerular Filt Rate 58; Glucose Random 197 mg/dL (60-115); Sodium 138 mmol/L (135-145)
== END 2024-02-13 16:27 | disposition home or self-care (01) ==
LOC: HO.LAB 16:26
PROVIDERS: PCP Internal Medicine; Visit Provider Internal Medicine
DX: E87.6 Hypokalemia (principal)
CPT/HCPCS: 36415; 80048; 85027

== ENCOUNTER 2024-03-21 02:59 | Emergency (ER) | payer OTHER, SELFPAY ==
--- NOTE | ~2024-03-21 | CT_ITS ---
EXAMINATION: CT HEAD WITHOUT CONTRAST CT CERVICAL SPINE WITHOUT CONTRAST CLINICAL INFORMATION: Fall. Trauma. Pain. COMPARISON: October 21, 2023. TECHNIQUE: Contiguous axial imaging was performed through the head and cervical spine without intravenous administration of contrast. Sagittal and coronal reformatted images also obtained. This CT examination was performed using dose optimization techniques as appropriate, variously including the following: *Automated exposure control *Adjustment of mA and/or kV according to patient size (this includes techniques or standardized protocols for targeted exams where dose is matched to indication/reason for exam; i.e. extremities or head) *Use of iterative reconstruction technique DLP: mGy-cm FINDINGS: There is cerebral volume loss with prominence of the lateral and third ventricles. The cortical sulci are widened appropriately. The fourth ventricle and basal cisterns are normally outlined. Left parietal encephalomalacia is again seen. A small area of right frontal encephalomalacia is also again seen. There is mild to moderate bilateral periventricular and central white matter diminished attenuation. There is questionable diminished attenuation in right cerebellum. There is no hemorrhage or midline shift. Extra-axial spaces are unremarkable. Calvarium/scalp: Intact. Maxillofacial sinuses and mastoids: Clear as visualized. Cervical spine: The alignment is within normal limits. There is mild diffuse cervical disc degenerative change with loss of disc space, mild endplate change and minimal osteophyte formation associated with mild diffuse facet osteoarthritic changes without significant spinal canal or neuroforaminal narrowing. No fracture is seen. The soft tissues are unremarkable. The visualized upper lung archuleta are clear. CT/CT cervical spine wo IV con IMPRESSION: HEAD: There is questionable diminished attenuation in the right cerebellum which could be due to artifact. Correlation is needed. There is cerebral volume loss and bilateral frontal and left parietal encephalomalacia from old infarcts. No definite acute intracranial process seen. CERVICAL SPINE: Mild diffuse cervical spondylosis. No acute fracture or dislocation seen. Electronically signed by: Abdi Carlton MD 03/21/2024 05:09 AM EDT
[2024-03-21 03:17] VITALS: BP 172/86; PULSE 100; O2SAT 94
[2024-03-21 03:20] VITALS: BP 180/84; PULSE 104; RESP 12; TEMP 37.1; O2SAT 96; BMI 36.6
--- NOTE | 2024-03-21 03:31 | ED_ITS ---
HPI - Fall General Chief Complaint: Fall Stated Complaint: FELL DOWN STAIRS/ ALTERED MENTAL SINCE FALL Time Seen by Provider: 03/21/24 03:23 Source: patient Mode of arrival: ambulatory Limitations: no limitations History of Present Illness ED Provider: russ FRANKEL Narrative: Patient's history of left thalamic stroke in the past walks independently was going downstairs lost balance and fell about 13 steps prior to arrival no loss of consciousness complaining of pain in the head in the left knee and bilateral shoulder but able to ambulate after the fall Related Data Home Medications ?Medication ?Instructions ?Recorded ?Confirmed hydrochlorothiazide 25 mg tablet 25 mg PO QAM 06/14/20 02/16/24 zolpidem 10 mg tablet 10 mg PO BEDTIME 06/14/20 02/16/24 oxycodone-acetaminophen 7.5 mg-325 1 tab PO DAILY 11/18/22 02/16/24 mg tablet pen needle, diabetic 32 gauge x #1,200 ea 01/02/23 02/16/24 (BD Ailin 2nd Gen Pen Needle) Previous Rx's ?Medication ?Instructions ?Recorded amlodipine 10 mg tablet 10 mg PO DAILY #90 tabs 01/09/23 dabigatran etexilate 150 mg capsule 150 mg PO BID #60 caps 01/09/23 propranolol 120 mg capsule,24 120 mg PO DAILY #90 caps 01/09/23 hr,extended release freestyle mario sensor cover #2 ea 02/21/23 atorvastatin 40 mg tablet (Lipitor) 40 mg PO DAILY 90 days #90 tabs 02/24/23 insulin glargine 100 unit/mL (3 30 unit (0.3 mL) subcut QPM #15 mL 11/19/23 mL) subcutaneous pen (Lantus Solostar U-100 Insulin) lancets 28 gauge (FreeStyle #100 ea 12/29/23 Lancets) blood sugar diagnostic (FreeStyle #10 ea 01/14/24 Lite Strips) insulin lispro 200 unit/mL (3 mL) 15 unit (0.075 mL) subcut TID #6 mL 01/14/24 subcutaneous pen potassium chloride 10 mEq 10 meq PO DAILY #30 caps 01/20/24 capsule,extended release flash glucose scanning reader #1 ea 01/27/24 (FreeStyle Mario 2 [place]) flash glucose sensor (FreeStyle #2 ea 01/27/24 Mario 2 Sensor kit) Allergies Allergy/AdvReac Type Severity Reaction Status Date / Time No Known Allergies Allergy Verified 03/21/24 03:24 Review of Systems Review of Systems: Yes all other systems are reviewed and are negative [facility] Past Medical History Medical History Uncontrolled hypertension Cerebral microvascular disease Chronic idiopathic cerebral venous infarction Thalamic infarct, acute Right leg weakness Cerebrovascular accident Headache GERD (gastroesophageal reflux disease) Cardiomyopathy Excessive daytime sleepiness Obesity (BMI 35.0-39.9 without comorbidity) Breast cancer in female Hyperlipidemia Cerebrovascular disease History of multiple strokes Benign nevus Family history of breast cancer Essential (primary) hypertension Multiple sclerosis (Unknown) Surgical History History of removal of cyst (05/07/22) Hx of colonoscopy History of esophagogastroduodenoscopy (EGD) History of breast surgery Family History Family History Mother Cancer Brother H/O heart surgery Maternal Aunt Breast cancer Social History Social History Household Members: None Household Members Other:: daughter away at college Housing: Apartment Are you a primary critical care paramedic to a significant other at home: No Do you presently have visiting nurse or other home services: Yes Alcohol intake: current Alcohol intake frequency: does not drink Patient Tobacco Use Status: Never used Tobacco Smoked in Last 30 Days: No e-Cigarette/Vaping Use: Never Used Second Hand Smoke Exposure: No Use of substances other than those prescribed or required for medical reasons: No Advance Directives: Yes Advance Directives on File: Yes Advance Directives Date on File: 12/19/22 service: No Current occupational status: disabled Cognitive needs: No Hearing needs: No Vision needs: No Physical Exam Vital Signs: Vital Signs: Last Vital Signs Temp 98.8 F 03/21/24 03:20 Pulse 104 H 03/21/24 03:20 Resp 12 03/21/24 03:20 BP 180/84 H 03/21/24 03:20 Pulse Ox 96 03/21/24 03:20 O2 Del Method Room Air 03/21/24 03:20 BMI result Body Mass Index 36.6 Appearance: Alert. Oriented X3. No acute distress. Lethargic sleepy Eyes: PERRLA, No Nystagmus ENT: Pharynx normal. Oral Mucosa moist Neck: Normal inspection. Neck supple. No midline tenderness CVS: Normal heart rate and rhythm. Pulses normal. Respiratory: No respiratory distress. Equal air entry bilateral, no wheezing/rales/rhonchi Abdomen: Soft and nontender. Bowel sounds are present, no mass palpable, no CVA tenderness Skin: Skin warm and dry. Normal skin color. Normal skin turgor. Extremities: No lower extremity edema. No calf tenderness soft tissue tenderness left knee and bilateral shoulder pelvis stable no deformity Neuro: Oriented X 3. No motor deficit. No sensory deficit.No cerebellar signs , cranial nerves II-XII intact Medical Decision Making Differential Diagnosis Differential Diagnoses: The differential diagnosis associated with the presentation includes Intracranial bleed/fracture/cervical fracture Lab Data MDM Lab Attestation statement: I reviewed the patient's lab results. Labs: Lab Results 03/21/24 Range/Units 05:16 Urine Color Yellow Urine Appearance Clear Urine pH 8.5 (5.0-9.0) Ur Specific [place] 1.010 (1.005-1.025) Urine Protein Negative (Neg-Trace) mg/dL Urine Glucose (UA) Negative (Negative) mg/dL Urine Ketones Negative (Negative) mg/dL Urine Blood Negative (Negative) Urine Nitrite Negative (Negative) Ur Leukocyte Esterase Trace H (Negative) Urine RBC 0-2 (0-2) /HPF Urine WBC 0-5 (0-5) /HPF Ur Squamous Epith Cells 0-2 (0-2) /HPF Urine Bacteria None Seen (None Seen) Hyaline Casts 0-2 (0-2) /LPF Urine Opiates Screen Not Detected (Not Detect) Ur Buprenorphine Scrn Not Detected (Not Detect) ng/mL Ur Oxycodone Screen Positive H (Not Detect) ng/mL Urine Methadone Screen Not Detected (Not Detect) ng/mL Urine Fentanyl Screen Not Detected (Not Detect) Ur Barbiturates Screen Not Detected (Not Detect) Ur Phencyclidine Scrn Not Detected (Not Detect) Ur Amphetamines Screen Not Detected (Not Detect) U Benzodiazepines Scrn Not Detected (Not Detect) Urine Cocaine Screen Not Detected (Not Detect) U Marijuana (THC) Screen Not Detected (Not Detect) Independent Interpretation I performed an independent interpretation of an: CT Scan Radiology Impression Discussion of test interpretation with radiology: I have reviewed the radiologist's reading. Discharge Plan Discharge Clinical Impression: Contusion, Fall (on) (from) other stairs and steps, initial encounter Patient Disposition: Home, Self-Care Instructions: Fall Prevention (ED), Bone Bruise (ED) Additional Instructions: Care and cautions as advised Take medication as prescribed Prescriptions: No Action (DME) freestyle mario sensor cover See Rx Instructions .Route .MEDSUPPLY Qty: 2 5RF Rx Instructions: As directed atorvastatin [Lipitor] 40 mg tablet 40 mg PO DAILY 90 Days Qty: 90 3RF insulin glargine [Lantus Solostar U-100 Insulin] 100 unit/mL (3 mL) insulin pen 30 unit subcut QPM Qty: 15 3RF (DME) lancets [FreeStyle Lancets] 28 gauge misc See Rx Instructions .ROUTE QID Qty: 100 0RF Rx Instructions: As directed 3 times per day insulin lispro 200 unit/mL (3 mL) insulin pen 15 unit subcut TID Qty: 6 0RF (DME) FreeStyle Lite Strips Strip See Rx Instructions .ROUTE TID Qty: 10 0RF Rx Instructions: As directed three times per day (DME) FreeStyle Mario 2 Sensor Kit See Rx Instructions .ROUTE .MEDSUPPLY Qty: 2 11RF Rx Instructions: Check blood sugars (DME) FreeStyle Mario 2 [place] Misc See Rx Instructions .Route Qty: 1 0RF Rx Instructions: test 3 times daily dabigatran etexilate 150 mg capsule 150 mg PO BID Qty: 60 2RF amlodipine 10 mg tablet 10 mg PO DAILY Qty: 90 0RF propranolol 120 mg Capsule,Extended Release 24 Hr 120 mg PO DAILY Qty: 90 0RF potassium chloride 10 mEq capsule, extended release 10 meq PO DAILY Qty: 30 0RF zolpidem 10 mg tablet 10 mg PO BEDTIME hydrochlorothiazide 25 mg tablet 25 mg PO QAM oxycodone-acetaminophen 7.5-325 mg tablet 1 tab PO DAILY (DME) pen needle, diabetic [BD Ailin 2nd Gen Pen Needle] 32 gauge x 5/32 needle See Rx Instructions .ROUTE .MEDSUPPLY Qty: 1200 Rx Instructions: As directed Print Language: Bulgarian
--- NOTE | 2024-03-21 05:21 | PC.NURSE ---
Pt requested assistance with bathroom. Pt assisted to bedside commode UA collected and sent Pt assisted back into bed. Plan of care ongoing.
[2024-03-21 05:23] LABS: Appearance Urine Clear; Color Urine Yellow; Glucose Urine UA Negative (Negative); Leukocyte Esterase Urine Trace (Negative); Nitrite Urine Negative (Negative); PH 8.5 (5.0-9.0); UMIC TRIGGER UA YES; Urine Blood Negative (Negative); Urine Ketones Negative (Negative); Urine Protein Negative (Neg-Trace)
[2024-03-21 05:25] LABS: Bacteria Urine None Seen (None Seen); Hyaline Casts Urine 0-2 /LPF (0-2); RBC Urine 0-2 /HPF (0-2); Squamous Epithelial Cell Urine 0-2 /HPF (0-2); WBC Urine 0-5 /HPF (0-5)
--- NOTE | 2024-03-21 05:30 | PC.NURSE ---
Son at bedside reports though he was not home does not believe pt fell down the stairs. Believes there is no way she could've gotten back up the stairs if she had fallen. His sister was home at the time and states she heard a noise and when she came down the pt was sitting in the livingroom.
[2024-03-21 05:33] LABS: Amphetamine Screen Urine Not Detected (Not Detect); Barbiturates, Urine Not Detected (Not Detect); Benzodiazepines Screen Urine Not Detected (Not Detect); Buprenorphine Scr Not Detected (Not Detect); Cannabinoid Screen Urine Not Detected (Not Detect); Cocaine Screen Urine Not Detected (Not Detect); Fentanyl, urine Not Detected (Not Detect); Methadone Screen, Urine Not Detected (Not Detect); Opiate Screen Urine Not Detected (Not Detect); Oxycodone Screen Urine Positive (Not Detect); Phencyclidine Screen Urine Not Detected (Not Detect)
[2024-03-21 05:49] VITALS: BP 151/71; PULSE 81; RESP 17; TEMP 36.7; O2SAT 97
== END 2024-03-21 05:53 | disposition home or self-care (01) ==
PROVIDERS: Emergency Provider Internal Medicine
DX: S00.93XA Contusion of unspecified part of head, initial encounter (principal); S40.012A Contusion of left shoulder, initial encounter; S40.011A Contusion of right shoulder, initial encounter; M54.2 Cervicalgia; R51.9 Headache, unspecified; W10.8XXA Fall (on) (from) other stairs and steps, initial encounter; Y93.89 Activity, other specified; Y92.89 Other specified places as the place of occurrence of the external cause; Y99.8 Other external cause status; Z79.899 Other long term (current) drug therapy; Z79.4 Long term (current) use of insulin
CPT/HCPCS: 70450; 72125; 80307; 81001; 99284

== ENCOUNTER 2024-04-05 13:54 | Outpatient (AMB) | payer OTHER, SELFPAY ==
--- NOTE | 2024-04-05 13:56 | MHC.PC.OV ---
Vital Signs 04/05/24 13:57 Height 5 ft 5 in Weight 211 lb 2 oz BMI 35.1 BP 134/78 Blood Pressure Location Lt brachial Position Sitting Pulse 88 Pulse Source Pulse Oximeter Pulse Oximetry (%) 99 Oxygen Delivery Method Room Air [place] [facility] [facility] [place] Intake Note: Patient is here to follow-up after a visit the emergency department [place] [facility] [place] Finishing Wire Sawyer Required: No Debate Director: Not Required per policy Accompanied by: Self / Same As Patient Allergies No Known Allergies Allergy (Verified 04/05/24 14:29) Medication List - Last Reconciled 04/05/24 by Christiano Kaur MD amlodipine 10 mg PO DAILY atorvastatin (Lipitor) 40 mg PO DAILY 90 days blood sugar diagnostic (FreeStyle Lite Strips) As directed three times per day dabigatran etexilate 150 mg PO BID flash glucose scanning reader (FreeStyle Mario 2 [place]) test 3 times daily flash glucose sensor (FreeStyle Mario 2 Sensor kit) Check blood sugars [freestyle mario sensor cover As directed] hydrochlorothiazide 25 mg PO QAM insulin glargine (Lantus Solostar U-100 Insulin) 30 units (0.3 mL) subcut QPM insulin lispro 15 units (0.075 mL) subcut TID lancets (FreeStyle Lancets) As directed 3 times per day oxycodone-acetaminophen 7.5-325 mg 1 tab PO DAILY pen needle, diabetic (BD Ailin 2nd Gen Pen Needle) As directed potassium chloride ER 10 mEq PO DAILY propranolol ER 120 mg PO DAILY zolpidem 10 mg PO BEDTIME Tobacco use date assessed: 04/05/24 Dental Screening Dental Screen Date: 08/14/23 H[place] [facility] [place] [facility] [place] HPI Details 53-year-old female presents to the office for a ER discharge follow-up. Patient was seen on March 21 to the emergency room after she had a fall. CT scan of the head was unremarkable. Blood work was unremarkable. Patient has resumed normal activities. Because of the fall was presumed to be vasovagal syncope. [facility] Medical History (Updated 03/22/24 @ 00:00 by Background Daemon) Uncontrolled hypertension Cerebral microvascular disease Chronic idiopathic cerebral venous infarction Thalamic infarct, acute Right leg weakness Cerebrovascular accident Headache GERD (gastroesophageal reflux disease) Cardiomyopathy Excessive daytime sleepiness Obesity (BMI 35.0-39.9 without comorbidity) Breast cancer in female Hyperlipidemia Cerebrovascular disease History of multiple strokes Benign nevus Family history of breast cancer Essential (primary) hypertension Multiple sclerosis (Unknown) Surgical History (Updated 04/05/24 @ 14:27 by Christiano Kaur MD) History of removal of cyst (05/07/22) Hx of colonoscopy (~09/25/22) History of esophagogastroduodenoscopy (EGD) History of breast surgery Family History Mother Cancer Brother H/O heart surgery Maternal Aunt Breast cancer Social History Household Members: None Household Members Other:: daughter away at college Housing: Apartment Are you a primary eye care professional to a significant other at home: No Do you presently have visiting nurse or other home services: Yes Alcohol intake: current Alcohol intake frequency: does not drink Patient Tobacco Use Status: Never used Tobacco e-Cigarette/Vaping Use: Never Used Second Hand Smoke Exposure: No Advance Directives Date on File: 12/19/22 service: No Current occupational status: disabled Cognitive needs: No Hearing needs: No Vision needs: No Female Reproductive History Menstrual Age of Menarche: 10 Questionnaire Thrive Questionnaire Date Thrive assessed: 08/14/23 CASTRO-7 AMB Questionnaire CASTRO-7 Date CASTRO - 7 assessed: 08/14/23 Source: Developed by Drs. Niko Barone, Yazmin Mcneil, Owen Gaytan and colleagues, with an educational stefani from [employer]. Physical exam (Primary Care) Vital Signs: Last Vital Signs Pulse 88 04/05/24 13:57 BP 134/78 04/05/24 13:57 Pulse Ox 99 04/05/24 13:57 Oxygen Delivery Method Room Air 04/05/24 13:57 BMI result Body Mass Index 35.1 Tobacco/Smoking Status: Tobacco use Status Tobacco use date assessed 04/05/24 04/05/24 14:01 Patient Tobacco Use Status Never used Tobacco 04/05/24 14:01 e-Cigarette/Vaping Use Never Used 04/05/24 14:01 Thrive Assessment: Date of Thrive Assessment Date Thrive assessed 08/14/23 04/05/24 14:01 Const General: cooperative and healthy appearing Nutritional Appearance: well nourished Orientation/consciousness: patient oriented x3 Limitations: no limitations HENMT Head: Yes normal to inspection Eyes General: appearance normal, both eyes and all related structures Neck Neck: Yes normal visual inspection Chest Chest palpation & inspection: normal palpation of entire chest wall Resp Effort & Inspection: normal respiratory effort Neuro General: patient oriented x3 Assessment and Plan Assessment & Plan (1) Fall: Code(s): W19.XXXA - Unspecified fall, initial encounter Plan: ER note reviewed. Physical exam is unremarkable. Patient has a CURTAIN DRIER who helps with her daily needs. Continue medications at same dosage. Coding Level of Care Code Est Pt Level 3 (33747) Complex EM visit Add On G2211 Diagnoses Fall W19.XXXA
[2024-04-05 13:57] VITALS: BP 134/78; PULSE 88; O2SAT 99; BMI 35.1
== END 2024-04-05 14:31 | disposition home or self-care (01) ==
PROVIDERS: PCP Internal Medicine; Visit Provider Internal Medicine
DX: Z51.89 Encounter for other specified aftercare (principal); W19.XXXA Unspecified fall, initial encounter

== ENCOUNTER → 2024-04-05 13:54 | Outpatient (BNVA) | payer OTHER, SELFPAY | PROVIDERS: PCP Internal Medicine; Visit Provider Internal Medicine | DX: I10 Essential (primary) hypertension (principal); Z91.81 History of falling; Z79.899 Other long term (current) drug therapy | CPT/HCPCS: 99212 ==

== ENCOUNTER 2024-05-27 06:46 | Emergency (ER) | payer OTHER, SELFPAY ==
--- NOTE | ~2024-05-27 | XR_ITS ---
EXAMINATION: XR SHOULDER, RIGHT CLINICAL INFORMATION: Pain after fall. COMPARISON: 11/28/2022. TECHNIQUE: Two views of the right shoulder. FINDINGS: The bones and soft tissues are normal. No fracture or dislocation. The Subacromial space is preserved. There are small subacromial spurs. There is mild to moderate spurring of the superior aspect of the AC joint. Glenohumeral joint appears normal and preserved. Imaged soft tissues, ribs, and lung appear normal. XR/XR shoulder RT min 2V IMPRESSION: No acute findings right shoulder. Electronically signed by: Richard Marques MD 05/27/2024 10:10 AM [facility]
--- NOTE | ~2024-05-27 | CT_ITS ---
EXAMINATION: CT CHEST WITHOUT CONTRAST CLINICAL INFORMATION: Pain in the right side of the body following fall COMPARISON: None available. TECHNIQUE: Multidetector volumetric CT imaging of the chest was done. Axial MIP volume rendering provided. Sagittal and coronal reformatted images were obtained. This CT examination was performed using dose optimization techniques as appropriate, variously including the following: *Automated exposure control *Adjustment of mA and/or kV according to patient size (this includes techniques or standardized protocols for targeted exams where dose is matched to indication/reason for exam; i.e. extremities or head) *Use of iterative reconstruction technique DLP: 350 mGy-cm FINDINGS: SOLAR DESIGN ENGINEER: Unremarkable LUNGS: The lungs are clear with no evidence of inflammation or nodules. There are atelectasis at the left lung base. MEDIASTINUM: The gland is unremarkable. There is no mediastinal, hilar or prevascular lymphadenopathy. There is no pericardial effusion. The heart is mildly enlarged. CORONARY ARTERY CALCIFICATION: None visualized on this study. PLEURA: There is no pleural effusion. No pleural mass or thickening. AXILLA: No lymphadenopathy. UPPER ABDOMEN: Unremarkable. OSSEOUS STRUCTURES: No evidence of fracture. There is mild kyphotic deformity of the thoracic spine and mild degenerative changes. No fracture seen in the thoracic or upper lumbar spine. CT/CT chest wo IV con IMPRESSION: 1. No evidence of fractures. Mild degenerative changes in the thoracic spine and mild kyphotic deformity of the thoracic spine. 2. Mild cardiomegaly. 3. Atelectasis at the left lung base. Fleischner guidelines were followed. Electronically signed by: Trey Joy MD 05/27/2024 09:51 AM [facility]
--- NOTE | ~2024-05-27 | CT_ITS ---
EXAMINATION: CT CERVICAL SPINE WITHOUT CONTRAST CLINICAL INFORMATION: 53-year-old female with neck trauma, status post fall COMPARISON: March 21, 2024 and November 08, 2023 TECHNIQUE: Contiguous axial imaging was performed through the cervical spine without intravenous contrast administration, followed by sagittal and coronal reformats imaged on the technologist station. This CT examination was performed using dose optimization techniques as appropriate, variously including the following: *Automated exposure control *Adjustment of mA and/or kV according to patient size (this includes techniques or standardized protocols for targeted exams where dose is matched to indication/reason for exam; i.e. extremities or head) *Use of iterative reconstruction technique DLP: 590.51 mGy-cm FINDINGS: Vertebral bodies of cervical spine are well aligned and there is no evidence of vertebral bodies fractures or spondylolysis or listhesis. There are mild degenerative changes stable since previous study with loss of disc height at the level of C5-6 and C6-7 as seen on the previous examination. There is no evidence of spinal canal stenosis. No evidence of neural foraminal encroachment. Soft tissues are unremarkable. CT/CT cervical spine wo IV con IMPRESSION: No fracture seen mild degenerative changes as before Fleischner guidelines were followed. Electronically signed by: Trey Joy MD 05/27/2024 09:45 AM [facility]
--- NOTE | ~2024-05-27 | CT_ITS ---
EXAMINATION: CT HEAD WITHOUT CONTRAST CLINICAL INFORMATION: Status post fall head trauma COMPARISON: March 21, 2024 TECHNIQUE: Contiguous axial imaging was performed from the skull base to vertex without intravenous administration of contrast. This CT examination was performed using dose optimization techniques as appropriate, variously including the following: *Automated exposure control *Adjustment of mA and/or kV according to patient size (this includes techniques or standardized protocols for targeted exams where dose is matched to indication/reason for exam; i.e. extremities or head) *Use of iterative reconstruction technique DLP: 893 mGy-cm FINDINGS: There is no evidence of acute intracranial hemorrhage, masses or mass effect. Patient is status post right frontal craniotomy. There is encephalomalacia in the left parietal lobe with no interval change since 2 previous studies in the patchy periventricular white matter changes consistent with sequela of microangiopathy. There is ex vacuo dilatation of left occipital horn, as a sequela of remote left occipital stroke with volume loss. There is no depressed fracture seen CT/CT head/brain wo IV con IMPRESSION: No acute intracranial pathology. Sequela of remote stroke in the left parietal lobe and left occipital lobe. Status post right frontal craniotomy. Electronically signed by: Trey Joy MD 05/27/2024 09:57 AM EST
[2024-05-27 07:17] VITALS: BP 144/96; PULSE 104; O2SAT 96
[2024-05-27 07:18] VITALS: BP 182/99; PULSE 98; RESP 18; TEMP 36.7; O2SAT 96; BMI 34.7
--- NOTE | 2024-05-27 07:18 | ED_ITS ---
HPI - Fall General Chief Complaint: Fall Stated Complaint: Fall, +ccollar, +thinners, neck & back pain Time Seen by Provider: 05/27/24 07:15 Source: patient Mode of arrival: ambulatory Limitations: no limitations History of Present Illness ED Provider: MIEN FRANKEL Narrative: 53 yo female PMH of MS, DM2, HLD, LVH, CAD, CVA, cardiomyopathy anticoagulated on pradaxa who presents with c/o getting up to use the bathroom and reports a trip and fall. She denies LOC reports pain in head, neck, R shoulder and upper back. She also c/o rib pain. She was on the ground for 20 min. She is sleepy and tired as she takes ambien before bed and daughter reports she sleeps til very late AM sometimes afternoon. Patient denies any preceding CP/SOB dizziness. She does have a hx of falls. MD complaint: fall Onset (ago): hour(s) (ew) Fall from: standing Fall witnessed: no Place fall occurred: home Loss of consciousness: none Prolonged down time: no Symptoms prior to fall: none Context: tripped/slipped Location of injury: head, neck and back Location of injury - extremities: right: shoulder Severity: mild Quality: dull and aching Associated symptoms (after fall): denies Related Data Home Medications ?Medication ?Instructions ?Recorded ?Confirmed hydrochlorothiazide 25 mg tablet 25 mg PO QAM 06/14/20 02/16/24 zolpidem 10 mg tablet 10 mg PO BEDTIME 06/14/20 02/16/24 oxycodone-acetaminophen 7.5 mg-325 1 tab PO DAILY 11/18/22 02/16/24 mg tablet pen needle, diabetic 32 gauge x #1,200 ea 01/02/23 02/16/2432 (BD Ailin 2nd Gen Pen Needle) Previous Rx's ?Medication ?Instructions ?Recorded amlodipine 10 mg tablet 10 mg PO DAILY #90 tabs 01/09/23 dabigatran etexilate 150 mg capsule 150 mg PO BID #60 caps 01/09/23 propranolol 120 mg capsule,24 120 mg PO DAILY #90 caps 01/09/23 hr,extended release freestyle mario sensor cover #2 ea 02/21/23 insulin glargine 100 unit/mL (3 30 unit (0.3 mL) subcut QPM #15 mL 11/19/23 mL) subcutaneous pen (Lantus Solostar U-100 Insulin) lancets 28 gauge (FreeStyle #100 ea 12/29/23 Lancets) blood sugar diagnostic (FreeStyle #10 ea 01/14/24 Lite Strips) insulin lispro 200 unit/mL (3 mL) 15 unit (0.075 mL) subcut TID #6 mL 01/14/24 subcutaneous pen potassium chloride 10 mEq 10 meq PO DAILY #30 caps 01/20/24 capsule,extended release flash glucose scanning reader #1 ea 01/27/24 (FreeStyle Mario 2 Burchard) flash glucose sensor (FreeStyle #2 ea 01/27/24 Mario 2 Sensor kit) atorvastatin 40 mg tablet (Lipitor) 40 mg PO DAILY 90 days #90 tabs 04/21/24 Allergies Allergy/AdvReac Type Severity Reaction Status Date / Time No Known Allergies Allergy Verified 05/27/24 07:24 Review of Systems Review of Systems: Constitutional : No Weight loss, No Fever, No Chills, ENT/Mouth : No Hearing loss, No Ear Pain, No Nasal Congestion, No Sinus Pain, No Hoarseness, No sore throat, No Rhinorrhea, No Swallowing Difficulty Cardiovascular : No Chest Pain, No SOB Respiratory : No Cough, No Dyspnea Gastrointestinal : No Nausea, No Vomiting, No Diarrhea, No abdominal Pain, No Hematochezia, No Melena Genitourinary : No Dysuria, No Urinary Frequency, No Hematuria, No Urinary Incontinence, Musculoskeletal : positive back pain, pos neck pain, pos shoulder pain Skin : No Skin Lesions, No rash Neuro : No Weakness, No Numbness, No Paresthesias, no loss of bowel or bladder incontinence, no saddle anesthesia, pos head pain all other systems reviewed and are negative [facility] Past Medical History Attestation statement: The following information was validated with the patient. Source: old records reviewed Medical History Uncontrolled hypertension Cerebral microvascular disease Chronic idiopathic cerebral venous infarction Thalamic infarct, acute Right leg weakness Cerebrovascular accident Headache GERD (gastroesophageal reflux disease) Cardiomyopathy Excessive daytime sleepiness Obesity (BMI 35.0-39.9 without comorbidity) Breast cancer in female Hyperlipidemia Cerebrovascular disease History of multiple strokes Benign nevus Family history of breast cancer Essential (primary) hypertension Multiple sclerosis (Unknown) Surgical History History of removal of cyst (05/07/22) Hx of colonoscopy (~09/25/22) History of esophagogastroduodenoscopy (EGD) History of breast surgery Family History Family History Mother Cancer Brother H/O heart surgery Maternal Aunt Breast cancer Social History Social History Household Members: None Household Members Other:: daughter away at college Housing: Apartment Are you a primary skin care specialist to a significant other at home: No Do you presently have visiting nurse or other home services: Yes Alcohol intake: current Alcohol intake frequency: does not drink Patient Tobacco Use Status: Never used Tobacco e-Cigarette/Vaping Use: Never Used Second Hand Smoke Exposure: No Advance Directives: Yes Advance Directives on File: Yes Advance Directives Date on File: 12/19/22 service: No Current occupational status: disabled Cognitive needs: No Hearing needs: No Vision needs: No Physical Exam Vital Signs: Vital Signs: Last Vital Signs Temp 98.1 F 05/27/24 07:18 Pulse 85 05/27/24 09:07 Resp 14 05/27/24 09:07 BP 163/81 H 05/27/24 09:07 Pulse Ox 96 05/27/24 07:18 O2 Del Method Room Air 05/27/24 07:18 BMI result Body Mass Index 34.7 Appearance: Somnolent but easily woken with verbal stimuli. Oriented X3. No acute distress. Eyes: Pupils equal, round and reactive to light. ENT: Pharynx normal. Neck:collar in place reports lower midline ttp CVS: Normal heart rate and rhythm. Pulses normal. Chest: no obvious trauma reports upper rib pain Respiratory: No respiratory distress. Breath sounds normal. Abdomen: Soft and nontender. Back: reports upper back ttp no deformity noted Skin: Skin warm and dry. Normal skin color. Normal skin turgor. Extremities: No lower extremity edema. Normal ROM of both hips and knees reports R shoulder pain - distal NV intact Neuro: Oriented X 3. No motor deficit. No sensory deficit. Course Course Course Narrative: more awake, daughter at bedside Medical Decision Making Medical Decision Making MDM Narrative: 53 yo female PMH of MS, DM2, HLD, LVH, CAD, CVA, cardiomyopathy anticoagulated on pradaxa who presents with c/o trip and fall while trying to use bathroom tonight - no preceding CP/SOB, dizziness. She was on the ground for 20 min doubt rhabdo. At this time suspect mechanical fall given hx of same and she uses ambien at night which is why I suspect she is so sleepy. Will obtain CT head/cspine/chest for trauma and R shoulder xray Differential Diagnosis Differential Diagnoses: The differential diagnosis associated with the presentation includes head trauma, cervical spine injury, neck strain, shoulder strain, rib contusion Admission/Observation Consideration of admission/observation: Escalation of care including admission/observation considered no acute trauma stable for DC with family this AM Independent Interpretation I performed an independent interpretation of an: Plain X-Ray (no trauma) and CT Scan (no trauma) Radiology Impression Discussion of test interpretation with radiology: I have reviewed the radiologist's reading. Independent Historian Clinical information obtained from an independent historian. History obtained from or confirmed by: EMS and Other (daughter) External Record Review External record reviewed: Inpatient record and Outpatient record Discharge Plan Discharge Clinical Impression: Fall, Acute strain of neck muscle, Head injury Patient Disposition: Home, Self-Care Instructions: Cervical Strain (ED), Fall Prevention (ED), Head Injury (ED) Additional Instructions: no acute trauma on CT scans of head/chest/neck normal R shoulder xray stay with responsible adult return for any worsening symptoms or concerns such as confusion, vomiting, weakness, numbness or any other concerns. Prescriptions: No Action (DME) freestyle mario sensor cover See Rx Instructions .Route .MEDSUPPLY Qty: 2 5RF Rx Instructions: As directed insulin glargine [Lantus Solostar U-100 Insulin] 100 unit/mL (3 mL) insulin pen 30 unit subcut QPM Qty: 15 3RF (DME) lancets [FreeStyle Lancets] 28 gauge misc See Rx Instructions .ROUTE QID Qty: 100 0RF Rx Instructions: As directed 3 times per day insulin lispro 200 unit/mL (3 mL) insulin pen 15 unit subcut TID Qty: 6 0RF (DME) FreeStyle Lite Strips Strip See Rx Instructions .ROUTE TID Qty: 10 0RF Rx Instructions: As directed three times per day (DME) FreeStyle Mario 2 Sensor Kit See Rx Instructions .ROUTE .MEDSUPPLY Qty: 2 11RF Rx Instructions: Check blood sugars (DME) FreeStyle Mario 2 Burchard Misc See Rx Instructions .Route Qty: 1 0RF Rx Instructions: test 3 times daily atorvastatin [Lipitor] 40 mg tablet 40 mg PO DAILY 90 Days Qty: 90 3RF dabigatran etexilate 150 mg capsule 150 mg PO BID Qty: 60 2RF amlodipine 10 mg tablet 10 mg PO DAILY Qty: 90 0RF propranolol 120 mg Capsule,Extended Release 24 Hr 120 mg PO DAILY Qty: 90 0RF potassium chloride 10 mEq capsule, extended release 10 meq PO DAILY Qty: 30 0RF zolpidem 10 mg tablet 10 mg PO BEDTIME hydrochlorothiazide 25 mg tablet 25 mg PO QAM oxycodone-acetaminophen 7.5-325 mg tablet 1 tab PO DAILY (DME) pen needle, diabetic [BD Ailin 2nd Gen Pen Needle] 32 gauge x 5/32 needle See Rx Instructions .ROUTE .MEDSUPPLY Qty: 1200 Rx Instructions: As directed Print Language: Belarusian
[2024-05-27 09:07] VITALS: BP 163/81; PULSE 85; RESP 14
[2024-05-27 10:51] VITALS: BP 164/87; PULSE 82; RESP 16; TEMP 36.2; O2SAT 98
== END 2024-05-27 10:51 | disposition home or self-care (01) ==
PROVIDERS: Emergency Provider Emergency Medicine; PCP Internal Medicine
DX: S13.4XXA Sprain of ligaments of cervical spine, initial encounter (principal); S09.90XA Unspecified injury of head, initial encounter; R51.9 Headache, unspecified; M54.2 Cervicalgia; I25.10 Atherosclerotic heart disease of native coronary artery without angina pectoris; W01.10XA Fall on same level from slipping, tripping and stumbling with subsequent striking against unspecified object, initial encounter; Y93.89 Activity, other specified; Y92.091 Bathroom in other non-institutional residence as the place of occurrence of the external cause; Y99.8 Other external cause status
CPT/HCPCS: 70450; 71250; 72125; 73030; 99283; 99284

== ENCOUNTER → 2024-05-27 07:27 | Outpatient (BNV) | payer OTHER, SELFPAY | PROVIDERS: Emergency Provider Emergency Medicine; PCP Internal Medicine; Visit Provider Radiology Diagnostic Radiology | DX: M25.511 Pain in right shoulder (principal) | CPT/HCPCS: 73030 ==

== ENCOUNTER 2024-06-07 10:14 | Outpatient (AMB) | payer OTHER, SELFPAY ==
[2024-06-07 10:27] VITALS: BP 164/98; PULSE 96; O2SAT 100; BMI 34.4
--- NOTE | 2024-06-07 10:27 | A.OFFPC_ITS ---
Vital Signs 06/07/24 10:27 Height 5 ft 6 in Weight 213 lb 4 oz BMI 34.4 BP 164/98 H Blood Pressure Location Lt brachial Position Sitting Pulse 96 Pulse Oximetry (%) 100 Oxygen Delivery Method Room Air Intake Visit Reasons: [facility] 05/27 fall Grinder Hand Required: No Bench Worker Hollow Handle: Present Accompanied by: Daughter Allergies No Known Allergies Allergy (Verified 06/07/24 10:27) Tobacco use date assessed: 04/05/24 Dental Screening Dental Screen Date: 08/14/23 HPI [facility] [facility] 05/27 fall HPI Details The patient is a 54-year-old female presenting with uncontrolled diabetes mellitus and the need for physical therapy following a stroke. She has a history of strokes, resulting in foot drop, which significantly impairs her mobility. The patient reports a cessation of visiting nurse services that were managing her diabetes and providing physical therapy, approximately six months prior. During this time, she has not been using a glucose sensor and has discontinued insulin altogether. She acknowledges previous ER visits, latest hospitalization in , and is now seeking to resume diabetic management and rehabilitative efforts. Contributing to her condition, she has chronic high blood glucose levels attributed to the absence of insulin therapy and glucose monitoring. Furthermore, the patient mentions issues with potassium deficiency as the current medication regimen consists of a large pill size which results in difficulty swallowing. Her medication history includes pain management with oxycodone and sleep aid with Ambien. Social support is present in the form of a daughter and a [employer] SAL[employer]ERSON, but the patient's living independently is challenged by these unmet medical needs. [facility] Medical History (Updated 06/07/24 @ 10:56 by Christiano Kaur MD) Foot drop Uncontrolled hypertension Cerebral microvascular disease Chronic idiopathic cerebral venous infarction Thalamic infarct, acute Right leg weakness Cerebrovascular accident Headache GERD (gastroesophageal reflux disease) Cardiomyopathy Excessive daytime sleepiness Obesity (BMI 35.0-39.9 without comorbidity) Breast cancer in female Hyperlipidemia Cerebrovascular disease History of multiple strokes Benign nevus Family history of breast cancer Essential (primary) hypertension Multiple sclerosis (Unknown) Surgical History History of removal of cyst (05/07/22) Hx of colonoscopy (~09/25/22) History of esophagogastroduodenoscopy (EGD) History of breast surgery Family History Mother Cancer Brother H/O heart surgery Maternal Aunt Breast cancer Social History Household Members: None Household Members Other:: daughter away at college Housing: Apartment Are you a primary home child care provider to a significant other at home: No Do you presently have visiting nurse or other home services: Yes Alcohol intake: current Alcohol intake frequency: does not drink Patient Tobacco Use Status: Never used Tobacco e-Cigarette/Vaping Use: Never Used Second Hand Smoke Exposure: No Advance Directives Date on File: 12/19/22 service: No Current occupational status: disabled Cognitive needs: No Hearing needs: No Vision needs: No Female Reproductive History Menstrual Age of Menarche: 10 Questionnaire Thrive Questionnaire Date Thrive assessed: 08/14/23 CASTRO-7 AMB Questionnaire CASTRO-7 Date CASTRO - 7 assessed: 08/14/23 Source: Developed by Drs. Niko Barone, Yazmin Mcneil, Owen Gaytan and colleagues, with an educational stefani from [employer]. Physical exam (Primary Care) Vital Signs: Last Vital Signs Pulse 96 06/07/24 10:27 BP 164/98 H 06/07/24 10:27 Pulse Ox 100 06/07/24 10:27 Oxygen Delivery Method Room Air 06/07/24 10:27 BMI result Body Mass Index 34.4 Tobacco/Smoking Status: Tobacco use Status Tobacco use date assessed 04/05/24 04/05/24 14:01 Patient Tobacco Use Status Never used Tobacco 04/05/24 14:01 e-Cigarette/Vaping Use Never Used 04/05/24 14:01 Thrive Assessment: Date of Thrive Assessment Date Thrive assessed 08/14/23 04/05/24 14:01 Const General: cooperative and healthy appearing Nutritional Appearance: well nourished Orientation/consciousness: patient oriented x3 Limitations: no limitations HENMT Head: Yes normal to inspection Eyes General: appearance normal, both eyes and all related structures Neck Neck: Yes normal visual inspection Chest Chest palpation & inspection: normal palpation of entire chest wall Resp Effort & Inspection: normal respiratory effort Neuro General: patient oriented x3 Office Procedures Flu Questionnaire Does the patient have a severe egg allergy?: No Does the patient have severe life threatening allergies?: No Does the patient have a fever or illness today?: No Has the patient ever had Guillain-[place] Syndrome?: No Has the patient ever had any past reaction to a flu shot?: No Results AMB Hemoglobin A1c AMB Hemoglobin A1c 8.8 % Last Edit by SHE Eden on 06/07/24 10:31 Immunizations Fluarix Triv [id number] (PF) 45 mcg (15 mcg x 3)/0.5 mL IM syringe Performing Provider: Christiano Kaur MD Performing Location[facility] [place] [facility] Documented (not given) by: SHE Eden on 06/07/24 10:30 Reason Not Given: Patient Refused Coding Level of Care Code Est Pt Level 4 (10405) Complex EM visit Add On G2211 Diagnoses LVH (left ventricular hypertrophy) I51.7 CAD (coronary artery disease) I25.10 Type 2 diabetes mellitus E11.9 Obesity (BMI 35.0-39.9 without comorbidity) E66.9 Overactive bladder N32.81 Multiple sclerosis G35 Foot drop M21.379 Hypokalemia E87.6 Assessment & Plan Assessment & Plan (1) LVH (left ventricular hypertrophy): Code(s): I51.7 - Cardiomegaly Category: Medical Plan: Condition is stable (2) CAD (coronary artery disease): Code(s): I25.10 - Atherosclerotic heart disease of [place] coronary artery without angina pectoris Category: Medical Plan: Condition is stable (3) Type 2 diabetes mellitus: Code(s): E11.9 - Type 2 diabetes mellitus without complications Category: Medical Plan: - Lives alone and previously drove but currently does not have access to a car. - Utilizes grocery delivery services ([employer]) facilitated by her uncle. - Relies on her daughter and a [employer] SALESPERSON for assistance with daily tasks as needed. Plan to restart diabetes management, including the reintroduction of insulin therapy and glucose monitoring via sensor. Contact [facility] to resume nursing services for regular administration and monitoring. I discussed with the patient the importance of resuming and maintaining diabetes care to prevent further vascular complications. The anticipated benefits of restarting insulins, and glucose monitoring were explained. I emphasized to her that uncontrolled blood sugars could exacerbate previous stroke effects and potentially lead to new events. A decision was made to change her potassium medication to a liquid form to alleviate swallowing difficulties. Ensuring proper potassium levels is critical to her overall well-being. Blood work was suggested to reassess potassium and other significant parameters to tailor her care plan appropriately. Follow-up is scheduled in three months to reassess and modify the treatment plan as necessary. (4) Obesity (BMI 35.0-39.9 without comorbidity): Comment: This 51 years old female is the moderately obese. She has been trying to lose weight on her own. It goes up and down. She does not want to be in any professional weight management program. Code(s): E66.9 - Obesity, unspecified Category: Medical (5) Overactive bladder: Code(s): N32.81 - Overactive bladder Category: Medical Plan: Condition is stable (6) Multiple sclerosis: Onset Date: Unknown Code(s): G35 - Multiple sclerosis Category: Medical Plan: Per our records, patient has no evidence to suggest multiple sclerosis. (7) Foot drop: Code(s): M21.379 - Foot drop, unspecified foot Category: Medical Plan: For her foot drop, physical therapy could enhance her mobility and reduce fall risks. (8) Hypokalemia: Code(s): E87.6 - Hypokalemia Plan: Change current medication to a liquid format due to difficulty swallowing large pills. Plan As above Orders: Orders Complete Blood Count no Diff Today E11.9 - Type 2 diabetes mellitus without complications, I25.10 - Atherosclerotic heart disease of [place] coronary artery without angina pectoris Liver Panel Today E11.9 - Type 2 diabetes mellitus without complications, I25.10 - Atherosclerotic heart disease of [place] coronary artery without angina pectoris UA and rflx microscopic Today E11.9 - Type 2 diabetes mellitus without complications, I25.10 - Atherosclerotic heart disease of [place] coronary artery without angina pectoris Influenza [id number] Immunization Today Z23 - Encounter for immunization AMB Hemoglobin A1c Today E11.9 - Type 2 diabetes mellitus without complications Basic Metabolic Panel Today E11.9 - Type 2 diabetes mellitus without complications, I25.10 - Atherosclerotic heart disease of [place] coronary artery without angina pectoris Lipid Panel Today E11.9 - Type 2 diabetes mellitus without complications, I25.10 - Atherosclerotic heart disease of [place] coronary artery without angina pectoris Thyroid Stimulating Hormone Today E11.9 - Type 2 diabetes mellitus without complications, I25.10 - Atherosclerotic heart disease of [place] coronary artery without angina pectoris PT Evaluation and Treatment Today M21.379 - Foot drop, unspecified foot Referrals [facility]ospice Referral E11.9 - Type 2 diabetes mellitus without complications, Z86.73 - Personal history of transient ischemic attack (TIA), and cerebral infarction without residual deficits Medications: Refilled insulin lispro 15 units (0.075 mL) subcut TID 6 mL 0RF propranolol ER 120 mg PO DAILY 90 caps 0RF flash glucose sensor (Glu MobileStyle Mario 2 Sensor kit) Check blood sugars 2 ea 11RF [id number], Z79.4 - custodial (current) use of insulin insulin glargine (Lantus Solostar U-100 Insulin) 30 units (0.3 mL) subcut QPM 15 mL 3RF flash glucose scanning reader (Glu MobileStyle Mario 2 [place]) test 3 times daily 1 ea 0RF E11.9 - Type 2 diabetes mellitus without complications Discontinued potassium chloride ER Discontinued Reason: Doctor's Order 10 mEq PO DAILY 30 caps 0RF
== END 2024-06-07 10:49 | disposition home or self-care (01) ==
PROVIDERS: PCP Internal Medicine; Visit Provider Internal Medicine
DX: E11.9 Type 2 diabetes mellitus without complications (principal); G35 Multiple sclerosis; E66.9 Obesity, unspecified; Z68.34 Body mass index [BMI] 34.0-34.9, adult; M21.372 Foot drop, left foot; I51.7 Cardiomegaly; I25.10 Atherosclerotic heart disease of native coronary artery without angina pectoris; N32.81 Overactive bladder; E87.6 Hypokalemia; Z23 Encounter for immunization

== ENCOUNTER → 2024-06-07 10:14 | Outpatient (BNVA) | payer OTHER, SELFPAY | PROVIDERS: PCP Internal Medicine; Visit Provider Internal Medicine | DX: I51.7 Cardiomegaly (principal); I25.10 Atherosclerotic heart disease of native coronary artery without angina pectoris; E11.9 Type 2 diabetes mellitus without complications; E66.9 Obesity, unspecified; N32.81 Overactive bladder; G35 Multiple sclerosis; M21.379 Foot drop, unspecified foot; E87.6 Hypokalemia | CPT/HCPCS: 83036; 99212 ==

== ENCOUNTER 2024-06-22 15:04 | Emergency (ER) | payer OTHER, SELFPAY ==
--- NOTE | ~2024-06-22 | CT_ITS ---
EXAMINATION: CT HEAD WITHOUT CONTRAST CLINICAL INFORMATION: Headache. COMPARISON: CT head from 05/27/2024. TECHNIQUE: Contiguous axial imaging was performed from the skull base to vertex without intravenous administration of contrast. This CT examination was performed using dose optimization techniques as appropriate, variously including the following: *Automated exposure control. *Adjustment of mA and/or kV according to patient size (this includes techniques or standardized protocols for targeted exams where dose is matched to indication/reason for exam; i.e. extremities or head). *Use of iterative reconstruction technique. DLP: 750 mGy-cm FINDINGS: Prior right frontal alberto hole. There is chronic encephalomalacia within the left occipitoparietal lobes and right frontal lobe with associated volume loss. Chronic lacunar infarcts of the right caudate head and bilateral thalami. No additional loss of patel-white matter differentiation. No evidence of acute intracranial hemorrhage. Scattered and partially confluent hypoattenuation in the periventricular and deep white matter are consistent with moderate microangiopathy. Proportional prominence of the ventricles and sulcal spaces without evidence of obstructive hydrocephalus. No abnormal mass effect or midline shift. No extra-axial fluid collections. Calcific atherosclerotic disease of the intracranial internal carotid arteries. No hyperdense vessel sign. No acute soft tissue or osseous abnormalities. Mild mucosal thickening of the paranasal sinuses. The mastoid air cells and middle ear cavities are clear. CT/CT head/brain wo IV con IMPRESSION: 1. No evidence of acute intracranial hemorrhage or edematous territorial infarction. 2. Chronic encephalomalacia of the left occipitoparietal lobes and right frontal lobe. Chronic lacunar infarcts of the right caudate head and bilateral thalami. Moderate underlying microangiopathy and generalized cerebral volume loss. Electronically signed by: Jimy Calix DO 06/22/2024 06:05 PM KRISTI
--- NOTE | ~2024-06-22 | XR_ITS ---
EXAMINATION: XR FOREARM, RIGHT CLINICAL INFORMATION: pain and fall COMPARISON: None available. TECHNIQUE: AP and lateral views of the right forearm were obtained. FINDINGS: No visible acute fracture or dislocation. Wrist and elbow joint articulation is maintained. No large elbow joint effusion is seen. No abnormal soft tissue calcification. XR/XR forearm RT 2V IMPRESSION: No radiographic evidence of acute fracture. Electronically signed by: Ace Carmichael MD 06/22/2024 06:34 PM KRISTI
--- NOTE | ~2024-06-22 | XR_ITS ---
EXAMINATION: XR KNEE, RIGHT CLINICAL INFORMATION: pain COMPARISON: None available. TECHNIQUE: Four views of the right knee. FINDINGS: Alignment is anatomic. Medial and lateral compartment joint spaces are maintained. Small marginal spurring in the medial tibial plateau. Subtle subchondral lucency in the weightbearing femoral condyle, could be related to bone demineralization versus degenerative changes, or osteochondral lesion. No acute fractures identified. No significant effusion. XR/XR knee RT 4V IMPRESSION: Subtle subchondral lucency in the lateral aspect of the medial femoral condyle. Differential considerations include bone demineralization, degeneration, osteochondral lesion. Clinically correlate. Additional imaging as clinically. Otherwise, consider follow-up x-rays for reassessment. No acute fracture seen. Electronically signed by: Ace Carmichael MD 06/22/2024 06:30 PM KRISTI [facility]DROP
--- NOTE | 2024-06-22 15:09 | ED_ITS ---
HPI - Weakness General Chief complaint: General Medical Stated complaint: WEAK,LETHARGIC,HOT TO TOUCH,DIZZY PER EMS Time Seen by Provider: 06/22/24 15:08 Source: patient, EMS and old records reviewed Mode of arrival: EMS Limitations: no limitations History of Present Illness ED Provider: MINE HPI Narrative: 53 yo female PMH of MS, DM2, HLD, LVH, CAD - medically managed, CVA, cardiomyopathy anticoagulated on pradaxa who presents with c/o chronic headache then fell 10 or 11 times today and reports injury to R elbow and R knee. She notes her son was at home. She did not have LOC. She states she has nausea now. She does not think she is on her pradaxa right now. She is very vague and flat affect - she needs repeat questions and seems slow to respond. I have seen her before and she appears at baseline with her presentation and response to questions. She notes 10 min ago she started to have nausea so she called 911. MD Complaint: generalized weakness Onset (ago): minute(s) (10) Duration: constant Location: generalized Migration: none Severity: moderate Quality: other Relieving factors: none Exacerbating factors: movement Context: history of similar Associated symptoms: headaches and nausea/vomiting Related Data Home Medications ?Medication ?Instructions ?Recorded ?Confirmed hydrochlorothiazide 25 mg tablet 25 mg PO QAM 06/14/20 02/16/24 zolpidem 10 mg tablet 10 mg PO BEDTIME 06/14/20 02/16/24 oxycodone-acetaminophen 7.5 mg-325 1 tab PO DAILY 11/18/22 02/16/24 mg tablet pen needle, diabetic 32 gauge x #1,200 ea 01/02/23 02/16/24/32 (BD Ailin 2nd Gen Pen Needle) Previous Rx's ?Medication ?Instructions ?Recorded amlodipine 10 mg tablet 10 mg PO DAILY #90 tabs 01/09/23 dabigatran etexilate 150 mg capsule 150 mg PO BID #60 caps 01/09/23 freestyle mraio sensor cover #2 ea 02/21/23 lancets 28 gauge (FreeStyle #100 ea 12/29/23 Lancets) blood sugar diagnostic (FreeStyle #10 ea 01/14/24 Lite Strips) atorvastatin 40 mg tablet (Lipitor) 40 mg PO DAILY 90 days #90 tabs 04/21/24 flash glucose scanning reader #1 ea 06/07/24 (FreeStyle Mario 2 [place]) flash glucose sensor (FreeStyle #2 ea 06/07/24 Mario 2 Sensor kit) insulin glargine 100 unit/mL (3 30 unit (0.3 mL) subcut QPM #15 mL 06/07/24 mL) subcutaneous pen (Lantus Solostar U-100 Insulin) insulin lispro 200 unit/mL (3 mL) 15 unit (0.075 mL) subcut TID #6 mL 06/07/24 subcutaneous pen propranolol 120 mg capsule,24 120 mg PO DAILY #90 caps 06/07/24 hr,extended release Allergies Allergy/AdvReac Type Severity Reaction Status Date / Time No Known Allergies Allergy Verified 06/22/24 15:16 Review of Systems 2 Review of Systems: Constitutional : No Fever, No Chills, No Fatigue ENT/Mouth : No sore throat, No Rhinorrhea Eyes: No Eye Pain, No Swelling, No Redness Cardiovascular : No Chest Pain, No SOB, No Dyspnea on Exertion Respiratory : No Cough, No Sputum Gastrointestinal : pos Nausea, No Vomiting, No Diarrhea, No abdominal Pain Genitourinary : No Dysuria, No Urinary Frequency, No Hematuria, Musculoskeletal : No joint pain, No Myalgias, No Joint Swelling Skin : No Skin Lesions, No rash Neuro : pos Weakness, No Numbness, No Dizziness, positive Headache Psych : No Anxiety/Panic, No Depression Heme/Lymph: No Bruising, No Bleeding,No Lymphadenopathy Endocrine : No Polyuria, No Polydipsia All other systems reviewed and are negative [facility] Past Medical History Attestation statement: The following information was validated with the patient. Source: old records reviewed Medical History Foot drop Uncontrolled hypertension Cerebral microvascular disease Chronic idiopathic cerebral venous infarction Thalamic infarct, acute Right leg weakness Cerebrovascular accident Headache GERD (gastroesophageal reflux disease) Cardiomyopathy Excessive daytime sleepiness Obesity (BMI 35.0-39.9 without comorbidity) Breast cancer in female Hyperlipidemia Cerebrovascular disease History of multiple strokes Benign nevus Family history of breast cancer Essential (primary) hypertension Multiple sclerosis (Unknown) Surgical History History of removal of cyst (05/07/22) Hx of colonoscopy (~09/25/22) History of esophagogastroduodenoscopy (EGD) History of breast surgery Family History Family History Mother Cancer Brother H/O heart surgery Maternal Aunt Breast cancer Social History Social History Household Members: None Household Members Other:: daughter away at college Housing: Apartment Are you a primary home health care coordinator to a significant other at home: No Do you presently have visiting nurse or other home services: Yes Alcohol intake: current Alcohol intake frequency: does not drink Patient Tobacco Use Status: Never used Tobacco e-Cigarette/Vaping Use: Never Used Second Hand Smoke Exposure: No Advance Directives: Yes Advance Directives on File: Yes Advance Directives Date on File: 12/19/22 Do you have a plan to hurt others: No Plan service: No Current occupational status: disabled Cognitive needs: No Hearing needs: No Vision needs: No Physical Exam 2 Vital Signs: Vital Signs: Last Vital Signs Temp 98.6 F 06/22/24 18:12 Pulse 95 06/22/24 18:12 Resp 18 06/22/24 18:12 BP 155/80 H 06/22/24 18:12 Pulse Ox 97 06/22/24 18:12 O2 Del Method Room Air 06/22/24 18:12 BMI result Body Mass Index 33.5 Appearance: Alert. Oriented X3. No acute distress. Flat affect slow to respond Eyes: Pupils equal, round and reactive to light. ENT: Pharynx normal. atraumatic Neck: Normal inspection. Neck supple. CVS: Normal heart rate and rhythm. Pulses normal. Respiratory: No respiratory distress. Breath sounds normal. Abdomen: Soft and non-tender. Skin: Skin warm and dry. Normal skin color. Normal skin turgor. Extremities: No lower extremity edema. abrasion R forearm, reports pain in R knee but able to range Neuro: Oriented X 3. No motor deficit. No sensory deficit. Medications Administered Discontinued Medications Generic Name Dose Route Start Last Admin Trade Name Freq PRN Reason Stop Dose Admin Ondansetron HCl 4 mg 06/22/24 15:43 06/22/24 16:28 Ondansetron Hcl 4 Mg/2 Ml Vial IVPUSH 06/22/24 15:44 4 mg ONCE ONE Administration Medical Decision Making Medical Decision Making [facility] Narrative: 53 yo female PMH of MS, DM2, HLD, LVH, CAD, CVA, cardiomyopathy anticoagulated on pradaxa who presents with c/o chronic headache for years has hx of recurrent falls and states she fell 10 times today. She has pain in R forearm and R knee - xrays ordered. She isn't sure if she is on pradaxa due to no refills but given falls and headache though no LOC or head trauma I have ordered CT head. Basic labs, UA, zofran for nausea. Differential Diagnosis Differential Diagnoses: The differential diagnosis associated with the presentation includes MS, recurrent falls, chronic intractable headache, metabolic or toxic finding Admission/Observation Consideration of admission/observation: Escalation of care including admission/observation considered seen up and walking to bathroom without any issues then when we went to walk her she states she cannot and is going to fall at this time will start physician observation 713pm and refer to PT/CM Consult Healthcare Provider Management of the patient was discussed with: Foster Parent Lab Data [facility] Lab Attestation statement: I reviewed the patient's lab results. 06/22/24 15:31 06/22/24 15:31 Labs: Lab Results 06/22/24 06/22/24 Range/Units 15:31 15:47 WBC 7.6 (4.8-10.8) X10*3/uL RBC 4.09 L (4.20-5.50) X10*6/uL Hgb 10.7 L (12.0-16.0) g/dl Hct 32.0 L (37.0-47.0) % MCV 78.2 L (80.0-98.0) fL MCH 26.2 L (27.0-33.0) pg MCHC 33.4 (31.0-35.0) g/dl RDW 15.7 (11.0-16.0) % Plt Count 292 D (160-400) X10*3/uL MPV 11.5 (9.4-12.3) fL Immature Gran % (Auto) 0.1 (0.0-0.4) % Neut % (Auto) 70.1 (45-73) % Lymph % (Auto) 26.2 (20-40) % [place] % (Auto) 3.1 (2-11) % Eos % (Auto) 0.4 (0-4) % Baso % (Auto) 0.1 (0-2) % Lymph # (Auto) 2.0 (1.2-4.9) X10*3/uL [place] # (Auto) 0.2 (0.1-1.2) X10*3/uL Eos # (Auto) 0.0 (0.0-0.4) X10*3/uL Baso # (Auto) 0.0 (0.0-0.2) X10*3/uL Abs Immat Gran (auto) 0.01 (0.00-0.03) X10*3/uL Absolute Neuts (auto) 5.3 (2.0-8.3) x10*3/uL Absolute Nucleated RBC 0.000 (0.0-0.012) X10*3/uL Nucleated RBC % (auto) 0.0 (0.0-0.2) /100WBC PT 13.1 H (10.9-12.4) SEC INR 1.1 (0.9-1.1) Sodium 141 (135-145) mmol/L Potassium 3.5 (3.3-5.1) mmol/L Chloride 107 (96-108) mmol/L Carbon Dioxide 26 (22-29) mmol/L Anion Gap 12 (12-20) BUN 6 L (9-16) mg/dL Creatinine 0.87 (0.5-1.4) mg/dL Estim Creat Clear Calc 83.4 Estimated GFR > 60 Random Glucose 170 H (60-115) mg/dL Calcium 8.9 D (8.4-10.2) mg/dL Magnesium 1.9 (1.6-2.6) mg/dL Total Bilirubin 0.4 (0.0-1.0) mg/dL Direct Bilirubin 0.2 (0.0-0.5) mg/dL AST 30 (5-31) U/L ALT 16 (0-31) U/L Alkaline Phosphatase 103 (39-117) U/L Troponin I High Sens 3.4 (<3.5-17.0) ng/L Total Protein 7.1 (6.5-8.0) g/dL Albumin 3.9 (3.5-5.0) g/dL Lipase 13 (8-78) U/L Urine Color Yellow Urine Appearance Clear Urine pH 7.0 (5.0-9.0) Ur Specific [place] 1.015 (1.005-1.025) Urine Protein Negative (Neg-Trace) mg/dL Urine Glucose (UA) Negative (Negative) mg/dL Urine Ketones 15 (Negative) mg/dL Urine Blood Moderate (2+) H (Negative) Urine Nitrite Negative (Negative) Ur Leukocyte Esterase Small (1+) H (Negative) Urine RBC 6-10 H (0-2) /HPF Urine WBC 0-5 (0-5) /HPF Ur Squamous Epith Cells 3-5 (0-2) /HPF Urine Bacteria Trace (None Seen) Hyaline Casts 0-2 (0-2) /LPF Independent Interpretation I performed an independent interpretation of an: EKG, Plain X-Ray (no trauma) and CT Scan (no trauma) Interpretation: Rate: 98 Rhythm: NSR [place]: normal, LVH Normal P waves. Normal MALCOM. Normal QRS complex. ST T wave : ST T wave changes I and aVL, V4-V6 consistent with LVH pattern qTC:469 prior studies: no change from priors The study has been interpreted contemporaneously by me. . Radiology Impression Discussion of test interpretation with radiology: I have reviewed the radiologist's reading. Independent Historian Clinical information obtained from an independent historian. History obtained from or confirmed by: EMS External Record Review External record reviewed: Inpatient record and Outpatient record Discharge Plan Discharge Clinical Impression: Weakness Patient Disposition: Still a Patient Prescriptions: No Action (DME) freestyle mario sensor cover See Rx Instructions .Route .MEDSUPPLY Qty: 2 5RF Rx Instructions: As directed (DME) lancets [FreeStyle Lancets] 28 gauge misc See Rx Instructions .ROUTE QID Qty: 100 0RF Rx Instructions: As directed 3 times per day (DME) FreeStyle Lite Strips Strip See Rx Instructions .ROUTE TID Qty: 10 0RF Rx Instructions: As directed three times per day atorvastatin [Lipitor] 40 mg tablet 40 mg PO DAILY 90 Days Qty: 90 3RF dabigatran etexilate 150 mg capsule 150 mg PO BID Qty: 60 2RF amlodipine 10 mg tablet 10 mg PO DAILY Qty: 90 0RF zolpidem 10 mg tablet 10 mg PO BEDTIME hydrochlorothiazide 25 mg tablet 25 mg PO QAM oxycodone-acetaminophen 7.5-325 mg tablet 1 tab PO DAILY (DME) pen needle, diabetic [BD Ailin 2nd Gen Pen Needle] 32 gauge x needle See Rx Instructions .ROUTE .MEDSUPPLY Qty: 1200 Rx Instructions: As directed insulin glargine [Lantus Solostar U-100 Insulin] 100 unit/mL (3 mL) insulin pen 30 unit subcut QPM Qty: 15 3RF insulin lispro 200 unit/mL (3 mL) insulin pen 15 unit subcut TID Qty: 6 0RF propranolol 120 mg capsule,extended release 24hr 120 mg PO DAILY Qty: 90 0RF (DME) FreeStyle Mario 2 [place] Misc See Rx Instructions .Route Qty: 1 0RF Rx Instructions: test 3 times daily (DME) FreeStyle Mario 2 Sensor Kit See Rx Instructions .ROUTE .MEDSUPPLY Qty: 2 11RF Rx Instructions: Check blood sugars Print Language: [place]an
[2024-06-22 15:14] VITALS: BP 171/97; PULSE 101; RESP 18; TEMP 37.1; O2SAT 100; BMI 33.5
--- NOTE | 2024-06-22 15:22 | ECG_ITS ---
Test Reason : WEAKNESS Blood Pressure : / mmHG Vent. Rate : 098 BPM Atrial Rate : 098 BPM P-R Int : 160 ms QRS Dur : 092 ms QT Int : 368 ms P-R-T Axes : 037 012 163 degrees QTc Int : 469 ms Normal sinus rhythm Left ventricular hypertrophy with repolarization abnormality ( R in aVL ) Abnormal ECG When compared with ECG of 20-JAN-2024 14:29, Nonspecific T wave abnormality now evident in Inferior leads Referred By: Dilcia Ordoñez Electronically Signed By:Rj Velazquez
[2024-06-22 15:24] VITALS: BP 156/84; PULSE 99; RESP 16; O2SAT 100
[2024-06-22 15:34] LABS: MANUAL DIFF FLAG NO
[2024-06-22 15:38] LABS: Basophils Percent Auto 0.1 % (0-2); Eosinophils Percent Auto 0.4 % (0-4); Hemoglobin 10.7 g/dl (12.0-16.0); Imm Gran Abs Auto 0.01 X10*3/uL (0.00-0.03); Imm Gran Pct Auto 0.1 % (0.0-0.4); Lymphocytes Percent Auto 26.2 % (20-40); Mean Corpuscular HGB Conc 33.4 g/dl (31.0-35.0); Mean Corpuscular Hemoglobin 26.2 pg (27.0-33.0); Mean Corpuscular Volume 78.2 fL (80.0-98.0); Mean Platelet Volume 11.5 fL (9.4-12.3); Monocytes Absolute Auto 0.2 X10*3/uL (0.1-1.2); Monocytes Percent Auto 3.1 % (2-11); Neutrophils Absolute Auto 5.3 x10*3/uL (2.0-8.3); Neutrophils Percent Auto 70.1 % (45-73); Platelet Count 292 X10*3/uL (160-400); Red Blood Count 4.09 X10*6/uL (4.20-5.50); Red Cell Distribution Width 15.7 % (11.0-16.0); White Blood Count 7.6 X10*3/uL (4.8-10.8)
[2024-06-22 15:46] LABS: INTERNATIONAL NORM RATIO 1.1 (0.9-1.1); Prothrombin Time 13.1 SEC (10.9-12.4)
--- NOTE | 2024-06-22 16:02 | PC.NURSE ---
IV established, labs obtained and sent. straight cath to obtain urine - patient tolerated well. off for xray/ct scan
[2024-06-22 16:05] LABS: Appearance Urine Clear; Color Urine Yellow; Glucose Urine UA Negative (Negative); Leukocyte Esterase Urine Small (1+) (Negative); Nitrite Urine Negative (Negative); Specific Gravity - Urine 1.015 (1.005-1.025); UMIC TRIGGER UACC YES; Urine Blood Moderate (2+) (Negative); Urine Ketones 15 mg/dL (Negative); Urine Protein Negative (Neg-Trace)
[2024-06-22 16:05] LABS: Alanine Aminotransferase 16 U/L (0-31); Albumin Level 3.9 g/dL (3.5-5.0); Alkaline Phosphatase 103 U/L (39-117); Anion Gap 12 (12-20); Aspartate Amino Transferase 30 U/L (5-31); Bilirubin Direct 0.2 mg/dL (0.0-0.5); Bilirubin Total 0.4 mg/dL (0.0-1.0); Blood Urea Nitrogen 6 mg/dL (9-16); Calcium 8.9 mg/dL (8.4-10.2); Carbon Dioxide 26 mmol/L (22-29); Chloride 107 mmol/L (96-108); Creatinine Clr Calc Pharmacy 83.4; Estimated Glomerular Filt Rate > 60; Glucose Random 170 mg/dL (60-115); Lipase 13 U/L (8-78); Magnesium 1.9 mg/dL (1.6-2.6); Potassium 3.5 mmol/L (3.3-5.1); Sodium 141 mmol/L (135-145); Total Protein 7.1 g/dL (6.5-8.0)
[2024-06-22 16:23] LABS: Troponin-I High Sensitivity 3.4 ng/L (<3.5-17.0)
[2024-06-22 16:24] LABS: Bacteria Urine Trace (None Seen); Hyaline Casts Urine 0-2 /LPF (0-2); UACC Culture Trigger YES; WBC Urine 0-5 /HPF (0-5)
[2024-06-22] MEDS: ondansetron HCL 4 MG/2 ML VIAL IVPUSH (16:28)
[2024-06-22 18:12] VITALS: BP 155/80; PULSE 95; RESP 18; TEMP 37; O2SAT 97
[2024-06-22 19:24] VITALS: BP 169/79; PULSE 97; RESP 18; TEMP 36.9; O2SAT 97
[2024-06-22 19:39] LABS: Glucose, Whole Blood 193 mg/dL (60-115)
--- NOTE | 2024-06-22 19:59 | MHC.EDTECH ---
pt ambulated to and from bathroom independently with no assistance needed. pt then was standing by self organizing blankets with a steady gait. RN made aware
--- NOTE | 2024-06-22 21:06 | MHC.CM.ED ---
CM met with patient at the request of Dr. Ordoñez. Pt is A&Ox3. Speech is slow. Lives alone. Uses a cane/walker/w/c. Has NUCLEAR MEDICINE MEDICAL DIRECTOR services 61 hours/week. States her NUCLEAR MEDICINE MEDICAL DIRECTOR is her son. Does not have VNA. HCP is on file. PCP is . Pt has hx MS. Multiple falls today. PT is pending. Pt is agreeable to STR or to home PT. Has had [facility] in the past. Will make local referrals. CM will follow for safe discharge plan.
--- NOTE | 2024-06-22 21:16 | PC.NURSE ---
med rec done with daughter Masoud [phone]. MD aware. per daughter pt does not live home alone has 2 children living with her. concern with pt taking meds specifically ambien at incorrect times during the day and having falls after. recent visit with pcp ?has home visiting nurses and home PT services set up?. and CM made aware. report given to Meri DUFFY and pt to overflow.
[2024-06-22 21:44] VITALS: BP 167/81; PULSE 84; RESP 18; TEMP 37; O2SAT 97
[2024-06-23 06:00] VITALS: BP 176/84; PULSE 75; RESP 18; TEMP 37.2; O2SAT 100
[2024-06-23 07:37] LABS: Glucose, Whole Blood 146 mg/dL (60-115)
[2024-06-23 07:41] VITALS: BP 176/84; PULSE 75; O2SAT 100
--- NOTE | 2024-06-23 08:25 | PHA.MEDREC ---
Pharmacy Consult ? Medication Reconciliation Pharmacy has reviewed the medication reconciliation done by nursing staff.
[2024-06-23] MEDS: amLODIPine Besylate 10 MG TABLET PO (09:03)
[2024-06-23] MEDS: Acetaminophen 325 MG TABLET PO (09:03)
[2024-06-23] MEDS: hydroCHLOROthiazide 25 MG TABLET PO (09:03)
[2024-06-23] MEDS: Atorvastatin Calcium 40 MG TABLET PO (09:03)
[2024-06-23] MEDS: oxyCODONE HCl Immed Release 5 MG TABLET 7.5 MG PO (09:03)
--- NOTE | 2024-06-23 09:05 | PC.NURSE ---
patient has been resting quietly in bed, no apparent distress. family at bedside, patient takes meds whole with water
--- NOTE | 2024-06-23 09:25 | MHC.CM.ED ---
Addendum entered by Jewell Ellison 06/23/24 11:27: [facility], [facility], and [facility] are able to offer a bed. Still waiting to hear from [facility] Met with patient in regards to discharge planning. Patient accepts bed at [facility]. Facility aware and asked to obtain insurance auth. Original Note: Patient remains in ER overflow. Phyiscal therapy eval completed. Acute rehab is recommended. Referral made to all 2 acute rehab facilities. No acute bed offers at this time. Clinical updates sent to all facilities still reviewing: [facility], [facility], [facility], [facility], [facility], [facility], [facility], [facility] and [facility]. Continue to monitor for d/c needs.
[2024-06-23] MEDS: Propranolol HCL LA 60 MG CAP.SA.24H 120 MG PO (10:27)
[2024-06-23] MEDS: Dabigatran Etexilate Mesylate 150 MG CAPSULE PO ×2 (10:27→21:13)
--- NOTE | 2024-06-23 10:32 | PC.NURSE ---
family pressed call christianson asking when patient will be tx to STR, patient and family updated that patient may not have bed placement today and that this process takes time, patient family member states that they have never had to wait for [facility] bed. patient family member states patient wants to leave and not wait. case management made aware. patient requested IV to be removed, iv removed by this RN. patient medicated per MAR, takes meds whole.
[2024-06-23 10:39] VITALS: BP 176/84; PULSE 66; RESP 18; TEMP 36.8; O2SAT 95
[2024-06-23 12:02] LABS: Glucose, Whole Blood 158 mg/dL (60-115)
--- NOTE | 2024-06-23 14:00 | PC.NURSE ---
patient up to commode with standby assist
[2024-06-23 14:55] VITALS: BP 153/74; PULSE 53; RESP 18; TEMP 36.8; O2SAT 97
--- NOTE | 2024-06-23 16:11 | MHC.CM.ED ---
Insurance auth has been obtained by [employer]. Patient will leave us tomorrow 06/24 at 9am. George MATTSON booked. Med nec with chart. Patient, Eve DUFFY and Genny Jeffrey aware. Continue to monitor for d/c needs.
--- NOTE | 2024-06-23 16:51 | PC.NURSE ---
patient completed ADLS on own in room, changed into personal night gown for comfort.
[2024-06-23 17:13] LABS: Glucose, Whole Blood 285 mg/dL (60-115)
[2024-06-23] MEDS: Insulin Lispro 100 UNIT/ML 3 ML VIAL SUBCUT ×2 (17:31→21:39)
[2024-06-23 21:00] LABS: Glucose, Whole Blood 170 mg/dL (60-115)
[2024-06-23] MEDS: Insulin Glargine,Hum.rec.anlog 100 UNIT/ML 10 ML VIAL 30 UNIT SUBCUT (21:12)
[2024-06-23] MEDS: Zolpidem Tartrate 5 MG TABLET 10 MG PO (21:14)
[2024-06-23 21:40] VITALS: BP 162/76; PULSE 59; RESP 16; TEMP 36.4; O2SAT 95
--- NOTE | 2024-06-24 01:34 | PC.NURSE ---
Patient requested and given vanilla ice cream.
--- NOTE | 2024-06-24 03:17 | MHC.EDTECH ---
This tech took over care of pt at 0300AM,rounded and introduced self to pt,patient appears comfortable call christianson in reach
--- NOTE | 2024-06-24 05:00 | PC.NURSE ---
Patient up and out of bed to bathroom. Ambulated with steady gait. Encouraged to use call christianson to call for assistance. Care ongoing by this RN. Pt has been able to sleep soundly during most of this RN's shift.
--- NOTE | 2024-06-24 05:14 | PC.NURSE ---
Patient reports 8/10 headache at this time and is requesting Tylenol for pain. There are no PRN pain medication orders in place at this time. Tylenol 325mg & Oxycodone 7.5mg are both scheduled at 9am. I sent a message to Dr. Adan regarding any additional orders for pain management, but awaiting a response. Patient appears comfortable despite stated pain level. No grimacing, tears, or other signs of acute distress noted. Patient repositioned herself to her right side with blanket. Care ongoing by this RN. Plan to transfer to [facility] at 9am today via BLS.
[2024-06-24 05:46] VITALS: BP 150/71; PULSE 62; RESP 18; TEMP 37; O2SAT 98
--- NOTE | 2024-06-24 06:38 | PC.NURSE ---
No new orders for pain medication at this time. Patient is sleeping at this time. Respirations even/unlabored. No acute distress noted at this time. Care ongoing.
[2024-06-24 07:24] LABS: Glucose, Whole Blood 164 mg/dL (60-115)
[2024-06-24 08:12] VITALS: BP 150/71; PULSE 62
[2024-06-24] MEDS: Insulin Lispro 100 UNIT/ML 3 ML VIAL SUBCUT (08:12)
[2024-06-24] MEDS: Propranolol HCL LA 60 MG CAP.SA.24H 120 MG PO (08:12)
[2024-06-24 08:13] VITALS: BP 150/71
[2024-06-24] MEDS: hydroCHLOROthiazide 25 MG TABLET PO (08:13)
[2024-06-24] MEDS: Acetaminophen 325 MG TABLET PO (08:13)
[2024-06-24 08:14] VITALS: BP 150/71
[2024-06-24] MEDS: Atorvastatin Calcium 40 MG TABLET PO (08:14)
[2024-06-24] MEDS: oxyCODONE HCl Immed Release 5 MG TABLET 7.5 MG PO (08:14)
[2024-06-24] MEDS: amLODIPine Besylate 10 MG TABLET PO (08:14)
[2024-06-24] MEDS: Dabigatran Etexilate Mesylate 150 MG CAPSULE PO (08:14)
[2024-06-24 09:35] VITALS: BP 150/71; PULSE 77; RESP 18; TEMP 36.7; O2SAT 97
== END 2024-06-24 09:40 ==
PROVIDERS: Emergency Provider Emergency Medicine
DX: S59.901A Unspecified injury of right elbow, initial encounter (principal); S89.91XA Unspecified injury of right lower leg, initial encounter; R26.2 Difficulty in walking, not elsewhere classified; R94.31 Abnormal electrocardiogram [ECG] [EKG]; R51.9 Headache, unspecified; R11.2 Nausea with vomiting, unspecified; E11.9 Type 2 diabetes mellitus without complications; R53.1 Weakness; I25.10 Atherosclerotic heart disease of native coronary artery without angina pectoris; X58.XXXA Exposure to other specified factors, initial encounter; Y93.9 Activity, unspecified; Y92.89 Other specified places as the place of occurrence of the external cause; Y99.8 Other external cause status; Z79.899 Other long term (current) drug therapy; Z86.73 Personal history of transient ischemic attack (TIA), and cerebral infarction without residual deficits; Z79.4 Long term (current) use of insulin
CPT/HCPCS: 36415; 70450; 73090; 73564; 80048; 80076; 81001; 81003; 82947; 83690; 83735; 84484; 85025; 85610; 87086; 93005; 96374; 97162; 99285; J2405

== ENCOUNTER → 2024-06-22 15:22 | Outpatient (BNV) | payer OTHER, SELFPAY | PROVIDERS: Emergency Provider Emergency Medicine; Visit Provider Internal Medicine Cardiovascular Disease | DX: R53.1 Weakness (principal); R94.31 Abnormal electrocardiogram [ECG] [EKG] | CPT/HCPCS: 93010 ==

== ENCOUNTER 2024-10-14 09:21 | Outpatient (AMB) | payer OTHER, SELFPAY ==
--- NOTE | 2024-10-14 10:04 | MHC.PC.OV ---
Vital Signs 10/14/24 10:07 Height 5 ft 6 in Weight 211 lb 2 oz BMI 34.1 BP 120/66 Blood Pressure Location Lt brachial Position Sitting Temp 97.3 F Temp Source Temporal Artery Scan Intake Visit Reasons: 3 month f/u Intake Note: Patient is here to follow up on DM, HTN, CAD. Glass Designer Required: No Gritting Machine Operator: Not Required per policy Accompanied by: Self / Same As Patient Allergies No Known Allergies Allergy (Verified 10/14/24 10:25) Medication List - Last Reconciled 10/14/24 by Christiano Kaur MD amlodipine 10 mg PO DAILY atorvastatin (Lipitor) 40 mg PO DAILY 90 days blood sugar diagnostic (FreeStyle Lite Strips) As directed three times per day dabigatran etexilate 150 mg PO BID flash glucose scanning reader (FreeStyle Mario 2 [place]) test 3 times daily flash glucose sensor (FreeStyle Mario 2 Sensor kit) Check blood sugars [freestyle mario sensor cover As directed] hydrochlorothiazide 25 mg PO QAM insulin glargine (Lantus Solostar U-100 Insulin) 30 units (0.3 mL) subcut QPM insulin lispro 15 units (0.075 mL) subcut TID lancets (FreeStyle Lancets) As directed 3 times per day oxycodone 7.5 mg (1.5 x 5 mg) PO DAILY oxycodone-acetaminophen 7.5-325 mg 1 tab PO DAILY pen needle, diabetic USE FOUR TIMES DAILY WITH INSULIN PENS DX: E11.9 propranolol ER 120 mg PO DAILY zolpidem 10 mg PO BEDTIME Tobacco use date assessed: 10/14/24 Dental Screening Dental Screen Date: 10/14/24 Did you have a dental visit in the last 12 months?: Yes Did you have a dental problem in the last 6 months where you did not have access to dental care?: No Was dental information given to patient?: Patient has dentist [facility] Medical History Foot drop Uncontrolled hypertension Cerebral microvascular disease Chronic idiopathic cerebral venous infarction Thalamic infarct, acute Right leg weakness Cerebrovascular accident Headache GERD (gastroesophageal reflux disease) Cardiomyopathy Excessive daytime sleepiness Obesity (BMI 35.0-39.9 without comorbidity) Breast cancer in female Hyperlipidemia Cerebrovascular disease History of multiple strokes Benign nevus Family history of breast cancer Essential (primary) hypertension Multiple sclerosis (Unknown) Surgical History History of removal of cyst (05/07/22) Hx of colonoscopy (~09/25/22) History of esophagogastroduodenoscopy (EGD) History of breast surgery Family History Mother Cancer Brother H/O heart surgery Maternal Aunt Breast cancer Social History Household Members: None Household Members Other:: daughter away at college Housing: Apartment Are you a primary animal care assistant to a significant other at home: No Do you presently have visiting nurse or other home services: Yes Alcohol intake: current Alcohol intake frequency: does not drink Patient Tobacco Use Status: Never used Tobacco e-Cigarette/Vaping Use: Never Used Second Hand Smoke Exposure: No Advance Directives Date on File: 12/19/22 service: No Current occupational status: disabled Cognitive needs: No Hearing needs: No Vision needs: No Female Reproductive History Menstrual Age of Menarche: 10 Questionnaire PHQ-9 Over the last 2 weeks, how often have you been bothered by any of the following problems? 1. Little interest or pleasure in doing things: not at all 2. Feeling down, depressed, or hopeless: not at all 3. Trouble falling or staying asleep, or sleeping too much: not at all 4. Feeling tired or having little energy: not at all 5. Poor appetite or overeating: not at all 6. Feeling bad about yourself - or that you are a failure or have let yourself or your family down: not at all 7. Trouble concentrating on things, such as reading the newspaper or watching television: not at all 8. Moving or speaking so slowly that other people could have noticed. Or the opposite - being so fidgety or restless that you have been moving around a lot more than usual: not at all 9. Thoughts that you would be better off or of hurting yourself in some way: not at all Total score: 0 Depression Screening Interpretation: Negative Depression Screening Done: Yes Source: Developed by Yazmin Antonio.W. Tarun, Owen Gaytan and colleagues, with an educational stefani from [employer]. Thrive Questionnaire Date Thrive assessed: 10/14/24 I am a: Patient What is your living situation today?: I have a steady place to live Within the past 12 months, did the food you bought not last and you didn't have the money to get more?: Never true Within the past 12 months, did you worry whether your food would run out before you got money to buy more?: Never true Do you have trouble paying for medicines?: No Do you have trouble getting transportation to medical appointments?: No Do you have trouble paying your heating and electricity bill?: No Do you have trouble taking care of your child, family member or friend?: No Do you have trouble with day-to-day activities such as bathing, preparing meals, shopping, managing finances, etc.?: No Are you currently unemployed and looking for a job?: No Are you interested in more education?: No Please select the resources that you would like help with: None Currently or been in a relationship where the following occur: No concerns reported THRIVE Score: 0 AUDIT C Alcohol Use Questionnaire (AUDIT-C) 1. How often do you have a drink containing alcohol?: Never Total Score: 0 CASTRO-7 AMB Questionnaire CASTRO-7 Date CASTRO - 7 assessed: 10/14/24 Feeling nervous, anxious, or on edge: 0 = Not at all Not being able to stop or control worryin = Not at all Worrying too much about different things: 0 = Not at all Trouble relaxin = Not at all Being so restless that it is hard to sit still: 0 = Not at all Becoming easily annoyed or irritable: 0 = Not at all Feeling afraid as if something awful might happen: 0 = Not at all Total CASTRO-7 score (0-4 normal; 5-9 mild; 10-14 moderate; 15-21 severe): 0 Source: Developed by Drs. Niko Barone, Owen Leos and colleagues, with an educational stefani from [employer]. Physical exam (Primary Care) Vital Signs: Last Vital Signs Temp 97.3 F 10/14/24 10:07 BP 120/66 10/14/24 10:07 BMI result Body Mass Index 34.1 Tobacco/Smoking Status: Tobacco use Status Tobacco use date assessed 10/14/24 10/14/24 10:17 Patient Tobacco Use Status Never used Tobacco 10/14/24 10:04 e-Cigarette/Vaping Use Never Used 10/14/24 10:04 PHQ-9: PHQ-9 Score PHQ-9: Total score 0 10/14/24 10:17 Depression Screening Interpretation: Negative Thrive Assessment: Date of Thrive Assessment Date Thrive assessed 10/14/24 10/14/24 10:17 Currently or been in a relationship where the following occur: No concerns reported Results AMB Hemoglobin A1c AMB Hemoglobin A1c 7.5 % Last Edit by MYLES Almodovar on 10/14/24 10:19 Results Reviewed Results Reviewed: Laboratory Last Values Hgb A1c (Clinic) 7.5 % (4.0-6.0) H 10/14/24 10:04 Coding Level of Care Code Est Pt Level 3 (47942) Complex EM visit Add On G2211 Diagnoses Type 2 diabetes mellitus E11.9 Assessment & Plan Assessment & Plan (1) Type 2 diabetes mellitus: Code(s): E11.9 - Type 2 diabetes mellitus without complications Category: Medical Plan: A1 c ordered. Blood work requested. Pt was in a hurry and left to see a neurologist Plan History of Present Illness The patient is a 54-year-old female presenting with concerns related to diabetes management, specifically addressing episodes of hypoglycemia. She is compliant with her insulin therapy, employing a regimen of long-acting insulin at 30 units and 20 units with meals. The patient has experienced episodes of significant hypoglycemia, with blood glucose recordings of 53 mg/dL and 60 mg/dL. Her blood glucose levels reportedly do not exceed 200 mg/dL. Currently, she is using an insulin patch for glucose control. The patient was unable to check her blood glucose on the morning of the appointment, given her need to attend the clinic, but generally maintains regular monitoring. She is fasting for blood work, suggesting good compliance with recommended practices. The patient reports some difficulty with vision but did not elaborate on this during the visit. She is not currently driving. Social History - The patient is not currently driving. Review of Systems - Vision: Reports difficulty with vision. - Endocrine: Reports compliance with insulin management but previous episodes of hypoglycemia. Physical Exam General: Cooperative and healthy appearing Nutritional Appearance: Well nourished Orientation/consciousness: Patient oriented x3 Limitations: No limitations Head: Normal to inspection General: Appearance normal, both eyes and all related structures Neck: Normal visual inspection Chest: Normal palpation of entire chest wall Respiratory: Normal respiratory effort Neurology: Patient oriented x3 Results Plan The patient is instructed to maintain her current insulin therapy regimen, comprising 30 units of long-acting insulin and 20 units with meals, to manage her diabetes effectively. The continuity of consistent glucose monitoring is emphasized to avoid hypoglycemic events. She will proceed with the planned fasting blood work to assess her glucose control and renal function in the context of diabetes. The patient is scheduled for a follow-up in three months for further management of her diabetes and hypoglycemia and will see Dr. Penaloza, her neurologist. Monitoring her vision and considering any necessary adjustments to her therapy will also be essential during continued care. Patient was informed and verbally consented to the use of an ambient scribe for clinic note documentation during this visit. Discussion Notes In our discussion, we focused on the management of the patient's diabetes and frequent episodes of hypoglycemia. I explained the importance of maintaining her current insulin regimen and encouraged consistent monitoring of blood glucose levels to prevent hypoglycemic episodes. The necessity of fasting for blood work to aid in evaluating her glucose control and kidney function was emphasized, and she agreed. We also discussed follow-up plans with her neurologist regarding any neurological symptoms, particularly given her not currently driving. We plan to reassess her diabetes management in three months. Patient Instructions - Continue taking insulin as prescribed: 30 units long-term and 20 units with meals. - Check blood sugar levels regularly, especially before meals and at bedtime. - Proceed with fasting blood work today as planned. - Follow up with neurologist Dr. Penaloza as scheduled. - Call the clinic with any concerns or if further episodes of hypoglycemia occur. Orders: Orders AMB Hemoglobin A1c Today E11.9 - Type 2 diabetes mellitus without complications
[2024-10-14 10:07] VITALS: BP 120/66; TEMP 36.3; BMI 34.1
--- OUTSIDE RECORDS SUMMARY | 2024-10-14 11:19 | XMS_ITS | Encounter Summary ---
Author Organization [facility] Address [address] [place] [address] Care Team Providers Care Remote Sensing Specialist Name Role Phone Pineda Rojas MD Primary Care Provider [phone] Encounter Details Date Type Department Care Team (Late st Contact Info) Description 07/02/2024 Lab Requisition [facility] - Main Lab [address] [facility] [place] [address] Pineda Rojas MD [address] [place] [address] Type 2 diabetes mellitus without complications (CMS/HCC) Social History Tobacco Use Types Packs/Day Years Used Date Smoking Tobacco: Never Assessed Comments Unknown Sex and Gender Information Value Date Recorded Sex Assigned at Not on file Legal Sex Female 1:49 PM EST Gender Identity Not on file Sexual Orientation Not on file documented as of this encounter Plan of Treatment Not on file documented as of this encounter Procedures Procedure Name Priority Date/Time Associated Diagnosis Comments HEMOGLOBIN A1C Routine 07/05/2024 6:55 AM EST Type 2 diabetes mellitus without complications (CMS/HCC) documented in this encounter Results * (ABNORMAL) Hemoglobin A1c (07/05/2024 6:55 AM EST) Hemoglobin A1C 9.1(H) <6.5 % LAB CHEMISTRY METHOD 07/05/2024 2:42 PM EST [facility] Mean Bld Glu Estim. 214 mg/dL LAB CHEMISTRY METHOD 07/05/2024 2:42 PM EST [facility] Blood Venous blood specimen / Unknown Venipuncture / Unknown 07/05/2024 6:55 AM EST 07/05/2024 11:37 AM EST us Pineda Rojas MD LAB BLOOD ORDERABLES Final Resul t [facility] ([facility]) [facility] [address] [place] [address], documented in this encounter Visit Diagnoses Diagnosis Type 2 diabetes mellitus without complications documented in this encounter Care Teams Remote Sensing Specialist Relationship Specialty Start Date End Date Pineda Rojas MD [address] [place] [address] [address] [place] [address] PCP - General Geriatric Medicine 06/25/24 documented as of this encounter
--- OUTSIDE RECORDS SUMMARY | 2024-10-14 11:19 | XMS_ITS | Encounter Summary ---
Author Organization [facility] Address [address] [place] [address] Care Team Providers Care Supply Room Clerk Name Role Phone Pineda Rojas MD Primary Care Provider [phone] Encounter Details Date Type Department Care Team (Late st Contact Info) Description 06/25/[address] [facility] - Main Lab [address] [facility] [employer] [place] [address] Pineda Rojas MD [address] [place] [address] Type 2 diabetes mellitus with unspecified complications (CMS/HCC) Social History Tobacco Use Types [...] Procedure Name Priority Date/Time Associated Diagnosis Comments COMPLETE BLOOD COUNT Routine 06/25/2024 5:26 AM EST Type 2 diabetes mellitus with unspecified complications (CMS/HCC) BASIC METABOLIC PANEL Routine 06/25/2024 5:26 AM EST Type 2 diabetes mellitus with unspecified complications (CMS/HCC) documented in this encounter Results * (ABNORMAL) Basic metabolic panel (06/25/2024 5:26 AM EST) Sodium 138 133 - 145 mmol/L LAB CHEMISTRY METHOD 06/25/2024 11:24 AM EST [facility] Potassium 4.1 3.5 - 5.5 mmol/L LAB CHEMISTRY METHOD 06/25/2024 11:24 AM [facility] Chloride 102 96 - 110 mmol/L LAB CHEMISTRY METHOD 06/25/2024 11:24 AM [facility] CO2 26 21 - 32 mmol/L LAB CHEMISTRY METHOD 06/25/2024 11:24 AM [facility] Anion Gap 10 3 - 11 LAB CHEMISTRY METHOD 06/25/2024 11:24 AM [facility] Glucose 251(H) 70 - 100 mg/dL LAB CHEMISTRY METHOD 06/25/2024 11:24 AM [facility] BUN 8 5 - 25 mg/dL LAB CHEMISTRY METHOD 06/25/2024 11:24 AM [facility] Creatinine 1.03 0.50 - 1.10 mg/dL LAB CHEMISTRY METHOD 06/25/2024 11:24 AM [facility] eGFR 64 >=60 mL/min/1. 73m2 LAB CHEMISTRY METHOD 06/25/2024 11:24 AM [facility] Comment:Calculation based on the??Chronic Kidney Disease Epidemiology Collaboration (CKD-EPI) equation refit??without adjustment for race. BUN/Creatinine Ratio 7.8 LAB CHEMISTRY METHOD 06/25/2024 11:24 AM [facility] Calcium 9.0 8.5 - 10.5 mg/dL LAB CHEMISTRY METHOD 06/25/2024 11:24 AM [facility] Blood Venous blood specimen / Unknown Venipuncture / Unknown 06/25/2024 5:26 AM EST 06/25/2024 10:06 AM EST us Pineda Rojas MD LAB BLOOD ORDERABLES Final Resul t [facility] [address] [place] [address], * (ABNORMAL) Complete blood count (06/25/2024 5:26 AM EST) WBC 8.9 4.8 - 10.8 K/mcL LAB HEMETOLOGY METHOD 06/25/2024 11:07 AM [facility] RBC 4.50 3.80 - 4.80 M/mcL LAB HEMETOLOGY METHOD 06/25/2024 11:07 AM [facility] Hemoglobin 11.4(L) 11.5 - 16.0 g/dL LAB HEMETOLOGY METHOD 06/25/2024 11:07 AM [facility] Hematocrit 36.2 35.0 - 47.0 % LAB HEMETOLOGY METHOD 06/25/2024 11:07 AM [facility] MCV 80.3 79.0 - 98.0 FL LAB HEMETOLOGY METHOD 06/25/2024 11:07 AM [facility] MCH 25.3(L) 27.0 - 32.0 pcg LAB HEMETOLOGY METHOD 06/25/2024 11:07 AM [facility] MCHC 31.5(L) 32.0 - 37.0 g/dL LAB HEMETOLOGY METHOD 06/25/2024 11:07 AM [facility] RDW 15.8(H) 11.0 - 15.0 % LAB HEMETOLOGY METHOD 06/25/2024 11:07 AM [facility] Platelets 353 130 - 400 K/mcL LAB HEMETOLOGY METHOD 06/25/2024 11:07 AM [facility] MPV 12.5(H) 7.0 - 11.0 FL LAB HEMETOLOGY METHOD 06/25/2024 11:07 AM [facility] NRBC 0.0 <1.0 % LAB HEMETOLOGY METHOD 06/25/2024 11:07 AM [facility] NRBC Absolute 0.00 <0.10 K/mcL LAB HEMETOLOGY METHOD 06/25/2024 11:07 AM [facility] Blood Venous blood specimen / Unknown Venipuncture / Unknown 06/25/2024 5:26 AM EST 06/25/2024 10:06 AM EST Pineda Rojas MD LAB BLOOD ORDERABLES Final Resul t [facility] ([facility]) [facility] [address] [place] [address], documented in this encounter Visit Diagnoses Diagnosis Type 2 diabetes mellitus with unspecified complications documented in this encounter Care Teams Supply Room Clerk Relationship Specialty Start Date End Date Pineda Rojas MD [address] [place] [address] [address] [place] [address] PCP - General Geriatric Medicine 06/25/24 documented as of this encounter
--- OUTSIDE RECORDS SUMMARY | 2024-10-14 11:19 | XMS_ITS | Clinical Summary ---
Author Organization [address] Address [address] [place] [address] Phone Care Team Providers Care Thread Dresser Name Role Phone Pineda Rojas MD Primary Care Provider [phone] Social History Tobacco Use Types Packs/Day Years Used Date Smoking Tobacco: Never Assessed Comments Unknown Sex and Gender Information Value Date Recorded Sex Assigned at Not on file Legal Sex Female 1:49 PM EST Gender Identity Not on file Sexual Orientation Not on file Plan of Treatment Health Maintenance Due Date Last Done Comments Breast Cancer Screening 1968 DTaP,Tdap,and Td Vaccines (1 - Tdap) 1987 Hepatitis B Vaccines (1 of 3 - 19+ 3-dose series) 1987 Pneumococcal Vaccine: 50+ Ye ars (1 of 2 - PCV) 1987 Pneumococcal Vaccine: Pediat rics (0 to 5 Years) and At-Risk Patients (6 to 64 Years) (1 of 2 - PCV) 1987 Cervical Cancer Screening: P ap Smear 1989 Zoster Vaccines (1 of 2) 2018 Colorectal Cancer Screening: Colonoscopy 08/19/2023 Depression Screening 08/19/2023 HIV Screening 08/19/2023 Hepatitis C Screening 08/19/2023 Social Influencers of Health Screening 08/19/2023 COVID-19 Vaccine (2023-2 5 season) 2024 Influenza Vaccine (#1) 2024 HIB Vaccines Aged Out No longer eligi ble based on patient's age to complete this topic HPV Vaccines Aged Out No longer eligi ble based on patient's age to complete this topic Hepatitis A Vaccines Aged Out No long er eligible based on patient's age to complete this topic IPV Vaccines Aged Out No longer eligi ble based on patient's age to complete this topic MMR Vaccines Aged Out No longer eligi ble based on patient's age to complete this topic Meningococcal ACWY Vaccine Aged Out N o longer eligible based on patient's age to complete this topic Meningococcal B Vacine Aged Out No lo nger eligible based on patient's age to complete this topic RSV Immunization Patients Un johanna 20 months Aged Out No longer eligible b ased on patient's age to complete this topic Varicella Vaccines Aged Out No longer eligible based on patient's age to complete this topic [place] [address] [place] [address] [employer] Advance Directives Documents on File Type Date Recorded Patient Personal Vehicle Advisor Expl anation Health Care Decision (hx) 01/02/2023 AD ESPINO DIRECTIVE Health Care Decision (hx) 12/19/2022 HE ALTH CARE PROXY Care Teams Thread Dresser Relationship Specialty Start Date End Date Pineda Rojas MD [address] [place] [address] [address] [place] [address] PCP - General Geriatric Medicine 06/25/24
== END 2024-10-14 10:25 | disposition home or self-care (01) ==
LOC: HO.HMCH 09:22
PROVIDERS: PCP Internal Medicine; Visit Provider Internal Medicine
DX: E11.9 Type 2 diabetes mellitus without complications (principal)

== ENCOUNTER → 2024-10-14 09:21 | Outpatient (BNVA) | payer OTHER, SELFPAY | PROVIDERS: PCP Internal Medicine; Visit Provider Internal Medicine | DX: E11.9 Type 2 diabetes mellitus without complications (principal) | CPT/HCPCS: 83036; 99212 ==

== ENCOUNTER 2024-10-19 20:03 | Emergency (ER) | payer OTHER, SELFPAY ==
--- NOTE | ~2024-10-19 | CT_ITS ---
CLINICAL HISTORY: fall, headstrike CT head without contrast Comparison: Head CT from 06/22/2024. 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 No new arterial territorial infarction by CT. Multiple small infarctions are redemonstrated including bilateral basal ganglia regions. Additional white matter lesions likely due to combination of the wallerian degeneration and small-vessel ischemic disease. Vascular calcifications are redemonstrated. No midline shift or hydrocephalus. No acute skull fracture. Imaged paranasal sinuses Are well aerated. Small right mastoid effusion. Soft tissue in the external auditory canals is likely due to cerumen. Nasal bone fractures are old. No acute skull fracture. Previous alberto holes with anterior metallic cover redemonstrated on the right. IMPRESSION: 1. No acute intracranial abnormality by CT. 2. No significant change in brain parenchyma compared to head CT from 06/22/2024, with multiple old infarctions. This document has been electronically signed by: Bryan Torres MD on 10/19/2024 21:34:15
--- NOTE | ~2024-10-19 | XR_ITS ---
CLINICAL HISTORY: multiple falls, pain bilateral hips 5 view, pelvis and bilateral hips Comparison: None Findings: No displaced fracture or dislocation involving either hip. Small os acetabulum of the tip. Mild-moderate osteoarthritis of the hips, right worse than left. No displaced fracture of the imaged pelvis. Sacrum and SI joints are mostly obscured, with severe stool burden in the [id number]. Phleboliths are noted in the pelvis. Likely enthesopathy of the imaged iliac wings. IMPRESSION: 1. No acute fracture or dislocation involving either hip. 2. Osteoarthritis of the both hips. This document has been electronically signed by: Bryan Torres MD on 10/19/2024 21:30:33
--- NOTE | ~2024-10-19 | CT_ITS ---
CLINICAL HISTORY: fall, head strike CT cervical spine without contrast Comparison: CT of the cervical spine from 05/27/2024. Findings: Straightening of the cervical lordosis. No acute fracture of the cervical spine. No significant change in vertebral alignments. Facet arthropathy and ligament calcifications are multifocal. Mild foraminal narrowing redemonstrated including C5-C6 to the cervicothoracic junction. Small disc osteophyte complexes including C3-C4 to C6-C7. No paraspinal hematoma. Mild scarring and motion of the imaged lung apices. IMPRESSION: No acute fracture of the cervical spine. This document has been electronically signed by: Bryan Torres MD on 10/19/2024 21:29:42
[2024-10-19 20:07] VITALS: BP 142/78; PULSE 76; O2SAT 96
[2024-10-19 20:12] VITALS: BP 148/78; PULSE 80; RESP 16; TEMP 36.7; O2SAT 93; BMI 35.3
--- NOTE | 2024-10-19 20:14 | ECG_ITS ---
Test Reason : FALL Blood Pressure : */* mmHG Vent. Rate : 81 BPM Atrial Rate : 81 BPM P-R Int : 172 ms QRS Dur : 90 ms QT Int : 404 ms P-R-T Axes : 36 4 166 degrees QTcB Int : 469 ms Normal sinus rhythm Left ventricular hypertrophy with repolarization abnormality ( R in aVL , [place] product , Romhilt-Jules ) Abnormal ECG When compared with ECG of 22-Jun-2024 15:41, No significant change was found Referred By: Marie Hein Electronically Signed By: RENETTA MARKHAM
--- NOTE | 2024-10-19 20:17 | ED.HEATRA ---
HPI - Head Injury General Chief complaint: Fall Stated complaint: fall w/ headstrike + thinners Time Seen by Provider: 10/19/24 20:04 Source: patient and EMS Mode of arrival: EMS Limitations: no limitations History of Present Illness ED Provider: Marie Hein NP HPI Narrative: Patient is a 54 year old female past medical history of multiple sclerosis, type 2 diabetes, hyperlipidemia, LVH, CAD, CVA, cardiomyopathy anticoagulated on Pradaxa, CVA who presents emergency department via EMS for evaluation. Patient endorses having a 7 falls today, at least one of the falls having associated head strike she believes she struck her head onto the commode. She is anticoagulated on Pradaxa. Denies loss of consciousness. Reports having 8/10 headache , a superficial abrasion above the right brow without active bleeding. The etiology of the falls are unclear she is not able to tell me much details surrounding the falls. When asked she denies having any preceding symptoms before these falls. She denies any incontinence or seizure history. When asked she states that she has a walker and a cane at home but she does not use either of them. Evidently her daughter made her come to the emergency department today for evaluation after these falls. Related Data Home Medications ?Medication ?Instructions ?Recorded ?Confirmed hydrochlorothiazide 25 mg tablet 25 mg PO QAM 06/14/20 10/14/24 zolpidem 10 mg tablet 10 mg PO BEDTIME 06/14/20 10/14/24 oxycodone-acetaminophen 7.5 mg-325 1 tab PO DAILY 11/18/22 10/14/24 mg tablet Previous Rx's ?Medication ?Instructions ?Recorded amlodipine 10 mg tablet 10 mg PO DAILY #90 tabs 01/09/23 dabigatran etexilate 150 mg capsule 150 mg PO BID #60 caps 01/09/23 freestyle mario sensor cover #2 ea 02/21/23 lancets 28 gauge (FreeStyle #100 ea 12/29/23 Lancets) atorvastatin 40 mg tablet (Lipitor) 40 mg PO DAILY 90 days #90 tabs 04/21/24 flash glucose scanning reader #1 ea 06/07/24 (FreeStyle Mario 2 Kindred) flash glucose sensor (FreeStyle #2 ea 06/07/24 Mario 2 Sensor kit) insulin glargine 100 unit/mL (3 30 unit (0.3 mL) subcut QPM #15 mL 06/07/24 mL) subcutaneous pen (Lantus Solostar U-100 Insulin) oxycodone 5 mg tablet 7.5 mg (1.5 x 5 mg) PO DAILY #3 06/24/24 tabs blood sugar diagnostic (FreeStyle #10 ea 08/23/24 Lite Strips) insulin lispro 200 unit/mL (3 mL) 15 unit (0.075 mL) subcut TID #6 mL 09/17/24 subcutaneous pen propranolol 120 mg capsule,24 120 mg PO DAILY #90 caps 09/17/24 hr,extended release pen needle, diabetic 32 gauge x #100 ea 10/08/24 Allergies Allergy/AdvReac Type Severity Reaction Status Date / Time No Known Allergies Allergy Verified 10/19/24 20:16 Review of Systems Review of Systems: Yes all other systems are reviewed and are negative PMFSH Past Medical History Attestation statement: The following information was validated with the patient. Source: old records reviewed Medical History Foot drop Uncontrolled hypertension Cerebral microvascular disease Chronic idiopathic cerebral venous infarction Thalamic infarct, acute Right leg weakness Cerebrovascular accident Headache GERD (gastroesophageal reflux disease) Cardiomyopathy Excessive daytime sleepiness Obesity (BMI 35.0-39.9 without comorbidity) Breast cancer in female Hyperlipidemia Cerebrovascular disease History of multiple strokes Benign nevus Family history of breast cancer Essential (primary) hypertension Multiple sclerosis (Unknown) Surgical History History of removal of cyst (05/07/22) Hx of colonoscopy (~09/25/22) History of esophagogastroduodenoscopy (EGD) History of breast surgery Family History Family History Mother Cancer Brother H/O heart surgery Maternal Aunt Breast cancer Social History Social History Household Members: None Household Members Other:: daughter away at college Housing: Apartment Are you a primary healthcare financial analyst to a significant other at home: No Do you presently have visiting nurse or other home services: Yes Alcohol intake: current Alcohol intake frequency: does not drink Patient Tobacco Use Status: Never used Tobacco e-Cigarette/Vaping Use: Never Used Second Hand Smoke Exposure: No Advance Directives: Yes Advance Directives on File: Yes Advance Directives Date on File: 12/19/22 Do you have a plan to hurt others: No Plan service: No Current occupational status: disabled Cognitive needs: No Hearing needs: No Vision needs: No Physical Exam Vital Signs: Vital Signs: Last Vital Signs Temp 98.0 F 10/19/24 22:11 Pulse 83 10/19/24 23:44 Resp 18 10/19/24 22:11 BP 115/67 10/19/24 23:44 Pulse Ox 97 10/19/24 22:11 O2 Del Method Room Air 10/19/24 22:11 BMI result Body Mass Index 35.3 Appearance: Alert.?Oriented to person, place and time. No acute distress.?Normal affect. Head: Normocephalic Eyes: Pupils equal, round and reactive to light. EOMI. Conjunctiva and sclera normal? No Yun sign noted. No raccoon eyes noted. superficial abrasion over the right brow without active bleeding ENT: No septal hematoma, nares patent bilaterally. External auditory canal normal tympanic membrane pearly patel and intact bilaterally. Dentition normal, no fractured teeth. No lesions or lacerations of oropharynx. Uvula midline. Moist mucous membranes. Neck: Normal inspection.? Neck supple.??No palpable tenderness, step-off, deformities. CVS: Heart sounds normal. Normal heart rate and rhythm.? Pulses normal.?? Respiratory: No respiratory distress.? Lung sounds clear to auscultation bilaterally?? Abdomen: Soft and non-tender. Normoactive bowel sounds. ?? Skin: Skin warm and dry.? Normal skin color.? ? Extremities: No lower extremity edema.? Limited AROM with external rotation of the bilateral hips and endorsing pain Neuro: Moves all extremities spontaneously. Sensation intact bilaterally. CN II-XII intact. No focal neuro deficits. Course Reevaluation(s) Reevaluation #1: CBC reveals a mild leukocytosis of 10,900 without left shift, mild normocytic anemia not meeting transfusion criteria, no thrombocytopenia. no electrolyte derangement. No TYSHAWN. LFTs unremarkable. High sensitive troponin below detectable limits, EKG revealing normal sinus rhythm with ventricular rate of 81, QTC 469. No acute ischemic changes. Urinalysis without evidence of urinary tract infection. Viral serologies are negative. CT of the head and cervical spine are without acute pathology. XR of the bilateral hips and pelvis was normal. patient's daughter is at bedside, she states that patient did not have 7 falls today, endorsing 1 fall, has had increased falls recently. Lives at home with patient. States that patient was recently discharged from short-term rehab, and has just began in home physical therapy. Patient has no interest in having physical therapy evaluation in the emergency department for determination as to whether she should have acute short-term rehab yet again. She would like to be discharged home at this time to feel is reasonable. Nursing staff was able to provide her with a walker to get out of bed and ambulate to the bathroom. She was able to do so with slightly unsteady gait though per daughter this is baseline due to her history of MS. She declined to have a chest x-ray obtained today, I did discuss with the may potentially be underlying infectious pathology that could result in her increasingly weak recently, she however declines. Medical Decision Making Medical Decision Making MDM Narrative: Patient is a 54 year old female past medical history of multiple sclerosis, type 2 diabetes, hyperlipidemia, LVH, CAD, CVA, cardiomyopathy anticoagulated on Pradaxa who presents via EMS for evaluation after multiple fall today at least 1 with head strike, unclear etiology of the falls, endorsing a headache with associated dizziness not able to describe the quality. She has no focal neurological deficits on examination. During physical exam she is also noted to have report of pain with external rotation of the bilateral hips with limited AROM, she states at baseline she typically does have pain, does not feel that this is particularly worse. Given head injury on anticoagulation will obtain CT of the head and cervical spine films with ICH, SDH, fracture, subluxation. XR of the bilateral hips and pelvis to evaluate for acute osseous abnormality. Given the etiology of the falls is uncertain Will obtain CBC to evaluate for leukocytosis/ anemia, CMP and lipase to evaluate for abnormal electrolytes /abnormal renal function/ abnormal hepatic/biliary function, EKG and troponin to evaluate for ischemia/ACS. Chest x-ray to evaluate for consolidation/ infiltrate/ mass/ pulmonary congestion, viral serologies and Urinalysis. Differential Diagnosis Differential Diagnoses: The differential diagnosis associated with the presentation includes (See narrative above) Admission/Observation Consideration of admission/observation: Escalation of care including admission/observation considered (See narrative above) Lab Data 10/19/24 21:00 10/19/24 21:00 Labs: Lab Results 10/19/24 10/19/24 10/19/24 Range/Units 20:22 21:00 23:41 WBC 10.9 H (4.8-10.8) X10*3/uL RBC 4.05 L (4.20-5.50) X10*6/uL Hgb 11.2 L (12.0-16.0) g/dl Hct 33.0 L (37.0-47.0) % MCV 81.5 (80.0-98.0) fL MCH 27.7 (27.0-33.0) pg MCHC 33.9 (31.0-35.0) g/dl RDW 14.0 (11.0-16.0) % Plt Count 350 (160-400) X10*3/uL MPV 12.0 (9.4-12.3) fL Immature Gran % (Auto) 0.3 (0.0-0.4) % Neut % (Auto) 65.8 (45-73) % Lymph % (Auto) 28.7 (20-40) % [place] % (Auto) 3.8 (2-11) % Eos % (Auto) 1.1 (0-4) % Baso % (Auto) 0.3 (0-2) % Lymph # (Auto) 3.1 (1.2-4.9) X10*3/uL [place] # (Auto) 0.4 (0.1-1.2) X10*3/uL Eos # (Auto) 0.1 (0.0-0.4) X10*3/uL Baso # (Auto) 0.0 (0.0-0.2) X10*3/uL Abs Immat Gran (auto) 0.03 (0.00-0.03) X10*3/uL Absolute Neuts (auto) 7.2 (2.0-8.3) x10*3/uL Absolute Nucleated RBC 0.000 (0.0-0.012) X10*3/uL Nucleated RBC % (auto) 0.0 (0.0-0.2) /100WBC PT 12.6 H (10.9-12.4) SEC INR 1.1 (0.9-1.1) Sodium 144 (135-145) mmol/L Potassium 3.3 (3.3-5.1) mmol/L Chloride 107 (96-108) mmol/L Carbon Dioxide 30 H (22-29) mmol/L Anion Gap 10 L (12-20) BUN 12 (9-16) mg/dL Creatinine 1.05 (0.5-1.4) mg/dL Estim Creat Clear Calc 71.0 Estimated GFR 54 POC Glucose 98 (60-115) mg/dL Random Glucose 78 (60-115) mg/dL Calcium 9.1 (8.4-10.2) mg/dL Magnesium 2.2 (1.6-2.6) mg/dL Total Bilirubin 0.4 (0.0-1.0) mg/dL AST 18 (5-31) U/L ALT 10 (0-31) U/L Alkaline Phosphatase 101 (39-117) U/L Troponin I High Sens 3.6 (<3.5-17.0) ng/L Total Protein 7.0 (6.5-8.0) g/dL Albumin 3.8 (3.5-5.0) g/dL Lipase 14 (8-78) U/L Urine Color Yellow Urine Appearance Clear Urine pH 5.5 (5.0-9.0) Ur Specific [place] 1.015 (1.005-1.025) Urine Protein Negative (Neg-Trace) mg/dL Urine Glucose (UA) Negative (Negative) mg/dL Urine Ketones Negative (Negative) mg/dL Urine Blood Negative (Negative) Urine Nitrite Negative (Negative) Ur Leukocyte Esterase Negative (Negative) Influenza Type A (PCR) NEGATIVE (Negative) Influenza Type B (PCR) NEGATIVE (Negative) RSV RNA Qual (PCR) NEGATIVE (Negative) SARS-CoV-2 RNA (RT-PCR) NEGATIVE (Negative) Independent Interpretation I performed an independent interpretation of an: EKG Radiology Impression Discussion of test interpretation with radiology: I have reviewed the radiologist's reading. Independent Historian Clinical information obtained from an independent historian. History obtained from or confirmed by: EMS External Record Review External record reviewed: Outpatient record Chronic Conditions Patient?s care impacted by: Other ( see narrative above) Discharge Plan Discharge Clinical Impression: Multiple falls Patient Disposition: Home, Self-Care Additional Instructions: You were evaluated in the emergency department due to recent increase in falls. Testing for COVID-19/RSV/ flu were negative. Urine test does not show any evidence of infection. Your blood work was very reassuring today. CT of the head and neck were normal without any acute injury from the fall. You declined to have a chest x-ray while in the emergency department, sometimes underlying respiratory illnesses such as pneumonia can result in increasing weakness and falls. You were offered to have physical therapy evaluation and determination as to whether you would benefit from short-term rehab, however you have declined and requested to go home, please continue working with in-home physical therapy. You may return to emergency department at any time with any new or worsening symptoms or concerns. Contact your primary care provider to arrange for a follow-up visit. Prescriptions: No Action (DME) freestyle mario sensor cover See Rx Instructions .Route .MEDSUPPLY Qty: 2 5RF Rx Instructions: As directed (DME) lancets [FreeStyle Lancets] 28 gauge misc See Rx Instructions .ROUTE QID Qty: 100 0RF Rx Instructions: As directed 3 times per day atorvastatin [Lipitor] 40 mg tablet 40 mg PO DAILY 90 Days Qty: 90 3RF (DME) FreeStyle Lite Strips Strip See Rx Instructions .ROUTE TID Qty: 10 0RF Rx Instructions: As directed three times per day propranolol 120 mg capsule,extended release 24hr 120 mg PO DAILY Qty: 90 0RF insulin lispro 200 unit/mL (3 mL) insulin pen 15 unit subcut TID Qty: 6 0RF (DME) pen needle, diabetic 32 gauge x 5/32 needle See Rx Instructions .ROUTE .COMPLEX Qty: 100 2RF Dose Instruction: USE FOUR TIMES DAILY WITH INSULIN PENS DX: E11.9 Rx Instructions: USE FOUR TIMES DAILY WITH INSULIN PENS DX: E11.9 dabigatran etexilate 150 mg capsule 150 mg PO BID Qty: 60 2RF amlodipine 10 mg tablet 10 mg PO DAILY Qty: 90 0RF oxycodone 5 mg tablet 7.5 mg PO DAILY Qty: 3 0RF Rx Instructions: Partial Fill upon patient request. zolpidem 10 mg tablet 10 mg PO BEDTIME hydrochlorothiazide 25 mg tablet 25 mg PO QAM oxycodone-acetaminophen 7.5-325 mg tablet 1 tab PO DAILY insulin glargine [Lantus Solostar U-100 Insulin] 100 unit/mL (3 mL) insulin pen 30 unit subcut QPM Qty: 15 3RF (DME) FreeStyle Mario 2 Kindred Misc See Rx Instructions .Route Qty: 1 0RF Rx Instructions: test 3 times daily (DME) FreeStyle Mario 2 Sensor Kit See Rx Instructions .ROUTE .MEDSUPPLY Qty: 2 11RF Rx Instructions: Check blood sugars Referrals: Christiano Kaur MD [Primary Care Provider] - Print Language: Yi
[2024-10-19 20:27] LABS: Glucose, Whole Blood 98 mg/dL (60-115)
[2024-10-19 21:03] LABS: MANUAL DIFF FLAG NO
[2024-10-19 21:19] LABS: Basophils Percent Auto 0.3 % (0-2); Eosinophils Absolute Auto 0.1 X10*3/uL (0.0-0.4); Eosinophils Percent Auto 1.1 % (0-4); Hemoglobin 11.2 g/dl (12.0-16.0); Imm Gran Abs Auto 0.03 X10*3/uL (0.00-0.03); Imm Gran Pct Auto 0.3 % (0.0-0.4); Lymphocytes Absolute Auto 3.1 X10*3/uL (1.2-4.9); Lymphocytes Percent Auto 28.7 % (20-40); Mean Corpuscular HGB Conc 33.9 g/dl (31.0-35.0); Mean Corpuscular Hemoglobin 27.7 pg (27.0-33.0); Mean Corpuscular Volume 81.5 fL (80.0-98.0); Monocytes Absolute Auto 0.4 X10*3/uL (0.1-1.2); Monocytes Percent Auto 3.8 % (2-11); Neutrophils Absolute Auto 7.2 x10*3/uL (2.0-8.3); Neutrophils Percent Auto 65.8 % (45-73); Platelet Count 350 X10*3/uL (160-400); Red Blood Count 4.05 X10*6/uL (4.20-5.50); White Blood Count 10.9 X10*3/uL (4.8-10.8)
[2024-10-19 21:29] LABS: INTERNATIONAL NORM RATIO 1.1 (0.9-1.1); Prothrombin Time 12.6 SEC (10.9-12.4)
[2024-10-19 21:41] LABS: Troponin-I High Sensitivity 3.6 ng/L (<3.5-17.0)
[2024-10-19 21:43] LABS: Alanine Aminotransferase 10 U/L (0-31); Albumin Level 3.8 g/dL (3.5-5.0); Alkaline Phosphatase 101 U/L (39-117); Anion Gap 10 (12-20); Aspartate Amino Transferase 18 U/L (5-31); Bilirubin Total 0.4 mg/dL (0.0-1.0); Blood Urea Nitrogen 12 mg/dL (9-16); Calcium 9.1 mg/dL (8.4-10.2); Carbon Dioxide 30 mmol/L (22-29); Chloride 107 mmol/L (96-108); Estimated Glomerular Filt Rate 54; Glucose Random 78 mg/dL (60-115); Magnesium 2.2 mg/dL (1.6-2.6); Potassium 3.3 mmol/L (3.3-5.1); Sodium 144 mmol/L (135-145)
[2024-10-19 22:00] VITALS: BP 145/80; PULSE 80; RESP 16; TEMP 36.7; O2SAT 97
[2024-10-19 22:11] VITALS: BP 131/67; PULSE 82; RESP 18; TEMP 36.7; O2SAT 97
[2024-10-19 22:13] LABS: Influenza A PCR NEGATIVE (Negative); Influenza B PCR NEGATIVE (Negative); Resp Syncy Virus RNA Qual PCR NEGATIVE (Negative); SARS COV2 PCR INHOUSE NEGATIVE (Negative)
[2024-10-19 22:31] LABS: Lipase 14 U/L (8-78)
[2024-10-19 23:43] VITALS: BP 122/60; PULSE 77
--- NOTE | 2024-10-19 23:43 | PC.NURSE ---
This sports book writer assumed care of this Pt at 2300. Pt A&Ox3, reports falling at home, + head strike, no LOC. Pt ambulated to BR with staff assist, slow steady gait. Daughter at bedside reports Pt is supposed to ambulate with walker or cane but has not been compliant at home.
[2024-10-19 23:44] VITALS: BP 115/67; BP 121/64; PULSE 83
[2024-10-19 23:56] LABS: Appearance Urine Clear; Color Urine Yellow; Glucose Urine UA Negative (Negative); Leukocyte Esterase Urine Negative (Negative); Nitrite Urine Negative (Negative); PH 5.5 (5.0-9.0); Specific Gravity - Urine 1.015 (1.005-1.025); Urine Blood Negative (Negative); Urine Ketones Negative (Negative); Urine Protein Negative (Neg-Trace)
[2024-10-20 02:27] VITALS: BP 00/00; PULSE 0; RESP 18; TEMP -17.7; TEMP 0
== END 2024-10-20 02:28 | disposition home or self-care (01) ==
PROVIDERS: Nurse Practitioner Family; Emergency Provider Emergency Medicine; PCP Internal Medicine
DX: R29.6 Repeated falls (principal); Z91.81 History of falling; R51.9 Headache, unspecified; M25.552 Pain in left hip; M25.551 Pain in right hip; E11.9 Type 2 diabetes mellitus without complications; I10 Essential (primary) hypertension; E78.5 Hyperlipidemia, unspecified; G35 Multiple sclerosis; Z79.02 Long term (current) use of antithrombotics/antiplatelets; Z79.4 Long term (current) use of insulin; Z79.899 Other long term (current) drug therapy
CPT/HCPCS: 0241U; 36415; 70450; 72125; 73521; 80053; 81003; 82947; 83690; 83735; 84484; 85025; 85610; 93005; 99284; 99285

== ENCOUNTER → 2024-10-19 20:14 | Outpatient (BNV) | payer OTHER, SELFPAY | PROVIDERS: Emergency Provider Emergency Medicine; PCP Internal Medicine; Visit Provider Internal Medicine | DX: I51.7 Cardiomegaly (principal) | CPT/HCPCS: 93010 ==

== ENCOUNTER → 2024-10-19 20:31 | Outpatient (BNV) | payer OTHER, SELFPAY | PROVIDERS: Emergency Provider Emergency Medicine; PCP Internal Medicine; Visit Provider Radiology Neuroradiology | DX: S09.90XA Unspecified injury of head, initial encounter (principal); W19.XXXA Unspecified fall, initial encounter; M16.0 Bilateral primary osteoarthritis of hip | CPT/HCPCS: 70450; 72125; 73521 ==

== ENCOUNTER → 2024-11-12 12:18 | Outpatient (REF) | payer OTHER, SELFPAY ==
--- NOTE | 2024-11-12 13:00 | CA_ITS ---
Transthoracic Echocardiogram Patient (Last, First, Middle): Esmer Rock M Gender: Female Date of : 1970 Age: 54 Procedure Date: 11/12/2024 Procedure Type: Transthoracic Echocardiogram Location: OP Height: 165.1 cm Weight: 90.72 kg BSA: 1.98 m2 Heart Rate: bpm BP: 118 / 60 mmHg Grain Processor: Referring MD: Hilario Serrano MD Symptoms: I51.7 - Cardiomegaly Study Quality: Adequate ECG Rhythm: Sinus Conclusions: - The left ventricular systolic function is normal. The calculated ejection fraction is 56% by biplane method. - There is severely increased left ventricular wall thickness. - No obvious valvular pathology seen on this study. - There is mild dilatation of the ascending aorta measuring 4.10 cm. Findings Left Ventricle Normal left ventricular cavity size. There is severely increased left ventricular wall thickness. The left ventricular systolic function is normal. The calculated ejection fraction is 56% by biplane method. There is no evidence of regional wall motion abnormalities. Evidence suggests grade I (mild) diastolic dysfunction. Right Ventricle Mildly increased right ventricular cavity size. There is normal right ventricular systolic function. Atria Both atria are normal in size. Aortic Valve There is a normal trileaflet aortic valve. There is no aortic valve stenosis. There is no aortic valve regurgitation. Mitral Valve The mitral valve appears normal. There is trace mitral valve regurgitation. There is no mitral valve stenosis. Pulmonic Valve The pulmonic valve is likely normal. Tricuspid Valve Normal tricuspid valve structure. There is trace tricuspid valve regurgitation. Great Vessels There is mild dilatation of the ascending aorta measuring 4.10 cm. Venous The inferior vena cava is normal in size and collapses greater than 50% with inspiration. Pericardium/Pleural There is no evidence of pericardial effusion. Prior Study Comparison No significant change compared to prior study dated: 12/16/2022. Recommendations, Care & Conclusions No obvious valvular pathology seen on this study. Measurements 2D Linear Measurements IVSd: 1.60 0.6-0.9/0.6-1.0 cm LVIDd: 4.25 3.9-5.3/4.2-5.9 cm LVIDd Index: 2.15 2.4-3.2/2.2-3.1 cm/m2 LVIDs: 2.38 2.0-3.6 cm LVPWd: 1.50 0.7-1.1 cm Ao Root: 3.20 2.1-3.5 cm LA Diam: 4.10 2.7-3.8/3.0-4.0 cm LAIDs Index: 2.07 1.5-2.3 cm/m2 LV Mass: 333.11 67-162/88-224 g LV Mass Index: 168.24 43-95/49-115 g/m2 LVOT Diam: 2.10 3.0+(-)1.3 cm 2D Systolic Function EF 4C: 58.80 >55% EF 2C: 50.30 >55% EF BiP: 55.60 >55% Mitral Valve MV Pk E: 0.75 MV PK A: 0.82 MV Decel Time: 247.00 E/A: 0.90 E'Lateral: 5.22 E'Medial: 4.57 E/E' Med: 16.30 E/E' Lat: 14.30 PHT: 72.00 MVA PHT: 3.06 Decel [place]: 3.02 Aortic Valve AoV Pk Toby: 1.13 AoV Mn Toby: 0.86 AoV VTI: 0.27 AoV Pk Grad: 5.00 Aov Mn Grad: 3.00 VENITA Cont.VTI: 3.79 LVOT LVOT Pk Toby: 1.05 LVOT Mn Toby: 0.86 LVOT VTI: 0.30 LVOT Pk Grad: 4.00 LVOT Mn Grad: 4.00 LVOT Diam: 2.10 LVOT Area: 3.46 Diastolic Function MV Pk E: 0.75 MV Pk A: 0.82 E/A: 0.90 E'Medial: 4.57 E/E' Med: 16.30 E' Laterial: 5.22 E/E' Lat: 14.30 Right Ventricle TAPSE (mm): 17.00 TVS' Toby: 11.00 Tricuspid Valve TR Pk Toby: 2.09 TR Pk Grad: 17.00 RA Press: 3.00 RVSP: 20.00 Great Vessels Aorta Ao Root-2D: 3.20 2.0-3.7 cm Ao Asc: 4.10 2.1-3.4 cm Pulmonary Valve PV Pk Toby: 0.91 Peak PV Grad: 3.00 Updated in Other Vendor System with Status of Final Jose Miguel Theodore MD electronically signed on 11/14/2024 1:03:21 PM with status of Final
--- OUTSIDE RECORDS SUMMARY | 2024-11-12 13:01 | XMS_ITS | Clinical Summary ---
Author Organization [address] Address [address] [place] [address] Phone Care Team Providers Care Search Manager Name Role Phone Pineda Rojas MD Primary Care Provider [phone] Social History Tobacco Use Types Packs/Day Years [...] Vaccine (2023-2 5 season) 2024 Influenza Vaccine (Season Ended) 2025 HIB Vaccines Aged Out No longer eligi [...] age to complete this topic Meningococcal B Vaccine Aged Out No l onger eligible based on patient's age to complete this topic RSV Immunization Patients Un johanna 20 months Aged Out No longer eligible b ased on patient's age to complete this topic Varicella Vaccines Aged Out No longer eligible based on patient's age to complete this topic [place] [address] [place] [address] [employer] Advance Directives Documents on File Type Date Recorded 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
--- OUTSIDE RECORDS SUMMARY | 2024-11-12 13:01 | XMS_ITS | Encounter Summary ---
Author Organization [facility] Address [address] [place] [address] Care Team Providers Care Manager Behavior Name Role Phone Pineda Rojas MD Primary Care Provider [phone] Encounter Details Date Type Department Care Team (Late st Contact Info) Description 07/02/2024 Lab Requisition [facility] - Main Lab [address] [facility] [place] [address] Pineda Rojas MD [address] [place] [address] Type 2 diabetes mellitus without complications (CMS/HCC V24, CMS/HCC V28) Social History Tobacco Use Types Packs/Day Years [...] EST Type 2 diabetes mellitus without complications (CMS/[facility]) documented in this encounter Results * (ABNORMAL) Hemoglobin A1c (07/05/2024 6:55 AM EST) Hemoglobin A1C 9.1(H) <6.5 % LAB CHEMISTRY METHOD 07/05/2024 2:42 PM EST [facility] Mean Bld Glu Estim. 214 mg/dL LAB CHEMISTRY METHOD 07/05/2024 2:42 PM EST [facility] Blood Venous blood specimen / Unknown Venipuncture / Unknown 07/05/2024 6:55 AM EST 07/05/2024 11:37 AM EST Pineda Rojas MD LAB BLOOD ORDERABLES Final Resul t [facility] [address] [place] [address], documented in this encounter Visit Diagnoses Diagnosis Type 2 diabetes mellitus without complications (CMS/HCC V24, CMS/HCC V28) documented in this encounter Care Teams Manager Behavior Relationship Specialty Start Date End Date Pineda Rojas MD [address] [facility] [address] [place] [address] PCP - General Geriatric Medicine 06/25/24 documented as of this encounter
--- OUTSIDE RECORDS SUMMARY | 2024-11-12 13:01 | XMS_ITS | Encounter Summary ---
Author Organization [facility] Address [address] [place] [address] Care Team Providers Care Fusing Machine Tender Name Role Phone Pineda Rojas MD Primary Care Provider [phone] Encounter Details Date Type Department Care Team (Late st Contact Info) Description 06/25/2024 Lab Requisition [facility] - Main Lab [address] [facility] [address] Pineda Rojas MD [address] [place] [address] Type 2 diabetes mellitus with unspecified complications (CMS/HCC V24, CMS/HCC V28) Social History [...] LAB CHEMISTRY METHOD 06/25/2024 11:24 AM EST [facility] Potassium 4.1 3.5 - 5.5 mmol/L LAB CHEMISTRY METHOD 06/25/2024 11:24 AM [facility] Chloride 102 96 - 110 mmol/L LAB CHEMISTRY METHOD 06/25/2024 11:24 AM [facility] CO2 26 21 - 32 mmol/L LAB CHEMISTRY METHOD 06/25/2024 11:24 AM [facility] Anion Gap 10 3 - 11 LAB CHEMISTRY METHOD 06/25/2024 11:24 AM [facility] Glucose 251(H) 70 - 100 mg/dL LAB CHEMISTRY METHOD 06/25/2024 11:24 AM [facility] BUN 8 5 - 25 mg/dL LAB CHEMISTRY METHOD 06/25/2024 11:24 AM [facility] Creatinine 1.03 0.50 - 1.10 mg/dL LAB CHEMISTRY METHOD 06/25/2024 11:24 AM [facility] eGFR 64 >=60 mL/min/1. 73m2 LAB CHEMISTRY METHOD 06/25/2024 11:24 AM [facility] Comment:Calculation based on the??Chronic Kidney Disease Epidemiology Collaboration (CKD-EPI) equation refit??without adjustment for race. BUN/Creatinine Ratio 7.8 LAB CHEMISTRY METHOD 06/25/2024 11:24 AM [facility] Calcium 9.0 8.5 - 10.5 mg/dL LAB CHEMISTRY METHOD 06/25/2024 11:24 AM [facility] Blood Venous blood specimen / Unknown Venipuncture / Unknown 06/25/2024 5:26 AM EST 06/25/2024 10:06 AM EST us Pineda Rojas MD LAB BLOOD ORDERABLES Final Resul t [facility] [address] [place] [address], * (ABNORMAL) Complete blood count (06/25/2024 5:26 AM EST) [facility] WBC 8.9 4.8 - 10.8 K/mcL LAB HEMETOLOGY METHOD 06/25/2024 11:07 AM [facility] RBC 4.50 3.80 - 4.80 M/mcL LAB HEMETOLOGY METHOD 06/25/2024 11:07 AM [facility] Hemoglobin 11.4(L) 11.5 - 16.0 g/dL LAB HEMETOLOGY METHOD 06/25/2024 11:07 AM [facility] Hematocrit 36.2 35.0 - 47.0 % LAB HEMETOLOGY METHOD 06/25/2024 11:07 AM [facility] MCV 80.3 79.0 - 98.0 FL LAB HEMETOLOGY METHOD 06/25/2024 11:07 AM [facility] MCH 25.3(L) 27.0 - 32.0 pcg LAB HEMETOLOGY METHOD 06/25/2024 11:07 AM [facility] MCHC 31.5(L) 32.0 - 37.0 g/dL LAB HEMETOLOGY METHOD 06/25/2024 11:07 AM [facility] RDW 15.8(H) 11.0 - 15.0 % LAB HEMETOLOGY METHOD 06/25/2024 11:07 AM [facility] Platelets 353 130 - 400 K/mcL LAB HEMETOLOGY METHOD 06/25/2024 11:07 AM [facility] MPV 12.5(H) 7.0 - 11.0 FL LAB HEMETOLOGY METHOD 06/25/2024 11:07 AM [facility] NRBC 0.0 <1.0 % LAB HEMETOLOGY METHOD 06/25/2024 11:07 AM [facility] NRBC Absolute 0.00 <0.10 K/mcL LAB HEMETOLOGY METHOD 06/25/2024 11:07 AM EST [facility] Blood Venous blood specimen / Unknown Venipuncture / Unknown 06/25/2024 5:26 AM EST 06/25/2024 10:06 AM EST Pineda Rojas MD LAB BLOOD ORDERABLES Final Resul t [facility] [address] [place] [address], documented in this encounter Visit Diagnoses Diagnosis Type 2 diabetes mellitus with unspecified complications (CMS/HCC V24, CMS/HCC V28) documented in this encounter Care Teams Fusing Machine Tender Relationship Specialty Start Date End Date Pineda Rojas MD [address] [place] [address] [address] [place] [address] PCP - General Geriatric Medicine 06/25/24 documented as of this encounter
== END ==
LOC: HO.CARD 12:18
PROVIDERS: PCP Internal Medicine; Visit Provider Internal Medicine Cardiovascular Disease
DX: I51.7 Cardiomegaly (principal)
CPT/HCPCS: 93306

== ENCOUNTER → 2024-11-12 13:00 | Outpatient (BNV) | payer OTHER, SELFPAY | PROVIDERS: PCP Internal Medicine; Visit Provider Internal Medicine | DX: I34.0 Nonrheumatic mitral (valve) insufficiency (principal) | CPT/HCPCS: 93306 ==

== ENCOUNTER 2024-11-23 13:11 | Outpatient (AMB) | payer OTHER, SELFPAY ==
--- NOTE | 2024-11-23 13:12 | A.OFFVIS_ITS ---
Vital Signs 11/23/24 13:13 Height 5 ft 6 in Weight 205 lb 0.478 oz BMI 33.1 BP 124/80 Blood Pressure Location Lt brachial Position Sitting Pulse 80 Intake Visit Reasons: 1 yr f/up s/p echo Intake Note: 1 year follow-up after echo had ekg last week feeling ok some sob with stairs Video System Repairer Required: No Podiatric Medicine Professor: Podiatric Medicine Professor Present Accompanied by: Daughter Allergies No Known Allergies Allergy (Verified 10/19/24 20:16) Medication List - Last Reconciled 11/23/24 by Hilario Serrano MD amlodipine 10 mg PO DAILY atorvastatin (Lipitor) 40 mg PO DAILY 90 days blood sugar diagnostic (FreeStyle Lite Strips) As directed three times per day dabigatran etexilate 150 mg PO BID flash glucose scanning reader (FreeStyle Mario 2 Bliss) test 3 times daily flash glucose sensor (FreeStyle Mario 2 Sensor kit) Check blood sugars [freestyle mario sensor cover As directed] hydrochlorothiazide 25 mg PO QAM insulin glargine (Lantus Solostar U-100 Insulin) 30 units (0.3 mL) subcut QPM insulin lispro 15 units (0.075 mL) subcut TID lancets (FreeStyle Lancets) As directed 3 times per day oxycodone 7.5 mg (1.5 x 5 mg) PO DAILY oxycodone-acetaminophen 7.5-325 mg 1 tab PO DAILY pen needle, diabetic USE FOUR TIMES DAILY WITH INSULIN PENS DX: E11.9 propranolol ER 120 mg PO DAILY zolpidem 10 mg PO BEDTIME HPI Comments Details: Esmer comes for follow-up, accompanied by her daughter. She remains active to her usual activity. Does not go out for walks because of weather. Otherwise she has no restrictions. She says she can not walk fast because of balance issues. Takes all her medications. Denies any exertional chest pain. No shortness of breath, orthopnea, PND. Most recent echocardiogram shows normal LV ejection fraction with severe left ventricular hypertrophy. No prolonged palpitation irregular heartbeat. No bleeding issues or neurologic events [facility] Medical History Foot drop Uncontrolled hypertension Cerebral microvascular disease Chronic idiopathic cerebral venous infarction Thalamic infarct, acute Right leg weakness Cerebrovascular accident Headache GERD (gastroesophageal reflux disease) Cardiomyopathy Excessive daytime sleepiness Obesity (BMI 35.0-39.9 without comorbidity) Breast cancer in female Hyperlipidemia Cerebrovascular disease History of multiple strokes Benign nevus Family history of breast cancer Essential (primary) hypertension Multiple sclerosis (Unknown) Surgical History History of removal of cyst (05/07/22) Hx of colonoscopy (~09/25/22) History of esophagogastroduodenoscopy (EGD) History of breast surgery Family History Mother Cancer Brother H/O heart surgery Maternal Aunt Breast cancer Social History Household Members: None Household Members Other:: daughter away at college Housing: Apartment Are you a primary child care associate teacher to a significant other at home: No Do you presently have visiting nurse or other home services: Yes Alcohol intake: current Alcohol intake frequency: does not drink Patient Tobacco Use Status: Never used Tobacco e-Cigarette/Vaping Use: Never Used Second Hand Smoke Exposure: No Advance Directives Date on File: 12/19/22 service: No Current occupational status: disabled Cognitive needs: No Hearing needs: No Vision needs: No Female Reproductive History Menstrual Age of Menarche: 10 Review of Systems Const Denies chills, Denies fatigue, Denies fever(s), Denies frequent falls, Denies weakness, Denies weight gain and Denies weight loss ENT Denies dizziness Card Denies chest pain, Denies leg edema, Denies lightheadedness, Denies palpitations, Denies dyspnea, Denies dyspnea on exertion, Denies orthopnea and Denies other (loss of consciousness) Resp Denies cough, Denies dyspnea and Denies dyspnea on exertion GI Denies hematochezia and Denies change in stool character Musc Denies abnormal gait, Denies muscle weakness, Denies numbness, Denies radiating pain into limb and Denies tingling Neuro Denies Abnormal speech present, Denies abnormal gait, Denies dizziness, Denies frequent falls, Denies numbness, Denies tingling and Denies weakness Endo Denies fatigue and Denies palpitations Physical Exam Vital Signs: Last Vital Signs Pulse 80 11/23/24 13:13 BP 124/80 11/23/24 13:13 BMI result Body Mass Index 33.1 Const General: cooperative, comfortable, no acute distress, alert and awake Nutritional Appearance: obese Orientation/consciousness: patient oriented x3 Limitations: no limitations Neck Neck: Yes supple Resp Effort & Inspection: normal respiratory effort Auscultation: clear to auscultation bilaterally Cardio Jugular venous distension: no JVD Palpation: normal PMI Rate: regular rate Rhythm: regular rhythm Heart sounds: S1 normal heart sound present, S2 normal heart sound present, no click, no gallops, no murmurs and no rubs GI Inspection: Yes obesity Neuro General: patient oriented x3 and no focal motor deficits Speech: No Abnormal speech present Extrem General: Yes no clubbing, cyanosis or edema Assessment & Plan Assessment & Plan (1) Hypertensive heart disease: Code(s): I11.9 - Hypertensive heart disease without heart failure Category: Medical Plan: Hypertensive heart disease with significant left ventricular hypertrophy noted on recent echocardiogram without signs or symptoms of heart failure. At this p oint time recommend to continue to pursue aggressive blood pressure control which is currently well optimized encouraged to measure blood pressure at home maintain a log. Continue current therapy. Importance of avoiding salt loading was discussed. She understands and agrees. Continue lifestyle modification with increase exercise and weight loss. She understands agrees. (2) CAD (coronary artery disease): Code(s): I25.10 - Atherosclerotic heart disease of [place] coronary artery without angina pectoris Category: Medical Plan: CAD with distal circumflex disease, with no current symptoms of angina. At this point time this vessel as small-vessel disease and unlikely to be managed with medical therapy at this point time. Continue aggressive blood pressure control. Aggressive diabetes management goal hemoglobin A1c less than 6.4%. High- intensity statin therapy with target goal LDL less than 70 mg/dL. Currently on oral anticoagulation therapy with dabigatran would avoid aspirin therapy. Follow up in the clinic in 1 year's time, sooner p.r.n.. Thank you for allowing me to partake in her care Coding Level of Care Code Est Pt Level 4 (42355) Complex EM visit Add On G2211 Diagnoses Hypertensive heart disease I11.9 CAD (coronary artery disease) I25.10
[2024-11-23 13:13] VITALS: BP 124/80; PULSE 80; BMI 33.1
--- OUTSIDE RECORDS SUMMARY | 2024-11-23 14:23 | XMS_ITS | Clinical Summary ---
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
--- OUTSIDE RECORDS SUMMARY | 2024-11-23 14:23 | XMS_ITS | Encounter Summary ---
Author Organization [facility] Address [address] [place] [address] Care Team Providers Care Manager Hydraulic Name Role Phone Pineda Rojas MD Primary Care Provider [phone] Encounter Details Date Type Department Care Team (Late st Contact Info) Description 06/25/2024 Lab Requisition [facility] - Main Lab [address] [facility] [place] [place] [address] Pineda Rojas MD [address] [place] [address] Type 2 diabetes mellitus with unspecified complications [...] LAB CHEMISTRY METHOD 06/25/2024 11:24 AM EST [facility] Potassium 4.1 3.5 - 5.5 mmol/L LAB CHEMISTRY METHOD 06/25/2024 11:[address] [facility] Chloride 102 96 - 110 mmol/L LAB CHEMISTRY METHOD 06/25/2024 11:[address] [facility] CO2 26 21 - 32 mmol/L LAB CHEMISTRY METHOD 06/25/2024 11:[address] [facility] Anion Gap 10 3 - 11 LAB CHEMISTRY METHOD 06/25/2024 11:[address] [facility] Glucose 251(H) 70 - 100 mg/dL LAB CHEMISTRY METHOD 06/25/2024 11:[address] [facility] BUN 8 5 - 25 mg/dL LAB CHEMISTRY METHOD 06/25/2024 11:[address] [facility] Creatinine 1.03 0.50 - 1.10 mg/dL LAB CHEMISTRY METHOD 06/25/2024 11:[address] [facility] eGFR 64 >=60 mL/min/1. 73m2 LAB CHEMISTRY METHOD 06/25/2024 11:[address] [facility] Comment:Calculation based on the??Chronic Kidney Disease Epidemiology Collaboration (CKD-EPI) equation refit??without adjustment for race. BUN/Creatinine Ratio 7.8 LAB CHEMISTRY METHOD 06/25/2024 11:[address] [facility] Calcium 9.0 8.5 - 10.5 mg/dL LAB CHEMISTRY METHOD 06/25/2024 11:[address] [facility] Blood Venous blood specimen / Unknown Venipuncture / Unknown 06/25/2024 5:26 AM EST 06/25/2024 10:06 AM EST us Pineda Rojas MD LAB BLOOD ORDERABLES Final Resul t [facility] [address] [place] [address], * (ABNORMAL) Complete blood count (06/25/2024 5:26 AM EST) [facility] WBC 8.9 4.8 - 10.8 K/mcL LAB HEMETOLOGY METHOD 06/25/2024 11:[address] [facility] RBC 4.50 3.80 - 4.80 M/mcL LAB HEMETOLOGY METHOD 06/25/2024 11:[address] [facility] Hemoglobin 11.4(L) 11.5 - 16.0 g/dL LAB HEMETOLOGY METHOD 06/25/2024 11:[address] [facility] Hematocrit 36.2 35.0 - 47.0 % LAB HEMETOLOGY METHOD 06/25/2024 11:[address] [facility] MCV 80.3 79.0 - 98.0 FL LAB HEMETOLOGY METHOD 06/25/2024 11:[address] [facility] MCH 25.3(L) 27.0 - 32.0 pcg LAB HEMETOLOGY METHOD 06/25/2024 11:[address] [facility] MCHC 31.5(L) 32.0 - 37.0 g/dL LAB HEMETOLOGY METHOD 06/25/2024 11:[address] [facility] RDW 15.8(H) 11.0 - 15.0 % LAB HEMETOLOGY METHOD 06/25/2024 11:[address] [facility] Platelets 353 130 - 400 K/mcL LAB HEMETOLOGY METHOD 06/25/2024 11:[address] [facility] MPV 12.5(H) 7.0 - 11.0 FL LAB HEMETOLOGY METHOD 06/25/2024 11:[address] [facility] NRBC 0.0 <1.0 % LAB HEMETOLOGY METHOD 06/25/2024 11:[address] [facility] NRBC Absolute 0.00 <0.10 K/mcL LAB HEMETOLOGY METHOD 06/25/2024 11:07 AM EST [facility] Blood Venous blood specimen / Unknown Venipuncture / Unknown 06/25/2024 5:26 AM EST 06/25/2024 10:06 AM EST Pineda Rojas MD LAB BLOOD ORDERABLES Final Resul t [facility] [address] [place] [address], documented in this encounter Visit Diagnoses Diagnosis Type 2 diabetes mellitus with unspecified complications (CMS/HCC V24, CMS/HCC V28) documented in this encounter Care Teams Manager Hydraulic Relationship Specialty Start Date End Date Pineda Rojas MD [address] [place] [address] [address] [place] [address] PCP - General Geriatric Medicine 06/25/24 documented as of this encounter
--- OUTSIDE RECORDS SUMMARY | 2024-11-23 14:23 | XMS_ITS | Encounter Summary ---
Author Organization [facility] Address [address] [place] [address] Care Team Providers Care Agricultural Crop Farm Manager Name Role Phone Pineda Rojas MD Primary Care Provider [phone] Encounter Details Date Type Department Care Team (Late st Contact Info) Description 07/02/2024 Lab Requisition [facility] - Main Lab [address] [facility] [place] [address] Pineda Rojas MD [address] [place] [address] Type 2 diabetes mellitus without complications (CMS/HCC [...] EST Type 2 diabetes mellitus without complications (CMS/[facility]) documented in this encounter Results * (ABNORMAL) Hemoglobin A1c (07/05/2024 6:55 AM EST) Hemoglobin A1C 9.1(H) <6.5 % LAB CHEMISTRY METHOD 07/05/2024 2:42 PM EST [facility] LAB Mean Bld Glu Estim. 214 mg/dL LAB CHEMISTRY METHOD 07/05/2024 2:42 PM EST [facility] LAB Blood Venous blood specimen / Unknown Venipuncture / Unknown 07/05/2024 6:55 AM EST 07/05/2024 11:37 AM EST Pineda Rojas MD LAB BLOOD ORDERABLES Final Resul t [facility] ([facility]) [facility] LAB [address] [place] [address], documented in this encounter Visit Diagnoses Diagnosis Type 2 diabetes mellitus without complications (CMS/HCC V24, CMS/HCC V28) documented in this encounter Care Teams Agricultural Crop Farm Manager Relationship Specialty Start Date End Date Pineda Rojas MD [address] [facility] [address] [place] [address] PCP - General Geriatric Medicine 06/25/24 documented as of this encounter
== END 2024-11-23 13:33 | disposition home or self-care (01) ==
PROVIDERS: PCP Internal Medicine; Visit Provider Internal Medicine Cardiovascular Disease
DX: I11.9 Hypertensive heart disease without heart failure (principal); I25.10 Atherosclerotic heart disease of native coronary artery without angina pectoris
CPT/HCPCS: 99214; G2211

== ENCOUNTER → 2024-11-23 13:11 | Outpatient (BNVA) | payer OTHER, SELFPAY | PROVIDERS: Visit Provider Internal Medicine Cardiovascular Disease | DX: I11.9 Hypertensive heart disease without heart failure (principal); I25.10 Atherosclerotic heart disease of native coronary artery without angina pectoris | CPT/HCPCS: 99212 ==

== ENCOUNTER 2025-01-27 14:43 | Outpatient (AMB) | payer OTHER, SELFPAY ==
--- OUTSIDE RECORDS SUMMARY | 2025-01-27 14:46 | XMS_ITS | Encounter Summary ---
Author Organization [facility] Address [address] [place] [address] Care Team Providers Care Outside Machinist Name Role Phone Pineda Rojas MD Primary Care Provider [phone] Encounter Details Date Type Department Care Team (Late st Contact Info) Description 06/25/2024 Lab Requisition [facility] - Main Lab [address] [facility] [place] [address] Pineda Rojas MD [address] [place] [address] Type 2 diabetes mellitus with unspecified complications [...] LAB CHEMISTRY METHOD 06/25/2024 11:24 AM EST [facility] Potassium 4.1 3.5 - 5.5 mmol/L LAB CHEMISTRY METHOD 06/25/2024 11:24 AM [facility] LAB Chloride 102 96 - 110 mmol/L LAB CHEMISTRY METHOD 06/25/2024 11:24 AM [facility] LAB CO2 26 21 - 32 mmol/L LAB CHEMISTRY METHOD 06/25/2024 11:24 AM [facility] LAB Anion Gap 10 3 - 11 LAB CHEMISTRY METHOD 06/25/2024 11:24 AM [facility] LAB Glucose 251(H) 70 - 100 mg/dL LAB CHEMISTRY METHOD 06/25/2024 11:24 AM [facility] LAB BUN 8 5 - 25 mg/dL LAB CHEMISTRY METHOD 06/25/2024 11:24 AM [facility] LAB Creatinine 1.03 0.50 - 1.10 mg/dL LAB CHEMISTRY METHOD 06/25/2024 11:24 AM [facility] LAB eGFR 64 >=60 mL/min/1. 73m2 LAB CHEMISTRY METHOD 06/25/2024 11:24 AM [facility] LAB Comment:Calculation based on the Chronic Kidney Disease Epidemiology Collaboration (CKD-EPI) equation refit without adjustment for race. BUN/Creatinine Ratio 7.8 LAB CHEMISTRY METHOD 06/25/2024 11:24 AM [facility] LAB Calcium 9.0 8.5 - 10.5 mg/dL LAB CHEMISTRY METHOD 06/25/2024 11:24 AM [facility] LAB Blood Venous blood specimen / Unknown Venipuncture / Unknown 06/25/2024 5:26 AM EST 06/25/2024 10:06 AM EST us Pineda Rojas MD LAB BLOOD ORDERABLES Final Resul t [facility] LAB [address] [place] [address], * (ABNORMAL) Complete blood count (06/25/2024 5:26 AM EST) [facility] WBC 8.9 4.8 - 10.8 K/mcL LAB HEMETOLOGY METHOD 06/25/2024 11:07 AM [facility] LAB RBC 4.50 3.80 - 4.80 M/mcL LAB HEMETOLOGY METHOD 06/25/2024 11:07 AM [facility] LAB Hemoglobin 11.4(L) 11.5 - 16.0 g/dL LAB HEMETOLOGY METHOD 06/25/2024 11:07 AM [facility] LAB Hematocrit 36.2 35.0 - 47.0 % LAB HEMETOLOGY METHOD 06/25/2024 11:07 AM [facility] LAB MCV 80.3 79.0 - 98.0 FL LAB HEMETOLOGY METHOD 06/25/2024 11:07 AM [facility] LAB MCH 25.3(L) 27.0 - 32.0 pcg LAB HEMETOLOGY METHOD 06/25/2024 11:07 AM [facility] LAB MCHC 31.5(L) 32.0 - 37.0 g/dL LAB HEMETOLOGY METHOD 06/25/2024 11:07 AM [facility] LAB RDW 15.8(H) 11.0 - 15.0 % LAB HEMETOLOGY METHOD 06/25/2024 11:07 AM [facility] LAB Platelets 353 130 - 400 K/mcL LAB HEMETOLOGY METHOD 06/25/2024 11:07 AM [facility] LAB MPV 12.5(H) 7.0 - 11.0 FL LAB HEMETOLOGY METHOD 06/25/2024 11:07 AM [facility] LAB NRBC 0.0 <1.0 % LAB HEMETOLOGY METHOD 06/25/2024 11:07 AM [facility] LAB NRBC Absolute 0.00 <0.10 K/mcL LAB HEMETOLOGY METHOD 06/25/2024 11:07 AM EST [facility] LAB Blood Venous blood specimen / Unknown Venipuncture / Unknown 06/25/2024 5:26 AM EST 06/25/2024 10:06 AM EST Pineda Rojas MD LAB BLOOD ORDERABLES Final Resul t [facility] LAB [address] [place] [address], documented in this encounter Visit Diagnoses Diagnosis Type 2 diabetes mellitus with unspecified complications (CMS/HCC V24, CMS/HCC V28) documented in this encounter Care Teams Outside Machinist Relationship Specialty Start Date End Date Pineda Rojas MD [address] [place] [address] [address] [place] [address] PCP - General Geriatric Medicine 06/25/24 documented as of this encounter
[2025-01-27 15:04] VITALS: BP 138/72; PULSE 80; TEMP 36.2; BMI 33.6
--- NOTE | 2025-01-27 15:04 | A.OFFPC_ITS ---
Vital Signs 01/27/25 15:04 Height 5 ft 6 in Weight 208 lb 8 oz BMI 33.6 BP 138/72 Blood Pressure Location Lt brachial Position Sitting Pulse 80 Pulse Source Pulse Oximeter Temp 97.1 F Temp Source Temporal Artery Scan Intake Visit Reasons: 3 month f/u - see comments Family Resource Management Specialist Required: No Accompanied by: Father Allergies No Known Allergies Allergy (Verified 01/27/25 15:05) Tobacco use date assessed: 10/14/24 Dental Screening Dental Screen Date: 10/14/24 [facility] Medical History Foot drop Uncontrolled hypertension Cerebral microvascular disease Chronic idiopathic cerebral venous infarction Thalamic infarct, acute Right leg weakness Cerebrovascular accident Headache GERD (gastroesophageal reflux disease) Cardiomyopathy Excessive daytime sleepiness Obesity (BMI 35.0-39.9 without comorbidity) Breast cancer in female Hyperlipidemia Cerebrovascular disease History of multiple strokes Benign nevus Family history of breast cancer Essential (primary) hypertension Multiple sclerosis (Unknown) Surgical History History of removal of cyst (05/07/22) Hx of colonoscopy (~09/25/22) History of esophagogastroduodenoscopy (EGD) History of breast surgery Family History Mother Cancer Brother H/O heart surgery Maternal Aunt Breast cancer Social History Household Members: None Household Members Other:: daughter away at college Housing: Apartment Are you a primary weekend caregiver to a significant other at home: No Do you presently have visiting nurse or other home services: Yes Alcohol intake: current Alcohol intake frequency: does not drink Patient Tobacco Use Status: Never used Tobacco e-Cigarette/Vaping Use: Never Used Second Hand Smoke Exposure: No Advance Directives Date on File: 12/19/22 service: No Current occupational status: disabled Cognitive needs: No Hearing needs: No Vision needs: No Female Reproductive History Menstrual Age of Menarche: 10 Questionnaire PHQ-9 Over the last 2 weeks, how often have you been bothered by any of the following problems? 1. Little interest or pleasure in doing things: not at all 2. Feeling down, depressed, or hopeless: not at all 3. Trouble falling or staying asleep, or sleeping too much: not at all 4. Feeling tired or having little energy: not at all 5. Poor appetite or overeating: not at all 6. Feeling bad about yourself - or that you are a failure or have let yourself or your family down: several days 7. Trouble concentrating on things, such as reading the newspaper or watching television: not at all 8. Moving or speaking so slowly that other people could have noticed. Or the opposite - being so fidgety or restless that you have been moving around a lot more than usual: not at all 9. Thoughts that you would be better off or of hurting yourself in some way: not at all Total score: 1 Depression Screening Interpretation: Negative Depression Screening Done: Yes 50984 - PHQ-9 Billing: Yes Source: Developed by Drs. Niko Barone, Yazmin Mcneil, Owen Gaytan and colleagues, with an educational stefani from [employer]. Thrive Questionnaire Date Thrive assessed: 01/27/25 I am a: Patient What is your living situation today?: I have a steady place to live Within the past 12 months, did the food you bought not last and you didn't have the money to get more?: Never true Within the past 12 months, did you worry whether your food would run out before you got money to buy more?: Never true Do you have trouble paying for medicines?: No Do you have trouble getting transportation to medical appointments?: No Do you have trouble paying your heating and electricity bill?: No Do you have trouble taking care of your child, family member or friend?: No Do you have trouble with day-to-day activities such as bathing, preparing meals, shopping, managing finances, etc.?: No Are you currently unemployed and looking for a job?: Yes Are you interested in more education?: No Please select the resources that you would like help with: None Currently or been in a relationship where the following occur: No concerns reported THRIVE Score: 0 AUDIT C Alcohol Use Questionnaire (AUDIT-C) 1. How often do you have a drink containing alcohol?: Never 3. How often do you have six or more drinks on one occasion?: Never Total Score: 0 CASTRO-7 AMB Questionnaire CASTRO-7 Date CASTRO - 7 assessed: 01/27/25 Feeling nervous, anxious, or on edge: 0 = Not at all Not being able to stop or control worryin = Not at all Worrying too much about different things: 0 = Not at all Trouble relaxin = Not at all Being so restless that it is hard to sit still: 0 = Not at all Becoming easily annoyed or irritable: 0 = Not at all Feeling afraid as if something awful might happen: 0 = Not at all Total CASTRO-7 score (0-4 normal; 5-9 mild; 10-14 moderate; 15-21 severe): 0 Source: Developed by Drs. Niko Barone, Yazmin Mcneil, Owen Gaytan and colleagues, with an educational stefani from [employer]. CASTRO-7 Assessment Billing CASTRO-7 Assessment Tool: CASTRO-7 Assessment 15824 Physical exam (Primary Care) Vital Signs: Last Vital Signs Temp 97.1 F 01/27/25 15:04 Pulse 80 01/27/25 15:04 BP 138/72 01/27/25 15:04 BMI result Body Mass Index 33.6 Tobacco/Smoking Status: Tobacco use Status Tobacco use date assessed 10/14/24 01/27/25 15:06 Patient Tobacco Use Status Never used Tobacco 01/27/25 15:06 e-Cigarette/Vaping Use Never Used 01/27/25 15:06 PHQ-9: PHQ-9 Score PHQ-9: Total score 1 01/27/25 15:10 Depression Screening Interpretation: Negative Thrive Assessment: Date of Thrive Assessment Date Thrive assessed 01/27/25 01/27/25 15:06 Currently or been in a relationship where the following occur: No concerns reported Results AMB Hemoglobin A1c AMB Hemoglobin A1c 7.4 % Last Edit by SHE Eden on 01/27/25 15:10 Results Reviewed Results Reviewed: Laboratory Last Values Hgb A1c (Clinic) 7.4 % (4.0-6.0) H 01/27/25 14:46 Coding Level of Care Code Est Pt Level 4 (41788) Complex EM visit Add On G2211 Diagnoses Type 2 diabetes mellitus E11.9 Additional Codes CASTRO-7 Assessment Billing - CASTRO-7 Assessment Tool: CASTRO-7 Assessment 06069 ([id number]) PHQ-9 - 63446 - PHQ-9 Billing: Yes ([id number]) Assessment & Plan Assessment & Plan (1) Type 2 diabetes mellitus: Code(s): E11.9 - Type 2 diabetes mellitus without complications Category: Medical Plan: Sugars well controlled. Continue current medications Plan History of Present Illness - The patient is a 54-year-old female presenting for a routine wellness visit. - Hypoglycemia: Reports episodes of low blood sugar, with a recent measurement of 67 mg/dL, which has improved to 96 mg/dL. - Preventative care: Has not seen an eye doctor recently and a vision check-up was recommended. Social History - Exercise: The patient engages in activities such as walking and grocery shopping. Review of Systems - Endocrine: Reports episodes of low blood sugar. - Gastrointestinal: Denies abdominal pain. - Genitourinary: Denies any issues with urination. Physical Exam General: Cooperative and healthy appearing Nutritional Appearance: Well nourished Orientation/consciousness: Patient oriented x3 Limitations: No limitations Head: Normal to inspection General: Appearance normal, both eyes and all related structures Neck: Normal visual inspection Chest: Normal palpation of entire chest wall Respiratory: Normal respiratory effort Neurology: Patient oriented x3 Results Plan 1. Hypoglycemia - Monitor blood glucose levels regularly and maintain a balanced diet to prevent further episodes. 2. Preventative Care: Vision Check-Up - Schedule an appointment with an sales engagement manager for a comprehensive eye examination. Discussion Notes During the visit, we discussed the importance of monitoring blood glucose levels to manage hypoglycemia effectively. I recommended scheduling a vision check-up with an sales engagement manager to ensure comprehensive eye health. Patient Instructions - Monitor your blood sugar levels regularly and maintain a balanced diet. - Schedule an appointment with an eye doctor for a vision check-up. Orders: Orders AMB Hemoglobin A1c Today E11.9 - Type 2 diabetes mellitus without complications
== END 2025-01-27 15:13 | disposition home or self-care (01) ==
LOC: HO.HMCH 14:44
PROVIDERS: PCP Internal Medicine; Visit Provider Internal Medicine
DX: E11.9 Type 2 diabetes mellitus without complications (principal)

== ENCOUNTER → 2025-01-27 14:43 | Outpatient (BNVA) | payer OTHER, SELFPAY | PROVIDERS: PCP Internal Medicine; Visit Provider Internal Medicine | DX: E11.649 Type 2 diabetes mellitus with hypoglycemia without coma (principal) | CPT/HCPCS: 83036; 96127; 99212 ==

== ENCOUNTER 2025-02-19 19:34 | Emergency (ER) | payer OTHER, SELFPAY ==
--- NOTE | ~2025-02-19 | XR_ITS ---
CLINICAL HISTORY: pain 3 views lumbar spine Comparison: None provided Findings: Normal vertebral body alignment. No acute fractures or dislocation. [id number] degenerative endplate changes are present at the lumbar spine. Vacuum disc phenomenon and loss of intervertebral disc space height present at L4-L5 and L5-S1. IMPRESSION: 1. No acute fracture or dislocation injury identified at the lumbar spine. This document has been electronically signed by: Yuval Robledo MD on 02/19/2025 21:09:07
[2025-02-19 19:50] VITALS: BP 170/100; PULSE 92; O2SAT 97
--- NOTE | 2025-02-19 19:58 | ED_ITS ---
HPI - General Adult General Chief complaint: Back Pain/Injury Stated complaint: back pain x2 days Time Seen by Provider: 02/19/25 19:46 Source: patient Mode of arrival: EMS Limitations: altered mental status History of Present Illness ED Provider: HPI narrative: Patient's history of hypertension hyperlipidemia diabetes multiple CVA on Pradaxa came from home for low back pain patient to rule out uterine tract infection no recent fall patient does have multiple CVAs in the past and has a antalgic gait because of the weakness patient noticed slight dysuria when urinating for last few days Related Data Home Medications ?Medication ?Instructions ?Recorded ?Confirmed hydrochlorothiazide 25 mg tablet 25 mg PO QAM 06/14/20 11/23/24 zolpidem 10 mg tablet 10 mg PO BEDTIME 06/14/20 Previous Rx's ?Medication ?Instructions ?Recorded amlodipine 10 mg tablet 10 mg PO DAILY #90 tabs 12/20 09/12 dabigatran etexilate 150 mg capsule 150 mg PO BID #60 caps 01/09/23 freestyle mario sensor cover #2 ea 02/21/23 lancets 28 gauge (FreeStyle #100 ea 12/29/23 Lancets) atorvastatin 40 mg tablet (Lipitor) 40 mg PO DAILY 90 days #90 tabs 04/21/24 flash glucose scanning reader #1 ea 06/07/24 (FreeStyle Mario 2 Henderson) insulin glargine 100 unit/mL (3 30 unit (0.3 mL) subcu t QPM #15 mL 06/07/24 mL) subcutaneous pen (Lantus Solostar U-100 Insulin) oxycodone 5 mg tablet 7.5 mg (1.5 x 5 mg) PO DAILY #3 06/24/24 tabs blood sugar diagnostic (FreeStyle #10 ea 08/23/24 Lite Strips) insulin lispro 200 unit/mL (3 mL) 15 unit (0.075 mL) s ubcut TID #6 mL 09/17/24 subcutaneous pen propranolol 120 mg capsule,24 120 mg PO DAILY #90 caps 09/17/24 hr,extended release blood-glucose sensor (FreeStyle #2 ea 12/03/24 Mario 2 Plus Sensor device) pen needle, diabetic 32 gauge x #100 ea 06/05/25 5/32 oxycodone-acetaminophen 7.5 mg-325 1 tab PO DAILY PRN pain 30 days 02/10/25 mg tablet #30 tabs Allergies Allergy/AdvReac Type Severity Reaction Status Date / Time No Known Allergies Allergy Verified 02/19/25 20:38 Review of Systems 2 Review of Systems: Yes all other systems are reviewed and are negative [facility] Past Medical History Medical History Foot drop Uncontrolled hypertension Cerebral microvascular disease Chronic idiopathic cerebral venous infarction Thalamic infarct, acute Right leg weakness Cerebrovascular accident Headache GERD (gastroesophageal reflux disease) Cardiomyopathy Excessive daytime sleepiness Obesity (BMI 35.0-39.9 without comorbidity) Breast cancer in female Hyperlipidemia Cerebrovascular disease History of multiple strokes Benign nevus Family history of breast cancer Essential (primary) hypertension Multiple sclerosis (Unknown) Surgical History History of removal of cyst (05/07/22) Hx of colonoscopy (~09/25/22) History of esophagogastroduodenoscopy (EGD) History of breast surgery Family History Family History Mother Cancer Brother H/O heart surgery Maternal Aunt Breast cancer Social History Social History Household Members: None Household Members Other:: daughter away at college Housing: Apartment Are you a primary acute care certified nursing assistant to a significant other at home: No Do you presently have visiting nurse or other home services: Yes Alcohol intake: current Alcohol intake frequency: does not drink Patient Tobacco Use Status: Never used Tobacco e-Cigarette/Vaping Use: Never Used Second Hand Smoke Exposure: No Advance Directives: Yes Advance Directives on File: Yes Advance Directives Date on File: 12/19/22 service: No Current occupational status: disabled Cognitive needs: No Hearing needs: No Vision needs: No Physical Exam ED Vital Signs: Vital Signs - 24 hr 02/19/25 20:37 Temperature 97.6 F Pulse Rate 82 Respiratory Rate 20 Blood Pressure 151/86 H Pulse Oximetry 97 Oxygen Delivery Method Room Air BMI result Body Mass Index 32.1 Appearance: Alert. Oriented X3. No acute distress. Eyes: PERRLA, No Nystagmus ENT: Pharynx normal. Oral Mucosa moist Neck: Normal inspection. Neck supple. CVS: Normal heart rate and rhythm. Pulses normal. Respiratory: No respiratory distress. Equal air entry bilateral, no wheezing/rales/rhonchi Abdomen: Soft and nontender. Bowel sounds are present, no mass palpable, no CVA tenderness Skin: Skin warm and dry. Normal skin color. Normal skin turgor. Extremities: No lower extremity edema. No calf tenderness diffuse tenderness lower lumbar area Neuro: Oriented X 3. Residual deficits in the right side No sensory deficit.No cerebellar signs , cranial nerves II-XII intact Medical Decision Making Medical Decision Making [facility] Narrative: Patient comes here with low back pain x-rays negative for fracture patient is ambulatory in the ED likely musculoskeletal pain urine also negative Lab Data [facility] Lab Attestation statement: I reviewed the patient's lab results. 02/19/25 21:52 02/19/25 21:52 Labs: Lab Results 02/19/25 02/19/25 Range/Units 20:32 21:52 WBC 8.8 (4.8-10.8) X10*3/uL RBC 3.86 L (4.20-5.50) X10*6/uL Hgb 11.1 L (12.0-16.0) g/dl Hct 31.4 L (37.0-47.0) % MCV 81.3 (80.0-98.0) fL MCH 28.8 (27.0-33.0) pg MCHC 35.4 H (31.0-35.0) g/dl RDW 13.7 (11.0-16.0) % Plt Count 295 (160-400) X10*3/uL MPV 11.5 (9.4-12.3) fL Immature Gran % (Auto) 0.3 (0.0-0.4) % Neut % (Auto) 70.4 (45-73) % Lymph % (Auto) 24.1 (20-40) % [place] % (Auto) 3.8 (2-11) % Eos % (Auto) 1.1 (0-4) % Baso % (Auto) 0.3 (0-2) % Lymph # (Auto) 2.1 (1.2-4.9) X10*3/uL [place] # (Auto) 0.3 (0.1-1.2) X10*3/uL Eos # (Auto) 0.1 (0.0-0.4) X10*3/uL Baso # (Auto) 0.0 (0.0-0.2) X10*3/uL Abs Immat Gran (auto) 0.03 (0.00-0.03) X10*3/uL Absolute Neuts (auto) 6.2 (2.0-8.3) x10*3/uL Absolute Nucleated RBC 0.000 (0.0-0.012) X10*3/uL Nucleated RBC % (auto) 0.0 (0.0-0.2) /100WBC Sodium 142 (135-145) mmol/L Potassium 3.4 (3.3-5.1) mmol/L Chloride 103 (96-108) mmol/L Carbon Dioxide 29 (22-29) mmol/L Anion Gap 13 (12-20) BUN 7 L (9-16) mg/dL Creatinine 0.95 (0.5-1.4) mg/dL Estim Creat Clear Calc 77.4 Estimated GFR > 60 Random Glucose 189 H (60-115) mg/dL Calcium 9.0 (8.4-10.2) mg/dL Total Bilirubin 0.3 (0.0-1.0) mg/dL AST 22 (5-31) U/L ALT 23 (0-31) U/L Alkaline Phosphatase 118 H (39-117) U/L Total Protein 7.0 (6.5-8.0) g/dL Albumin 4.0 (3.5-5.0) g/dL Lipase 15 (8-78) U/L Urine Color Yellow Urine Appearance Clear Urine pH 6.5 (5.0-9.0) Ur Specific [place] 1.015 (1.005-1.025) Urine Protein Trace (Neg-Trace) mg/dL Urine Glucose (UA) 500 H (Negative) mg/dL Urine Ketones Negative (Negative) mg/dL Urine Blood Negative (Negative) Urine Nitrite Negative (Negative) Ur Leukocyte Esterase Small (1+) H (Negative) Urine RBC 0-2 (0-2) /HPF Urine WBC 0-5 (0-5) /HPF Ur Squamous Epith Cells 6-10 (0-2) /HPF Urine Bacteria 1+ (None Seen) Hyaline Casts 0-2 (0-2) /LPF Discharge Plan Discharge Clinical Impression: Strain of lumbar region Patient Disposition: Home, Self-Care Instructions: Back Pain (ED) Additional Instructions: Pain in your back is likely musculoskeletal, your urine is negative for infection Take Tylenol for pain as needed Follow up with your PCP Prescriptions: No Action (DME) freestyle mario sensor cover See Rx Instructions .Route .MEDSUPPLY Qty: 2 5RF Rx Instructions: As directed (DME) lancets [FreeStyle Lancets] 28 gauge misc See Rx Instructions .ROUTE QID Qty: 100 0RF Rx Instructions: As directed 3 times per day atorvastatin [Lipitor] 40 mg tablet 40 mg PO DAILY 90 Days Qty: 90 3RF (DME) FreeStyle Lite Strips Strip See Rx Instructions .ROUTE TID Qty: 10 0RF Rx Instructions: As directed three times per day propranolol 120 mg capsule,extended release 24hr 120 mg PO DAILY Qty: 90 0RF insulin lispro 200 unit/mL (3 mL) insulin pen 15 unit subcut TID Qty: 6 0RF (DME) FreeStyle Mario 2 Plus Sensor Device See Rx Instructions .Route Qty: 2 11RF Rx Instructions: As directed (DME) pen needle, diabetic 32 gauge x 5/32 needle See Rx Instructions .ROUTE .COMPLEX Qty: 100 2RF Dose Instruction: USE FOUR TIMES DAILY WITH INSULIN PENS DX: E11.9 Rx Instructions: USE FOUR TIMES DAILY WITH INSULIN PENS DX: E11.9 oxycodone-acetaminophen 7.5-325 mg tablet 1 tab PO DAILY PRN (Reason: pain) 30 Days Qty: 30 0RF Rx Instructions: Partial Fill upon patient request. dabigatran etexilate 150 mg capsule 150 mg PO BID Qty: 60 2RF amlodipine 10 mg tablet 10 mg PO DAILY Qty: 90 0RF oxycodone 5 mg tablet 7.5 mg PO DAILY Qty: 3 0RF Rx Instructions: Partial Fill upon patient request. zolpidem 10 mg tablet 10 mg PO BEDTIME hydrochlorothiazide 25 mg tablet 25 mg PO QAM insulin glargine [Lantus Solostar U-100 Insulin] 100 unit/mL (3 mL) insulin pen 30 unit subcut QPM Qty: 15 3RF (DME) FreeStyle Mario 2 Henderson Misc See Rx Instructions .Route Qty: 1 0RF Rx Instructions: test 3 times daily Print Language: French
[2025-02-19 20:37] VITALS: BP 151/86; PULSE 82; RESP 20; TEMP 36.4; O2SAT 97; BMI 32.1
[2025-02-19 20:44] LABS: Appearance Urine Clear; Glucose Urine UA 500 mg/dL (Negative); PH 6.5 (5.0-9.0); Specific Gravity - Urine 1.015 (1.005-1.025); UMIC TRIGGER UACC YES
[2025-02-19 20:51] LABS: UACC Culture Trigger YES
[2025-02-19 21:57] LABS: Hematocrit 31.4 % (37.0-47.0); Hemoglobin 11.1 g/dl (12.0-16.0); Imm Gran Abs Auto 0.03 X10*3/uL (0.00-0.03); Imm Gran Pct Auto 0.3 % (0.0-0.4); Lymphocytes Absolute Auto 2.1 X10*3/uL (1.2-4.9); MANUAL DIFF FLAG NO; Mean Corpuscular HGB Conc 35.4 g/dl (31.0-35.0); Mean Corpuscular Hemoglobin 28.8 pg (27.0-33.0); Mean Corpuscular Volume 81.3 fL (80.0-98.0); NRBC Abs Auto 0.000 X10*3/uL (0.0-0.012); NRBC Pct Auto 0.0 /100WBC (0.0-0.2); Platelet Count 295 X10*3/uL (160-400); Red Blood Count 3.86 X10*6/uL (4.20-5.50); White Blood Count 8.8 X10*3/uL (4.8-10.8)
[2025-02-19 22:12] LABS: Alanine Aminotransferase 23 U/L (0-31); Albumin Level 4.0 g/dL (3.5-5.0); Alkaline Phosphatase 118 U/L (39-117); Anion Gap 13 (12-20); Aspartate Amino Transferase 22 U/L (5-31); Blood Urea Nitrogen 7 mg/dL (9-16); Calcium 9.0 mg/dL (8.4-10.2); Carbon Dioxide 29 mmol/L (22-29); Chloride 103 mmol/L (96-108); Creatinine Clr Calc Pharmacy 77.4; Estimated Glomerular Filt Rate > 60; Lipase 15 U/L (8-78); Potassium 3.4 mmol/L (3.3-5.1); Sodium 142 mmol/L (135-145); Total Protein 7.0 g/dL (6.5-8.0)
--- NOTE | 2025-02-20 03:29 | PC.NURSE ---
Addendum entered by Kirti Castañeda RN 02/20/25 03:31: Provider made aware. Original Note: Pt states her daughter who is the primary caregiver is at work and not able to transport Pt back home. Pt assisted to recliner per request.
[2025-02-20 07:31] VITALS: BP 151/86; PULSE 82; RESP 20; TEMP 36.4; O2SAT 97
== END 2025-02-20 07:31 | disposition home or self-care (01) ==
PROVIDERS: Emergency Provider Internal Medicine
DX: M54.59 Other low back pain (principal); R30.0 Dysuria; I10 Essential (primary) hypertension; E78.5 Hyperlipidemia, unspecified; E11.9 Type 2 diabetes mellitus without complications; M21.379 Foot drop, unspecified foot; K21.9 Gastro-esophageal reflux disease without esophagitis; G35 Multiple sclerosis; E66.812 Obesity, class 2; Z68.35 Body mass index [BMI] 35.0-35.9, adult; Z79.4 Long term (current) use of insulin; Z86.73 Personal history of transient ischemic attack (TIA), and cerebral infarction without residual deficits
CPT/HCPCS: 36415; 72100; 80053; 81001; 83690; 85025; 87086; 99282; 99283

== ENCOUNTER → 2025-02-19 20:15 | Outpatient (BNV) | payer OTHER, SELFPAY | PROVIDERS: Emergency Provider Internal Medicine; Visit Provider Radiology Diagnostic Radiology | DX: M51.360 Other intervertebral disc degeneration, lumbar region with discogenic back pain only (principal) | CPT/HCPCS: 72100 ==

== ENCOUNTER 2025-02-25 08:59 | Outpatient (AMB) | payer OTHER, SELFPAY ==
--- OUTSIDE RECORDS SUMMARY | 2025-02-25 09:12 | XMS_ITS | Encounter Summary ---
Author Organization [facility] Address [address] [place] [address] Care Team Providers Care Rural Electrification Engineer Name Role Phone Pineda Rojas MD Primary Care Provider Encounter Details Date Type Department Care Team (Late st Contact Info) Description 06/25/2024 Lab Requisition [facility] - Main Lab [address] [facility] [address] Pineda Rojas MD [address] [place] [address] Type 2 diabetes mellitus with unspecified complications [...] LAB CHEMISTRY METHOD 06/25/2024 11:24 AM EST [facility] Potassium 4.1 3.5 - 5.5 mmol/L LAB CHEMISTRY METHOD 06/25/2024 11:24 AM [facility] Chloride 102 96 - 110 mmol/L LAB CHEMISTRY METHOD 06/25/2024 11:24 AM [facility] CO2 26 21 - 32 mmol/L LAB CHEMISTRY METHOD 06/25/2024 11:24 AM [facility] Anion Gap 10 3 - 11 LAB CHEMISTRY METHOD 06/25/2024 11:24 AM [facility] Glucose 251(H) 70 - 100 mg/dL LAB CHEMISTRY METHOD 06/25/2024 11:24 AM [facility] BUN 8 5 - 25 mg/dL LAB CHEMISTRY METHOD 06/25/2024 11:24 AM [facility] Creatinine 1.03 0.50 - 1.10 mg/dL LAB CHEMISTRY METHOD 06/25/2024 11:24 AM [facility] eGFR 64 >=60 mL/min/1. 73m2 LAB CHEMISTRY METHOD 06/25/2024 11:24 AM [facility] Comment:Calculation based on the Chronic Kidney Disease Epidemiology Collaboration (CKD-EPI) equation refit without adjustment for race. BUN/Creatinine Ratio 7.8 LAB CHEMISTRY METHOD 06/25/2024 11:24 AM [facility] Calcium 9.0 8.5 - 10.5 mg/dL LAB CHEMISTRY METHOD 06/25/2024 11:24 AM [facility] Blood Venous blood specimen / Unknown Venipuncture / Unknown 06/25/2024 5:26 AM EST 06/25/2024 10:06 AM EST us Pineda Rojas MD LAB BLOOD ORDERABLES Final Resul t [facility] [address] [place] [address], * (ABNORMAL) Complete blood count (06/25/2024 5:26 AM EST) [facility] WBC 8.9 4.8 - 10.8 K/mcL LAB HEMETOLOGY METHOD 06/25/2024 11:07 AM [facility] RBC 4.50 3.80 - 4.80 M/mcL LAB HEMETOLOGY METHOD 06/25/2024 11:07 AM [facility] Hemoglobin 11.4(L) 11.5 - 16.0 g/dL LAB HEMETOLOGY METHOD 06/25/2024 11:07 AM [facility] Hematocrit 36.2 35.0 - 47.0 % LAB HEMETOLOGY METHOD 06/25/2024 11:07 AM [facility] MCV 80.3 79.0 - 98.0 FL LAB HEMETOLOGY METHOD 06/25/2024 11:07 AM [facility] MCH 25.3(L) 27.0 - 32.0 pcg LAB HEMETOLOGY METHOD 06/25/2024 11:07 AM [facility] MCHC 31.5(L) 32.0 - 37.0 g/dL LAB HEMETOLOGY METHOD 06/25/2024 11:07 AM [facility] RDW 15.8(H) 11.0 - 15.0 % LAB HEMETOLOGY METHOD 06/25/2024 11:07 AM [facility] Platelets 353 130 - 400 K/mcL LAB HEMETOLOGY METHOD 06/25/2024 11:07 AM [facility] MPV 12.5(H) 7.0 - 11.0 FL LAB HEMETOLOGY METHOD 06/25/2024 11:07 AM [facility] NRBC 0.0 <1.0 % LAB HEMETOLOGY METHOD 06/25/2024 11:07 AM [facility] NRBC Absolute 0.00 <0.10 K/mcL LAB HEMETOLOGY METHOD 06/25/2024 11:07 AM EST [facility] Blood Venous blood specimen / Unknown Venipuncture / Unknown 06/25/2024 5:26 AM EST 06/25/2024 10:06 AM EST Pineda Rojas MD LAB BLOOD ORDERABLES Final Resul t [facility] [address] [place] [address], documented in this encounter Visit Diagnoses Diagnosis Type 2 diabetes mellitus with unspecified complications (CMS/HCC V24, CMS/HCC V28) documented in this encounter Care Teams Rural Electrification Engineer Relationship Specialty Start Date End Date Pineda Rojas MD [address] [place] [address] [address] [place] [address] PCP - General Geriatric Medicine 06/25/24 documented as of this encounter
--- NOTE | 2025-02-25 09:25 | A.OFFVIS_ITS ---
Intake Visit Reasons: Sooner appt to discuss meds Allergies No Known Allergies Allergy (Verified 02/25/25 09:32) Medication List - Last Reconciled 02/25/25 by Olinda Gerard CNP amlodipine 10 mg PO DAILY atorvastatin (Lipitor) 40 mg PO DAILY 90 days blood sugar diagnostic (FreeStyle Lite Strips) As directed three times per day blood-glucose sensor (FreeStyle Mario 2 Plus Sensor device) As directed dabigatran etexilate 150 mg PO BID flash glucose scanning reader (FreeStyle Mario 2 [place]) test 3 times daily [freestyle mario sensor cover As directed] hydrochlorothiazide 25 mg PO QAM insulin glargine (Lantus Solostar U-100 Insulin) 30 units (0.3 mL) subcut QPM insulin lispro 15 units (0.075 mL) subcut TID lancets (FreeStyle Lancets) As directed 3 times per day oxycodone 7.5 mg (1.5 x 5 mg) PO DAILY oxycodone-acetaminophen 7.5-325 mg 1 tab PO DAILY PRN 30 days pen needle, diabetic USE FOUR TIMES DAILY WITH INSULIN PENS DX: E11.9 propranolol ER 120 mg PO DAILY zolpidem 10 mg PO BEDTIME HPI Comments Details: She was seen at [facility] last week for LBP and diagnosed with lumbar strain, recommended to take Tylenol and follow up with PCP. She was not able to identify specific trigger, no new or increased activity or fall. She was still having pain to low back, primarily right side, with pain down into lower leg. Pain was worse if she stood too long and she had to change positions frequently because of the pain. Sleep was not so good, even before LBP started. She has been taking zolpidem for many years and does not seem to be working as well anymore. She has trouble falling asleep and staying sleep. Daily headaches have increased some with LBP and lack of sleep. Still having some weakness and numbness to both sides. No new stroke-like symptoms or seizures. She tried Zolpidem ER which did not help. Has trouble falling asleep, waking up few times during the night and having trouble falling back to sleep.? Hospitalized at [facility] for falls in 06/2024 and discharged to [facility] rehab. Lives alone. Son is her BEAD SUPERVISOR. Ongoing R sided weakness and numbness, some L side numbness. Daily headaches, usually takes Percocet 7.5mg 1/2 tab in morning and other 1/2 in evening which helps some. Low energy and fatigue. On 12/15/22 had acute left thalamic infarction with persistent right lower extremity weakness new from baseline, with right-sided numbness with acute infarction and left thalamus, extensive chronic lacunar infarction by at bilateral basal ganglia, thalami and andreea and deep cerebral white matter, chronic cortical infarction in right more than left frontal lobes and in the left posterior parietal temporal and occipital lobe. Saw a die maintenance technician for chest pains and there was some issue that they are watching. BP is under control. Always feels tired, exhausted, and out of breath. She had multiple strokes in the past. Angiography suggested vasculitis, but biopsy was negative. MRI recently repeated and was sent to Neurosurgery. Dr. Cade did not want to intervene. Adequately anticoagulated. [facility] Medical History (Updated 02/25/25 @ 09:48 by Olinda Gerard [facility]) Lumbar radiculopathy Foot drop Uncontrolled hypertension Cerebral microvascular disease Chronic idiopathic cerebral venous infarction Thalamic infarct, acute Right leg weakness Cerebrovascular accident Headache GERD (gastroesophageal reflux disease) Cardiomyopathy Excessive daytime sleepiness Obesity (BMI 35.0-39.9 without comorbidity) Breast cancer in female Hyperlipidemia Cerebrovascular disease History of multiple strokes Benign nevus Family history of breast cancer Essential (primary) hypertension Multiple sclerosis (Unknown) Surgical History History of removal of cyst (05/07/22) Hx of colonoscopy (~09/25/22) History of esophagogastroduodenoscopy (EGD) History of breast surgery Family History Mother Cancer Brother H/O heart surgery Maternal Aunt Breast cancer Social History Household Members: None Household Members Other:: daughter away at college Housing: Apartment Are you a primary plant care worker to a significant other at home: No Do you presently have visiting nurse or other home services: Yes Alcohol intake: current Alcohol intake frequency: does not drink Patient Tobacco Use Status: Never used Tobacco e-Cigarette/Vaping Use: Never Used Second Hand Smoke Exposure: No Advance Directives Date on File: 12/19/22 service: No Current occupational status: disabled Cognitive needs: No Hearing needs: No Vision needs: No Female Reproductive History Menstrual Age of Menarche: 10 Review of Systems Const Denies chills, Denies daytime sleepiness, Reports difficulty sleeping, Reports fatigue, Denies fever(s), Denies frequent falls, Reports headache(s), Denies increased appetite, Denies poor appetite, Denies snoring, Denies weakness, Denies weight gain and Denies weight loss Eyes Denies loss of vision ENT Denies vertigo, Denies dizziness, Reports headache(s) and Denies neck pain Card Denies chest pain at rest, Denies chest pain with activity, Denies syncope, Denies leg edema, Denies palpitations, Denies dyspnea and Denies dyspnea on exertion Resp Denies cough, Denies dyspnea, Denies dyspnea on exertion and Denies snoring GI Denies abdominal pain, Denies constipation, Denies heartburn, Denies diarrhea and Denies nausea Denies urinary frequency, Denies urinary incontinence and Denies urinary urgency Musc Denies abnormal gait, Denies back pain, Denies myalgias, Denies arthralgias, Denies neck pain, Denies numbness and Denies tingling Neuro Denies abnormal gait, Denies vertigo, Denies dizziness, Denies syncope, Denies frequent falls, Reports headache(s), Denies lack of coordination, Denies loss of vision, Reports memory loss, Denies numbness, Denies Other visual disturbances, Denies restless legs, Denies seizure-like activity, Denies tingling, Denies paresthesias, Denies tremor(s) and Denies weakness Psych Denies anxiety, Denies depression, Denies auditory hallucinations, Reports memory loss and Denies visual hallucinations Endo Reports fatigue and Denies palpitations Physical Exam Const Other: General Appearance:? normal, in no acute distress. Heart:? S1, S2 normal, no murmurs. Lungs:? clear anteriorly and posteriorly. Musculoskeletal:? normal. Extremities:? no edema. Psych:? alert, oriented, cognitive function intact, cooperative with exam. Neuro Other: Abnormal Neurological Findings:?Partial right homonymous hemianopsia, slight right facial droop, Weak clipper machine bilaterally. Slow LANDY bilaterally. Generalized RLE weakness with submaximal effort on voluntary motor testing.? Mental Status: alert and oriented X 3. Normal attention, orientation, memory, and affect. Cranial Nerves: Right partial visual field defect. Pupils are equal, round and reactive to light. External occular muscles are intact. Face is asymmetrical with slight droop on the right side. Facial sensations are normal. Tongue is midline. Palate elevates symmetrically. Shoulder shrugging is normal.? Motor Examination: As above. DTRs 1+, plantars are flexor Sensory Exam: Normal light touch, temperature, pinprick, vibration, and joint- position sensations. Rhomberg sign is absent. Coordination: No ataxia. No titubation. Gait Exam: Slow and cautious. Cerebellar Signs: [id number]-[id number] is okay. Extrapyramidal System: No tremor, rigidity with normal facial expressions. No bradykinesia. No bradyphrenia. Normal arm swing and posture. No propulsion or retropulsion. Speech: Normal. No dysphasia or dysarthria. Results Reviewed Results Reviewed: Laboratory Tests 02/19/25 02/19/25 20:32 21:52 WBC 8.8 RBC 3.86 L Hgb 11.1 L Hct 31.4 L MCV 81.3 MCH 28.8 MCHC 35.4 H RDW 13.7 Plt Count 295 MPV 11.5 Sodium 142 Potassium 3.4 Chloride 103 Carbon Dioxide 29 Anion Gap 13 BUN 7 L Creatinine 0.95 Estimated GFR > 60 Random Glucose 189 H Calcium 9.0 Total Bilirubin 0.3 AST 22 ALT 23 Alkaline Phosphatase 118 H Total Protein 7.0 Albumin 4.0 Lipase 15 Urine Color Yellow Urine Appearance Clear Urine pH 6.5 Ur Specific [place] 1.015 Urine Protein Trace Urine Glucose (UA) 500 H Urine Ketones Negative Urine Blood Negative Urine Nitrite Negative Ur Leukocyte Esterase Small (1+) H Urine RBC 0-2 Urine WBC 0-5 Ur Squamous Epith Cells 6-10 Urine Bacteria 1+ Hyaline Casts 0-[address] [address] XRay Report Signed Patient: Esmer Rock MR#: [id number] : 1970 Acct:[id number] Age/Sex: 54 / F ADM Date: 02/19/25 Loc: HO.ED Attending Dr: Ordering Physician: Rajiv Camp MD Date of Service: 02/19/25 Procedure(s): XR lumbar spine 2-3V Accession Number(s): [id number] cc: Physician,Unknown ; Rajiv Camp MD~ CLINICAL HISTORY: pain 3 views lumbar spine Comparison: None provided Findings: Normal vertebral body alignment. No acute fractures or dislocation. [id number] degenerative endplate changes are present at the lumbar spine. Vacuum disc phenomenon and loss of intervertebral disc space height present at L4-L5 and L5-S1. IMPRESSION: 1. No acute fracture or dislocation injury identified at the lumbar spine. This document has been electronically signed by: Yuval Robledo MD on 02/19/2025 21:09:07 ---- CT brain at [facility] 05/27/2024: No acute intracranial pathology. Sequela of remote stroke in the left parietal lobe and left occipital lobe. s/p right frontal craniotomy CT brain at [facility] 06/22/2024: No acute intracranial hemorrhage or edematous territorial infarction. Chronic encephalomalacia of the left occipitoparietal lobes and right frontal lobe, chronic lacunar infarcts of the right caudate head and bilateral thalami, moderate underlying microangiopathy and generalized cerebral volume loss. Assessment & Plan Assessment & Plan (1) Chronic daily headache: Code(s): R51.9 - Headache, unspecified Category: Medical Plan: Continue oxycodone-Acetaminophen Tablet 7.5-325 MG 1 tablet as needed once a day for headache #30 for 30 days (2) History of stroke: Code(s): Z86.73 - Personal history of transient ischemic attack (TIA), and cerebral infarction without residual deficits Category: Medical Plan: Continue Pradaxa 150mg 1 capsule twice a day. (3) Insomnia: Code(s): G47.00 - Insomnia, unspecified Category: Medical Qualifiers: Insomnia type: unspecified Qualified Code(s): G47.00 - Insomnia, unspecified Plan: Stop Ambien. Start trazodone 100mg 1 tablet at bedtime as needed for sleep, use/side effects reviewed. She was advised not to take this medication at the same time as cyclobenzaprine. (4) Lumbar disc disease: Code(s): M51.9 - Unspecified thoracic, thoracolumbar and lumbosacral intervertebral disc disorder Category: Medical Plan: Results from ER reviewed, lumbar XR with no acute findings, [id number] degenerative endplate changes. Start cyclobenzaprine 10mg 1 tablet as needed for muscle spasm/pain, use/side effects reviewed. She was advised not to take this medication at the same time as trazodone. Plan Meds tried: zolpidem, zolpidem ER Medications: New cyclobenzaprine 10 mg PO BID 60 tabs 1RF 30 days trazodone 100 mg PO BEDTIME PRN 30 tabs 1RF sleep 30 days Coding Level of Care Code Est Pt Level 4 (12285) Diagnoses Chronic daily headache R51.9 History of stroke Z86.73 Insomnia, unspecified type G47.00 Insomnia type: unspecified Lumbar disc disease M51.9
== END 2025-02-25 10:01 | disposition home or self-care (01) ==
LOC: HO.HSM 09:00
PROVIDERS: PCP Internal Medicine; Visit Provider Registered Nurse
DX: R51.9 Headache, unspecified (principal); Z86.73 Personal history of transient ischemic attack (TIA), and cerebral infarction without residual deficits; G47.00 Insomnia, unspecified; M51.9 Unspecified thoracic, thoracolumbar and lumbosacral intervertebral disc disorder
CPT/HCPCS: 99214

== ENCOUNTER → 2025-02-25 08:59 | Outpatient (BNVA) | payer OTHER, SELFPAY | PROVIDERS: PCP Internal Medicine; Visit Provider Registered Nurse | DX: R51.9 Headache, unspecified (principal); G47.33 Obstructive sleep apnea (adult) (pediatric); M51.9 Unspecified thoracic, thoracolumbar and lumbosacral intervertebral disc disorder; Z86.73 Personal history of transient ischemic attack (TIA), and cerebral infarction without residual deficits; Z79.891 Long term (current) use of opiate analgesic | CPT/HCPCS: 99212 ==

== ENCOUNTER 2025-04-29 08:27 | Outpatient (AMB) | payer OTHER, SELFPAY ==
--- NOTE | 2025-04-29 08:30 | MHC.OFFVIS ---
Intake Visit Reasons: 2 MO FU Allergies No Known Allergies Allergy (Verified 04/29/25 08:35) Medication List - Last Reconciled 04/29/25 by Olinda Gerard CNP amlodipine 10 mg PO DAILY atorvastatin (Lipitor) 40 mg PO DAILY 90 days blood sugar diagnostic (FreeStyle Lite Strips) As directed three times per day blood-glucose sensor (FreeStyle Mario 2 Plus Sensor device) As directed cyclobenzaprine 10 mg PO BID 30 days dabigatran etexilate 150 mg PO BID flash glucose scanning reader (FreeStyle Mario 2 [place]) test 3 times daily [freestyle mario sensor cover As directed] hydrochlorothiazide 25 mg PO QAM insulin glargine (Lantus Solostar U-100 Insulin) 30 units (0.3 mL) subcut QPM insulin lispro 15 units (0.075 mL) subcut TID lancets (FreeStyle Lancets) As directed 3 times per day oxycodone-acetaminophen 7.5-325 mg 1 tab PO DAILY PRN 30 days pen needle, diabetic USE FOUR TIMES DAILY WITH INSULIN PENS DX: E11.9 propranolol ER 120 mg PO DAILY zolpidem 10 mg PO BEDTIME PRN 30 days HPI Comments Details: She tried trazodone 100mg and then tried eszopiclone for sleep, both of which also did not help, and wanted to go back to zolpidem 10mg. She was taking zolpidem 10mg which was working well for now that she was not eating close to around the time she took medication. She was getting about 6-8 hours of sleep/night. LBP was better after prednisone taper, using cyclobenzaprine as needed. Daily headaches continue and she was asking if Percocet dose could be increased. Ongoing weakness and numbness to both sides is unchanged. No new stroke-like symptoms or seizures. Se[place] [facility] for LBP without specific trigger. She tried Zolpidem ER which did not help. Has trouble falling asleep, waking up few times during the night and having trouble falling back to sleep.? [place] [facility] [place] and discharged to [facility] rehab. Lives alone. Son is her MINERALOGY PROFESSOR. Ongoing R sided weakness and numbness, some L side numbness. Daily headaches, usually takes Percocet 7.5mg 1/2 tab in morning and other 1/2 in evening which helps some. Low energy and fatigue. On 12/15/22 had acute left thalamic infarction with persistent right lower extremity weakness new from baseline, with right-sided numbness with acute infarction and left thalamus, extensive chronic lacunar infarction by at bilateral basal ganglia, thalami and andreea and deep cerebral white matter, chronic cortical infarction in right more than left frontal lobes and in the left posterior parietal temporal and occipital lobe. Saw a deicer repairer electric for chest pains and there was some issue that they are watching. BP is under control. Always feels tired, exhausted, and out of breath. She had multiple strokes in the past. Angiography suggested vasculitis, but biopsy was negative. MRI recently repeated and was sent to Neurosurgery. Dr. Cade did not want to intervene. Adequately anticoagulated. [facility] Medical History (Updated 02/25/25 @ 09:48 by Olinda Gerard, [facility]) Lumbar radiculopathy Foot drop Uncontrolled hypertension Cerebral microvascular disease Chronic idiopathic cerebral venous infarction Thalamic infarct, acute Right leg weakness Cerebrovascular accident Headache GERD (gastroesophageal reflux disease) Cardiomyopathy Excessive daytime sleepiness Obesity (BMI 35.0-39.9 without comorbidity) Breast cancer in female Hyperlipidemia Cerebrovascular disease History of multiple strokes Benign nevus Family history of breast cancer Essential (primary) hypertension Multiple sclerosis (Unknown) Surgical History History of removal of cyst (05/07/22) Hx of colonoscopy (~09/25/22) History of esophagogastroduodenoscopy (EGD) History of breast surgery Family History Mother Cancer Brother H/O heart surgery Maternal Aunt Breast cancer Social History Household Members: None Household Members Other:: daughter away at college Housing: Apartment Are you a primary residential care officer to a significant other at home: No Do you presently have visiting nurse or other home services: Yes Alcohol intake: current Alcohol intake frequency: does not drink Patient Tobacco Use Status: Never used Tobacco e-Cigarette/Vaping Use: Never Used Second Hand Smoke Exposure: No Advance Directives Date on File: 12/19/22 service: No Current occupational status: disabled Cognitive needs: No Hearing needs: No Vision needs: No Female Reproductive History Menstrual Age of Menarche: 10 Review of Systems Const Denies chills, Denies daytime sleepiness, Reports difficulty sleeping, Reports fatigue, Denies fever(s), Denies frequent falls, Reports headache(s), Denies increased appetite, Denies poor appetite, Denies snoring, Denies weakness, Denies weight gain and Denies weight loss Eyes Denies loss of vision ENT Denies vertigo, Denies dizziness, Reports headache(s) and Denies neck pain Card Denies chest pain at rest, Denies chest pain with activity, Denies syncope, Denies leg edema, Denies palpitations, Denies dyspnea and Denies dyspnea on exertion Resp Denies cough, Denies dyspnea, Denies dyspnea on exertion and Denies snoring GI Denies abdominal pain, Denies constipation, Denies heartburn, Denies diarrhea and Denies nausea Denies urinary frequency, Denies urinary incontinence and Denies urinary urgency Musc Denies abnormal gait, Denies back pain, Denies myalgias, Denies arthralgias, Denies neck pain, Denies numbness and Denies tingling Neuro Denies abnormal gait, Denies vertigo, Denies dizziness, Denies syncope, Denies frequent falls, Reports headache(s), Denies lack of coordination, Denies loss of vision, Reports memory loss, Denies numbness, Denies Other visual disturbances, Denies restless legs, Denies seizure-like activity, Denies tingling, Denies paresthesias, Denies tremor(s) and Denies weakness Psych Denies anxiety, Denies depression, Denies auditory hallucinations, Reports memory loss and Denies visual hallucinations Endo Reports fatigue and Denies palpitations Physical Exam Const Other: General Appearance:? normal, in no acute distress. Heart:? S1, S2 normal, no murmurs. Lungs:? clear anteriorly and posteriorly. Musculoskeletal:? normal. Extremities:? no edema. Psych:? alert, oriented, cognitive function intact, cooperative with exam. Neuro Other: Abnormal Neurological Findings:?Partial right homonymous hemianopsia, slight right facial droop, Weak watershed coordinator bilaterally. Slow LANDY bilaterally. Generalized RLE weakness with submaximal effort on voluntary motor testing.? Mental Status: alert and oriented X 3. Normal attention, orientation, memory, and affect. Cranial Nerves: Right partial visual field defect. Pupils are equal, round and reactive to light. External occular muscles are intact. Face is asymmetrical with slight droop on the right side. Facial sensations are normal. Tongue is midline. Palate elevates symmetrically. Shoulder shrugging is normal.? Motor Examination: As above. DTRs 1+, plantars are flexor Sensory Exam: Normal light touch, temperature, pinprick, vibration, and joint-position sensations. Rhomberg sign is absent. Coordination: No ataxia. No titubation. Gait Exam: Slow and cautious. Cerebellar Signs: [id number] is okay. Extrapyramidal System: No tremor, rigidity with normal facial expressions. No bradykinesia. No bradyphrenia. Normal arm swing and posture. No propulsion or retropulsion. Speech: Normal. No dysphasia or dysarthria. Results Reviewed Results Reviewed: Laboratory Tests 02/19/25 02/19/25 20:32 21:52 WBC 8.8 RBC 3.86 L Hgb 11.1 L Hct 31.4 L MCV 81.3 MCH 28.8 MCHC 35.4 H RDW 13.7 Plt Count 295 MPV 11.5 Sodium 142 Potassium 3.4 Chloride 103 Carbon Dioxide 29 Anion Gap 13 BUN 7 L Creatinine 0.95 Estimated GFR > 60 Random Glucose 189 H Calcium 9.0 Total Bilirubin 0.3 AST 22 ALT 23 Alkaline Phosphatase 118 H Total Protein 7.0 Albumin 4.0 Lipase 15 Urine Color Yellow Urine Appearance Clear Urine pH 6.5 Ur Specific [place] 1.015 Urine Protein Trace Urine Glucose (UA) 500 H Urine Ketones Negative Urine Blood Negative Urine Nitrite Negative Ur Leukocyte Esterase Small (1+) H Urine RBC 0-2 Urine WBC 0-5 Ur Squamous Epith Cells 6-10 Urine Bacteria 1+ Hyaline Casts 0-[address] [address] XRay Report Signed Patient: Esmer Rock MR#: [id number] : 1970 Acct:[id number] Age/Sex: 54 / F ADM Date: 02/19/25 Loc: HO.ED Attending Dr: Ordering Physician: Rajiv Camp MD Date of Service: 02/19/25 Procedure(s): XR lumbar spine 2-3V Accession Number(s): [id number] cc: Physician,Unknown ; Rajiv Camp MD~ CLINICAL HISTORY: pain 3 views lumbar spine Comparison: None provided Findings: Normal vertebral body alignment. No acute fractures or dislocation. [id number] degenerative endplate changes are present at the lumbar spine. Vacuum disc phenomenon and loss of intervertebral disc space height present at L4-L5 and L5-S1. IMPRESSION: 1. No acute fracture or dislocation injury identified at the lumbar spine. This document has been electronically signed by: Yuval Robledo MD on 02/19/2025 21:09:07 ---- CT [place] [facility] [place] No acute intracranial pathology. Sequela of remote stroke in the left parietal lobe and left occipital lobe. s/p right frontal craniotomy CT brain [place] [facility] [place]: No acute intracranial hemorrhage or edematous territorial infarction. Chronic encephalomalacia of the left occipitoparietal lobes and right frontal lobe, chronic lacunar infarcts of the right caudate head and bilateral thalami, moderate underlying microangiopathy and generalized cerebral volume loss. Assessment & Plan Assessment & Plan (1) Chronic daily headache: Code(s): R51.9 - Headache, unspecified Category: Medical Plan: She was advised dose of medication would not be increased. Continue oxycodone-Acetaminophen Tablet 7.5-325 MG 1 tablet as needed once a day for headache #30 for 30 days (2) History of stroke: Code(s): Z86.73 - Personal history of transient ischemic attack (TIA), and cerebral infarction without residual deficits Category: Medical Plan: Continue Pradaxa 150mg 1 capsule twice a day. (3) Insomnia: Code(s): G47.00 - Insomnia, unspecified Category: Medical Qualifiers: Insomnia type: unspecified Qualified Code(s): G47.00 - Insomnia, unspecified Plan: Continue zolpidem 10mg 1 tablet at bedtime as needed for sleep #30 for 30 days. (4) Lumbar disc disease: Code(s): M51.9 - Unspecified thoracic, thoracolumbar and lumbosacral intervertebral disc disorder Category: Medical Plan: Continue cyclobenzaprine 10mg 1 tablet as needed twice a day for muscle spasm/pain #60 for 30 days. Plan Meds tried: zolpidem, zolpidem ER, trazodone 100mg, eszopiclone 1mg Coding Level of Care Code Est Pt Level 4 (89073) Diagnoses Chronic daily headache R51.9 History of stroke Z86.73 Insomnia, unspecified type G47.00 Insomnia type: unspecified Lumbar disc disease M51.9
== END 2025-04-29 08:47 | disposition home or self-care (01) ==
LOC: HO.HSM 08:28
PROVIDERS: PCP Internal Medicine; Visit Provider Registered Nurse
DX: R51.9 Headache, unspecified (principal); Z86.73 Personal history of transient ischemic attack (TIA), and cerebral infarction without residual deficits; G47.00 Insomnia, unspecified; M51.9 Unspecified thoracic, thoracolumbar and lumbosacral intervertebral disc disorder
CPT/HCPCS: 99214

== ENCOUNTER → 2025-04-29 08:27 | Outpatient (BNVA) | payer OTHER, SELFPAY | PROVIDERS: PCP Internal Medicine; Visit Provider Registered Nurse | DX: R51.9 Headache, unspecified (principal); G47.00 Insomnia, unspecified; M51.9 Unspecified thoracic, thoracolumbar and lumbosacral intervertebral disc disorder; I69.351 Hemiplegia and hemiparesis following cerebral infarction affecting right dominant side; I69.392 Facial weakness following cerebral infarction; M54.50 Low back pain, unspecified; Z79.899 Other long term (current) drug therapy; Z79.01 Long term (current) use of anticoagulants | CPT/HCPCS: 99212 ==

== ENCOUNTER 2025-06-01 11:00 | Outpatient (AMB) | payer OTHER, SELFPAY ==
--- NOTE | 2025-06-01 11:16 | A.OFFVIS_ITS ---
Intake Visit Reasons: sooner appt Accompanied by: Family/Other Allergies No Known Allergies Allergy (Verified 06/01/25 11:20) Medication List - Last Reconciled 06/01/25 by Olinda Gerard CNP amlodipine 10 mg PO DAILY atorvastatin (Lipitor) 40 mg PO DAILY 90 days blood sugar diagnostic (FreeStyle Lite Strips) As directed three times per day blood-glucose sensor (FreeStyle Mario 2 Plus Sensor device) As directed cyclobenzaprine 10 mg PO BID 30 days dabigatran etexilate 150 mg PO BID flash glucose scanning reader (FreeStyle Mario 2 [place]) test 3 times daily [freestyle mario sensor cover As directed] hydrochlorothiazide 25 mg PO QAM 90 days insulin glargine (Lantus Solostar U-100 Insulin) 30 units (0.3 mL) subcut QPM insulin lispro 15 units (0.075 mL) subcut TID lancets (FreeStyle Lancets) As directed 3 times per day oxycodone-acetaminophen 7.5-325 mg 1 tab PO DAILY PRN 30 days pen needle, diabetic USE FOUR TIMES DAILY WITH INSULIN PENS DX: E11.9 prednisone 20 mg orally 2 tabs x3 days, 1 tab x2 days, 1/2 tab x2 days; 7 days propranolol ER 120 mg PO DAILY zolpidem 10 mg PO BEDTIME PRN 30 days HPI Comments Details: She was here with severe lower back pain, right-sided, with pain all the way down right leg and into foot. Pain began to increase about a week ago without any specific trigger. She denies any recent falls, accidents, or injuries. She rated pain as 20 on scale of 1-10 and repeatedly said that she was sick and tired of this. Pain was always there and she described pain as throbbing. Pain was worse after walking or standing for periods of time. She needed help walking on stairs. She could walk short distances in house, like from living room to kitchen. She had to sit down and take few breaks when making herself a sandwich and the whole process would take about 40 minutes. No falls. No improvement with prednisone taper which she started on 05/29/2025. She tried cyclobenzaprine a few times in the past, but did not notice any significant difference and has not been using medication. She reports trying heat and ice without any change. She noticed that it may be taking her longer to urinate, but denies any pain, burning, or foul odor. Seen at [facility] in [place]/19/[place]25 for LBP without specific trigger. Continued with LBP, primarily right sided with pain into leg for about 1.5 weeks and was prescribed prednisone taper which helped along with cyclobenzaprine as needed. Ongoing weakness and numbness to both sides is unchanged. No new stroke-like symptoms or seizures. Ongoing daily headaches and asked if Percocet dose could be increased, and was informed that dose would not be changed. Zolpidem 10mg was working for sleep as long as she was not eating close to when she took medication, getting about 6-8 hours/sleep. Tried trazodone 100mg and eszopiclone 1mg which did not help. She tried Zolpidem ER which did not help. Has trouble falling asleep, waking up few times during the night and having trouble falling back to sleep.? Hospitalized at [facility] in 06/2024 and discharged to [facility] rehab. Lives alone. Son is her SPECIALIST WOUND CARE. Ongoing R sided weakness and numbness, some L side numbness. Daily headaches, usually takes Percocet 7.5mg 1/2 tab in morning and other 1/2 in evening which helps some. Low energy and fatigue. On 12/15/22 had a cute left thalamic infarction with persistent right lower extremity weakness new from baseline, with right-sided numbness with acute infarction and left thalamus, extensive chronic lacunar infarction by at bilateral basal ganglia, thalami and andreea and deep cerebral white matter, chronic cortical infarction in right more than left frontal lobes and in the left posterior parietal temporal and occipital lobe. Saw a senior clinical research scientist for chest pains and there was some issue that they are watching. BP is under control. Always feels tired, exhausted, and out of breath. She had multiple strokes in the past. Angiography suggested vasculitis, but biopsy was negative. MRI recently repeated and was sent to Neurosurgery. Dr. Cade did not want to intervene. Adequately anticoagulated. [facility] Medical History (Updated 06/01/25 @ 11:45 by Olinda Gerard, XI) Lumbar radiculopathy Foot drop Uncontrolled hypertension Cerebral microvascular disease Chronic idiopathic cerebral venous infarction Thalamic infarct, acute Right leg weakness Cerebrovascular accident Headache GERD (gastroesophageal reflux disease) Cardiomyopathy Excessive daytime sleepiness Obesity (BMI 35.0-39.9 without comorbidity) Breast cancer in female Hyperlipidemia Cerebrovascular disease History of multiple strokes Benign nevus Family history of breast cancer Essential (primary) hypertension Multiple sclerosis (Unknown) Surgical History History of removal of cyst (05/07/22) Hx of colonoscopy (~09/25/22) History of esophagogastroduodenoscopy (EGD) History of breast surgery Family History Mother Cancer Brother H/O heart surgery Maternal Aunt Breast cancer Social History Household Members: None Household Members Other:: daughter away at college Housing: Apartment Are you a primary child care attendant school to a significant other at home: No Do you presently have visiting nurse or other home services: Yes Alcohol intake: current Alcohol intake frequency: does not drink Patient Tobacco Use Status: Never used Tobacco e-Cigarette/Vaping Use: Never Used Second Hand Smoke Exposure: No Advance Directives Date on File: 12/19/22 service: No Current occupational status: disabled Cognitive needs: No Hearing needs: No Vision needs: No Female Reproductive History Menstrual Age of Menarche: 10 Review of Systems Const Denies chills, Denies daytime sleepiness, Reports difficulty sleeping, Reports fatigue, Denies fever(s), Denies frequent falls, Reports headache(s), Denies increased appetite, Denies poor appetite, Denies snoring, Denies weakness, Denies weight gain and Denies weight loss Eyes Denies loss of vision ENT Denies vertigo, Denies dizziness, Reports headache(s) and Denies neck pain Card Denies chest pain at rest, Denies chest pain with activity, Denies syncope, Denies leg edema, Denies palpitations, Denies dyspnea and Denies dyspnea on exertion Resp Denies cough, Denies dyspnea, Denies dyspnea on exertion and Denies snoring GI Denies abdominal pain, Denies constipation, Denies heartburn, Denies diarrhea and Denies nausea Denies urinary frequency, Denies urinary incontinence and Denies urinary urgency Musc Denies abnormal gait, Denies back pain, Denies myalgias, Denies arthralgias, Denies neck pain, Denies numbness and Denies tingling Neuro Denies abnormal gait, Denies vertigo, Denies dizziness, Denies syncope, Denies frequent falls, Reports headache(s), Denies lack of coordination, Denies loss of vision, Reports memory loss, Denies numbness, Denies Other visual disturbances, Denies restless legs, Denies seizure-like activity, Denies tingling, Denies paresthesias, Denies tremor(s) and Denies weakness Psych Denies anxiety, Denies depression, Denies auditory hallucinations, Reports memory loss and Denies visual hallucinations Endo Reports fatigue and Denies palpitations Physical Exam Const Other: General Appearance:? normal, in no acute distress. Heart:? S1, S2 normal, no murmurs. Lungs:? clear anteriorly and posteriorly. Musculoskeletal:? normal. Extremities:? no edema. Psych:? alert, oriented, cognitive function intact, cooperative with exam. Neuro Other: Abnormal Neurological Findings:?Partial right homonymous hemianopsia, slight right facial droop. Weak online services manager bilaterally. Slow LANDY bilaterally. Generalized RLE weakness with submaximal effort on voluntary motor testing. She was in wheelchair. She was able to stand without assistance and unsupported. Mental Status: alert and oriented X 3. Normal attention, orientation, memory, and affect. Cranial Nerves: Right partial visual field defect. Pupils are equal, round and reactive to light. External occular muscles are intact. Face is asymmetrical with slight droop on the right side. Facial sensations are normal. Tongue is midline. Palate elevates symmetrically. Shoulder shrugging is normal.? Motor Examination: As above. DTRs 1-2+, plantars are flexor Sensory Exam: Normal light touch, temperature, pinprick, vibration, and joint- position sensations. Rhomberg sign is absent. Coordination: No ataxia. No titubation. Gait Exam: In wheelchair. Cerebellar Signs: [id number]-pa-[id number] is okay. Extrapyramidal System: No tremor, rigidity with normal facial expressions. No bradykinesia. No bradyphrenia. Normal arm swing and posture. No propulsion or retropulsion. Speech: Normal. Results Reviewed Results Reviewed: LS Spine XR 02/19/2025: [id number]-[id number] degenerative endplate changes, no acute fracture or dislocation injury identified at the lumbar spine. CT brain at [facility] [place]: No acute intracranial pathology. Sequela of remote stroke in the left parietal lobe and left occipital lobe. s/p right frontal craniotomy CT brain at [facility] [place]: No acute intracranial hemorrhage or edematous territorial infarction. Chronic encephalomalacia of the left occipitoparietal lobes and right frontal lobe, chronic lacunar infarcts of the right caudate head and bilateral thalami, moderate underlying microangiopathy and generalized cerebral volume loss. Assessment & Plan Assessment & Plan (1) Chronic daily headache: Code(s): R51.9 - Headache, unspecified Category: Medical Plan: Continue oxycodone-Acetaminophen Tablet 7.5-325 MG 1 tablet as needed once a day for headache #30 for 30 days (2) History of stroke: Code(s): Z86.73 - Personal history of transient ischemic attack (TIA), and cerebral infarction without residual deficits Category: Medical Plan: Continue Pradaxa 150mg 1 capsule twice a day. (3) Insomnia: Code(s): G47.00 - Insomnia, unspecified Category: Medical Qualifiers: Insomnia type: unspecified Qualified Code(s): G47.00 - Insomnia, unspecified Plan: Continue zolpidem 10mg 1 tablet at bedtime as needed for sleep #30 for 30 days. (4) Lumbar radiculopathy: Code(s): M54.16 - Radiculopathy, lumbar region Category: Medical Plan: MRI LS spine ordered. UA ordered r/o UTI. She had few days left of prednisone taper and was advised to complete course. Continue cyclobenzaprine 10mg 1 tablet as needed twice a day for muscle spasm/pain #60 for 30 days. Start gabapentin 300mg 1 capsule at bedtime x1 week, then 1 capsule twice a day, use/side effects reviewed. Recommend adding OTC Tylenol 650-1000mg q8h x5-7 days to help with pain control - since she is taking Pradaxa, will avoid NSAIDs due to increased risk of bleeding. She was already prescribed oxycodone-acetaminophen 7.5-325mg #30 for 30 days for chronic daily headache - dose would not be increased and similar type of medication would not be prescribed at this time. Follow up after MRI or sooner as needed, ER precautions reviewed. Plan Meds tried: zolpidem, zolpidem ER, trazodone 100mg, eszopiclone 1mg Orders: Orders MR lumbar spine wo con Today M54.16 - Radiculopathy, lumbar region UA ClnCatch+Micro w/rflx Cult Today N39.0 - Urinary tract infection, site not specified Medications: New gabapentin 300 mg orally 1 tablet at bedtime x1 week, then 1 tablet twice a day; 60 caps 2RF 30 days Coding Level of Care Code Est Pt Level 4 (67542) Diagnoses Chronic daily headache R51.9 History of stroke Z86.73 Insomnia, unspecified type G47.00 Insomnia type: unspecified Lumbar radiculopathy M54.16
--- OUTSIDE RECORDS SUMMARY | 2025-06-01 13:36 | XMS_ITS | Encounter Summary ---
Author Organization [facility] Address [address] [place] [address] Care Team Providers Care Clinical Researcher Name Role Phone Pineda Rojas MD Primary Care Provider [phone] Encounter Details Date Type Department Care Team (Late st Contact Info) Description 07/02/2024 Lab Requisition [facility] - Main Lab [address] [facility] [place] [address] Pineda Rojas MD [address] [place] [address] Type 2 diabetes mellitus without complications (CMS/HCC [...] EST Type 2 diabetes mellitus without complications (CMS/[facility]) documented in this encounter Results * (ABNORMAL) Hemoglobin A1c (07/05/2024 6:55 AM EST) Hemoglobin A1C 9.1(H) <6.5 % LAB CHEMISTRY METHOD 07/05/2024 2:42 PM EST [facility] Mean Bld Glu Estim. 214 mg/dL LAB CHEMISTRY METHOD 07/05/2024 2:42 PM EST [facility] Blood Venous blood specimen / Unknown Venipuncture / Unknown 07/05/2024 6:55 AM EST 07/05/2024 11:37 AM EST Pineda Rojas MD LAB BLOOD ORDERABLES Final Resul t [facility] [address] [place] [address], documented in this encounter Visit Diagnoses Diagnosis Type 2 diabetes mellitus without complications (CMS/HCC V24, CMS/HCC V28) documented in this encounter Care Teams Clinical Researcher Relationship Specialty Start Date End Date Pineda Rojas MD [address] [facility] [address] [place] [address] PCP - General Geriatric Medicine 06/25/24 documented as of this encounter
--- OUTSIDE RECORDS SUMMARY | 2025-06-01 13:36 | XMS_ITS | Encounter Summary ---
Author Organization [facility] Address [address] [place] [address] Care Team Providers Care Kiln Hand Name Role Phone Pineda Rojas MD Primary Care Provider [phone] Encounter Details Date Type Department Care Team (Late st Contact Info) Description 06/25/2024 Lab Requisition [facility] - Main Lab [address] [facility] [place] [address] Pineda Rojas MD [address] [place] [address] Type 2 diabetes mellitus with unspecified complications [...] LAB CHEMISTRY METHOD 06/25/2024 11:24 AM EST [facility] Potassium 4.1 3.5 - 5.5 mmol/L LAB CHEMISTRY METHOD 06/25/2024 11:24 AM [facility] Chloride 102 96 - 110 mmol/L LAB CHEMISTRY METHOD 06/25/2024 11:24 AM [facility] CO2 26 21 - 32 mmol/L LAB CHEMISTRY METHOD 06/25/2024 11:24 AM [facility] Anion Gap 10 3 - 11 LAB CHEMISTRY METHOD 06/25/2024 11:24 AM [facility] Glucose 251(H) 70 - 100 mg/dL LAB CHEMISTRY METHOD 06/25/2024 11:24 AM [facility] BUN 8 5 - 25 mg/dL LAB CHEMISTRY METHOD 06/25/2024 11:24 AM [facility] Creatinine 1.03 0.50 - 1.10 mg/dL LAB CHEMISTRY METHOD 06/25/2024 11:24 AM [facility] eGFR 64 >=60 mL/min/1. 73m2 LAB CHEMISTRY METHOD 06/25/2024 11:24 AM [facility] Comment:Calculation based on the Chronic Kidney Disease Epidemiology Collaboration (CKD-EPI) equation refit without adjustment for race. BUN/Creatinine Ratio 7.8 LAB CHEMISTRY METHOD 06/25/2024 11:24 AM [facility] Calcium 9.0 8.5 - 10.5 mg/dL LAB CHEMISTRY METHOD 06/25/2024 11:24 AM [facility] Blood Venous blood specimen / Unknown Venipuncture / Unknown 06/25/2024 5:26 AM EST 06/25/2024 10:06 AM EST us Pineda Rojas MD LAB BLOOD ORDERABLES Final Resul t [facility] [address] [place] [address], * (ABNORMAL) Complete blood count (06/25/2024 5:26 AM EST) [facility] WBC 8.9 4.8 - 10.8 K/mcL LAB HEMETOLOGY METHOD 06/25/2024 11:07 AM [facility] RBC 4.50 3.80 - 4.80 M/mcL LAB HEMETOLOGY METHOD 06/25/2024 11:07 AM [facility] Hemoglobin 11.4(L) 11.5 - 16.0 g/dL LAB HEMETOLOGY METHOD 06/25/2024 11:07 AM [facility] Hematocrit 36.2 35.0 - 47.0 % LAB HEMETOLOGY METHOD 06/25/2024 11:07 AM [facility] MCV 80.3 79.0 - 98.0 FL LAB HEMETOLOGY METHOD 06/25/2024 11:07 AM [facility] MCH 25.3(L) 27.0 - 32.0 pcg LAB HEMETOLOGY METHOD 06/25/2024 11:07 AM [facility] MCHC 31.5(L) 32.0 - 37.0 g/dL LAB HEMETOLOGY METHOD 06/25/2024 11:07 AM [facility] RDW 15.8(H) 11.0 - 15.0 % LAB HEMETOLOGY METHOD 06/25/2024 11:07 AM [facility] Platelets 353 130 - 400 K/mcL LAB HEMETOLOGY METHOD 06/25/2024 11:07 AM [facility] MPV 12.5(H) 7.0 - 11.0 FL LAB HEMETOLOGY METHOD 06/25/2024 11:07 AM [facility] NRBC 0.0 <1.0 % LAB HEMETOLOGY METHOD 06/25/2024 11:07 AM [facility] NRBC Absolute 0.00 <0.10 K/mcL LAB HEMETOLOGY METHOD 06/25/2024 11:07 AM EST [facility] Blood Venous blood specimen / Unknown Venipuncture / Unknown 06/25/2024 5:26 AM EST 06/25/2024 10:06 AM EST Pineda Rojas MD LAB BLOOD ORDERABLES Final Resul t [facility] [address] [place] [address], documented in this encounter Visit Diagnoses Diagnosis Type 2 diabetes mellitus with unspecified complications (CMS/HCC V24, CMS/HCC V28) documented in this encounter Care Teams Kiln Hand Relationship Specialty Start Date End Date Pineda Rojas MD [address] [place] [address] [address] [place] [address] PCP - General Geriatric Medicine 06/25/24 documented as of this encounter
--- OUTSIDE RECORDS SUMMARY | 2025-06-01 13:36 | XMS_ITS | Clinical Summary ---
Author Organization [address] Address [address] [place] [address] Phone Care Team Providers Care Position Clerk Name Role Phone Pineda Rojas MD Primary Care Provider [phone] Social History Tobacco Use Types Packs/Day Years Used Date Smoking Tobacco: Never Assessed Comments Unknown Sex and Gender Information Value Date Recorded Sex Assigned at Not on file Legal Sex Female 1:49 PM EST Gender Identity Not on file Sexual Orientation Not on file Plan of Treatment Health Maintenance Due Date Last Done Comments Breast Cancer Screening 1968 Colorectal Cancer Screening: Colonoscopy 1968 DTaP,Tdap,and Td Vaccines (1 - Tdap) 1987 Hepatitis B Vaccines (1 of 3 - 19+ 3-dose series) 1987 Pneumococcal Vaccine: 50+ Ye ars (1 of 2 - PCV) 1987 Cervical Cancer Screening: P ap Smear 1989 Zoster Vaccines (1 of 2) 2018 HIV Screening 08/19/2023 Hepatitis C Screening 08/19/2023 Social Influencers of Health Screening 08/19/2023 Depression Screening 07/21/2024 COVID-19 Vaccine ( - 2024-2 6 season) 2025 Influenza Vaccine (#1) 2025 RSV Immunization Adult Patie nts (1 - 1-dose 75+ series) 2043 HIB Vaccines Aged Out No longer eligi [...] patient's age to complete this topic Insurance [facility] [id number] PLAN Advance Directives Documents on File Type Date Recorded Patient Vehicle Insurance Agent Expl anation Health Care Decision (hx) 01/02/2023 AD ESPINO DIRECTIVE Health Care Decision (hx) 12/19/2022 HE [employer]TH [employer]OXY Care Teams Position Clerk Relationship Specialty Start Date End Date Pineda Rojas MD [address] [place] [address] [address] [place] [address] PCP - General Geriatric Medicine 06/25/24
== END 2025-06-01 11:50 | disposition home or self-care (01) ==
LOC: HO.HSM 11:01
PROVIDERS: PCP Internal Medicine; Visit Provider Registered Nurse
DX: R51.9 Headache, unspecified (principal); Z86.73 Personal history of transient ischemic attack (TIA), and cerebral infarction without residual deficits; G47.00 Insomnia, unspecified; M54.16 Radiculopathy, lumbar region
CPT/HCPCS: 99214

== ENCOUNTER → 2025-06-01 11:00 | Outpatient (BNVA) | payer OTHER, SELFPAY | PROVIDERS: PCP Internal Medicine; Visit Provider Registered Nurse | DX: M54.16 Radiculopathy, lumbar region (principal); R51.9 Headache, unspecified; G47.00 Insomnia, unspecified; Z86.79 Personal history of other diseases of the circulatory system; Z79.01 Long term (current) use of anticoagulants; Z79.891 Long term (current) use of opiate analgesic; Z79.899 Other long term (current) drug therapy | CPT/HCPCS: 99212 ==

== ENCOUNTER 2025-06-02 13:45 | Observation (INO) | payer OTHER, SELFPAY ==
--- NOTE | ~2025-06-02 | CT_ITS ---
EXAMINATION: CTA NECK WITH CONTRAST (STROKE) CTA BRAIN WITH CONTRAST (STROKE) CLINICAL INFORMATION: Suspect acute stroke. Assess for major vessel occlusion. Please call report. COMPARISON: December 15, 2022 TECHNIQUE: CTA of the head and neck was performed in the axial plane from the mediastinum to the skull vertex using 70 mL Omnipaque 350 intravenous contrast. Additional reformatted multiplanar images including maximum intensity projection MIP images are generated on the CT workstation. This CT examination was performed using dose optimization techniques as appropriate, variously including the following: *Automated exposure control *Adjustment of mA and/or kV according to patient size (this includes techniques or standardized protocols for targeted exams where dose is matched to indication/reason for exam; i.e. extremities or head) *Use of iterative reconstruction technique DLP: 647 mGy-cm FINDINGS: The degree of stenosis determined by criteria similar to NASCET. Chest CTA: Ascending thoracic aorta diameter 4.2 cm. No focal stenosis. No intimal flap. Main branches are patent. Left vertebral artery origin directly from the aortic arch just distal to the left subclavian artery. Neck CTA: Right CCA: Normal patency. No focal stenosis. Calcified plaque. No intimal flap. Right ICA: Small calcified plaque. Normal patency. No focal stenosis. No intimal flap. Left CCA: Normal patency. No focal stenosis. No intimal flap. Calcified plaque. Left ICA: Calcified plaque. Normal patency. No focal stenosis. No intimal flap. V1/V2 segments: Tortuosity. Normal patency. No focal stenosis. No intimal flap. Right vertebral artery slightly dominant. Ancillary findings: Pulmonary patchy groundglass, upper lung lobes. Brain CTA: Anterior cerebral circulation: ICAs: Calcified plaques, cavernous supraclinoid segments. Normal patency. No focal stenosis. No abrupt cut off. ICA terminus demonstrated no vascular abnormality. MCA's: Normal patency. No focal stenosis. No abrupt cut off. Bifurcation/trifurcation demonstrated no gross vascular irregularity. ACAs: Normal patency. No focal stenosis. No abrupt cut off. No vascular irregularity. Anterior communicating artery is not identified. Ophthalmic arteries are patent and normal. Left posterior communicating artery is robust and patent. Posterior cerebral circulation: V3/V4 segments: Normal patency. No focal stenosis. No intimal flap. Right vertebral artery is dominant. Posterior inferior cerebral arteries are patent. No gross abnormality. Basilar artery is patent without focal stenosis or intimal flap. Left anterior inferior cerebral arteries patent. Superior cerebellar arteries are patent without gross abnormality. director of special services: Hypoplastic left A1 segment. Normal patency. No focal stenosis. No abrupt cut off. Ancillary findings: No enhancing mass, intra-axial or extra-axial compartment. No main cerebral venous sinus thrombosis. Encephalomalacia, left parietal occipital and right middle frontal gyrus with multiple old lacunar infarcts in extensive white matter disease related to small vessel occlusive disease. CT/CT angio head neck STROKE IMPRESSION: No main cerebral artery occlusion or embolus. No high degree stenosis or dissection extracranial arteries. 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 Concerning multifocal pneumonia in the correct clinical settings. This critical test result is communicated to: Emergency physician Dr. Bienvenido Garcia via [employer] connect at 2:25 PM on June 02, 2025. Electronically signed by: Joby Booth MD 06/02/2025 02:43 PM [facility]
--- NOTE | ~2025-06-02 | CT_ITS ---
EXAMINATION: CT HEAD WITHOUT IV CONTRAST STROKE HISTORY: Stroke Protocol. TECHNIQUE: Unenhanced helical CT of the head was performed per standard departmental protocol. Coronal and sagittal reformats of the head were also evaluated. One or more of the following techniques was used for dose reduction: Automated exposure control, adjustment of the mA and/or kV according to patient size, use of iterative reconstruction technique. DLP: 742 mGy-cm COMPARISON: Previous head CT scans most recent October 2024 FINDINGS: BRAIN: Old left posterior parietal occipital and right frontal subcortical white matter infarcts unchanged. Old bilateral basal ganglia lacunar infarcts unchanged. No mass, mass effect or acute infarct. Ventricles and extra-axial CSF spaces are slightly prominent suggestive of mild generalized atrophy. Nonspecific periventricular white matter disease unchanged. No hyperdense vessel sign. SINUSES: Minimal soft tissue thickening maxillary sinuses. The visualized paranasal sinuses are otherwise clear. The mastoid air cells and middle ear cavities are well pneumatized. ORBITS: The visualized orbits are unremarkable. BONES/SOFT TISSUES: Postsurgical change to the right frontal bone similar to previous exams. No fracture. No suspicious lytic or sclerotic lesions. CT/CT head for STROKE IMPRESSION: No acute intracranial abnormality. Old infarcts similar to prior exams. Findings communicated to Dr. Garcia by telephone on 06/02/2025 at 2:06 PM. Electronically signed by: Esmer Bal MD 06/02/2025 02:13 PM [facility]
--- NOTE | ~2025-06-02 | MR_ITS ---
EXAMINATION: MR BRAIN WITHOUT CONTRAST CLINICAL INFORMATION: Right-sided weakness. Prior strokes. COMPARISON: December 15, 2022. Correlated to recent CT had dated June 02, 2025. TECHNIQUE: MRI of the brain was obtained using routine sequences without contrast. FINDINGS: No restricted diffusion. No acute intracranial hemorrhage, mass effect, midline shift, hydrocephalus or herniation. Prior vascular insult resulting in macrocystic encephalomalacia involving the cortical subcortical deep white matter left parietal occipital lobe with associated susceptibility signal and hyperintense T2 FLAIR signal/gliosis and old hemorrhagic components. There is ex vacuo dilatation of the left atrium of the lateral ventricle. Multiple old lacunar infarcts, brainstem, thalami, corpus corpus striatum nuclei with associated susceptibility/old blood products. Old lacunar infarct, right cerebellum. Small macrocystic encephalomalacia with associated gliosis at the cortical subcortical right middle frontal gyrus. Flow-void signal within the main cerebral vessels is normal. Prominence of the extra-axial CSF spaces cerebral sulci and ventricles. Valdes-white matter differentiation is normal. Sellar/suprasellar region demonstrated no gross masses or signal abnormality. Craniocervical junction is intact with normal position of the cerebellar tonsils.. MR/MR head/brain wo con IMPRESSION: No acute ischemia/stroke. Extensive Leukoaraiosis/ small vessel occlusive disease. Old vascular insults in posterior division left MCA and right MCA territories. Electronically signed by: Joby Booth MD 06/03/2025 12:29 PM [facility]
--- NOTE | 2025-06-02 13:52 | ECG_ITS ---
Test Reason : ?STROKE Blood Pressure : */* mmHG Vent. Rate : 82 BPM Atrial Rate : 82 BPM P-R Int : 158 ms QRS Dur : 96 ms QT Int : 374 ms P-R-T Axes : 41 9 160 degrees QTcB Int : 436 ms Normal sinus rhythm Left ventricular hypertrophy with repolarization abnormality ( R in aVL , [place] product , Romhilt-Jules ) Abnormal ECG When compared with ECG of 19-Oct-2024 20:18, No significant change was found Referred By: Bienvenido Garcia Electronically Signed By: NISA CORREA MD
--- NOTE | 2025-06-02 13:54 | ED_ITS ---
HPI - Neuro Symptoms/Deficit General Chief Complaint: Stroke Stated Complaint: ? stroke, fall, headstrike, -gus Time Seen by Provider: 06/02/25 13:52 Source: patient, EMS and old records reviewed Mode of arrival: EMS Limitations: no limitations History of Present Illness ED Provider: DR. Garcia HPI Narrative: a 55 year fxemale with PMHx HTN, mixed HLD, insulin-dependent T2 DM, CVA is on Pradaxa for anticoagulation, chronic opiate use who presented to the emergency department with right side weakness and right facial numbness, symptoms was noted by the patient at 07:30 after she woke up from sleep patient confirmed that she went to bed last night okay,patient sustained 2 falls this morning secondary to her weakness, complaining of right-sided weakness, right facial weakness, +mouth dry, a mild slurred speech. No headache, no LOC, no dizziness, no blurry vision. Related Data Previous Rx's ?Medication ?Instructions ?Recorded dabigatran etexilate 150 mg capsule 150 mg PO BID #60 caps 01/09/23 freestyle leo sensor cover #2 ea 02/21/23 lancets 28 gauge (FreeStyle #100 ea 12/29/23 Lancets) atorvastatin 40 mg tablet (Lipitor) 40 mg PO DAILY 90 days #90 tabs 04/21/24 flash glucose scanning reader #1 ea 06/07/24 (FreeStyle Leo 2 [place]) insulin glargine 100 unit/mL (3 30 unit (0.3 mL) subcu t QPM #15 mL 06/07/24 mL) subcutaneous pen (Lantus Solostar U-100 Insulin) blood sugar diagnostic (FreeStyle #10 ea 08/23/24 Lite Strips) blood-glucose sensor (FreeStyle #2 ea 12/03/24 Leo 2 Plus Sensor device) insulin lispro 200 unit/mL (3 mL) 15 unit (0.075 mL) s ubcut TID #6 mL 03/23/25 subcutaneous pen pen needle, diabetic 32 gauge x #100 ea 04/02/25 amlodipine 10 mg tablet 10 mg PO DAILY #90 tabs 03/21 03/14 cyclobenzaprine 10 mg tablet 10 mg PO BID 30 days #60 tabs 05/10/25 hydrochlorothiazide 25 mg tablet 25 mg PO QAM 90 days #90 tabs 05/10/25 oxycodone-acetaminophen 7.5 mg-325 1 tab PO DAILY PRN pain 30 days 05/12/25 mg tablet #30 tabs zolpidem 10 mg tablet 10 mg PO BEDTIME PRN sleep 3 0 days 05/12/25 #30 tabs prednisone 20 mg tablet 20 mg PO .COMPLEX 7 days #9 tabs 05/27/25 propranolol 120 mg capsule,24 120 mg PO DAILY #90 caps 05/27/25 hr,extended release gabapentin 300 mg capsule 300 mg PO .COMPLEX 30 days # 60 caps 06/01/25 Allergies Allergy/AdvReac Type Severity Reaction Status Date / Time No Known Allergies Allergy Verified 06/02/25 14:15 Review of Systems 2 Review of Systems: All other systems are reviewed and are negative Constitutional: Reports as per HPI and Reports no additional constitutional complaints Eyes: Reports as per HPI and Reports no additional eye complaints Reports system reviewed and no additional complaints, except as documented Cardiovascular: Reports as per HPI and Reports no additional cardiovascular complaints Respiratory: Reports as per HPI and Reports no additional respiratory complaints Gastrointestinal: Reports as per HPI and Reports no additional gastrointestinal complaints Genitourinary: Reports no additional female genitourinary complaints Musculoskeletal: Reports no additional musculoskeletal complaints Skin/Breast: Reports system reviewed and no additional complaints, except as docu Psychiatric: Reports no additional psychiatric complaints Endocrine: Reports no additional endocrine complaints Hematologic/Lymphatic: Reports no additional hematologic/lymphatic complaints Allergic/Immunologic: Reports no additional allergic/immunologic complaints Reports system reviewed and no additional complaints, except as documented and Reports Abnormal speech present [facility] Past Medical History Medical History Lumbar radiculopathy Foot drop Uncontrolled hypertension Cerebral microvascular disease Chronic idiopathic cerebral venous infarction Thalamic infarct, acute Right leg weakness Cerebrovascular accident Headache GERD (gastroesophageal reflux disease) Cardiomyopathy Excessive daytime sleepiness Obesity (BMI 35.0-39.9 without comorbidity) Breast cancer in female Hyperlipidemia Cerebrovascular disease History of multiple strokes Benign nevus Family history of breast cancer Essential (primary) hypertension Multiple sclerosis (Unknown) Surgical History History of removal of cyst (05/07/22) Hx of colonoscopy (~09/25/22) History of esophagogastroduodenoscopy (EGD) History of breast surgery Family History Family History Mother Cancer Brother H/O heart surgery Maternal Aunt Breast cancer Social History Social History Household Members: None Household Members Other:: daughter away at college Housing: Apartment Are you a primary home care giver to a significant other at home: No Do you presently have visiting nurse or other home services: Yes Alcohol intake: current Alcohol intake frequency: does not drink Patient Tobacco Use Status: Never used Tobacco e-Cigarette/Vaping Use: Never Used Second Hand Smoke Exposure: No Advance Directives Date on File: 12/19/22 Do you have a plan to hurt others: No Plan service: No Current occupational status: disabled Cognitive needs: No Hearing needs: No Vision needs: No Physical Exam 2 Vital Signs: Vital Signs: Last Vital Signs Temp 98.5 F 06/02/25 14:10 Pulse 91 06/02/25 14:10 Resp 16 06/02/25 14:10 BP 146/70 H 06/02/25 14:10 Pulse Ox 96 06/02/25 14:10 O2 Del Method Room Air 06/02/25 14:10 BMI result Body Mass Index 39.7 Vital signs have been reviewed and appear to be correct. Blood pressure elevated. Heart rate normal. Respiratory rate normal. Temperature normal. Oxygen saturation normal. Appearance: Alert. Oriented X3. No acute distress. Head: Normal external exam. Normocephalic. Atraumatic. No Yun signs noted. No raccoon eyes noted Eyes: PERRLA. EOMI. Conjunctiva and sclera normal. Eyelids normal. ENT: TM's Normal. Pharynx normal. Uvula midline. Moist mucous membranes. No trismus noted. No drooling noted. No muffled voice noted. Neck: Normal inspection. Neck supple. FROM. No adenopathy. Thyroid Normal. No meningeal signs. No neck mass noted. CVS: Normal heart rate and rhythm. Heart sound normal. No murmurs noted. Pulses normal throughout. Respiratory: No respiratory distress. Painless inspiration. Breath sounds normal. No wheezes/rales/rhonchi noted. Chest nontender. No accessory muscle usage noted or decreased air movement noted. Abdomen: Soft and nontender. Bowel sounds normal in all 4 quadrants. No distention noted. No organomegaly noted. No visible injury noted. Back: No CVA tenderness. Full range of motion noted. Skin: Skin warm and dry. Normal skin color. Normal skin turgor. No rashes/lesions/lacerations noted. Extremities: No lower extremity edema. Extremities exhibit normal range of motion. Extremities nontender. Neuro: Oriented X 3. Cranial nerve exam: II-XII are grossly intact No motor deficit. No sensory deficit. Reflexes normal. Course Reevaluation(s) Reevaluation #1: 55-year-old female with extensive past medical history significant for multiple strokes in the past patient is taking anticoagulation paradox, patient last known well was last night woke up with the symptoms at 06:30 in the morning patient is not a candidate for TNK or mechanical thrombectomy with patent large vessels. Admit to medical floor for further neurological evaluation. Time: 14:59 Medications Administered Discontinued Medications Generic Name Dose Route Start Last Admin Trade Name Freq PRN Reason Stop Dose Admin Iohexol 100 ml 06/02/25 14:00 06/02/25 14:01 Iohexol 350 Mg/Ml 100 Ml Infus..Btl IV 06/02/25 14:01 70 ml ONCE ONE Administration Medical Decision Making Differential Diagnosis Differential Diagnoses: The differential diagnosis associated with the presentation includes ( CVA, TIA, electrolyte derangement, intracranial bleed, electrolyte derangement, severe anemia.) Admission/Observation Consideration of admission/observation: Escalation of care including admission/observation considered Consult Healthcare Provider Management of the patient was discussed with: Hospitalist ( Dr. Ritter) Lab Data MDM Lab Attestation statement: I reviewed the patient's lab results. 06/02/25 14:00 06/02/25 14:00 Labs: Lab Results 06/02/25 06/02/25 Range/Units 13:54 14:00 WBC 16.1 H (4.8-10.8) X10*3/uL RBC 4.59 (4.20-5.50) X10*6/uL Hgb 12.8 (12.0-16.0) g/dl Hct 37.2 (37.0-47.0) % MCV 81.0 (80.0-98.0) fL MCH 27.9 (27.0-33.0) pg MCHC 34.4 (31.0-35.0) g/dl RDW 13.9 (11.0-16.0) % Plt Count 338 (160-400) X10*3/uL MPV 12.0 (9.4-12.3) fL Immature Gran % (Auto) 0.4 (0.0-0.4) % Neut % (Auto) 82.7 H (45-73) % Lymph % (Auto) 13.1 L (20-40) % [place] % (Auto) 3.5 (2-11) % Eos % (Auto) 0.1 (0-4) % Baso % (Auto) 0.2 (0-2) % Lymph # (Auto) 2.1 (1.2-4.9) X10*3/uL [place] # (Auto) 0.6 (0.1-1.2) X10*3/uL Eos # (Auto) 0.0 (0.0-0.4) X10*3/uL Baso # (Auto) 0.0 (0.0-0.2) X10*3/uL Abs Immat Gran (auto) 0.06 H (0.00-0.03) X10*3/uL Absolute Neuts (auto) 13.3 H (2.0-8.3) x10*3/uL Absolute Nucleated RBC 0.000 (0.0-0.012) X10*3/uL Nucleated RBC % (auto) 0.0 (0.0-0.2) /100WBC PT 16.7 H (11.2-13.5) SEC Whole Blood PT 13.1 (11.1-13.5) sec INR 1.4 H (0.9-1.1) Whole Blood INR 1.1 (0.9-1.1) APTT 59.0 H (26.7-34.1) SEC Sodium 140 (135-145) mmol/L Potassium 3.2 L (3.3-5.1) mmol/L Chloride 101 (96-108) mmol/L Carbon Dioxide 30 H (22-29) mmol/L Anion Gap 12 (12-20) BUN 17 H (9-16) mg/dL Creatinine 0.92 (0.5-1.4) mg/dL Estim Creat Clear Calc 82.5 Estimated GFR > 60 POC Glucose 158 H (60-115) mg/dL Random Glucose 140 H (60-115) mg/dL Calcium 9.2 (8.4-10.2) mg/dL Troponin I High Sens < 2.7 (<3.5-17.0) ng/L Triglycerides 113 (<150) mg/dL Cholesterol 149 (<200) mg/dL LDL Cholesterol, Calc 76 (<100) mg/dL HDL Cholesterol 51 (>40) mg/dL Independent Interpretation I performed an independent interpretation of an: CT Scan ( head/ CT angio head and neck:No acute intracranial abnormality. Old infarcts similar to prior exams.) Radiology Impression Discussion of test interpretation with radiology: I have reviewed the radiologist's reading. NIH Stroke Scale Time: 14:02 Level of Consciousness: Alert Level of Consciousness Questions: Answers both questions correctly Level of Consciousness Commands: Performs both tasks correctly Best Gaze: Normal Visual: No visual loss Facial Palsy: Minor paralyis ( Right facial) Motor Arm (Right): Drift Motor Arm (Left): No drift Motor Leg (Right): Some effort against gravity Motor Leg (Left): No drift Limb Ataxia: Absent Sensory: Normal Best Language: No aphasia Dysarthia: Normal Extinction and Inattention: No abnormality Score: 4 Critical Care Time Critical Care Time Critical Care Time: Yes Total Critical Care Time: 40 Attestation: The patient was critically ill with a high probability of imminent or life- threatening deterioration. I spent greater than 30 minutes of discontinuous time evaluating the patient, delivering critical care at the bedside, discussing evaluating data with consultants. Critical care time does not include time spent performing separately billable procedures or teaching. Time spent performing critical care was 40 minutes. Discharge Plan Discharge Clinical Impression: Acute right hemiparesis, Cerebrovascular accident Patient Disposition: Admitted As Inpatient Print Language: Citizen Of [place]
[2025-06-02 13:58] LABS: Glucose, Whole Blood 158 mg/dL (60-115); Prothrombin Time Whole Bld POC 13.1 sec (11.1-13.5); ~PT, ~INR - Anti Coag Clinic 1.1 (0.9-1.1)
[2025-06-02] MEDS: iohexoL 350 MG/ML 100 ML INFUS..BTL IV (14:01)
[2025-06-02 14:06] LABS: MANUAL DIFF FLAG NO
[2025-06-02 14:09] LABS: Hematocrit 37.2 % (37.0-47.0); Hemoglobin 12.8 g/dl (12.0-16.0); Imm Gran Abs Auto 0.06 X10*3/uL (0.00-0.03); Imm Gran Pct Auto 0.4 % (0.0-0.4); Lymphocytes Absolute Auto 2.1 X10*3/uL (1.2-4.9); Mean Corpuscular HGB Conc 34.4 g/dl (31.0-35.0); Mean Corpuscular Hemoglobin 27.9 pg (27.0-33.0); Mean Corpuscular Volume 81.0 fL (80.0-98.0); NRBC Abs Auto 0.000 X10*3/uL (0.0-0.012); NRBC Pct Auto 0.0 /100WBC (0.0-0.2); Platelet Count 338 X10*3/uL (160-400); Red Blood Count 4.59 X10*6/uL (4.20-5.50); White Blood Count 16.1 X10*3/uL (4.8-10.8)
[2025-06-02 14:10] VITALS: BP 146/70; PULSE 91; RESP 16; TEMP 36.9; O2SAT 96; BMI 39.7
[2025-06-02 14:14] LABS: INTERNATIONAL NORM RATIO 1.4 (0.9-1.1); Prothrombin Time 16.7 SEC (11.2-13.5)
[2025-06-02 14:16] LABS: Partial Thromboplastin Time 59.0 SEC (26.7-34.1)
[2025-06-02 14:20] LABS: Stroke Lab Use COMPLETE
[2025-06-02 14:32] LABS: Anion Gap 12 (12-20); Blood Urea Nitrogen 17 mg/dL (9-16); Calcium 9.2 mg/dL (8.4-10.2); Carbon Dioxide 30 mmol/L (22-29); Chloride 101 mmol/L (96-108); Cholesterol 149 mg/dL (<200); Creatinine Clr Calc Pharmacy 82.5; Estimated Glomerular Filt Rate > 60; HDL Cholesterol 51 mg/dL (>40); Potassium 3.2 mmol/L (3.3-5.1); Sodium 140 mmol/L (135-145); Triglycerides 113 mg/dL (<150)
[2025-06-02 14:42] LABS: Troponin-I High Sensitivity < 2.7 ng/L (<3.5-17.0)
[2025-06-02 15:18] VITALS: BP 149/74; PULSE 82; RESP 16; TEMP 36.9; O2SAT 100
--- NOTE | 2025-06-02 16:42 | PHA.MEDREC ---
Pharmacy Consult ? Medication Reconciliation Pharmacy has completed the medication reconciliation. Spoke with pt and she confirmed her medications. Pt confirmed she takes Lantus Solostar 30 units at bedtime, Humalog KwikPen 20 units TIDAC, pt just started taking Gabapentin 300mg caps yesterday and states she is taking one cap at bedtime x1 week, then 1 cap BID thereafter, pt taking a Prednisone 20mg regimen; pt took 1 tab this morning and starting 1/2 tab for 2 days tomorrow, then she is done and pt states she still taking Pradaxa 150mg tab 1 BID and states that is being filled at [facility]; called [facility] and they state pt has not picked that up since 11/03 for 90 days.
--- NOTE | 2025-06-02 16:48 | PM.IMHP ---
History of Present Illness Date of Service: 06/02/25 Attending physician on admission: Joslyn Ritter Chief Complaint: fall This is a 55 year old female with history of strokes and right-sided weakness who presents to the emergency department with right-sided pain and falls. patient is a difficult historian as she is slow to answer most questions. It was reported by the emergency room provider that she woke up with right-sided weakness. Per previous documentation patient has chronic right-sided weakness stemming from previous stroke. She has been followed in Neurology and was seen as recently as yesterday. She has been having difficulty with right-sided pain and lower back pain and has been prescribed steroids. The patient says she fell twice and that's why she came to the ED. She isn't really sure why she fell, but denies feeling dizzy or lightheaded prior to her falls. She does use a cane or a wheelchair due to chronic unsteady gait and was not using either at the time of both falls. She did not have loss of consciousness. Due to concern for stroke she head head/neck CTA were obtained which was negative for any high-grade stenosis, brain CT showed old infarcts similar to prior exams with no acute intracranial abnormality.Previous admissions indicate patient has previously had right side weakess and also indicate that patient is poor historian and timeline changes frequently, therefore it is difficult to determine if and when there was a change in her right side weakness. Review of Systems Review of Systems: Yes all other systems are reviewed and are negative Constitutional: Constitutional: Denies chills and Denies fever(s) ENT: Denies dizziness Cardiovascular: Cardiovascular: Denies chest pain Neurologic: Denies dizziness [facility] Medical History Lumbar radiculopathy Foot drop Uncontrolled hypertension Cerebral microvascular disease Chronic idiopathic cerebral venous infarction Thalamic infarct, acute Right leg weakness Cerebrovascular accident Headache GERD (gastroesophageal reflux disease) Cardiomyopathy Excessive daytime sleepiness Obesity (BMI 35.0-39.9 without comorbidity) Breast cancer in female Hyperlipidemia Cerebrovascular disease History of multiple strokes Benign nevus Family history of breast cancer Essential (primary) hypertension Multiple sclerosis (Unknown) Family History Mother Cancer Brother H/O heart surgery Maternal Aunt Breast cancer Surgical History History of removal of cyst (05/07/22) Hx of colonoscopy (~09/25/22) History of esophagogastroduodenoscopy (EGD) History of breast surgery Social History Household Members: None Household Members Other:: daughter is staying with pt now Housing: Other Housing Other:: [facility] Are you a primary rn intensive care unit to a significant other at home: No Do you presently have visiting nurse or other home services: No Alcohol intake: current Alcohol intake frequency: does not drink Patient Tobacco Use Status: Never used Tobacco Smoked in Last 30 Days: No e-Cigarette/Vaping Use: Never Used Second Hand Smoke Exposure: No Currently Displaying Signs/Symptoms of Drug Intoxication Withdrawal: No Have you been hit, kicked, punched, or otherwise hurt by someone within the past year? If so, by whom?: No Do you feel safe in your current relationship?: Yes Is there a partner from a previous relationship who is making you feel unsafe now?: No Are you made to feel afraid or neglected: No Advance Directives: Yes Advance Directives on File: Yes Advance Directives Date on File: 12/19/22 Do you have a plan to hurt others: No Plan Recently lost weight without trying: No Eating poorly because of decreased appetite: No Nutrition Risks: No Nutritional Risk Patient : No : No Poor oral hygiene: No service: No Current occupational status: disabled Cognitive needs: No Hearing needs: No Vision needs: No Meds Allergies Allergy/AdvReac Type Severity Reaction Status Date / Time No Known Allergies Allergy Verified 06/02/25 14:15 Active Medications: Current Medications Acetaminophen (Acetaminophen 325 Mg Tablet) 650 mg PO Q6H PRN PRN Reason: Pain, Mild 1-3,fever,headache Calcium Carbonate (Calcium Carbonate 750 Mg Tab.Chew) 750 mg PO Q4H PRN PRN Reason: Heartburn Dextrose (Dextrose 50 % 25 Gm/50 Ml Syringe) 25 gm IVPUSH Q15M PRN; Protocol PRN Reason: per Hypoglycemia Standing Ord. Glucose (Glucose Gel 15 Gm Gel..Gram.) 15 gm PO Q15M PRN; Protocol PRN Reason: per Hypoglycemia Standing Ord. Insulin Human Lispro (Insulin Lispro 100 Unit/Ml 3 Ml Vial) 0 unit SUBCUT QIDACHS [facility]; Protocol Magnesium Hydroxide (Milk Of Magnesia 30 Ml Oral.Susp) 30 ml PO DAILY PRN PRN Reason: Constipation Melatonin (Melatonin 3 Mg Tablet) 6 mg PO BEDTIME PRN PRN Reason: Insomnia Sodium Chloride (0.9 % Sodium Chloride Flush 3 Ml Syringe) 3 ml IVFLUSH QSHIFT [facility] Home Medications ?Medication ?Instructions ?Recorded ?Confirmed ?Last Taken ?Type gabapentin 300 mg capsule 300 mg PO BEDTIME 06/02/25 06/02/25 06/01/25 History hydrochlorothiazide 25 mg tablet 25 mg PO DAILY 06/02/25 06/02/25 06/02/25 History insulin glargine 100 unit/mL (3 30 unit subcut BEDTIME 06/02/25 06/02/25 06/01/25 History mL) subcutaneous pen (Lantus Solostar U-100 Insulin) insulin lispro 200 unit/mL (3 mL) 20 unit subcut TIDAC 06/02/25 06/02/25 06/02/25 History subcutaneous pen (Humalog KwikPen U-200 Insulin) prednisone 20 mg tablet 10 mg PO DAILY 06/02/25 06/02/25 06/02/25 History Physical Exam Vital Signs and Narrative: Vital Signs: Last Vital Signs Temp 98.5 F 06/02/25 15:18 Pulse 82 06/02/25 15:18 Resp 16 06/02/25 15:18 BP 149/74 H 06/02/25 15:18 Pulse Ox 100 06/02/25 15:18 O2 Del Method Room Air 06/02/25 15:18 BMI result Body Mass Index 39.7 Const: General: cooperative, comfortable, alert and awake Nutritional Appearance: average body habitus Orientation/consciousness: patient oriented x3 Resp: Effort & Inspection: normal respiratory effort, able to speak in complete sentences, no respiratory distress and no use of accessory muscles Cardio: Rate: regular rate GI: Palpation (GI): Soft to palpation Neuro: Other: RLE weakness; speech clear General: patient oriented x3 Results Labs 06/02/25 14:00 06/02/25 14:00 Labs: Laboratory Results - last 24 hr 06/02/25 06/02/25 13:54 14:00 MCV 81.0 MCH 27.9 MCHC 34.4 RDW 13.9 Plt Count 338 MPV 12.0 Immature Gran % (Auto) 0.4 Neut % (Auto) 82.7 H Lymph % (Auto) 13.1 L [place] % (Auto) 3.5 Eos % (Auto) 0.1 Baso % (Auto) 0.2 Lymph # (Auto) 2.1 [place] # (Auto) 0.6 Eos # (Auto) 0.0 Baso # (Auto) 0.0 Abs Immat Gran (auto) 0.06 H Absolute Neuts (auto) 13.3 H Absolute Nucleated RBC 0.000 Nucleated RBC % (auto) 0.0 PT 16.7 H Whole Blood PT 13.1 INR 1.4 H Whole Blood INR 1.1 APTT 59.0 H Anion Gap 12 Estim Creat Clear Calc 82.5 Estimated GFR > 60 POC Glucose 158 H Random Glucose 140 H Calcium 9.2 Troponin I High Sens < 2.7 Triglycerides 113 Cholesterol 149 LDL Cholesterol, Calc 76 HDL Cholesterol 51 Imaging Radiologist's Impressions: Impressions Head CT 06/02/25 13:42 IMPRESSION: No acute intracranial abnormality. Old infarcts similar to prior exams. Findings communicated to Dr. Garcia by telephone on 06/02/2025 at 2:06 PM. Electronically signed by: Esmer Bal MD 06/02/2025 02:13 PM EST RP Head/Neck CTA 06/02/25 14:01 IMPRESSION: No main cerebral artery occlusion or embolus. No high degree stenosis or dissection extracranial arteries. 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 Concerning multifocal pneumonia in the correct clinical settings. This critical test result is communicated to: Emergency physician Dr. Bienvenido Garica via [employer] connect at 2:25 PM on June 02, 2025. Electronically signed by: Joby Booth MD 06/02/2025 02:43 PM EST RP Assessment and Plan (1) History of stroke: Status: Acute (2) Fall: Qualifiers: Encounter type: initial encounter Qualified Code(s): W19.XXXA - Unspecified fall, initial encounter Status: Inactive Plan This is a 55-year-old female with history of HLD, HTN, IDDM, h/o multiple strokes with residual RLE weakness, low back pain who presented to the ED after two falls and reports of right side pain and initial concern for right-sided weakness right side weakness and pain acute on chronic weakness given apparent noncompliance with pradaxa and multiple risk factors concern for recurrent stroke poor historian therefore LKWT unable to accurately be determined and patient not a candidate for tPA will admit for stroke rule out, neurology evaluation and PT/OT evaluation, neuro checks - defer brain MRI to neurology continue statin, resume pradaxa Falls seems mechanical due to chronic unsteady gait without using assistive device PT eval prior to discharge IDDM SSI, POCs, ADA diet continue dose adjusted Lantus HTN continue HCTZ, propranolol, amlodipine chronic pain continue cyclobenzaprine, gabapentin currently on prednisone (likely cause of leukocytosis) dvt ppx - pradaxa Quality Stroke Does the patient have a stroke diagnosis?: No VTE Prior VTE?: No VTE Risk Level:: Medical - moderate - high VTE Device Contraindication: N/A - Device Ordered VTE Drug Contraindication: N/A - Med Ordered
--- NOTE | 2025-06-02 17:06 | PHA.MEDREC ---
Addendum entered by Kayli Caceres RPh 06/02/25 17:20: reviewed by [facility], letting provider know about pradaxa. Original Note: Pharmacy Consult ? Medication Reconciliation Pharmacy has completed the medication reconciliation. Spoke with pt and she confirmed her medications. Pt takes Lantus Solostar 30 units at bedtime, Humalog KwikPen 20 units TIDAC, she just started Gabapentin 300mg caps yesterday; pt taking 1 cap at bedtime x1 week then taking 1 cap BID thereafter, she is taking a Prednisone 20mg regimen for 2 more days; pt took 1 tab (20mg) this morning and starting 1/2 tabs for 2 days tomorrow and then she is done and pt still taking Pradaxa 150mg caps 1 BID and states she takes them scheduled and gets them filled at [facility]; called [facility] and they state pt has not gotten Pradaxa from them since 11/03 for 90 days.
[2025-06-02] MEDS: Potassium Chloride Packet 20 MEQ PACKET 40 MEQ PO (17:07)
[2025-06-02 17:58] VITALS: BP 132/80; PULSE 75; RESP 20; TEMP 36.8; O2SAT 99
--- NOTE | 2025-06-02 18:44 | HO.NURTONUR ---
55 yo female presented to ED as stroke alert. States awoke with weakness to right side and right sided facial numbness. Pt also states x2 falls this AM due to weakness/pain in legs. Pt states she has been feeling off for past few days, poor historian. Hx of multiple old strokes and MS. CT negative for new occlusions. Pt awake and alert, ambulatory x1 assist. Pt with pain to back and legs. Passed swallow eval. PIV to left AC. VSS. Currently in ED stretcher
--- OUTSIDE RECORDS SUMMARY | 2025-06-02 18:53 | XMS_ITS | Clinical Summary ---
Author Organization [address] Address [address] [place] [address] Phone Care Team Providers Care Manufacturing Intern Name Role Phone Pineda Rojas MD Primary Care Provider [phone] Social History Tobacco Use Types Packs/Day Years [...] patient's age to complete this topic Insurance [facility] [employer] Advance Directives Documents on File Type Date Recorded Patient Pricing Analyst Expl anation Health Care Decision (hx) 01/02/2023 AD ESPINO DIRECTIVE Health Care Decision (hx) 12/19/2022 HE ALTH CARE PROXY Care Teams Manufacturing Intern Relationship Specialty Start Date End Date Pineda Rojas MD [address] [place] [address] [address] [place] [address] PCP - General Geriatric Medicine 06/25/24
--- OUTSIDE RECORDS SUMMARY | 2025-06-02 18:53 | XMS_ITS | Encounter Summary ---
Author Organization [facility] Address [address] [place] [address] Care Team Providers Care Soap Drier Tender Name Role Phone Pineda Rojas MD Primary Care Provider [phone] Encounter Details Date Type Department Care Team (Late st Contact Info) Description 06/25/2024 Lab Requisition [facility] - Main Lab [address] [facility] [place] [address] Pineda Rojas MD [address] [place] [address] Type 2 diabetes mellitus with unspecified complications [...] LAB CHEMISTRY METHOD 06/25/2024 11:24 AM EST [facility] Potassium 4.1 3.5 - 5.5 mmol/L [...] MD LAB BLOOD ORDERABLES Final Resul t [facility] [address] [place] [address], * (ABNORMAL) Complete blood count (06/25/2024 5:26 AM EST) [facility] WBC 8.9 4.8 - 10.8 K/mcL [...] LAB HEMETOLOGY METHOD 06/25/2024 11:07 AM EST [facility] Blood Venous blood specimen / Unknown Venipuncture / Unknown 06/25/2024 5:26 AM EST 06/25/2024 10:06 AM EST Pineda Rojas MD LAB BLOOD ORDERABLES Final Resul t [facility] [address] [place] [address], documented in this encounter Visit Diagnoses Diagnosis Type 2 diabetes mellitus with unspecified complications (CMS/HCC V24, CMS/HCC V28) documented in this encounter Care Teams Soap Drier Tender Relationship Specialty Start Date End Date Pineda Rojas MD [address] [place] [address] [address] [place] [address] PCP - General Geriatric Medicine 06/25/24 documented as of this encounter
--- OUTSIDE RECORDS SUMMARY | 2025-06-02 18:53 | XMS_ITS | Encounter Summary ---
Author Organization [facility] Address [address] [place] [address] Care Team Providers Care Licensed Nuclear Control Room Operator Name Role Phone Pineda Rojas MD Primary Care Provider [phone] Encounter Details Date Type Department Care Team (Late st Contact Info) Description 07/02/2024 Lab Requisition [facility] - Main Lab [address] [facility] [place] [address] Pineda Rojas MD [address] [place] [address] Type 2 diabetes mellitus without complications (CMS/HCC [...] EST Type 2 diabetes mellitus without complications (CMS/[facility]) documented in this encounter Results * (ABNORMAL) [...] MD LAB BLOOD ORDERABLES Final Resul t [facility] [address] [place] [address], documented in this encounter Visit Diagnoses Diagnosis Type 2 diabetes mellitus without complications (CMS/HCC V24, CMS/HCC V28) documented in this encounter Care Teams Licensed Nuclear Control Room Operator Relationship Specialty Start Date End Date Pineda Rojas MD [address] [facility] [address] [place] [address] PCP - General Geriatric Medicine 06/25/24 documented as of this encounter
[2025-06-02 19:52] VITALS: BMI 35.3
[2025-06-02 20:00] VITALS: BP 163/77; PULSE 70; RESP 16; TEMP 36.6; O2SAT 94
[2025-06-02 20:21] LABS: Glucose, Whole Blood 214 mg/dL (60-115)
[2025-06-02 20:30] VITALS: BP 140/72
[2025-06-02] MEDS: oxyCODONE HCl Immed Release 5 MG TABLET 7.5 MG PO (20:49)
[2025-06-02] MEDS: Insulin Glargine,Hum.rec.anlog 100 UNIT/ML 10 ML VIAL 20 UNIT SUBCUT (20:51)
[2025-06-02 23:22] VITALS: BP 115/55; PULSE 73; RESP 18; TEMP 36.6; O2SAT 98
[2025-06-03] VITALS (7 sets, daily range): BP systolic 119–154; BP diastolic 67–90; PULSE 73–89; RESP 16–18; TEMP 35.8–37.2; O2SAT 93–100
[2025-06-03] MEDS: 0.9 % Sodium Chloride Flush 3 ML SYRINGE IVFLUSH ×4 (01:04→21:37)
[2025-06-03 07:46] LABS: Glucose, Whole Blood 75 mg/dL (60-115)
[2025-06-03 09:59] LABS: Anion Gap 14 (12-20); Blood Urea Nitrogen 13 mg/dL (9-16); Calcium 9.0 mg/dL (8.4-10.2); Carbon Dioxide 27 mmol/L (22-29); Chloride 100 mmol/L (96-108); Creatinine Clr Calc Pharmacy 78.2; Estimated Glomerular Filt Rate > 60; Potassium 3.1 mmol/L (3.3-5.1); Sodium 138 mmol/L (135-145)
[2025-06-03] MEDS: Propranolol HCL LA 60 MG CAP.SA.24H 120 MG PO (11:04)
[2025-06-03 12:11] LABS: Glucose, Whole Blood 371 mg/dL (60-115)
[2025-06-03] MEDS: Potassium Chloride ER 20 MEQ TAB.ER.PRT PO (13:36)
--- NOTE | 2025-06-03 13:36 | HO.PM.IMPN ---
Subjective Subjective Date of Service: 06/03/25 Interval History: chronic R-sided weakness; pt states present for at least a week though her history is inconsistent which prompted her admission MRI neg for acute CVA per Pharmacy hasn't filled Pradaxa since October (90-d supply) but pt insists she takes it Review of Systems Review of Systems: Yes all other systems are reviewed and are negative Physical Exam Vital Signs: Vital Signs: Last Vital Signs Temp 97.8 F 06/03/25 11:00 Pulse 87 06/03/25 11:00 Resp 16 06/03/25 11:00 BP 123/90 H 06/03/25 11:00 Pulse Ox 99 06/03/25 11:00 O2 Del Method Room Air 06/03/25 11:00 BMI result Body Mass Index 35.3 Gen: in no acute distress HEENT: sclera anicteric, moist mucus membranes Neck: supple Lungs: clear to auscultation bilaterally Heart: regular rate and rhythm, no murmurs Abd: soft, non-tender, non-distended Ext: no edema Skin: warm/well-perfused Neuro: alert and oriented x3, RLE weakness Psych: appropriate affect Objective Data Active Medications Acetaminophen (Acetaminophen 325 Mg Tablet) 650 mg PO Q6H PRN PRN Reason: Pain, Mild 1-3,fever,headache Amlodipine Besylate (Amlodipine Besylate 10 Mg Tablet) 10 mg PO DAILY [facility]; Protocol Last Admin: 06/03/25 11:02 Dose: 10 mg Documented By: MINDY Atorvastatin Calcium (Atorvastatin Calcium 40 Mg Tablet) 40 mg PO DAILY [facility] Last Admin: 06/03/25 11:04 Dose: 40 mg Documented By: MINDY Calcium Carbonate (Calcium Carbonate 750 Mg Tab.Chew) 750 mg PO Q4H PRN PRN Reason: Heartburn Cyclobenzaprine HCl (Cyclobenzaprine Hcl 10 Mg Tablet) 10 mg PO BID [facility] Last Admin: 06/03/25 11:03 Dose: 10 mg Documented By: MINDY Dabigatran (Dabigatran Etexilate Mesylate 150 Mg Capsule) 150 mg PO BID [facility] Last Admin: 06/03/25 11:07 Dose: 150 mg Documented By: MINDY Dextrose (Dextrose 50 % 25 Gm/50 Ml Syringe) 25 gm IVPUSH Q15M PRN; Protocol PRN Reason: per Hypoglycemia Standing Ord. Gabapentin (Gabapentin 300 Mg Capsule) 300 mg PO BEDTIME [facility] Last Admin: 06/02/25 20:49 Dose: 300 mg Documented By: ERIKA Glucose (Glucose Gel 15 Gm Gel..Gram.) 15 gm PO Q15M PRN; Protocol PRN Reason: per Hypoglycemia Standing Ord. Hydrochlorothiazide (Hydrochlorothiazide 25 Mg Tablet) 25 mg PO DAILY [facility]; Protocol Last Admin: 06/03/25 11:03 Dose: 25 mg Documented By: MINDY Insulin Glargine (Insulin Glargine,Hum.Rec.Anlog 100 Unit/Ml 10 Ml Vial) 20 unit SUBCUT BEDTIME [facility] Last Admin: 06/02/25 20:51 Dose: 20 unit Documented By: ERIKA Insulin Human Lispro (Insulin Lispro 100 Unit/Ml 3 Ml Vial) 0 unit SUBCUT QIDACHS [facility]; Protocol Last Admin: 06/03/25 12:53 Dose: 10 unit Documented By: MINDY Magnesium Hydroxide (Milk Of Magnesia 30 Ml Oral.Susp) 30 ml PO DAILY PRN PRN Reason: Constipation Oxycodone HCl (Oxycodone Hcl Immed Release 5 Mg Tablet) 7.5 mg PO Q8H PRN PRN Reason: Pain, Severe (Pain Scale 7-10) Potassium Chloride (Potassium Chloride Er 20 Meq Tab.Er.Prt) 20 meq PO DAILY [facility] Prednisone (Prednisone 10 Mg Tablet) 10 mg PO DAILY [facility]; Taper Stop: 06/05/25 08:59 Last Admin: 06/03/25 11:03 Dose: 10 mg Documented By: MINDY Propranolol HCl (Propranolol Hcl La 60 Mg Cap.Sa.24h) 120 mg PO DAILY [facility]; Protocol Last Admin: 06/03/25 11:04 Dose: 120 mg Documented By: MINDY Sodium Chloride (0.9 % Sodium Chloride Flush 3 Ml Syringe) [facility] Last Admin: 06/03/25 11:15 Dose: 3 ml Documented By: MINDY Zolpidem Tartrate (Zolpidem Tartrate 5 Mg Tablet) 10 mg PO BEDTIME PRN PRN Reason: Sleep Last Admin: 06/02/25 20:49 Dose: 10 mg Documented By: ERIKA Labs 06/02/25 14:00 06/03/25 09:07 Labs: Laboratory Results - last 24 hr 06/02/25 06/02/25 06/02/25 13:54 14:00 20:17 MCV 81.0 MCH 27.9 MCHC 34.4 RDW 13.9 Plt Count 338 MPV 12.0 Immature Gran % (Auto) 0.4 Neut % (Auto) 82.7 H Lymph % (Auto) 13.1 L [place] % (Auto) 3.5 Eos % (Auto) 0.1 Baso % (Auto) 0.2 Lymph # (Auto) 2.1 [place] # (Auto) 0.6 Eos # (Auto) 0.0 Baso # (Auto) 0.0 Abs Immat Gran (auto) 0.06 H Absolute Neuts (auto) 13.3 H Absolute Nucleated RBC 0.000 Nucleated RBC % (auto) 0.0 Hold Purple Top PT 16.7 H Whole Blood PT 13.1 INR 1.4 H Whole Blood INR 1.1 APTT 59.0 H Anion Gap 12 Estim Creat Clear Calc 82.5 Estimated GFR > 60 POC Glucose 158 H 214 H Random Glucose 140 H Calcium 9.2 Troponin I High Sens < 2.7 Triglycerides 113 Cholesterol 149 LDL Cholesterol, Calc 76 HDL Cholesterol 51 06/03/25 06/03/25 06/03/25 07:28 09:07 12:07 MCV MCH MCHC RDW Plt Count MPV Immature Gran % (Auto) Neut % (Auto) Lymph % (Auto) [place] % (Auto) Eos % (Auto) Baso % (Auto) Lymph # (Auto) [place] # (Auto) Eos # (Auto) Baso # (Auto) Abs Immat Gran (auto) Absolute Neuts (auto) Absolute Nucleated RBC Nucleated RBC % (auto) Hold Purple Top SEE NOTE PT Whole Blood PT INR Whole Blood INR APTT Anion Gap 14 Estim Creat Clear Calc 78.2 Estimated GFR > 60 POC Glucose 75 371 H* Random Glucose 235 H Calcium 9.0 Troponin I High Sens Triglycerides Cholesterol LDL Cholesterol, Calc HDL Cholesterol ITS Impressions Head CT 06/02/25 13:42 IMPRESSION: No acute intracranial abnormality. Old infarcts similar to prior exams. Findings communicated to Dr. Garcia by telephone on 06/02/2025 at 2:06 PM. Electronically signed by: Esmer Bal MD 06/02/2025 02:13 PM EST RP Head/Neck CTA 06/02/25 14:01 IMPRESSION: No main cerebral artery occlusion or embolus. No high degree stenosis or dissection extracranial arteries. 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 Concerning multifocal pneumonia in the correct clinical settings. This critical test result is communicated to: Emergency physician Dr. Bienvenido Garcia via tiger connect at 2:25 PM on June 02, 2025. Electronically signed by: Joby Booth MD 06/02/2025 02:43 PM EST RP Brain MRI 06/03/25 11:17 IMPRESSION: No acute ischemia/stroke. Extensive Leukoaraiosis/ small vessel occlusive disease. Old vascular insults in posterior division left MCA and right MCA territories. Electronically signed by: Joby Booth MD 06/03/2025 12:29 PM EST RP Assessment and Plan (1) Right leg weakness: Status: Acute Assessment and Plan: d2, 55yo F with HLD, HTN, DM2, multiple strokes [biopsy done for vasculitis was negative] with residual RLE weakness, chronic low back pain presented to ED after 2 falls and report of R-sided pain; ED concerned about R-sided weakness though this seems to be chronic but given unclear history, was admitted for concern of CVA RLE weakness, pain: no acute CVA; has had CVAs in past; PT eval- STR hx CVA: continue statin and dabigatran; unclear compliance given pt hasn't refilled since October though denies noncomplaince hypoK: replete PO, recheck level tomrrow HTN: HCTZ, propranolol, amlodipine DM2: correction lispro chronic low back pain: cyclobenzaprine, gabapentin, prednisone, oxycodone VTE ppx: dabigatran dispo: STR In my clinical judgment, the patient requires continued inpatient hospitalization for the following reasons: placement Total time managing care of this patient today: 35 minutes. Quality Stroke Does the patient have a stroke diagnosis?: No VTE Prior VTE?: No VTE Risk Level:: Medical - moderate - high VTE Device Contraindication: N/A - Device Ordered VTE Drug Contraindication: N/A - Med Ordered
[2025-06-03] MEDS: oxyCODONE HCl Immed Release 5 MG TABLET 7.5 MG PO ×2 (13:37→21:37)
--- NOTE | 2025-06-03 13:43 | PM.NEUROCN ---
History of Present Illness Data of Consult Service Date: 06/03/25 Primary Care Provider: Unknown Physician HPI Reason for consult: right-sided weakness 55 years old woman with relatively uncontrolled diabetes and hypertension, who came to hospital because of back pain and right-sided weakness. She said that she was being treated for back pain and had an epidural injection recently but it did not work and her pain worsened leading to right-sided weakness and falling and she came to hospital. She was evaluated for possible stroke but her MRI of brain did not reveal any acute lesion though multiple chronic lesions were noted. CTA of brain and neck did not reveal any significant vascular stenosis. Over the years she had multiple brain scans including CTA of brain, CTA of brain and neck, and MRI of brain. In 2022 she had a small acute left thalamic ischemic infarction. On MRI of brain now she has evidence of extensive chronic microvascular ischemic type of changes and a cortical moderate-size left parieto-occipital infarct. There was also small embolic looking right frontal cortical ischemic infarct. In addition, I would noted that her previous vascular imaging has suggested different areas of stenosis but her CTA at this time did not confirmed that. no recent seizure-like activity no cold or flu-like illness or loss of bowel bladder control no cardiac symptom Review of Systems Constitutional: Constitutional: Reports as per [facility] Past Medical History Medical History (Updated 06/03/25 @ 13:59 by Opal Calle MD) Right leg weakness Lumbar radiculopathy Foot drop Uncontrolled hypertension Cerebral microvascular disease Chronic idiopathic cerebral venous infarction Thalamic infarct, acute Cerebrovascular accident Headache GERD (gastroesophageal reflux disease) Cardiomyopathy Excessive daytime sleepiness Obesity (BMI 35.0-39.9 without comorbidity) Breast cancer in female Hyperlipidemia Cerebrovascular disease History of multiple strokes Benign nevus Family history of breast cancer Essential (primary) hypertension Multiple sclerosis (Unknown) Family History Family History Mother Cancer Brother H/O heart surgery Maternal Aunt Breast cancer Surgical History Surgical History History of removal of cyst (05/07/22) Hx of colonoscopy (~09/25/22) History of esophagogastroduodenoscopy (EGD) History of breast surgery Social History Social History Household Members: None Household Members Other:: daughter is staying with pt now Housing: Other Housing Other:: [facility] Are you a primary property caretaker to a significant other at home: No Do you presently have visiting nurse or other home services: No Alcohol intake: current Alcohol intake frequency: does not drink Patient Tobacco Use Status: Never used Tobacco e-Cigarette/Vaping Use: Never Used Second Hand Smoke Exposure: No Advance Directives Date on File: 12/19/22 service: No Current occupational status: disabled Cognitive needs: No Hearing needs: No Vision needs: No Meds Allergies Allergy/AdvReac Type Severity Reaction Status Date / Time No Known Allergies Allergy Verified 06/02/25 14:15 Active Medications: Current Medications Acetaminophen (Acetaminophen 325 Mg Tablet) 650 mg PO Q6H PRN PRN Reason: Pain, Mild 1-3,fever,headache Amlodipine Besylate (Amlodipine Besylate 10 Mg Tablet) 10 mg PO DAILY [facility]; Protocol Last Admin: 06/03/25 11:02 Dose: 10 mg Atorvastatin Calcium (Atorvastatin Calcium 40 Mg Tablet) 40 mg PO DAILY [facility] Last Admin: 06/03/25 11:04 Dose: 40 mg Calcium Carbonate (Calcium Carbonate 750 Mg Tab.Chew) 750 mg PO Q4H PRN PRN Reason: Heartburn Cyclobenzaprine HCl (Cyclobenzaprine Hcl 10 Mg Tablet) 10 mg PO BID [facility] Last Admin: 06/03/25 11:03 Dose: 10 mg Dabigatran (Dabigatran Etexilate Mesylate 150 Mg Capsule) 150 mg PO BID [facility] Last Admin: 06/03/25 11:07 Dose: 150 mg Dextrose (Dextrose 50 % 25 Gm/50 Ml Syringe) 25 gm IVPUSH Q15M PRN; Protocol PRN Reason: per Hypoglycemia Standing Ord. Gabapentin (Gabapentin 300 Mg Capsule) 300 mg PO BEDTIME [facility] Last Admin: 06/02/25 20:49 Dose: 300 mg Glucose (Glucose Gel 15 Gm Gel..Gram.) 15 gm PO Q15M PRN; Protocol PRN Reason: per Hypoglycemia Standing Ord. Hydrochlorothiazide (Hydrochlorothiazide 25 Mg Tablet) 25 mg PO DAILY [facility]; Protocol Last Admin: 06/03/25 11:03 Dose: 25 mg Insulin Glargine (Insulin Glargine,Hum.Rec.Anlog 100 Unit/Ml 10 Ml Vial) 20 unit SUBCUT BEDTIME [facility] Last Admin: 06/02/25 20:51 Dose: 20 unit Insulin Human Lispro (Insulin Lispro 100 Unit/Ml 3 Ml Vial) 0 unit SUBCUT QIDACHS [facility]; Protocol Last Admin: 06/03/25 12:53 Dose: 10 unit Magnesium Hydroxide (Milk Of Magnesia 30 Ml Oral.Susp) 30 ml PO DAILY PRN PRN Reason: Constipation Oxycodone HCl (Oxycodone Hcl Immed Release 5 Mg Tablet) 7.5 mg PO Q8H PRN PRN Reason: Pain, Severe (Pain Scale 7-10) Last Admin: 06/03/25 13:37 Dose: 7.5 mg Potassium Chloride (Potassium Chloride Er 20 Meq Tab.Er.Prt) 20 meq PO DAILY [facility] Last Admin: 06/03/25 13:36 Dose: 20 meq Prednisone (Prednisone 10 Mg Tablet) 10 mg PO DAILY [facility]; Taper Stop: 06/05/25 08:59 Last Admin: 06/03/25 11:03 Dose: 10 mg Propranolol HCl (Propranolol Hcl La 60 Mg Cap.Sa.24h) 120 mg PO DAILY [facility]; Protocol Last Admin: 06/03/25 11:04 Dose: 120 mg Sodium Chloride (0.9 % Sodium Chloride Flush 3 Ml Syringe) 3 ml IVFLUSH [facility] Last Admin: 06/03/25 11:15 Dose: 3 ml Zolpidem Tartrate (Zolpidem Tartrate 5 Mg Tablet) 10 mg PO BEDTIME PRN PRN Reason: Sleep Last Admin: 06/02/25 20:49 Dose: 10 mg Home Medications ?Medication ?Instructions ?Recorded ?Confirmed ?Last Taken ?Type gabapentin 300 mg capsule 300 mg PO BEDTIME 06/02/25 06/02/25 06/01/25 History hydrochlorothiazide 25 mg tablet 25 mg PO DAILY 06/02/25 06/02/25 06/02/25 History insulin glargine 100 unit/mL (3 30 unit subcut BEDTIME 06/02/25 06/02/25 06/01/25 History mL) subcutaneous pen (Lantus Solostar U-100 Insulin) insulin lispro 200 unit/mL (3 mL) 20 unit subcut TIDAC 06/02/25 06/02/25 06/02/25 History subcutaneous pen (Humalog KwikPen U-200 Insulin) prednisone 20 mg tablet 10 mg PO DAILY 06/02/25 06/02/25 06/02/25 History Physical Exam Vital Signs: Vital Signs: Last Vital Signs Temp 97.8 F 06/03/25 11:00 Pulse 87 06/03/25 11:00 Resp 16 06/03/25 11:00 BP 123/90 H 06/03/25 11:00 Pulse Ox 99 06/03/25 11:00 O2 Del Method Room Air 06/03/25 11:00 BMI result Body Mass Index 35.3 Neuro: Other: she is alert and awake with normal spontaneity and fluency of speech. She has following commands. She remembers her previous physicians unable to answer questions. Face is symmetrical. Visual archuleta are full. Deep tendon reflexes are slightly brisk in left knee compared to right, ankle reflexes are trace to 1+ with flexor plantars. When asked to move her right foot and toes she barely provide any movement. She was able to stand up on the bedside and when asked to stand on heels and toes she could not do so with the right foot. While distracted, she put her weight on right foot and when back to the bed. Results Labs 06/02/25 14:00 06/03/25 09:07 Labs: Short CBC 06/02/25 Range/Units 14:00 WBC 16.1 H (4.8-10.8) X10*3/uL Hgb 12.8 (12.0-16.0) g/dl Hct 37.2 (37.0-47.0) % Plt Count 338 (160-400) X10*3/uL BMP 06/02/25 06/03/25 14:00 09:07 Sodium 140 138 Potassium 3.2 L 3.1 L Chloride 101 100 Carbon Dioxide 30 H 27 BUN 17 H 13 Creatinine 0.92 0.91 Calcium 9.2 9.0 CTA NECK WITH CONTRAST (STROKE) CTA BRAIN WITH CONTRAST (STROKE) CLINICAL INFORMATION: Suspect acute stroke. Assess for major vessel occlusion. Please call report. COMPARISON: December 15, 2022 TECHNIQUE: CTA of the head and neck was performed in the axial plane from the mediastinum to the skull vertex using 70 mL Omnipaque 350 intravenous contrast. Additional reformatted multiplanar images including maximum intensity projection MIP images are generated on the CT workstation. This CT examination was performed using dose optimization techniques as appropriate, variously including the following: *Automated exposure control *Adjustment of mA and/or kV according to patient size (this includes techniques or standardized protocols for targeted exams where dose is matched to indication/reason for exam; i.e. extremities or head) *Use of iterative reconstruction technique DLP: 647 mGy-cm FINDINGS: The degree of stenosis determined by criteria similar to NASCET. Chest CTA: Ascending thoracic aorta diameter 4.2 cm. No focal stenosis. No intimal flap. Main branches are patent. Left vertebral artery origin directly from the aortic arch just distal to the left subclavian artery. Neck CTA: Right CCA: Normal patency. No focal stenosis. Calcified plaque. No intimal flap. Right ICA: Small calcified plaque. Normal patency. No focal stenosis. No intimal flap. Left CCA: Normal patency. No focal stenosis. No intimal flap. Calcified plaque. Left ICA: Calcified plaque. Normal patency. No focal stenosis. No intimal flap. V1/V2 segments: Tortuosity. Normal patency. No focal stenosis. No intimal flap. Right vertebral artery slightly dominant. Ancillary findings: Pulmonary patchy groundglass, upper lung lobes. Brain CTA: Anterior cerebral circulation: ICAs: Calcified plaques, cavernous supraclinoid segments. Normal patency. No focal stenosis. No abrupt cut off. ICA terminus demonstrated no vascular abnormality. MCA's: Normal patency. No focal stenosis. No abrupt cut off. Bifurcation/trifurcation demonstrated no gross vascular irregularity. ACAs: Normal patency. No focal stenosis. No abrupt cut off. No vascular irregularity. Anterior communicating artery is not identified. Ophthalmic arteries are patent and normal. Left posterior communicating artery is robust and patent. Posterior cerebral circulation: V3/V4 segments: Normal patency. No focal stenosis. No intimal flap. Right vertebral artery is dominant. Posterior inferior cerebral arteries are patent. No gross abnormality. Basilar artery is patent without focal stenosis or intimal flap. Left anterior inferior cerebral arteries patent. Superior cerebellar arteries are patent without gross abnormality. housing inspectors: Hypoplastic left A1 segment. Normal patency. No focal stenosis. No abrupt cut off. Ancillary findings: No enhancing mass, intra-axial or extra-axial compartment. No main cerebral venous sinus thrombosis. Encephalomalacia, left parietal occipital and right middle frontal gyrus with multiple old lacunar infarcts in extensive white matter disease related to small vessel occlusive disease. CT/CT angio head neck STROKE IMPRESSION: No main cerebral artery occlusion or embolus. No high degree stenosis or dissection extracranial arteries. 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 Concerning multifocal pneumonia in the correct clinical settings. EXAMINATION: MR BRAIN WITHOUT CONTRAST CLINICAL INFORMATION: Right-sided weakness. Prior strokes. COMPARISON: December 15, 2022. Correlated to recent CT had dated June 02, 2025. TECHNIQUE: MRI of the brain was obtained using routine sequences without contrast. FINDINGS: No restricted diffusion. No acute intracranial hemorrhage, mass effect, midline shift, hydrocephalus or herniation. Prior vascular insult resulting in macrocystic encephalomalacia involving the cortical subcortical deep white matter left parietal occipital lobe with associated susceptibility signal and hyperintense T2 FLAIR signal/gliosis and old hemorrhagic components. There is ex vacuo dilatation of the left atrium of the lateral ventricle. Multiple old lacunar infarcts, brainstem, thalami, corpus corpus striatum nuclei with associated susceptibility/old blood products. Old lacunar infarct, right cerebellum. Small macrocystic encephalomalacia with associated gliosis at the cortical subcortical right middle frontal gyrus. Flow-void signal within the main cerebral vessels is normal. Prominence of the extra-axial CSF spaces cerebral sulci and ventricles. Valdes-white matter differentiation is normal. Sellar/suprasellar region demonstrated no gross masses or signal abnormality. Craniocervical junction is intact with normal position of the cerebellar tonsils.. MR/MR head/brain wo con IMPRESSION: No acute ischemia/stroke. Extensive Leukoaraiosis/ small vessel occlusive disease. Old vascular insults in posterior division left MCA and right MCA territories. Assessment and Plan (1) History of multiple strokes: Status: Acute (2) Right sided weakness: Status: Acute 55 years old woman with uncontrolled diabetes and hypertension with a associated extensive chronic microvascular ischemic changes of brain, evidence of right frontal craniotomy, a chronic left cortical parieto-occipital encephalomalacia probably from a stroke, with suspicion in the past of multiple sclerosis though her MRI of brain suggested vascular disease more than demyelinating disease, previous CTA of brain revealing some intracranial stenoses not seen on present CTA, which would raise possibility of vasospasm more than atherosclerotic intracranial vascular disease. To my interview, she stated that she suffered from severe back pain, fell couple of times, and because of that could not move her right side. Brain imaging has not reveal any acute lesion. Her examination also was suggestive of psychosomatism. on 1 hand, she has extensive vascular disease which needed retention, on the other hand, there was no evidence of any recent or acute stroke. Back pain needed attention and if an MRI of lumbosacral spine has not been done recently, maybe that should be done to properly evaluate pathology. For her vascular disease, better control of diabetes and blood pressure, anti-platelet agent, statin, and ruling out entities like SLE and syphilis are recommended. Procedures Date of Service Date of Service: 06/03/25
--- NOTE | 2025-06-03 13:46 | MHC.CM.PN ---
Rosana 06/03/25, Pt. 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 PCP is Dr. Kaur, HCP is on file and confirmed: [facility]. PT rec. STR, pt. in agreement, asked CM to contact her dtr [facility] to discuss where. CM called [facility], she said [facility] is her choice. [facility] notified via careport, requested they begin auth. CM to continue to assist pt. with DCP.
[2025-06-03 16:15] LABS: Glucose, Whole Blood 269 mg/dL (60-115)
[2025-06-03 21:21] LABS: Glucose, Whole Blood 360 mg/dL (60-115)
[2025-06-03] MEDS: Insulin Glargine,Hum.rec.anlog 100 UNIT/ML 10 ML VIAL 20 UNIT SUBCUT (21:36)
[2025-06-04 04:00] VITALS: BP 137/69; PULSE 72; RESP 18; TEMP 35.8; O2SAT 97
[2025-06-04 06:38] LABS: Anion Gap 12 (12-20); Blood Urea Nitrogen 13 mg/dL (9-16); Calcium 8.9 mg/dL (8.4-10.2); Carbon Dioxide 28 mmol/L (22-29); Chloride 100 mmol/L (96-108); Creatinine Clr Calc Pharmacy 77.4; Estimated Glomerular Filt Rate > 60; Potassium 3.3 mmol/L (3.3-5.1); Sodium 137 mmol/L (135-145)
[2025-06-04 07:15] VITALS: BP 132/65; PULSE 76; RESP 16; TEMP 36.4; O2SAT 96
[2025-06-04 07:33] LABS: Glucose, Whole Blood 201 mg/dL (60-115)
[2025-06-04] MEDS: 0.9 % Sodium Chloride Flush 3 ML SYRINGE IVFLUSH ×3 (08:09→21:58)
[2025-06-04] MEDS: Propranolol HCL LA 60 MG CAP.SA.24H 120 MG PO (08:10)
[2025-06-04] MEDS: oxyCODONE HCl Immed Release 5 MG TABLET 7.5 MG PO ×2 (08:26→21:56)
[2025-06-04 11:22] VITALS: BP 129/59; PULSE 91; RESP 16; TEMP 37.1; O2SAT 96
[2025-06-04 12:22] LABS: Glucose, Whole Blood 230 mg/dL (60-115)
[2025-06-04 15:29] VITALS: BP 126/70; PULSE 79; RESP 18; TEMP 36.6; O2SAT 96
--- NOTE | 2025-06-04 16:01 | P.PNIM_ITS ---
Subjective Subjective Date of Service: 06/04/25 Interval History: No acute events overnight. States she is reconsidering rehab; we will likely wished to go home in a.m. Review of Systems Denies chest pain Denies shortness of breath Denies nausea vomiting diarrhea Denies fever chills Physical Exam 2 Vital Signs: Vital Signs: Last Vital Signs Temp 97.9 F 06/04/25 15:29 Pulse 79 06/04/25 15:29 Resp 18 06/04/25 15:29 BP 126/70 06/04/25 15:29 Pulse Ox 96 06/04/25 15:29 O2 Del Method Room Air 06/04/25 15:29 BMI result Body Mass Index 35.3 Const: Other: Awake alert no acute distress Resp: Other: Clear to auscultation bilaterally no rales rhonchi or wheezes Cardio: Other: No S4; positive S1-S2; no S3 murmurs rubs or gallops GI: Other: Soft nontender nondistended normoactive bowel sounds Extrem: Other: No edema bilaterally Objective Data Active Medications Acetaminophen (Acetaminophen 325 Mg Tablet) 650 mg PO Q6H PRN PRN Reason: Pain, Mild 1-3,fever,headache Amlodipine Besylate (Amlodipine Besylate 10 Mg Tablet) 10 mg PO DAILY [facility]; Protocol Last Admin: 06/04/25 08:07 Dose: 10 mg Documented By: TIARA Atorvastatin Calcium (Atorvastatin Calcium 40 Mg Tablet) 40 mg PO DAILY [facility] Last Admin: 06/04/25 08:07 Dose: 40 mg Documented By: TIARA Calcium Carbonate (Calcium Carbonate 750 Mg Tab.Chew) 750 mg PO Q4H PRN PRN Reason: Heartburn Cyclobenzaprine HCl (Cyclobenzaprine Hcl 10 Mg Tablet) 10 mg PO BID [facility] Last Admin: 06/04/25 08:07 Dose: 10 mg Documented By: TIARA Dabigatran (Dabigatran Etexilate Mesylate 150 Mg Capsule) 150 mg PO BID [facility] Last Admin: 06/04/25 08:07 Dose: 150 mg Documented By: TIARA Dextrose (Dextrose 50 % 25 Gm/50 Ml Syringe) 25 gm IVPUSH Q15M PRN; Protocol PRN Reason: per Hypoglycemia Standing Ord. Gabapentin (Gabapentin 300 Mg Capsule) 300 mg PO BEDTIME [facility] Last Admin: 06/03/25 21:34 Dose: 300 mg Documented By: BETTYE Glucose (Glucose Gel 15 Gm Gel..Gram.) 15 gm PO Q15M PRN; Protocol PRN Reason: per Hypoglycemia Standing Ord. Hydrochlorothiazide (Hydrochlorothiazide 25 Mg Tablet) 25 mg PO DAILY [facility]; Protocol Last Admin: 06/04/25 08:10 Dose: 25 mg Documented By: TIARA Insulin Glargine (Insulin Glargine,Hum.Rec.Anlog 100 Unit/Ml 10 Ml Vial) 20 unit SUBCUT BEDTIME [facility] Last Admin: 06/03/25 21:36 Dose: 20 unit Documented By: BETTYE Insulin Human Lispro (Insulin Lispro 100 Unit/Ml 3 Ml Vial) 0 unit SUBCUT QIDACHS [facility]; Protocol Last Admin: 06/04/25 12:37 Dose: 4 unit Documented By: TIARA Magnesium Hydroxide (Milk Of Magnesia 30 Ml Oral.Susp) 30 ml PO DAILY PRN PRN Reason: Constipation Ondansetron HCl (Ondansetron Hcl 4 Mg/2 Ml Vial) 4 mg IVPUSH Q4H PRN PRN Reason: Nausea and Vomiting Last Admin: 06/04/25 15:47 Dose: 4 mg Documented By: TIARA Oxycodone HCl (Oxycodone Hcl Immed Release 5 Mg Tablet) 7.5 mg PO Q8H PRN PRN Reason: Pain, Severe (Pain Scale 7-10) Last Admin: 06/04/25 08:26 Dose: 7.5 mg Documented By: TIARA Potassium Chloride (Potassium Chloride Er 20 Meq Tab.Er.Prt) 20 meq PO DAILY [facility] Last Admin: 06/04/25 08:10 Dose: Not Given Documented By: TIARA Non-Admin Reason: Patient Refused Prednisone (Prednisone 10 Mg Tablet) 10 mg PO DAILY [facility]; Taper Stop: 06/05/25 08:59 Last Admin: 06/04/25 08:07 Dose: 10 mg Documented By: TIARA Propranolol HCl (Propranolol Hcl La 60 Mg Cap.Sa.24h) 120 mg PO DAILY [facility]; Protocol Last Admin: 06/04/25 08:10 Dose: 120 mg Documented By: TIARA Sodium Chloride (0.9 % Sodium Chloride Flush 3 Ml Syringe) 3 ml IVFLUSH QSHIFT [facility] Last Admin: 06/04/25 15:36 Dose: 3 ml Documented By: TIARA Zolpidem Tartrate (Zolpidem Tartrate 5 Mg Tablet) 10 mg PO BEDTIME PRN PRN Reason: Sleep Last Admin: 06/03/25 21:34 Dose: 10 mg Documented By: BETTYE Labs 06/02/25 14:00 06/04/25 05:50 Labs: Laboratory Results - last 24 hr 06/03/25 06/03/25 06/04/25 16:04 21:17 05:50 Anion Gap 12 Estim Creat Clear Calc 77.4 Estimated GFR > 60 POC Glucose 269 H 360 H* Random Glucose 246 H Calcium 8.9 06/04/25 06/04/25 07:18 12:19 Anion Gap Estim Creat Clear Calc Estimated GFR POC Glucose 201 H 230 H Random Glucose Calcium Assessment and Plan (1) Right leg weakness: Status: Acute Assessment and Plan: 55yo F with HLD, HTN, DM2, multiple strokes [biopsy done for vasculitis was negative] with residual RLE weakness, chronic low back pain presented to ED after 2 falls and report of R-sided pain; ED concerned about R- sided weakness though this seems to be chronic but given unclear history, was admitted for concern of CVA 1. Right side weakness; resolved -workup essentially unremarkable -appreciate neurology input -PT recommended short-term rehab; at this time patient considering return home with services -re-evaluate in a.m. 2.Hx CVA -statin/blood pressure control/Pradaxa -at baseline 3.HTN -acceptable control on current therapies -adjust as indicated 4. Diabetes type 2 -history of poor compliance -continue outpatient therapies -lispro correctional scale -adjust as indicated Full code Pradaxa Patient requires ongoing hospitalization to assess complete resolution of symptoms. We will discuss short-term rehab versus home with services in a.m. (2) Type 2 diabetes mellitus: Status: Acute Quality Stroke Does the patient have a stroke diagnosis?: No VTE Prior VTE?: No VTE Risk Level:: Medical - moderate - high VTE Device Contraindication: N/A - Device Ordered VTE Drug Contraindication: N/A - Med Ordered
[2025-06-04 16:24] LABS: Glucose, Whole Blood 357 mg/dL (60-115)
--- NOTE | 2025-06-04 16:33 | PC.NURSE ---
BS 357,Dr. Cadet made aware
[2025-06-04 19:28] VITALS: BP 142/80; PULSE 88; RESP 18; TEMP 36.6; O2SAT 94
[2025-06-04 20:30] LABS: Glucose, Whole Blood 310 mg/dL (60-115)
[2025-06-04] MEDS: Insulin Glargine,Hum.rec.anlog 100 UNIT/ML 10 ML VIAL 20 UNIT SUBCUT (21:57)
[2025-06-04 23:56] VITALS: BP 153/60; PULSE 77; RESP 18; TEMP 36.5; O2SAT 96
[2025-06-05 03:27] VITALS: BP 131/72; PULSE 74; RESP 18; TEMP 36.1; O2SAT 93
[2025-06-05 08:00] VITALS: BP 149/73; PULSE 83; RESP 14; TEMP 36.4; O2SAT 97
[2025-06-05 08:38] LABS: Glucose, Whole Blood 173 mg/dL (60-115)
[2025-06-05] MEDS: 0.9 % Sodium Chloride Flush 3 ML SYRINGE IVFLUSH ×3 (08:47→19:59)
[2025-06-05] MEDS: Propranolol HCL LA 60 MG CAP.SA.24H 120 MG PO (08:48)
[2025-06-05] MEDS: oxyCODONE HCl Immed Release 5 MG TABLET 7.5 MG PO ×2 (09:16→19:58)
[2025-06-05 11:29] LABS: Glucose, Whole Blood 161 mg/dL (60-115)
[2025-06-05 12:00] VITALS: BP 119/62; PULSE 80; RESP 18; TEMP 36.7; O2SAT 92
--- NOTE | 2025-06-05 13:02 | HO.PM.IMPN ---
Subjective Subjective Date of Service: 06/05/25 Interval History: Complaining of tooth pain otherwise no acute issues Review of Systems Denies chest pain Denies shortness of breath Denies nausea vomiting diarrhea Denies fever chills Physical Exam Vital Signs: Vital Signs: Last Vital Signs Temp 98.1 F 06/05/25 12:00 Pulse 80 06/05/25 12:00 Resp 18 06/05/25 12:00 BP 119/62 06/05/25 12:00 Pulse Ox 92 06/05/25 12:00 O2 Del Method Room Air 06/05/25 12:00 BMI result Body Mass Index 35.3 Const: Other: Awake alert no acute distress Resp: Other: Clear to auscultation bilaterally no rales rhonchi or wheezes Cardio: Other: No S4; positive S1-S2; no S3 murmurs rubs or gallops GI: Other: Soft nontender nondistended normoactive bowel sounds Extrem: Other: No edema bilaterally Objective Data Active Medications Acetaminophen (Acetaminophen 325 Mg Tablet) 650 mg PO Q6H PRN PRN Reason: Pain, Mild 1-3,fever,headache Amlodipine Besylate (Amlodipine Besylate 10 Mg Tablet) 10 mg PO DAILY [facility]; Protocol Last Admin: 06/05/25 08:48 Dose: 10 mg Documented By: TIARA Atorvastatin Calcium (Atorvastatin Calcium 40 Mg Tablet) 40 mg PO DAILY [facility] Last Admin: 06/05/25 08:48 Dose: 40 mg Documented By: TIARA Calcium Carbonate (Calcium Carbonate 750 Mg Tab.Chew) 750 mg PO Q4H PRN PRN Reason: Heartburn Cyclobenzaprine HCl (Cyclobenzaprine Hcl 10 Mg Tablet) 10 mg PO BID [facility] Last Admin: 06/05/25 08:49 Dose: 10 mg Documented By: TIARA Dabigatran (Dabigatran Etexilate Mesylate 150 Mg Capsule) 150 mg PO BID [facility] Last Admin: 06/05/25 08:48 Dose: 150 mg Documented By: TIARA Dextrose (Dextrose 50 % 25 Gm/50 Ml Syringe) 25 gm IVPUSH Q15M PRN; Protocol PRN Reason: per Hypoglycemia Standing Ord. Gabapentin (Gabapentin 300 Mg Capsule) 300 mg PO BEDTIME [facility] Last Admin: 06/04/25 21:55 Dose: 300 mg Documented By: BETTYE Glucose (Glucose Gel 15 Gm Gel..Gram.) 15 gm PO Q15M PRN; Protocol PRN Reason: per Hypoglycemia Standing Ord. Hydrochlorothiazide (Hydrochlorothiazide 25 Mg Tablet) 25 mg PO DAILY [facility]; Protocol Last Admin: 06/05/25 08:48 Dose: 25 mg Documented By: TIARA Insulin Glargine (Insulin Glargine,Hum.Rec.Anlog 100 Unit/Ml 10 Ml Vial) 20 unit SUBCUT BEDTIME [facility] Last Admin: 06/04/25 21:57 Dose: 20 unit Documented By: BETTYE Insulin Human Lispro (Insulin Lispro 100 Unit/Ml 3 Ml Vial) 0 unit SUBCUT QIDACHS [facility]; Protocol Last Admin: 06/05/25 11:43 Dose: 2 unit Documented By: TIARA Magnesium Hydroxide (Milk Of Magnesia 30 Ml Oral.Susp) 30 ml PO DAILY PRN PRN Reason: Constipation Ondansetron HCl (Ondansetron Hcl 4 Mg/2 Ml Vial) 4 mg IVPUSH Q4H PRN PRN Reason: Nausea and Vomiting Last Admin: 06/04/25 15:47 Dose: 4 mg Documented By: TIARA Oxycodone HCl (Oxycodone Hcl Immed Release 5 Mg Tablet) 7.5 mg PO Q8H PRN PRN Reason: Pain, Severe (Pain Scale 7-10) Last Admin: 06/05/25 09:16 Dose: 7.5 mg Documented By: TIARA Potassium Chloride (Potassium Chloride Er 20 Meq Tab.Er.Prt) 20 meq PO DAILY [facility] Last Admin: 06/05/25 08:49 Dose: Not Given Documented By: TIARA Non-Admin Reason: Patient Refused Propranolol HCl (Propranolol Hcl La 60 Mg Cap.Sa.24h) 120 mg PO DAILY [facility]; Protocol Last Admin: 06/05/25 08:48 Dose: 120 mg Documented By: TIARA Sodium Chloride (0.9 % Sodium Chloride Flush 3 Ml Syringe) 3 ml IVFLUSH QSHIFT [facility] Last Admin: 06/05/25 08:47 Dose: 3 ml Documented By: TIARA Zolpidem Tartrate (Zolpidem Tartrate 5 Mg Tablet) 10 mg PO BEDTIME PRN PRN Reason: Sleep Last Admin: 06/04/25 21:55 Dose: 10 mg Documented By: BETTYE Labs 06/02/25 14:00 06/04/25 05:50 Labs: Laboratory Results - last 24 hr 06/04/25 06/04/25 06/05/25 16:17 20:27 07:59 POC Glucose 357 H* 310 H 173 H 06/05/25 11:12 POC Glucose 161 H Assessment and Plan (1) Right leg weakness: Status: Acute Assessment and Plan: 55yo F with HLD, HTN, DM2, multiple strokes [biopsy done for vasculitis was negative] with residual RLE weakness, chronic low back pain presented to ED after 2 falls and report of R-sided pain; ED concerned about R-sided weakness though this seems to be chronic but given unclear history, was admitted for concern of CVA 1. Right side weakness; resolved -workup essentially unremarkable -appreciate neurology input -PT recommended short-term rehab; agreed to re-evaluate this time 2.Hx CVA -statin/blood pressure control/Pradaxa -at baseline 3.HTN -acceptable control on current therapies -adjust as indicated 4. Diabetes type 2 -history of poor compliance -continue outpatient therapies -lispro correctional scale -adjust as indicated Full code Pradaxa Patient requires ongoing hospitalization to assess complete resolution of symptoms. We will discuss short-term rehab versus home with services in a.m. (2) Right sided weakness: Status: Acute Quality Stroke Does the patient have a stroke diagnosis?: No VTE Prior VTE?: No VTE Risk Level:: Medical - moderate - high VTE Device Contraindication: N/A - Device Ordered VTE Drug Contraindication: N/A - Med Ordered
[2025-06-05 15:12] VITALS: PULSE 83; RESP 18; TEMP 36.6; O2SAT 96
[2025-06-05 16:26] LABS: Glucose, Whole Blood 308 mg/dL (60-115)
[2025-06-05 19:46] VITALS: BP 139/76; PULSE 81; RESP 18; TEMP 36.3; O2SAT 98
[2025-06-05 19:50] LABS: Glucose, Whole Blood 262 mg/dL (60-115)
[2025-06-05] MEDS: Insulin Glargine,Hum.rec.anlog 100 UNIT/ML 10 ML VIAL 20 UNIT SUBCUT (20:02)
[2025-06-05 23:27] VITALS: BP 110/60; PULSE 75; RESP 18; TEMP 36.3; O2SAT 93
[2025-06-06 02:54] VITALS: BP 132/69; PULSE 83; RESP 18; TEMP 36.5; O2SAT 93
[2025-06-06] MEDS: oxyCODONE HCl Immed Release 5 MG TABLET 7.5 MG PO ×2 (06:48→16:08)
[2025-06-06 07:35] VITALS: BP 156/72; PULSE 90; RESP 18; TEMP 36.7; O2SAT 92
[2025-06-06 07:46] LABS: Glucose, Whole Blood 196 mg/dL (60-115)
[2025-06-06] MEDS: Propranolol HCL LA 60 MG CAP.SA.24H 120 MG PO (08:26)
[2025-06-06] MEDS: 0.9 % Sodium Chloride Flush 3 ML SYRINGE IVFLUSH ×2 (08:27→16:10)
[2025-06-06 11:28] LABS: Glucose, Whole Blood 184 mg/dL (60-115)
[2025-06-06 12:00] VITALS: BP 146/73; PULSE 87; RESP 18; TEMP 36.8; O2SAT 94
--- NOTE | 2025-06-06 15:22 | PM.DS ---
DS: Providers Provider Date of Service: 06/06/25 Date of admission: 06/02/25 16:42 Date of discharge: 06/06/25 Primary care physician: Unknown Physician Consults: 06/02/25 16:46 Consult to Neurology Routine Consulting Provider: Opal Calle Reason for consultation: h/o stroke,chronic R side weakness; ?worse weakness; seen by neuro 06/01 op DS: Diagnosis Discharge Diagnosis (1) Right leg weakness: Status: Acute (2) Right sided weakness: Status: Acute DS: Summary Hospital Course Hospital Course: 55 year old female with history of strokes and right-sided weakness who presents to the emergency department with right-sided pain and falls. patient is a difficult historian as she is slow to answer most questions. It was reported by the emergency room provider that she woke up with right-sided weakness. Per previous documentation patient has chronic right-sided weakness stemming from previous stroke. She has been followed in Neurology and was seen as recently as yesterday. She has been having difficulty with right-sided pain and lower back pain and has been prescribed steroids. The patient says she fell twice and that's why she came to the ED. She isn't really sure why she fell, but denies feeling dizzy or lightheaded prior to her falls. She does use a cane or a wheelchair due to chronic unsteady gait and was not using either at the time of both falls. She did not have loss of consciousness. Due to concern for stroke she head head/neck CTA were obtained which was negative for any high-grade stenosis, brain CT showed old infarcts similar to prior exams with no acute intracranial abnormality.Previous admissions indicate patient has previously had right side weakess and also indicate that patient is poor historian and timeline changes frequently, therefore it is difficult to determine if and when there was a change in her right side weaknes Hospital Course Patient admitted to general medical floor and seen in consultation by Neurology; neurology felt no acute issues to pursue at this time and then was likely psycho somatization. She was seen in consultation by Physical therapy who deemed her appropriate for short-term rehab. At this point in time she is medically acceptable for same and we will be transferred to local facility Time Attestation Discharge Coordination Time (in mins): 35 Quality: Safe Use of Opioids Does Pt have an Active Cancer Diagnosis on the Problem List?: No Quality: Stroke Does the patient have a stroke diagnosis?: No Physical Exam Vital Signs: Vital Signs: Last Vital Signs Temp 98.2 F 06/06/25 12:00 Pulse 87 06/06/25 12:00 Resp 18 06/06/25 12:00 BP 146/73 H 06/06/25 12:00 Pulse Ox 94 06/06/25 12:00 O2 Del Method Room Air 06/06/25 12:00 BMI result Body Mass Index 35.3 Const: Other: Awake alert no acute distress Resp: Other: Clear to auscultation bilaterally no rales rhonchi or wheezes Cardio: Other: No S4; positive S1-S2; no S3 murmurs rubs or gallops GI: Other: Soft nontender nondistended normoactive bowel sounds Extrem: Other: No edema bilaterally DS: Data Data Completed and Pending Labs on day of discharge: Laboratory Results - last 24 hr 06/05/25 06/05/25 06/06/25 16:15 19:45 07:43 POC Glucose 308 H 262 H 196 H 06/06/25 11:21 POC Glucose 184 H Discharge Plan Discharge Anticipated Discharge Date/Time: 06/03/25 13:06 Patient Disposition: Xfer SNF Discharge Diagnosis: old stroke, chronic pain + weakness, hypokalemia Referrals: Physician,Unknown J [Primary Care Provider, Medical] - 1 Week Discharge Medications: Continued (DME) freestyle mario sensor cover See Rx Instructions .Route .MEDSUPPLY Qty: 2 5RF Rx Instructions: As directed (DME) lancets [FreeStyle Lancets] 28 gauge misc See Rx Instructions .ROUTE QID Qty: 100 0RF Rx Instructions: As directed 3 times per day atorvastatin [Lipitor] 40 mg tablet 40 mg PO DAILY 90 Days Qty: 90 3RF (DME) FreeStyle Lite Strips Strip See Rx Instructions .ROUTE TID Qty: 10 0RF Rx Instructions: As directed three times per day (DME) FreeStyle Mario 2 Plus Sensor Device See Rx Instructions .Route Qty: 2 11RF Rx Instructions: As directed (DME) pen needle, diabetic 32 gauge x 5/32 needle See Rx Instructions .ROUTE .COMPLEX Qty: 100 2RF Dose Instruction: USE FOUR TIMES DAILY WITH INSULIN PENS DX: E11.9 Rx Instructions: USE FOUR TIMES DAILY WITH INSULIN PENS DX: E11.9 amlodipine 10 mg tablet 10 mg PO DAILY Qty: 90 0RF cyclobenzaprine 10 mg tablet 10 mg PO BID 30 Days Qty: 60 1RF oxycodone-acetaminophen 7.5-325 mg tablet 1 tab PO DAILY PRN (Reason: pain) 30 Days Qty: 30 0RF Rx Instructions: Partial Fill upon patient request. zolpidem 10 mg tablet 10 mg PO BEDTIME PRN (Reason: sleep) 30 Days Qty: 30 2RF propranolol 120 mg capsule,extended release 24 hr 120 mg PO DAILY Qty: 90 0RF dabigatran etexilate 150 mg capsule 150 mg PO BID Qty: 60 2RF prednisone 20 mg tablet 10 mg PO DAILY Taper: Prednisone 10 mg daily for 2 Days and 0 Hour gabapentin 300 mg capsule 300 mg PO BEDTIME Rx Instructions: 300 mg orally 1 capsule at bedtime x1 week, then 1 capsule twice a day; hydrochlorothiazide 25 mg tablet 25 mg PO DAILY insulin glargine [Lantus Solostar U-100 Insulin] 100 unit/mL (3 mL) insulin pen 30 unit subcut BEDTIME Humalog KwikPen Insulin 200 unit/mL (3 mL) insulin pen 20 unit subcut TIDAC (DME) FreeStyle Mario 2 [place] Misc See Rx Instructions .Route Qty: 1 0RF Rx Instructions: test 3 times daily Discharge Orders: Discharge Order (Routine); Ordered 06/06/25 Ordered By: Chris Cadet Diet: Diabetic diet Activity on Discharge: As tolerated Stand Alone Forms: Patient Portal Discharge page Print Language: [place] Care Plan Goals: stroke prevention Health Concerns: old stroke, chronic pain + weakness, hypokalemia Plan of Treatment: short-term rehabilitation take Pradaxa 150 mg twice daily for stroke prevention; also atorvastatin 40 mg daily take potassium chloride 20 mEq daily Please follow up with your primary care doctor within 1 week of discharge from rehabilitation. Return to the hospital if you experience recurrent or worsening symptoms. Assessment: See Discharge Summary.
--- NOTE | 2025-06-06 15:26 | MHC.CM.PN ---
pt leaving at 7;30 to go to [facility]
--- NOTE | 2025-06-06 15:32 | MHC.CM.PN ---
[facility]
[2025-06-06 16:00] VITALS: BP 128/74; PULSE 81; RESP 16; TEMP 37; O2SAT 98
[2025-06-06 16:35] LABS: Glucose, Whole Blood 247 mg/dL (60-115)
== END 2025-06-06 19:36 | disposition skilled nursing facility (03) ==
LOC: HO.ED 16:26 → HO.EDOVER 16:42 → HO.IMC 19:19 → HO.S3 06-03 16:28
PROVIDERS: Family Medicine; Admitting Provider Physician Assistant Medical; Emergency Provider Emergency Medicine; Visit Provider Hospitalist
DX: E87.6 Hypokalemia (principal); G89.29 Other chronic pain; R53.1 Weakness; R20.0 Anesthesia of skin; E11.9 Type 2 diabetes mellitus without complications; G81.91 Hemiplegia, unspecified affecting right dominant side; R47.81 Slurred speech; K08.89 Other specified disorders of teeth and supporting structures; Z79.4 Long term (current) use of insulin; Z86.73 Personal history of transient ischemic attack (TIA), and cerebral infarction without residual deficits; Z79.01 Long term (current) use of anticoagulants; Z91.81 History of falling
CPT/HCPCS: 36415; 70450; 70496; 70498; 70551; 80048; 80061; 82947; 84484; 85025; 85610; 85730; 93005; 96374; 97162; 97166; 97530; 99221; 99285; J2405; Q9967

== ENCOUNTER → 2025-06-02 13:52 | Outpatient (BNV) | payer OTHER, SELFPAY | PROVIDERS: Admitting Provider Physician Assistant Medical; Emergency Provider Emergency Medicine; Visit Provider Internal Medicine Cardiovascular Disease | DX: I51.7 Cardiomegaly (principal) | CPT/HCPCS: 93010 ==

== ENCOUNTER → 2025-06-02 13:52 | Outpatient (BNV) | payer OTHER, SELFPAY | PROVIDERS: Emergency Provider Emergency Medicine; Visit Provider Radiology Diagnostic Radiology | DX: R20.2 Paresthesia of skin (principal); R53.1 Weakness | CPT/HCPCS: 70450; 70496; 70498 ==

== ENCOUNTER 2025-06-02 16:42 | Outpatient (BNV) | payer OTHER, SELFPAY | END 2025-06-03 11:17 | PROVIDERS: Admitting Provider Physician Assistant Medical; Emergency Provider Emergency Medicine; Visit Provider Radiology Diagnostic Radiology | DX: I67.82 Cerebral ischemia (principal); R53.1 Weakness | CPT/HCPCS: 70551 ==

== ENCOUNTER → 2025-06-02 16:42 | Outpatient (BNV) | payer OTHER, SELFPAY | PROVIDERS: Admitting Provider Physician Assistant Medical; Emergency Provider Emergency Medicine; Visit Provider Physician Assistant Medical | DX: I69.361 Other paralytic syndrome following cerebral infarction affecting right dominant side (principal); G89.29 Other chronic pain; R29.898 Other symptoms and signs involving the musculoskeletal system | CPT/HCPCS: 99223; 99232; 99233; 99239 ==

== ENCOUNTER → 2025-06-02 16:42 | Outpatient (BNV) | payer OTHER, SELFPAY | PROVIDERS: Admitting Provider Physician Assistant Medical; Emergency Provider Emergency Medicine; Visit Provider Psychiatry & Neurology Neurology | DX: Z86.73 Personal history of transient ischemic attack (TIA), and cerebral infarction without residual deficits (principal); R53.1 Weakness | CPT/HCPCS: 99223 ==

== ENCOUNTER 2025-07-04 10:25 | Outpatient (AMB) | payer OTHER, SELFPAY ==
--- NOTE | 2025-07-04 10:30 | A.OFFVIS_ITS ---
Intake Visit Reasons: 6 Months- Stroke, RIOS, insomnia Allergies No Known Allergies Allergy (Verified 07/04/25 10:42) Medication List - Last Reconciled 07/04/25 by Olinda Gerard CNP amlodipine 10 mg PO DAILY atorvastatin (Lipitor) 40 mg PO DAILY 90 days blood sugar diagnostic (FreeStyle Lite Strips) As directed three times per day blood-glucose sensor (FreeStyle Mario 2 Plus Sensor device) As directed cyclobenzaprine 10 mg PO BID 30 days dabigatran etexilate 150 mg PO BID flash glucose scanning reader (FreeStyle Mario 2 [place]) test 3 times daily [freestyle mario sensor cover As directed] gabapentin 300 mg PO BID hydrochlorothiazide 25 mg PO DAILY insulin glargine (Lantus Solostar U-100 Insulin) 30 units subcut BEDTIME insulin lispro (Humalog KwikPen U-200 Insulin) 20 units subcut TIDAC lancets (FreeStyle Lancets) As directed 3 times per day oxycodone-acetaminophen 7.5-325 mg 1 tab PO DAILY PRN 30 days pen needle, diabetic USE FOUR TIMES DAILY WITH INSULIN PENS DX: E11.9 propranolol ER 120 mg PO DAILY zolpidem 10 mg PO BEDTIME PRN 30 days HPI Comments Details: She presented to [facility] on 06/02/2025 for right-sided weakness and falls, and was admitted for few days, and subsequently discharged to rehab. She had CT, CTA head/neck, and brain MRI at [facility], which did not show any acute findings. She has been home from rehab for about 1 week and she thought weakness may have gotten worse. She was apparently discharged home with PT, OT, and nursing, but services have not started yet. She was ?furniture walking at home, no falls. She says she has pain to her entire back and legs, R > L. No specific aggravating or alleviating factors identified. She was unable to describe the pain, saying that the pain was pain. As she said at her previous appointment in 05/2025, she said she had to sit down and take few breaks when making herself a sandwich, like resting between getting supplies out of refrigerator and then putting them on bread. She said gabapentin and cyclobenzaprine did not help. She said she could take cyclobenzaprine 3-4x/day without any improvement. Cyclobenzaprine was ordered twice a day as needed. She was again asking Percocet dose could be increased. She did not have MRI LS spine done which was ordered at last appointment. She was seen on 06/01/2025 with severe lower back pain, right-sided, with pain all the way down right leg and into foot. Pain began to increase about a week ago without any specific trigger. No recent falls, accidents, or injuries. She r ated pain as 20 on scale of 1-10. Pain was always there, throbbing. Pain was worse after walking or standing for periods of time. She needed help walking on stairs. She could walk short distances in house, like from living room to kitchen. She had to sit down and take few breaks when making herself a sandwich and the whole process would take about 40 minutes. No improvement with prednisone taper which she started on 05/29/2025. She tried cyclobenzaprine a few times in the past, but did not notice any significant difference and has not been using medication. She reports trying heat and ice without any change. She noticed that it may be taking her longer to urinate, but denies any pain, burning, or foul odor. Seen at [facility] ER in 02/19/2025 for LBP without specific trigger. Continued with LBP, primarily right sided with pain into leg for about 1.5 weeks and was prescribed prednisone taper which helped along with cyclobenzaprine as needed. Ongoing weakness and numbness to both sides is unchanged. No new stroke-like symptoms or seizures. Ongoing daily headaches and asked if Percocet dose could be increased, and was informed that dose would not be changed. Zolpidem 10mg was working for sleep as long as she was not eating close to when she took medication, getting about 6-8 hours/sleep. Tried trazodone 100mg and eszopiclone 1mg which did not help. She tried Zolpidem ER which did not help. Has trouble falling asleep, waking up few times during the night and having trouble falling back to sleep.? Hospitalized at [facility] for falls in 06/2024 and discharged to [facility] rehab. Lives alone. Son is her RECEP. Ongoing R sided weakness and numbness, some L side numbness. Daily headaches, usually takes Percocet 7.5mg 1/2 tab in morning and other 1/2 in evening which helps some. Low energy and fatigue. On 12/15/22 had acute left thalamic infarction with persistent right lower extremity weakness new from baseline, with right-sided numbness with acute infarction and left thalamus, extensive chronic lacunar infarction by at bilateral basal ganglia, thalami and andreea and deep cerebral white matter, chronic cortical infarction in right more than left frontal lobes and in the left posterior parietal temporal and occipital lobe. Saw a cullet crusher and washer for chest pains and there was some issue that they are watching. BP is under control. Always feels tired, exhausted, and out of breath. She had multiple strokes in the past. Angiography suggested vasculitis, but biopsy was negative. MRI recently repeated and was sent to Neurosurgery. Dr. Cade did not want to intervene. Adequately anticoagulated. [facility] Medical History (Updated 06/09/25 @ 00:02 by Background Daemon) Cerebrovascular accident Acute right hemiparesis History of stroke Right leg weakness Lumbar radiculopathy Foot drop Uncontrolled hypertension Cerebral microvascular disease Chronic idiopathic cerebral venous infarction Thalamic infarct, acute Cerebrovascular accident Headache GERD (gastroesophageal reflux disease) Cardiomyopathy Excessive daytime sleepiness Obesity (BMI 35.0-39.9 without comorbidity) Breast cancer in female Hyperlipidemia Cerebrovascular disease History of multiple strokes Benign nevus Family history of breast cancer Essential (primary) hypertension Multiple sclerosis (Unknown) Surgical History (Updated 06/09/25 @ 00:02 by Background Daemon) History of removal of cyst (05/07/22) Hx of colonoscopy (~09/25/22) History of esophagogastroduodenoscopy (EGD) History of breast surgery Family History Mother Cancer Brother H/O heart surgery Maternal Aunt Breast cancer Social History Household Members: None Household Members Other:: daughter is staying with pt now Housing: Other Housing Other:: [facility] Are you a primary assistant child care teacher to a significant other at home: No Do you presently have visiting nurse or other home services: No Alcohol intake: current Alcohol intake frequency: does not drink Patient Tobacco Use Status: Never used Tobacco e-Cigarette/Vaping Use: Never Used Second Hand Smoke Exposure: No Advance Directives Date on File: 12/19/22 service: No Current occupational status: disabled Cognitive needs: No Hearing needs: No Vision needs: No Female Reproductive History Menstrual Age of Menarche: 10 Review of Systems Const Denies chills, Denies daytime sleepiness, Reports difficulty sleeping, Reports fatigue, Denies fever(s), Denies frequent falls, Reports headache(s), Denies increased appetite, Denies poor appetite, Denies snoring, Denies weakness, Den ies weight gain and Denies weight loss Eyes Denies loss of vision ENT Denies vertigo, Denies dizziness, Reports headache(s) and Denies neck pain Card Denies chest pain at rest, Denies chest pain with activity, Denies syncope, Denies leg edema, Denies palpitations, Denies dyspnea and Denies dyspnea on exertion Resp Denies cough, Denies dyspnea, Denies dyspnea on exertion and Denies snoring GI Denies abdominal pain, Denies constipation, Denies heartburn, Denies diarrhea an d Denies nausea Denies urinary frequency, Denies urinary incontinence and Denies urinary urgency Musc Denies abnormal gait, Denies back pain, Denies myalgias, Denies arthralgias, Denies neck pain, Denies numbness and Denies tingling Neuro Denies abnormal gait, Denies vertigo, Denies dizziness, Denies syncope, Denies frequent falls, Reports headache(s), Denies lack of coordination, Denies loss of vision, Reports memory loss, Denies numbness, Denies Other visual disturbances, Denies restless legs, Denies seizure-like activity, Denies tingling, Denies paresthesias, Denies tremor(s) and Denies weakness Psych Denies anxiety, Denies depression, Denies auditory hallucinations, Reports memory loss and Denies visual hallucinations Endo Reports fatigue and Denies palpitations Physical Exam Const Other: General Appearance:? normal, in no acute distress. Heart:? S1, S2 normal, no murmurs. Lungs:? clear anteriorly and posteriorly. Musculoskeletal:? normal. Extremities:? no edema. Psych:? alert, oriented, cognitive function intact, cooperative with exam. Neuro Other: Abnormal Neurological Findings:?Partial right homonymous hemianopsia, slight right facial droop. 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 Slow LANDY bilaterally. Generalized RLE weakness with submaximal effort on voluntary motor testing. She was in wheelchair. She stood with right hand holding onto arm of wheelchair for few seconds before sitting back down. She was unable to raise either leg more than few inches off ground on motor testing (left better than right), but was able to raise both legs much better (straight and bent at knee) and without assistance to get wheelchair leg rests back under her feet. Mental Status: alert and oriented X 3. Normal attention, orientation, memory, and affect. Cranial Nerves: Right partial visual field defect. Pupils are equal, round and reactive to light. External occular muscles are intact. Face is asymmetrical with slight droop on the right side. Facial sensations are normal. Tongue is midline. Palate elevates symmetrically. Shoulder shrugging is normal.? Motor Examination: As above. DTRs 1-2+, plantars are flexor Sensory Exam: Normal light touch, temperature, pinprick, vibration, and joint- position sensations. Rhomberg sign is absent. Coordination: No ataxia. No titubation. Gait Exam: In wheelchair. Cerebellar Signs: Rueruh-mi-fmay is okay. Extrapyramidal System: No tremor, rigidity with normal facial expressions. No bradykinesia. No bradyphrenia. Normal arm swing and posture. No propulsion or retropulsion. Speech: Normal, slowed. Results Reviewed Results Reviewed: [place] [address] CT Scan Report Signed Patient: Esmer Rock MR#: [id number] : 1970 Acct:[id number] Age/Sex: 55 / F ADM Date: 06/02/25 Loc: .ED Attending Dr: Ordering Physician: Bienvenido Garcia MD Date of Service: 06/02/25 Procedure(s): CT head for STROKE Accession Number(s): [id number] cc: Bienvenido Garcia MD~ Report Number: [id number]: Total DLP = 742.00 mGy-cm Reason for Exam: Stroke Protocol EXAMINATION: CT HEAD WITHOUT IV CONTRAST STROKE HISTORY: Stroke Protocol. TECHNIQUE: Unenhanced helical CT of the head was performed per standard departmental protocol. Coronal and sagittal reformats of the head were also evaluated. One or more of the following techniques was used for dose reduction: Automated exposure control, adjustment of the mA and/or kV according to patient size, use of iterative reconstruction technique. DLP: 742 mGy-cm COMPARISON: Previous head CT scans most recent October 2024 FINDINGS: BRAIN: Old left posterior parietal occipital and right frontal subcortical white matter infarcts unchanged. Old bilateral basal ganglia lacunar infarcts unchanged. No mass, mass effect or acute infarct. Ventricles and extra-axial CSF spaces are slightly prominent suggestive of mild generalized atrophy. Nonspecific periventricular white matter disease unchanged. No hyperdense vessel sign. SINUSES: Minimal soft tissue thickening maxillary sinuses. The visualized paranasal sinuses are otherwise clear. The mastoid air cells and middle ear cavities are well pneumatized. ORBITS: The visualized orbits are unremarkable. BONES/SOFT TISSUES: Postsurgical change to the right frontal bone similar to previous exams. No fracture. No suspicious lytic or sclerotic lesions. CT/CT head for STROKE IMPRESSION: No acute intracranial abnormality. Old infarcts similar to prior exams. Findings communicated to Dr. Garcia by telephone on 06/02/2025 at 2:06 PM. Electronically signed by: Esmer Bal MD 06/02/2025 02:13 PM [facility] Dictated By: Esmer Bal MD Signed By: <Electronically signed by Esmer Bal MD in OV> 06/02/[address] [place] [address] CT Scan Report Signed Patient: Esmer Rock MR#: [id number] : 1970 Acct:[id number] Age/Sex: 55 / F ADM Date: 06/02/25 Loc: HO.ED Attending Dr: Ordering Physician: Bienvenido Garcia MD Date of Service: 06/02/25 Procedure(s): CT angio head neck STROKE Accession Number(s): [id number] cc: Bienvenido Garcia MD~ Report Number: [id number]: Total DLP = 647.00 mGy-cm Reason for Exam: Stroke Protocol EXAMINATION: CTA NECK WITH CONTRAST (STROKE) CTA BRAIN WITH CONTRAST (STROKE) CLINICAL INFORMATION: Suspect acute stroke. Assess for major vessel occlusion. Please call report. COMPARISON: December 15, 2022 TECHNIQUE: CTA of the head and neck was performed in the axial plane from the mediastinum to the skull vertex using 70 mL Omnipaque 350 intravenous contrast. Additional reformatted multiplanar images including maximum intensity projection MIP images are generated on the CT workstation. This CT examination was performed using dose optimization techniques as appropriate, variously including the following: *Automated exposure control *Adjustment of mA and/or kV according to patient size (this includes techniques or standardized protocols for targeted exams where dose is matched to indication/reason for exam; i.e. extremities or head) *Use of iterative reconstruction technique DLP: 647 mGy-cm FINDINGS: The degree of stenosis determined by criteria similar to NASCET. Chest CTA: Ascending thoracic aorta diameter 4.2 cm. No focal stenosis. No intimal flap. Main branches are patent. Left vertebral artery origin directly from the aortic arch just distal to the left subclavian artery. Neck CTA: Right CCA: Normal patency. No focal stenosis. Calcified plaque. No intimal flap. Right ICA: Small calcified plaque. Normal patency. No focal stenosis. No intimal flap. Left CCA: Normal patency. No focal stenosis. No intimal flap. Calcified plaque. Left ICA: Calcified plaque. Normal patency. No focal stenosis. No intimal flap. V1/V2 segments: Tortuosity. Normal patency. No focal stenosis. No intimal flap. Right vertebral artery slightly dominant. Ancillary findings: Pulmonary patchy groundglass, upper lung lobes. Brain CTA: Anterior cerebral circulation: ICAs: Calcified plaques, cavernous supraclinoid segments. Normal patency. No focal stenosis. No abrupt cut off. ICA terminus demonstrated no vascular abnormality. MCA's: Normal patency. No focal stenosis. No abrupt cut off. Bifurcation/trifurcation demonstrated no gross vascular irregularity. ACAs: Normal patency. No focal stenosis. No abrupt cut off. No vascular irregularity. Anterior communicating artery is not identified. Ophthalmic arteries are patent and normal. Left posterior communicating artery is robust and patent. Posterior cerebral circulation: V3/V4 segments: Normal patency. No focal stenosis. No intimal flap. Right vertebral artery is dominant. Posterior inferior cerebral arteries are patent. No gross abnormality. Basilar artery is patent without focal stenosis or intimal flap. Left anterior inferior cerebral arteries patent. Superior cerebellar arteries are patent without gross abnormality. senior energy analyst: Hypoplastic left A1 segment. Normal patency. No focal stenosis. No abrupt cut off. Ancillary findings: No enhancing mass, intra-axial or extra-axial compartment. No main cerebral venous sinus thrombosis. Encephalomalacia, left parietal occipital and right middle frontal gyrus with multiple old lacunar infarcts in extensive white matter disease related to small vessel occlusive disease. CT/CT angio head neck STROKE IMPRESSION: No main cerebral artery occlusion or embolus. No high degree stenosis or dissection extracranial arteries. 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 Concerning multifocal pneumonia in the correct clinical settings. This critical test result is communicated to: Emergency physician Dr. Bienvenido Garcia via [facility] at 2:25 PM on June 02, 2025. Electronically signed by: Joby Booth MD 06/02/2025 02:43 PM [facility] Dictated By: Joby Reyna MD Signed By: <Electronically signed by Joby Carvalho MD in OV> 06/02/25 [facility] [place] [address] Magnetic Resonance Report Signed Patient: Esmer Rock MR#: [id number] : 1970 Acct:[id number] Age/Sex: 55 / F ADM Date: 06/02/25 Loc: [facility] 482-[address]: Joslyn Ritter MD Ordering Physician: Joslyn Ritter MD Date of Service: 06/03/25 Procedure(s): MR head/brain wo [facility] Accession Number(s): [id number] cc: Joslyn Ritter MD; Physician,Unknown ~ Reason for Exam: R weakness, r/o CVA, EXAMINATION: MR BRAIN WITHOUT CONTRAST CLINICAL INFORMATION: Right-sided weakness. Prior strokes. COMPARISON: December 15, 2022. Correlated to recent CT had dated June 02, 2025. TECHNIQUE: MRI of the brain was obtained using routine sequences without contrast. FINDINGS: No restricted diffusion. No acute intracranial hemorrhage, mass effect, midline shift, hydrocephalus or herniation. Prior vascular insult resulting in macrocystic encephalomalacia involving the cortical subcortical deep white matter left parietal occipital lobe with associated susceptibility signal and hyperintense T2 FLAIR signal/gliosis and old hemorrhagic components. There is ex vacuo dilatation of the left atrium of the lateral ventricle. Multiple old lacunar infarcts, brainstem, thalami, corpus corpus striatum nuclei with associated susceptibility/old blood products. Old lacunar infarct, right cerebellum. Small macrocystic encephalomalacia with associated gliosis at the cortical subcortical right middle frontal gyrus. Flow-void signal within the main cerebral vessels is normal. Prominence of the extra-axial CSF spaces cerebral sulci and ventricles. Valdes-white matter differentiation is normal. Sellar/suprasellar region demonstrated no gross masses or signal abnormality. Craniocervical junction is intact with normal position of the cerebellar tonsils.. MR/MR head/brain wo con IMPRESSION: No acute ischemia/stroke. Extensive Leukoaraiosis/ small vessel occlusive disease. Old vascular insults in posterior division left MCA and right MCA territories. Electronically signed by: Joby Booth MD 06/03/2025 12:29 PM EST Dictated By: Joby Reyna MD Signed By: <Electronically signed by Joby Carvalho MD in OV> 06/03/25 1229 -- LS Spine XR 02/19/2025: [id number] degenerative endplate changes, no acute fracture or dislocation injury identified at the lumbar spine. CT brain at [facility] 05/27/2024: No acute intracranial pathology. Sequela of remote stroke in the left parietal lobe and left occipital lobe. s/p right frontal craniotomy CT brain at [facility] 06/22/2024: No acute intracranial hemorrhage or edematous territorial infarction. Chronic encephalomalacia of the left occipitoparietal lobes and right frontal lobe, chronic lacunar infarcts of the right caudate head and bilateral thalami, moderate underlying microangiopathy and generalized cerebral volume loss. Assessment & Plan Assessment & Plan (1) Chronic daily headache: Code(s): R51.9 - Headache, unspecified Category: Medical Plan: Continue oxycodone-Acetaminophen Tablet 7.5-325 MG 1 tablet as needed once a day for headache #30 for 30 days (2) History of stroke: Code(s): Z86.73 - Personal history of transient ischemic attack (TIA), and cerebral infarction without residual deficits Category: Medical Plan: Continue Pradaxa 150mg 1 capsule twice a day. (3) Insomnia: Code(s): G47.00 - Insomnia, unspecified Category: Medical Qualifiers: Insomnia type: unspecified Qualified Code(s): G47.00 - Insomnia, unspecified Plan: Continue zolpidem 10mg 1 tablet at bedtime as needed for sleep #30 for 30 days. (4) Lumbar radiculopathy: Code(s): M54.16 - Radiculopathy, lumbar region Category: Medical Plan: She was admitted to [facility] with right-sided weakness and falls in 05/2025 and discharged to rehab, now home and apparently waiting for services (PT, OT, and nursing) to start. She had CT, CTA head/neck, and brain MRI done at [facility], results reviewed. MRI did not show any acute lesions, multiple chronic lesions noted. CTA brain and neck did not reveal any significant vascular stenosis. She said she could take cyclobenzaprine 10mg 3-4x/day without any change in pain (medication was prescribed twice a day as needed). Medication was stopped. Start baclofen 10mg 1 tablet as needed twice a day, use/side effects reviewed #60 for 30 days. Increase gabapentin 300mg 1 capsule three times a day. She was already prescribed oxycodone-acetaminophen 7.5-325mg #30 for 30 days for chronic daily headache - she was again asking for dose of medication to be increased, again she was advised the dose would not be increased and similar type of medication would not be prescribed. She did not have MRI LS spine done that was ordered at last appointment - will check status of this. Referral to pain management placed. Follow up after testing or sooner as needed. Plan Meds tried: zolpidem, zolpidem ER, trazodone 100mg, eszopiclone 1mg Orders: Referrals Pain Management Referral M54.16 - Radiculopathy, lumbar region Medications: New gabapentin 300 mg PO TID 90 caps 3RF 30 days baclofen 10 mg PO BID 60 tabs 2RF 30 days Discontinued cyclobenzaprine Discontinued Reason: Doctor's Order 10 mg PO BID 30 days 60 tabs 1RF Coding Level of Care Code Est Pt Level 4 (35112) Diagnoses Chronic daily headache R51.9 History of stroke Z86.73 Insomnia, unspecified type G47.00 Insomnia type: unspecified Lumbar radiculopathy M54.16
== END 2025-07-04 11:26 | disposition home or self-care (01) ==
LOC: HO.HSM 10:26
PROVIDERS: PCP Internal Medicine; Visit Provider Registered Nurse
DX: R51.9 Headache, unspecified (principal); Z86.73 Personal history of transient ischemic attack (TIA), and cerebral infarction without residual deficits; G47.00 Insomnia, unspecified; M54.16 Radiculopathy, lumbar region
CPT/HCPCS: 99214

== ENCOUNTER → 2025-07-04 10:25 | Outpatient (BNVA) | payer OTHER, SELFPAY | PROVIDERS: PCP Internal Medicine; Visit Provider Registered Nurse | DX: R51.9 Headache, unspecified (principal); G47.00 Insomnia, unspecified; Z86.72 Personal history of thrombophlebitis; M54.16 Radiculopathy, lumbar region; Z79.899 Other long term (current) drug therapy | CPT/HCPCS: 99212 ==